=== PATIENT | female | born 1945 | race Caucasian/White ===

== ENCOUNTER 2020-10-25 07:43 | Outpatient (REF) | payer MEDICARE, SELFPAY ==
[2020-10-25 11:17] LABS: MANUAL DIFF FLAG NO
[2020-10-25 11:25] LABS: Basophils Percent Auto 0.3 % (0-2); Eosinophils Absolute Auto 0.1 X10*3/uL (0.0-0.4); Eosinophils Percent Auto 0.7 % (0-4); Hematocrit 43.5 % (37-47); Hemoglobin 13.8 g/dl (12.0-16.0); Imm Gran Abs Auto 0.05 X10*3/uL (0.00-0.03); Imm Gran Pct Auto 0.7 % (0.0-0.4); Lymphocytes Absolute Auto 2.3 X10*3/uL (1.2-4.9); Lymphocytes Percent Auto 30.8 % (20-40); Mean Corpuscular HGB Conc 31.7 g/dl (31.0-35.0); Mean Corpuscular Hemoglobin 28.8 pg (27.0-33.0); Mean Corpuscular Volume 90.8 fL (80-98); Mean Platelet Volume 11.5 fL (9.4-12.3); Monocytes Absolute Auto 0.7 X10*3/uL (0.1-1.2); Monocytes Percent Auto 8.7 % (2-11); Neutrophils Absolute Auto 4.4 X10*3/uL (2.0-8.3); Neutrophils Percent Auto 58.8 % (45-73); Platelet Count 192 X10*3/uL (160-400); Red Blood Count 4.79 X10*6/uL (4.20-5.50); Red Cell Distribution Width 14.2 % (11.0-16.0); White Blood Count 7.5 X10*3/uL (4.8-10.8)
[2020-10-25 11:47] LABS: Alanine Aminotransferase 9 U/L (0-31); Albumin Level 4.6 g/dL (3.5-5.0); Alkaline Phosphatase 65 U/L (39-117); Anion Gap 14 (12-20); Aspartate Amino Transferase 13 U/L (5-31); Bilirubin Total 0.8 mg/dL (0.0-1.0); Blood Urea Nitrogen 22 mg/dL (9-16); Calcium 9.4 mg/dL (8.4-10.2); Carbon Dioxide 27 mmol/L (22-29); Chloride 102 mmol/L (96-108); Cholesterol 196 mg/dL; Estimated Glomerular Filt Rate 40; Glucose Fasting 78 mg/dL (60-99); HDL Cholesterol 57 mg/dL; LDL Cholesterol Calculated 106 mg/dl; Potassium 4.4 mmol/l (3.3-5.1); Sodium 139 mmol/L (135-145); Total Protein 7.3 g/dL (6.5-8.0); Triglycerides 168 mg/dL
[2020-10-25 12:13] LABS: Free T4 (Free Thyroxine) 1.27 ng/dL (0.71-1.85); Thyroid Stimulating Hormone 6.21 uIU/mL (0.32-4.0)
== END 2020-10-25 07:44 | disposition home or self-care (01) ==
LOC: HO.HMGCLDS 07:43
PROVIDERS: PCP Internal Medicine Medical Oncology; Visit Provider Internal Medicine Medical Oncology
DX: C91.10 Chronic lymphocytic leukemia of B-cell type not having achieved remission (principal); E66.9 Obesity, unspecified; I10 Essential (primary) hypertension
CPT/HCPCS: 36415; 80053; 80061; 84439; 84443; 85025

== ENCOUNTER 2021-01-25 07:44 | Outpatient (REF) | payer MEDICARE, SELFPAY ==
[2021-01-25 11:13] LABS: MANUAL DIFF FLAG NO
[2021-01-25 11:22] LABS: Basophils Percent Auto 0.3 % (0-2); Eosinophils Percent Auto 0.6 % (0-4); Hematocrit 41.8 % (37-47); Hemoglobin 13.4 g/dl (12.0-16.0); Imm Gran Abs Auto 0.07 X10*3/uL (0.00-0.03); Lymphocytes Absolute Auto 1.9 X10*3/uL (1.2-4.9); Lymphocytes Percent Auto 27.1 % (20-40); Mean Corpuscular HGB Conc 32.1 g/dl (31.0-35.0); Mean Corpuscular Hemoglobin 29.1 pg (27.0-33.0); Mean Corpuscular Volume 90.7 fL (80-98); Mean Platelet Volume 11.7 fL (9.4-12.3); Monocytes Absolute Auto 0.7 X10*3/uL (0.1-1.2); Neutrophils Absolute Auto 4.2 X10*3/uL (2.0-8.3); Platelet Count 200 X10*3/uL (160-400); Red Blood Count 4.61 X10*6/uL (4.20-5.50); Red Cell Distribution Width 14.4 % (11.0-16.0); White Blood Count 6.9 X10*3/uL (4.8-10.8)
[2021-01-25 13:48] LABS: Alanine Aminotransferase 7 U/L (0-31); Albumin Level 4.5 g/dL (3.5-5.0); Alkaline Phosphatase 67 U/L (39-117); Anion Gap 16 (12-20); Aspartate Amino Transferase 13 U/L (5-31); Blood Urea Nitrogen 31 mg/dL (9-16); Calcium 9.6 mg/dL (8.4-10.2); Carbon Dioxide 28 mmol/L (22-29); Chloride 102 mmol/L (96-108); Cholesterol 218 mg/dL; Estimated Glomerular Filt Rate 36; Glucose Fasting 89 mg/dL (60-99); HDL Cholesterol 54 mg/dL; LDL Cholesterol Calculated 132 mg/dl; Potassium 4.4 mmol/L (3.3-5.1); Sodium 142 mmol/L (135-145); Total Protein 7.3 g/dL (6.5-8.0); Triglycerides 160 mg/dL
[2021-01-25 14:10] LABS: Thyroid Stimulating Hormone 6.79 uIU/mL (0.32-4.0)
[2021-01-25 14:19] LABS: Free T4 (Free Thyroxine) 1.21 ng/dL (0.71-1.85)
== END 2021-01-25 07:45 | disposition home or self-care (01) ==
LOC: HO.HMGCLDS 07:44
PROVIDERS: PCP Internal Medicine Medical Oncology; Visit Provider Internal Medicine Medical Oncology
DX: C91.10 Chronic lymphocytic leukemia of B-cell type not having achieved remission (principal); I10 Essential (primary) hypertension; E03.9 Hypothyroidism, unspecified; N28.9 Disorder of kidney and ureter, unspecified
CPT/HCPCS: 36415; 80053; 80061; 84439; 84443; 85025

== ENCOUNTER 2021-04-20 09:35 | Inpatient (IN) | payer MEDICARE, SELFPAY ==
[2021-04-20] VITALS (18 sets, daily range): BP systolic 98–153; BP diastolic 64–94; PULSE 119–180; RESP 17–30; TEMP 36.4–36.8; O2SAT 95–100; BMI 36.0
--- NOTE | ~2021-04-20 | XR_ITS ---
EXAMINATION: XR CHEST CLINICAL INFORMATION: Dyspnea COMPARISON: Previous chest x-ray November 2017 TECHNIQUE: Frontal view of the chest was obtained. FINDINGS: The cardiac and mediastinal contours are stable. There is subsegmental atelectasis at the left lung base. The lungs are otherwise clear. There is no pleural effusion or pneumothorax. There are degenerative changes of the spine. XR/XR chest 1V IMPRESSION: No evidence for acute disease in the chest.
--- NOTE | ~2021-04-20 | NM_ITS ---
EXAMINATION: NM LUNG IMAGE PERFUSION CLINICAL INFORMATION: Dyspnea with elevated d-dimer COMPARISON: Chest x-ray 04/20/2021 TECHNIQUE: Following intravenous administration of 4 mCi of 99m Tc MAA imaging of both lungs were obtained in multiple projections. FINDINGS: On perfusion imaging there is normal flow seen through all segments of the lungs. No focal segmental or subsegmental defects seen. The soft tissues are normal. NM/FL pul perfusion IMPRESSION: Normal perfusion scan.
--- NOTE | 2021-04-20 08:55 | ECG_ITS ---
Test Reason : SOB Blood Pressure : / mmHG Vent. Rate : 185 BPM Atrial Rate : 178 BPM P-R Int : 000 ms QRS Dur : 084 ms QT Int : 238 ms P-R-T Axes : 000 093 -86 degrees QTc Int : 417 ms Atrial fibrillation with rapid ventricular response with premature ventricular or aberrantly conducted complexes Rightward axis ST & T wave abnormality, consider lateral ischemia Abnormal ECG When compared with ECG of 24-NOV-2017 22:10, Significant changes have occurred Referred By: Viviana Cordero Electronically Signed By:REMA YAO
--- NOTE | 2021-04-20 09:53 | ED_ITS ---
HPI - SOB/Dyspnea General Chief Complaint: Dyspnea Stated Complaint: difficulty breathing, body swelling x 2 weeks Time Seen by Provider: 04/20/21 09:47 Source: patient and family Mode of arrival: ambulatory Limitations: no limitations History of Present Illness HPI Narrative: 75 yo female with hx of HTN, hypothyroidism, leukemia but in remission for 2 years found to have dyspnea and LE edema for 6 days no fevers, no prior episodes of this in the past MD elicited complaint: shortness of breath Pertinent past history: other (HTN, leukemia in remission) Onset (ago): day(s) (6) Timing: constant Severity: moderate Exacerbating factors: lying flat and exertion Relieving factors: rest Associated symptoms: orthopnea and palpitations Treatment prior to arrival: none Related Data Home Medications Medication Instructions Recorded Confirmed hydrochlorothiazide 1 tab PO QAM 04/20/21 04/20/21 ibrutinib [Imbruvica] 1 tab PO DAILY 04/20/21 04/20/21 levothyroxine [Euthyrox] 1 tab PO DAILY 04/20/21 04/20/21 potassium chloride 2.5 meq PO DAILY 04/20/21 04/20/21 Allergies Allergy/AdvReac Type Severity Reaction Status Date / Time Sulfa (Sulfonamide Allergy Unknown DIFFICULTY Unverified 07/22/20 14:49 Antibiotics) BREATHING [SULFA(SULFONAMIDE ANTIBIOTICS)] sulfamethoxazole Allergy Unknown DIARRHEA, Unverified 07/22/20 14:49 [From BACTRIM] VOMTING, RASH trimethoprim [From BACTRIM] Allergy Unknown DIARRHEA, Unverified 07/22/20 14:49 VOMTING, RASH Review of Systems Review of Systems: Constitutional : No Fever, No Chills ENT/Mouth : No sore throat, No Rhinorrhea, No Swallowing Difficulty Eyes: No Eye Pain, No Swelling, No Redness Cardiovascular : No Chest Pain, positive SOB, No Orthopnea, positive Edema, pos palpitations Respiratory : No Cough, No Sputum, No Wheezing, positive dyspnea Gastrointestinal : No Nausea, No Vomiting, No Diarrhea, No abdominal Pain, No Hematochezia, No Melena Genitourinary : No Dysuria, No Urinary Frequency, No Hematuria Musculoskeletal : No joint pain, No Myalgias Skin : No Skin Lesions, No rash Neuro : No Weakness, No Numbness, No Dizziness, No Headache Psych : No Anxiety/Panic, No Depression Heme/Lymph: No Bruising, No Lymphadenopathy Endocrine : No Polyuria, No Polydipsia All other systems reviewed and are negative [facility] Past Medical History Attestation statement: The following information was validated with the patient. Medical History Hypertension Hypothyroid Leukemia in remission Social History Social History (Updated 04/20/21 @ 10:17 by Viviana Cordero DO) Patient Tobacco Use Status: Never used Tobacco Use of substances other than those prescribed or required for medical reasons: No Advance Directives: No Advance Directives Information Provided: No Physical Exam Vital Signs: Vital Signs: Last Vital Signs Pulse 132 H 04/20/21 12:52 Resp 17 04/20/21 12:52 BP 117/69 04/20/21 12:52 Pulse Ox 98 04/20/21 12:52 Body Mass Index 36.0 Appearance: Alert. Oriented X3. No acute distress. Eyes: Pupils equal, round and reactive to light. ENT: Pharynx normal. Neck: Normal inspection. Neck supple. CVS: tachycardic and irregular heart rate and rhythm. Pulses normal. Respiratory: No respiratory distress. Breath sounds rales in both bases Abdomen: Soft and nontender. Skin: Skin warm and dry. Normal skin color. Normal skin turgor. Extremities: + pitting 2+ pitting edema bilateral LE No calf ttp Neuro: Oriented X 3. No motor deficit. No sensory deficit. Course Course Course Narrative: no response to initial dilt will repeat, IV lasix ordered as well likely dilt drip needed will give additional iv metoprolol given no response to dilt - discussed with Dr. Bush once better rate controlled will admit repeat metoprolol down to 130s, admit to hospitalist MDM - SOB/Dyspnea MDM Narrative Medical decision making narrative: 75 yo female with hx of HTN, hypothyroidism, leukemia but in remission for 2 years found to have dyspnea and LE edema for 6 days on EKG in afib with RVR and rales/edema at this time IV dilt ordered, labs, ddimer, CXR, IV lasix, anticipate afib causing her CHF - no chest pain at this time, likely admission needed Lab Data Result diagrams: 04/20/21 10:00 04/20/21 10:00 Labs: Lab Results 06/04/20/21 04/20/21 Range/Units 10:00 10:00 10:00 WBC 9.9 (4.8-10.8) X10*3/uL RBC 4.39 (4.20-5.50) X10*6/uL Hgb 12.5 (12.0-16.0) g/dl Hct 39.7 (37-47) % MCV 90.4 (80-98) fL MCH 28.5 (27.0-33.0) pg MCHC 31.5 (31.0-35.0) g/dl RDW 14.9 (11.0-16.0) % Plt Count 257 D (160-400) X10*3/uL MPV 11.8 (9.4-12.3) fL Immature Gran % (Auto) 0.4 (0.0-0.4) % Neut % (Auto) 66.3 (45-73) % Lymph % (Auto) 24.6 (20-40) % [place] % (Auto) 8.1 (2-11) % Eos % (Auto) 0.4 (0-4) % Baso % (Auto) 0.2 (0-2) % Lymph # (Auto) 2.4 (1.2-4.9) X10*3/uL [place] # (Auto) 0.8 (0.1-1.2) X10*3/uL Eos # (Auto) 0.0 (0.0-0.4) X10*3/uL Baso # (Auto) 0.0 (0.0-0.2) X10*3/uL Abs Immat Gran (auto) 0.04 H (0.00-0.03) X10*3/uL Absolute Neuts (auto) 6.6 (2.0-8.3) X10*3/uL Absolute Nucleated RBC 0.000 (0.0-0.012) X10*3/uL Nucleated RBC % (auto) 0.0 (0.0-0.2) /100WBC PT 12.1 (10.8-13.0) SEC INR 1.0 (0.9-1.1) APTT 27.5 (24.1-38.0) SEC D-Dimer 888 NG/ML Sodium (135-145) mmol/L Potassium (3.3-5.1) mmol/L Chloride (96-108) mmol/L Carbon Dioxide (22-29) mmol/L Anion Gap (12-20) BUN (9-16) mg/dL Creatinine (0.5-1.4) mg/dL Estim Creat Clear Calc Estimated GFR Random Glucose (60-115) mg/dL Calcium (8.4-10.2) mg/dL Magnesium (1.6-2.6) mg/dL Total Bilirubin (0.0-1.0) mg/dL Direct Bilirubin (0.0-0.5) mg/dL AST (5-31) U/L ALT (0-31) U/L Alkaline Phosphatase (39-117) U/L Troponin I High Sens (<3.5-17.0) ng/L B-Natriuretic Peptide (<100) pg/mL Total Protein (6.5-8.0) g/dL Albumin (3.5-5.0) g/dL TSH 3.60 (0.32-4.0) uIU/mL COVID-19 (PHYLLIS) (Negative) COVID-19 Clin Com 04/20/21 04/20/21 04/20/21 Range/Units 10:00 10:00 10:00 WBC (4.8-10.8) X10*3/uL RBC (4.20-5.50) X10*6/uL Hgb (12.0-16.0) g/dl Hct (37-47) % MCV (80-98) fL MCH (27.0-33.0) pg MCHC (31.0-35.0) g/dl RDW (11.0-16.0) % Plt Count (160-400) X10*3/uL MPV (9.4-12.3) fL Immature Gran % (Auto) (0.0-0.4) % Neut % (Auto) (45-73) % Lymph % (Auto) (20-40) % [place] % (Auto) (2-11) % Eos % (Auto) (0-4) % Baso % (Auto) (0-2) % Lymph # (Auto) (1.2-4.9) X10*3/uL [place] # (Auto) (0.1-1.2) X10*3/uL Eos # (Auto) (0.0-0.4) X10*3/uL Baso # (Auto) (0.0-0.2) X10*3/uL Abs Immat Gran (auto) (0.00-0.03) X10*3/uL Absolute Neuts (auto) (2.0-8.3) X10*3/uL Absolute Nucleated RBC (0.0-0.012) X10*3/uL Nucleated RBC % (auto) (0.0-0.2) /100WBC PT (10.8-13.0) SEC INR (0.9-1.1) APTT (24.1-38.0) SEC D-Dimer NG/ML Sodium 140 (135-145) mmol/L Potassium 3.6 (3.3-5.1) mmol/L Chloride 104 (96-108) mmol/L Carbon Dioxide 23 (22-29) mmol/L Anion Gap 17 (12-20) BUN 24 H (9-16) mg/dL Creatinine 1.53 H (0.5-1.4) mg/dL Estim Creat Clear Calc 36.6 Estimated GFR 33 Random Glucose 108 (60-115) mg/dL Calcium 9.4 (8.4-10.2) mg/dL Magnesium 2.2 (1.6-2.6) mg/dL Total Bilirubin 1.4 H (0.0-1.0) mg/dL Direct Bilirubin 0.5 (0.0-0.5) mg/dL AST 14 (5-31) U/L ALT 12 (0-31) U/L Alkaline Phosphatase 87 D (39-117) U/L Troponin I High Sens 9.0 (<3.5-17.0) ng/L B-Natriuretic Peptide 148 H (<100) pg/mL Total Protein 7.1 (6.5-8.0) g/dL Albumin 4.4 (3.5-5.0) g/dL TSH (0.32-4.0) uIU/mL COVID-19 (PHYLLIS) Negative (Negative) COVID-19 Clin Com See Note ECG Data Attestation: I personally reviewed and interpreted this ECG as follows: ECG interpretation date: 04/20/21 ECG interpretation time: 09:56 Interpretation: Rate: 180s Rhythm: afib with RVR [place]: normal Normal QRS complex. ST T wave : inverstion in lateral leads and inf leads qTC: normal prior studies: changed from prior The study has been interpreted contemporaneously by me. . Critical Care Time Critical Care Time Critical Care Time: Yes Total Critical Care Time: 60 Attestation: repeat IV medictions, diltiazem gtt I attest to this time spent taking care of the patient Discharge Plan Discharge Clinical Impression: Pedal edema, Atrial fibrillation with rapid ventricular response, Acute dyspnea Patient Disposition: Admitted As Inpatient Prescriptions: No Action Imbruvica 420 mg tablet 1 tab PO DAILY RF: 0 levothyroxine [Euthyrox] 75 mcg tablet 1 tab PO DAILY RF: 0 hydrochlorothiazide 25 mg tablet 1 tab PO QAM RF: 0 potassium chloride 2.5 mEq Tablet 2.5 meq PO DAILY RF: 0
[2021-04-20] MEDS: dilTIAZem HCL 50 MG/10 ML VIAL 10 MG IVPUSH ×2 (10:10→10:35)
[2021-04-20 10:11] LABS: MANUAL DIFF FLAG NO
[2021-04-20 10:14] LABS: Basophils Percent Auto 0.2 % (0-2); Eosinophils Percent Auto 0.4 % (0-4); Hematocrit 39.7 % (37-47); Hemoglobin 12.5 g/dl (12.0-16.0); Imm Gran Abs Auto 0.04 X10*3/uL (0.00-0.03); Imm Gran Pct Auto 0.4 % (0.0-0.4); Lymphocytes Absolute Auto 2.4 X10*3/uL (1.2-4.9); Lymphocytes Percent Auto 24.6 % (20-40); Mean Corpuscular HGB Conc 31.5 g/dl (31.0-35.0); Mean Corpuscular Hemoglobin 28.5 pg (27.0-33.0); Mean Corpuscular Volume 90.4 fL (80-98); Mean Platelet Volume 11.8 fL (9.4-12.3); Monocytes Absolute Auto 0.8 X10*3/uL (0.1-1.2); Monocytes Percent Auto 8.1 % (2-11); Neutrophils Absolute Auto 6.6 X10*3/uL (2.0-8.3); Neutrophils Percent Auto 66.3 % (45-73); Platelet Count 257 X10*3/uL (160-400); Red Blood Count 4.39 X10*6/uL (4.20-5.50); Red Cell Distribution Width 14.9 % (11.0-16.0); White Blood Count 9.9 X10*3/uL (4.8-10.8)
[2021-04-20 10:19] LABS: Prothrombin Time 12.1 SEC (10.8-13.0)
[2021-04-20 10:22] LABS: D Dimer 888 NG/ML; Partial Thromboplastin Time 27.5 SEC (24.1-38.0)
[2021-04-20 10:24] LABS: COVID-19 Test Negative (Negative); IDNOW Serial# 9DD0AD1C
[2021-04-20] MEDS: dilTIAZem HCL 125 MG in 0.9 % Sodium Chloride 100 ML 10 MG IVCONT (10:25)
[2021-04-20] MEDS: Furosemide 20 MG/2 ML VIAL IVPUSH (10:36)
--- NOTE | 2021-04-20 10:42 | PC.NURSE ---
Cardizem increased to 15mg/h
[2021-04-20 10:46] LABS: Alanine Aminotransferase 12 U/L (0-31); Albumin Level 4.4 g/dL (3.5-5.0); Alkaline Phosphatase 87 U/L (39-117); Anion Gap 17 (12-20); Aspartate Amino Transferase 14 U/L (5-31); B Type Natriuretic Peptide 148 pg/mL (<100); Bilirubin Direct 0.5 mg/dL (0.0-0.5); Bilirubin Total 1.4 mg/dL (0.0-1.0); Blood Urea Nitrogen 24 mg/dL (9-16); Calcium 9.4 mg/dL (8.4-10.2); Carbon Dioxide 23 mmol/L (22-29); Chloride 104 mmol/L (96-108); Creatinine Clr Calc Pharmacy 36.6; Estimated Glomerular Filt Rate 33; Glucose Random 108 mg/dL (60-115); Magnesium 2.2 mg/dL (1.6-2.6); Potassium 3.6 mmol/L (3.3-5.1); Sodium 140 mmol/L (135-145); Total Protein 7.1 g/dL (6.5-8.0)
--- NOTE | 2021-04-20 11:10 | PC.NURSE ---
pt up to commode, becoming significantly sob with exertion. HR in 180s, cardizem gtt running
[2021-04-20] MEDS: Metoprolol Tartrate 5 MG/5 ML VIAL IVPUSH ×2 (12:46→13:16)
--- NOTE | 2021-04-20 15:53 | P.HPHOSP_ITS ---
History of Present Illness Date of Service: 04/20/21 Chief Complaint: Shortness of breath 75-year-old female with hypertension, hypothyroidism, history of leukemia, treated about 2 years ago and has been in remission,she has difficulty with hearing, and she is not regular with PCP follow ups. She presents to the emergency room today accompanying by her son. She has been having difficulty breathing for about a week now down and is associated with increased lower extremity edema, her symptom has been much more pronounced over the last 24 hours and has also been having palpitation and not able to catch her breath. She has PND and orthopnea. Workup in the emergency room revealed atrial fibrillation with heart rates as high as 150, VQ scna is negative for PE despite elevated DDimer. BNP level is around 150. CXR is clear, troponin is normal. AFIB is treated with IV cardizem with better rate but reamins high Review of Systems Review of Systems: Gen: no fever Resp: + sob, no cough CV: no chest, + TIRADO, + leg edema GI: No n/v, no abd pain Neuro: No confusion Yes all other systems are reviewed and are negative [facility] Medical History Hypertension Hypothyroid Leukemia in remission Social History Alcohol intake: former Patient Tobacco Use Status: Never used Tobacco Use of substances other than those prescribed or required for medical reasons: No Advance Directives: No Advance Directives Information Provided: No Meds Allergies Allergy/AdvReac Type Severity Reaction Status Date / Time Sulfa (Sulfonamide Allergy Unknown DIFFICULTY Unverified 07/22/20 14:49 Antibiotics) BREATHING [SULFA(SULFONAMIDE ANTIBIOTICS)] sulfamethoxazole Allergy Unknown DIARRHEA, Unverified 07/22/20 14:49 [From BACTRIM] VOMTING, RASH trimethoprim [From BACTRIM] Allergy Unknown DIARRHEA, Unverified 07/22/20 14:49 VOMTING, RASH Active Medications: Current Medications Generic Name Dose Route Start Last Admin Trade Name Freq PRN Reason Stop Dose Admin Diltiazem HCl 125 mg/ Sodium 125 mls @ 0 mls/hr 04/20/21 10:15 04/20/21 10:25 Chloride IVCONT 10 mg/hr .Q0M CARMELA 10 mls/hr Administration Protocol Per Protocol Pharmacy Consult 1 each 04/20/21 09:51 Consult Rx Perform Med Rec MISCELLANE ONCE PRN Consult order Sodium Chloride 3 ml 04/20/21 16:00 0.9 % Sodium Chloride Flush 3 Ml Syringe IVFLUSH QSHIFT [facility] Home Medications Medication Instructions Recorded Confirmed Last Taken Type hydrochlorothiazide 1 tab PO QAM 04/20/21 04/20/21 04/19/21 History ibrutinib [Imbruvica] 1 tab PO DAILY 04/20/21 04/20/21 04/19/21 History levothyroxine [Euthyrox] 1 tab PO DAILY 04/20/21 04/20/21 04/19/21 History potassium chloride 2.5 meq PO DAILY 04/20/21 04/20/21 Unknown History Physical Exam Vital Signs and Narrative: Vital Signs: Last Vital Signs Temp 97.8 F 04/20/21 15:10 Pulse 146 H 04/20/21 15:10 Resp 25 H 04/20/21 15:10 BP 121/64 04/20/21 15:10 Pulse Ox 98 04/20/21 15:10 Body Mass Index 36.0 Const: Other: Constitutional Awake and Alert, No apparent distress, she is very hard of he aring HEENT PERRLA, EOMI Neck Supple, No lymphadenopathy Cardiovascular iregular iregular, No M/R/G, S1 S2, No S3 S4, 1 to 2 + pedal edema Respiratory Lungs clear, No respiratory distress Gastrointestinal Non tender, Non-distended Heme/onco No lymphadema Skin No rash Neurological Alert & oriented x3 Psychological Appropriate affect Results Labs CBC and Chem 7: 04/20/21 10:00 04/20/21 10:00 Labs: Laboratory Results - last 24 hr 04/20/21 04/20/21 04/20/21 10:00 10:00 10:00 MCV 90.4 MCH 28.5 MCHC 31.5 RDW 14.9 Plt Count 257 D MPV 11.8 Immature Gran % (Auto) 0.4 Neut % (Auto) 66.3 Lymph % (Auto) 24.6 [place] % (Auto) 8.1 Eos % (Auto) 0.4 Baso % (Auto) 0.2 Lymph # (Auto) 2.4 [place] # (Auto) 0.8 Eos # (Auto) 0.0 Baso # (Auto) 0.0 Abs Immat Gran (auto) 0.04 H Absolute Neuts (auto) 6.6 Absolute Nucleated RBC 0.000 Nucleated RBC % (auto) 0.0 PT 12.1 INR 1.0 APTT 27.5 D-Dimer 888 Anion Gap Estim Creat Clear Calc Estimated GFR Random Glucose Calcium Magnesium Total Bilirubin Direct Bilirubin AST ALT Alkaline Phosphatase Troponin I High Sens B-Natriuretic Peptide Total Protein Albumin TSH 3.60 COVID-19 (PHYLLIS) COVID-19 Clin Com 04/20/21 04/20/21 04/20/21 10:00 10:00 10:00 MCV MCH MCHC RDW Plt Count MPV Immature Gran % (Auto) Neut % (Auto) Lymph % (Auto) [place] % (Auto) Eos % (Auto) Baso % (Auto) Lymph # (Auto) [place] # (Auto) Eos # (Auto) Baso # (Auto) Abs Immat Gran (auto) Absolute Neuts (auto) Absolute Nucleated RBC Nucleated RBC % (auto) PT INR APTT D-Dimer Anion Gap 17 Estim Creat Clear Calc 36.6 Estimated GFR 33 Random Glucose 108 Calcium 9.4 Magnesium 2.2 Total Bilirubin 1.4 H Direct Bilirubin 0.5 AST 14 ALT 12 Alkaline Phosphatase 87 D Troponin I High Sens 9.0 B-Natriuretic Peptide 148 H Total Protein 7.1 Albumin 4.4 TSH COVID-19 (PHYLLIS) Negative COVID-19 Clin Com See Note Imaging Radiologist's Impressions: Impressions Chest X-Ray 04/20/21 09:52 IMPRESSION: No evidence for acute disease in the chest. Pulmonary Perfusion Imaging 04/20/21 10:51 IMPRESSION: Normal perfusion scan. Assessment and Plan (1) Atrial fibrillation with rapid ventricular response: Status: Acute (2) Acute dyspnea: Status: Acute (3) Pedal edema: Status: Acute (4) Mild congestive heart failure: Status: Acute Atrial fibrillation with rapid ventricular response--rate is persistently high -continue IV Cardizem drip -if needed at the digoxin -cardiology consultation -check TSH level -get echocardiogram tomorrow. -stroke prevention with Eliquis Mild heart failure--likely acute diastolic heart failure precipitated by atrial fibrillation rapid ventricular response, she had received IV Lasix. Will reassess tomorrow. Hypertension--usually on not hydrochlorothiazide. Hold this while on Lasix, consider med such as Norvasc are Coreg. Hypothyroidism--check TSH level and continue levothyroxine and adjust as needed. 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 Matta for management of this. Renal failure--could be CKD or YEISON, monitor DVT prophylaxis--Eliquis which is be used for atrial fibrillation stroke prevention as well Quality Stroke Does the patient have a stroke diagnosis?: No VTE Prior VTE?: No VTE Risk Level:: Medical - moderate - high VTE Device Contraindication: N/A - Device Ordered VTE Drug Contraindication: N/A - Med Ordered
[2021-04-20 16:10] LABS: Thyroid Stimulating Hormone 4.12 uIU/mL (0.32-4.0)
--- NOTE | 2021-04-20 16:55 | MHC.CM.PN ---
CM met with pt and son. Pt is SOB with extended conversations. IMM reviewed and signed per protocol 04/20/21@4240. Pt lives with . Has a walker for occasional usage and has no services at home. Pt feels safe at home. Has help if needed from family. HCP reviewed, completed, and signed per protocol. [facility]. D/C plan is home without services vs STR pending hospital course. Pt may need PT and RT evaluations prior to d/c. Transportation by son. CM to follow for d/c needs.
[2021-04-20] MEDS: Apixaban 5 MG TABLET PO (18:08)
--- NOTE | 2021-04-20 20:12 | PC.NURSE ---
REPORT TO RN GIVEN. HAVE BEEN SPEAKING WITH HOSPITALIST RE: UNCONTROLLED HRS. AT FIRST, DUE TO CARDIZEM GTT RUNNING OUT. ONCE REPLACED, HR IMPROVED 120S-130S. UP TO 150S WITH ANY EXERTION. ORDER REC'D FOR DIGOXIN.
[2021-04-20] MEDS: Digoxin 0.5 MG/2 ML AMPUL 0.25 MG IVPUSH (20:30)
[2021-04-20] MEDS: dilTIAZem HCL 125 MG in 0.9 % Sodium Chloride 100 ML 15 MG IVCONT (23:17)
[2021-04-21] VITALS (14 sets, daily range): BP systolic 102–136; BP diastolic 53–89; PULSE 73–131; RESP 16–30; TEMP 36.1–37.1; O2SAT 91–100
[2021-04-21] MEDS: 0.9 % Sodium Chloride Flush 3 ML SYRINGE IVFLUSH ×3 (00:32→15:05)
[2021-04-21] MEDS: Digoxin 0.5 MG/2 ML AMPUL 0.25 MG IVPUSH (02:12)
[2021-04-21] MEDS: Metoprolol Tartrate 5 MG/5 ML VIAL 2.5 MG IVPUSH (03:46)
[2021-04-21 07:08] LABS: Anion Gap 12 (12-20); Blood Urea Nitrogen 22 mg/dL (9-16); Calcium 8.9 mg/dL (8.4-10.2); Carbon Dioxide 26 mmol/L (22-29); Chloride 105 mmol/L (96-108); Creatinine Clr Calc Pharmacy 41.5; Estimated Glomerular Filt Rate 38; Glucose Random 97 mg/dL (60-115); Potassium 3.3 mmol/L (3.3-5.1); Sodium 140 mmol/L (135-145)
--- NOTE | 2021-04-21 07:30 | CA_ITS ---
Transthoracic Echocardiogram Patient (Last, First, Middle): Sheyla Gutierrez P Gender: Female Date of : 1945 Age: 75 Procedure Date: 04/21/2021 Procedure Type: Transthoracic Echocardiogram [place] [facility] [place] Height: 162.56 cm Weight: 95.26 kg BSA: 2.00 m2 Heart Rate: bpm BP: 107 / 66 mmHg Personnel Clerks Supervisor: TYREE Referring MD: Topher Oates MD Symptoms: heart failure and afib Study Quality: Fair ECG Rhythm: Atrial Fibrillation Conclusions: - Difficult to assess LVEF due to atrial fibrillation as well as poor endocardial definition. Probably about 40%-45%. - There is moderate posterior mitral annular calcification. - There is a small circumferential pericardial effusion. Findings Left Ventricle Normal left ventricular cavity size. There is normal left ventricular wall thickness. The left ventricular systolic function is mildly decreased. Diastolic function is indeterminate on the basis of available data. Difficult to assess LVEF due to atrial fibrillation as well as poor endocardial definition. Probably about 40%-45%. Right Ventricle Normal right ventricular cavity size. There is low normal right ventricular systolic function. Atria Both atria are normal in size. Aortic Valve There is a normal trileaflet aortic valve. There is no aortic valve stenosis. There is trace (trivial) aortic valve regurgitation. Mitral Valve There is moderate posterior mitral annular calcification. There is mild mitral valve regurgitation. There is no mitral valve stenosis. Pulmonic Valve The pulmonic valve was not well visualized. There is trace pulmonic valve regurgitation. Tricuspid Valve Normal tricuspid valve structure. There is mild tricuspid valve regurgitation. The right ventricular systolic pressure is 33 mmHg. The pulmonary artery systolic pressure is normal. Great Vessels The asc aorta is normal in size. Venous The inferior vena cava is normal in size and collapses less than 50% with inspiration. Pericardium/Pleural There is a small circumferential pericardial effusion. Prior Study Comparison No prior study available for comparison. Measurements M-Mode Liner Measurements Normals - Women/Men AOV Cusps: 1.90 1.5-2.6 cm/m2 2D Linear Measurements IVSd: 1.07 0.6-0.9/0.6-1.0 cm LVIDd: 3.94 3.9-5.3/4.2-5.9 cm LVIDd Index: 1.97 2.4-3.2/2.2-3.1 cm/m2 LVIDs: 3.04 2.0-3.6 cm LVPWd: 0.95 0.7-1.1 cm Ao Root: 2.40 2.1-3.5 cm LA Diam: 4.50 2.7-3.8/3.0-4.0 cm LAIDs Index: 2.25 1.5-2.3 cm/m2 LV Mass: 156.46 67-162/88-224 g LV Mass Index: 78.23 43-95/49-115 g/m2 LVOT Diam: 1.70 3.0+(-)1.3 cm 2D Systolic Function EF 4C: 35.90 >55% EF 2C: 32.20 >55% EF BiP: 33.70 >55% Mitral Valve MV VTI: 0.37 MV Pk Omer: 1.87 MV Mn Omer: 0.95 MV Pk Grad: 14.00 MV Mn Grad: 5.00 MV Pk E: 1.66 MV Decel Time: 146.00 PHT: 43.00 MVA PHT: 5.12 MVA Continuity: 0.97 Decel [place]: 11.37 Aortic Valve AoV Pk Omer: 1.36 AoV Mn Omer: 1.00 AoV VTI: 0.27 AoV Pk Grad: 7.00 Aov Mn Grad: 4.00 ADOLFO Cont.VTI: 1.33 LVOT LVOT Pk Omer: 0.90 LVOT Mn Omer: 0.63 LVOT VTI: 0.16 LVOT Pk Grad: 3.00 LVOT Mn Grad: 2.00 LVOT Diam: 1.70 LVOT Area: 2.27 Diastolic Function MV Pk E: 1.66 Tricuspid Valve TR Pk Omer: 2.48 TR Pk Grad: 25.00 RA Press: 8.00 RVSP: 33.00 Great Vessels Aorta Ao Root-2D: 2.40 2.0-3.7 cm Ao Asc: 3.20 2.1-3.4 cm Pulmonary Valve PV Pk Omer: 0.79 Peak PV Grad: 2.00 Updated in Other Vendor System with Status of Final Esvin Bush MD electronically signed on 04/21/2021 4:41:20 PM with status of Final
[2021-04-21] MEDS: dilTIAZem HCL 125 MG in 0.9 % Sodium Chloride 100 ML 15 MG IVCONT ×2 (08:14→15:06)
[2021-04-21] MEDS: Apixaban 5 MG TABLET PO ×2 (08:22→21:49)
[2021-04-21] MEDS: Metoprolol Tartrate 25 MG TABLET PO ×3 (08:27→21:49)
--- NOTE | 2021-04-21 10:20 | P.CONCA_ITS ---
History of Present Illness History of Present Illness Date of Service: 04/21/21 Consult reason: atrial fibrillation and congestive heart failure Chief complaint: New Afib, New onset CHF Narrative: This is a cardiology consultation regarding atrial fibrillation conge stive heart failure. Patient states that she never had any heart problems in the past. No history of any coronary disease myocardial infarction or cardiomyopathy or in fact any cardiac issues whatsoever. She states that recently, she has been noticing some leg swelling and shortness of breath that led to this hospitalization. She was found to have atrial fibrillation with rapid rate. Has been put on a Cardizem drip and also started on beta-blockers. She also received some digoxin overnight. In spite of all of this, she has been in atrial fibrillation. Hence we have been asked to see her. Review of Systems Review of Systems: Yes all other systems are reviewed and are negative Cardiovascular: Cardiovascular: Reports as per HPI, Reports no additional cardiovascular complaints, Denies acrocyanosis, Denies cool extremities, Denies painful fingertips, Denies chest pain, Denies chest pain at rest, Denies diaphoresis, Denies syncope, Denies irregular heart rhythm, Denies claudication, Reports leg edema, Denies lightheadedness, Denies palpitations and Reports dyspnea Respiratory: Respiratory: Reports dyspnea Neurologic: Denies syncope Endocrine: Endocrine: Denies palpitations PMFSH Past Medical History Medical History Hypertension Hypothyroid Leukemia in remission Social History Social History Household Members: Spouse Housing: House Alcohol intake: former Patient Tobacco Use Status: Never used Tobacco Use of substances other than those prescribed or required for medical reasons: No Currently Displaying Signs/Symptoms of Drug Intoxication Withdrawal: No Have you been hit, kicked, punched, or otherwise hurt by someone within the past year? If so, by whom?: No Do you feel safe in your current relationship?: Yes Is there a partner from a previous relationship who is making you feel unsafe now?: No Are you made to feel afraid or neglected: No Advance Directives: Yes Advance Directives Information Provided: No Advance Directives on File: Yes Advance Directives Date on File: 04/20/21 Do you have thoughts of harming others: None Do you have a plan to hurt others: No Plan Recently lost weight without trying: No Nutrition Risks: No Nutritional Risk Patient : No : No Poor oral hygiene: No service: No Current occupational status: retired Meds Allergies Allergy/AdvReac Type Severity Reaction Status Date / Time Sulfa (Sulfonamide Allergy Unknown DIFFICULTY Verified 04/20/21 17:55 Antibiotics) BREATHING [SULFA(SULFONAMIDE ANTIBIOTICS)] sulfamethoxazole Allergy Unknown DIARRHEA, Verified 04/20/21 17:55 [From BACTRIM] VOMTING, RASH trimethoprim [From BACTRIM] Allergy Unknown DIARRHEA, Verified 04/20/21 17:55 VOMTING, RASH Active Medications: Current Medications Generic Name Dose Route Start Last Admin Trade Name Freq PRN Reason Stop Dose Admin Apixaban 5 mg 04/21/21 09:00 04/21/21 08:22 Apixaban 5 Mg Tablet PO 5 mg BID CARMELA Administration Diltiazem HCl 125 mg/ Sodium 125 mls @ 0 mls/hr 04/20/21 10:15 04/21/21 08:14 Chloride IVCONT 15 mg/hr .Q0M CARMELA 15 mls/hr Administration Protocol Per Protocol Metoprolol Tartrate 25 mg 04/21/21 09:00 04/21/21 08:27 Metoprolol Tartrate 25 Mg Tablet PO 25 mg Q6H CARMELA Administration Protocol Non-Formulary Medication 1 tab 04/21/21 09:00 Ibrutinib [Imbruvica] PO DAILY [facility] Non-Formulary Medication 1 tab 04/21/21 09:00 Levothyroxine [Euthyrox] PO DAILY [facility] Pharmacy Consult 1 each 04/20/21 09:51 Consult Rx Perform Med Rec MISCELLANE ONCE PRN Consult order Sodium Chloride 3 ml 04/20/21 16:00 04/21/21 00:35 0.9 % Sodium Chloride Flush 3 Ml Syringe IVFLUSH 3 ml QSHIFT [facility] Administration Home Medications Medication Instructions Recorded Confirmed Last Taken Type hydrochlorothiazide 1 tab PO QAM 04/20/21 04/20/21 04/19/21 History ibrutinib [Imbruvica] 1 tab PO DAILY 04/20/21 04/20/21 04/19/21 History levothyroxine [Euthyrox] 1 tab PO DAILY 04/20/21 04/20/21 04/19/21 History potassium chloride 2.5 meq PO DAILY 04/20/21 04/20/21 Unknown History Physical Exam Vital Signs: Vital Signs: Last Vital Signs Temp 97 F 04/21/21 07:29 Pulse 85 04/21/21 09:45 Resp 16 04/21/21 07:29 BP 132/71 04/21/21 07:29 Pulse Ox 96 04/21/21 07:29 Body Mass Index 36.0 Const: General: cooperative, comfortable and no acute distress Orientation/consciousness: patient oriented x3 HENMT: Other: Unremarkable Neck: Neck: Yes normal visual inspection Chest: Chest palpation & inspection: normal inspection of the chest Resp: Auscultation: clear to auscultation bilaterally, no crackles and no wheezes Cardio: Jugular venous distension: no JVD Palpation: normal PMI Heart sounds: S1 normal heart sound present, S2 normal heart sound present, no gallops, no murmurs and no rubs GI: Palpation (GI): Soft to palpation Back/Spine/Pelvis: Other: unremarkable Skin: General skin exam: no rashes or lesions noted Neuro: General: patient oriented x3 Extrem: General: Yes edema (1+) Psych: Mental Status: mental status grossly normal Results Labs and Meds Result diagrams: 04/20/21 10:00 04/21/21 05:16 Lab results: Laboratory Results - last 24 hr 04/20/21 04/20/21 04/20/21 10:00 10:00 10:00 PT 12.1 INR 1.0 APTT 27.5 D-Dimer 888 Sodium 140 Potassium 3.6 Chloride 104 Carbon Dioxide 23 Anion Gap 17 BUN 24 H Creatinine 1.53 H Estim Creat Clear Calc 36.6 Estimated GFR 33 Random Glucose 108 Calcium 9.4 Magnesium 2.2 Total Bilirubin 1.4 H Direct Bilirubin 0.5 AST 14 ALT 12 Alkaline Phosphatase 87 D Troponin I High Sens B-Natriuretic Peptide Total Protein 7.1 Albumin 4.4 TSH 3.60 4.12 H COVID-19 ([facility]) COVID-19 Clin Com 04/20/21 04/20/21 04/21/21 10:00 10:00 05:16 PT INR APTT D-Dimer Sodium 140 Potassium 3.3 Chloride 105 Carbon Dioxide 26 Anion Gap 12 BUN 22 H Creatinine 1.35 Estim Creat Clear Calc 41.5 Estimated GFR 38 Random Glucose 97 Calcium 8.9 Magnesium Total Bilirubin Direct Bilirubin AST ALT Alkaline Phosphatase Troponin I High Sens 9.0 B-Natriuretic Peptide 148 H Total Protein Albumin TSH COVID-19 ([facility]LLIS) Negative COVID-19 Clin Com See Note ECG Attestation: I personally reviewed and interpreted this ECG as follows: Interpretation: EKG from admission with atrial fibrillation at a rate of 185/Min. There were also ST-T changes of slight depression seen in inferior and lateral leads. Currently she is in atrial fibrillation but at a slower rate. Imaging Radiologist's impression: Impressions Chest X-Ray 04/20/21 09:52 IMPRESSION: No evidence for acute disease in the chest. Pulmonary Perfusion Imaging 04/20/21 10:51 IMPRESSION: Normal perfusion scan. Assessment and Plan (1) Atrial fibrillation with rapid ventricular response: Status: Acute (2) Acute diastolic (congestive) heart failure: Status: Acute Continue Cardizem drip. She is also on more beta-blockers at be continued. Has received some digoxin and we can give some more but she seems to have some CKD and hence will be limited. Continue Eliquis. Discussed about T EE/cardioversion. Patient is somewhat hesitant but if she agrees we can try to do this tomorrow. Patient also has some loose teeth which may be an issue for NICA. In that instance may have to rate control her for 3-4 weeks and cardiovert. We will follow up with you tomorrow. Procedures Date of Service Date of Service: 04/21/21
[2021-04-21] MEDS: Digoxin 0.25 MG TABLET PO (10:47)
[2021-04-21 11:08] LABS: Glucose, Whole Blood 144 mg/dL (60-115)
--- NOTE | 2021-04-21 12:50 | P.CNHO_ITS ---
Subjective - Subjective Chief complaint: CLL/SLL Patient: known to practice within the last 3 years Consult date: 04/21/21 Primary Care Provider: Lupillo Matta MD HPI - Consult Narrative Narrative: Sheyla Gutierrez is a 75 year old female She is a 75 year old woman first seen by me for lymphocytosis in November 2018. 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 She has been treated with ibrutinib 420 mg po daily with no toxicity and resumption of a normal WBC and DIFF. She wa s admitted with new onset chf/afib. She is asymptomatic and free of adenopathy or splenomegaly. She may remain off her ibrutinib while she is here Review of Systems - Constitutional Reports fatigue - Cardiovascular Reports fast heart rate - Respiratory Reports dyspnea - Musculoskeletal Reports other - Neurologic Denies syncope [facility] Medical History: Medical History (Last Reviewed 04/20/21 @ 10:17 by Viviana Cordero DO) Hypertension Hypothyroid Leukemia in remission Social History: Social History (Last Reviewed 04/20/21 @ 15:54 by Topher Oates MD) Living Situation History: Household Members: Spouse Housing: House Alcohol History: Alcohol intake: former Tobacco History: Patient Tobacco Use Status: Never used Tobacco Substance Use History: Use of substances other than those prescribed or required for medical reasons : No Currently Displaying Signs/Symptoms of Drug Intoxication Withdrawal: No Domestic Abuse History: Have you been hit, kicked, punched, or otherwise hurt by someone within the past year? If so, by whom?: No Do you feel safe in your current relationship?: Yes Is there a partner from a previous relationship who is making you feel unsafe now?: No Are you made to feel afraid or neglected: No Advance Directives: Advance Directives: Yes Advance Directives Information Provided: No Advance Directives on File: Yes Advance Directives Date on File: 04/20/21 Homicidal Assessment: Do you have thoughts of harming others: None Do you have a plan to hurt others: No Plan Nutrition Assessment: Recently lost weight without trying: No Nutrition Risks: No Nutritional Risk Patient : No : No Poor oral hygiene: No Occupation Assessmet: service: No Current occupational status: retired Home Medications and Allergies Current Medications: Current Medications Generic Name Dose Route Start Last Admin Trade Name Freq PRN Reason Stop Dose Admin Apixaban 5 mg 04/21/21 09:00 04/21/21 08:22 Apixaban 5 Mg Tablet PO 5 mg BID CARMELA Administration Diltiazem HCl 125 mg/ Sodium 125 mls @ 0 mls/hr 04/20/21 10:15 04/21/21 08:14 Chloride IVCONT 15 mg/hr .Q0M CARMELA 15 mls/hr Administration Protocol Per Protocol Metoprolol Tartrate 25 mg 04/21/21 09:00 04/21/21 08:27 Metoprolol Tartrate 25 Mg Tablet PO 25 mg Q6H [facility] Administration Protocol Non-Formulary Medication 1 tab 04/21/21 09:00 Ibrutinib [Imbruvica] PO DAILY [facility] Non-Formulary Medication 1 tab 04/21/21 09:00 Levothyroxine [Euthyrox] PO DAILY [facility] Pharmacy Consult 1 each 04/20/21 09:51 Consult Rx Perform Med Rec MISCELLANE ONCE PRN Consult order Sodium Chloride 3 ml 04/20/21 16:00 04/21/21 00:35 0.9 % Sodium Chloride Flush 3 Ml Syringe IVFLUSH 3 ml QSHIFT [facility] Administration Home Medications Medication Instructions Recorded Confirmed Type hydrochlorothiazide 1 tab PO QAM 04/20/21 04/20/21 History ibrutinib [Imbruvica] 1 tab PO DAILY 04/20/21 04/20/21 History levothyroxine [Euthyrox] 1 tab PO DAILY 04/20/21 04/20/21 History potassium chloride 2.5 meq PO DAILY 04/20/21 04/20/21 History Allergies Allergy/AdvReac Type Severity Reaction Status Date / Time Sulfa (Sulfonamide Allergy Unknown DIFFICULTY Verified 04/20/21 17:55 Antibiotics) BREATHING [SULFA(SULFONAMIDE ANTIBIOTICS)] sulfamethoxazole Allergy Unknown DIARRHEA, Verified 04/20/21 17:55 [From BACTRIM] VOMTING, RASH trimethoprim [From BACTRIM] Allergy Unknown DIARRHEA, Verified 04/20/21 17:55 VOMTING, RASH Physical Exam Vital signs: Vital Signs Temp 97.6 F 04/21/21 11:38 Pulse 73 04/21/21 11:38 Resp 18 04/21/21 11:38 BP 136/61 04/21/21 11:38 Pulse Ox 98 04/21/21 11:38 Intake & Output 04/20/21 04/21/21 04/21/21 18:59 06:59 18:59 Intake Total 47.833 / 245.000 197.167 / 245.000 125 / 125 Output Total 500 / 500 Balance 47.833 / -255.000 -302.833 / -255.000 125 / 125 Urine Output (Average ml/kg/hr) 0.44 0.44 Intake: Intake, Oral Amount 120 / 120 Intake, IV Amount 47.833 / 125.000 77.167 / 125.000 125 / 125 dilTIAZem HCL 125 mg In 0.9 % 47.833 / 125.000 77.167 / 125.000 125 / 125 Sodium Chloride 100 ml @ Per Protocol IVCONT .Q0M [facility] Rx#: [id number] Output: Output, Urine Amount 500 / 500 Other: Weight 95.254 kg Weight 95.254 kg - Constitutional Present: no acute distress - Routine HEENT Exam Head: Present: atraumatic - Routine Respiratory Exam Present: rales - Routine Cardiovascular Exam Cardiovascular: Present: irregular rhythm - Routine Abdominal Exam Present: nontender - Routine Exam Patient deferred: external exam - Routine Extremities Exam Present: pedal edema - Routine Back/Spine/Pelvis Exam Back/Spine: Present: full ROM - Routine Skin Exam Present: intact Hem/Onc Consult Result - Labs CBC & Chem 7: 04/20/21 10:00 04/21/21 05:16 Labs: BMP 04/21/21 05:16 Sodium 140 Potassium 3.3 Chloride 105 Carbon Dioxide 26 BUN 22 H Creatinine 1.35 Calcium 8.9 Assessment and Plan (1) CLL (chronic lymphocytic leukemia) Status: Acute She is stable and I will follow with you. She may be allowed to miss the ibrutinib while she is here.
--- NOTE | 2021-04-21 13:04 | P.PNIM_ITS ---
Subjective Subjective Date of Service: 04/21/21 Interval History: Seen and examined this morning in follow-up for new onset atrial fibrillation and CHF Continues to be tachycardic. Patient reports significant improvement in breathing. Denies palpitations, chest pain Review of Systems Review of Systems: Yes all other systems are reviewed and are negative Constitutional Constitutional: Denies chills and Denies fever(s) Cardiovascular Cardiovascular: Denies chest pain, Denies palpitations and Reports dyspnea Respiratory Respiratory: Denies cough and Reports dyspnea Gastrointestinal Gastrointestinal: Denies abdominal pain Endocrine Endocrine: Denies palpitations Physical Exam Vital Signs: Vital Signs: Last Vital Signs Temp 97.6 F 04/21/21 11:38 Pulse 73 04/21/21 11:38 Resp 18 04/21/21 11:38 BP 136/61 04/21/21 11:38 Pulse Ox 98 04/21/21 11:38 Body Mass Index 36.0 Const: Nutritional Appearance: well nourished HENMT: Head: Yes normocephalic and Yes atraumatic Eyes: Sclerae: sclerae normal Chest: Chest palpation & inspection: normal inspection of the chest Resp: Effort & Inspection: normal respiratory effort and no respiratory distress Auscultation: clear to auscultation bilaterally Cardio: Jugular venous distension: no JVD Rate: tachycardic Rhythm: abnormal rhythm irregularly irregular GI: Palpation (GI): Soft to palpation and nontender Neuro: Cranial nerves: Yes CN's II-XII intact bilaterally and Yes Bilaterally intact EOM present Extrem: Other: b/l leg edema Objective Data Current Medications Generic Name Dose Route Start Last Admin Trade Name Freq PRN Reason Stop Dose Admin Apixaban 5 mg 04/21/21 09:00 04/21/21 08:22 Apixaban 5 Mg Tablet PO 5 mg BID CARMELA Administration Diltiazem HCl 125 mg/ Sodium 125 mls @ 0 mls/hr 04/20/21 10:15 04/21/21 08:14 Chloride IVCONT 15 mg/hr .Q0M CARMELA 15 mls/hr Administration Protocol Per Protocol Metoprolol Tartrate 25 mg 04/21/21 09:00 04/21/21 08:27 Metoprolol Tartrate 25 Mg Tablet PO 25 mg Q6H CARMELA Administration Protocol Non-Formulary Medication 1 tab 04/21/21 09:00 Ibrutinib [Imbruvica] PO DAILY [facility] Non-Formulary Medication 1 tab 04/21/21 09:00 Levothyroxine [Euthyrox] PO DAILY [facility] Pharmacy Consult 1 each 04/20/21 09:51 Consult Rx Perform Med Rec MISCELLANE ONCE PRN Consult order Sodium Chloride 3 ml 04/20/21 16:00 04/21/21 00:35 0.9 % Sodium Chloride Flush 3 Ml Syringe IVFLUSH 3 ml QSHIFT [facility] Administration Labs CBC & Chem 7: 04/20/21 10:00 04/21/21 05:16 Labs: Laboratory Results - last 24 hr 04/20/21 04/21/21 04/21/21 10:00 05:16 10:59 Sodium 140 Potassium 3.3 Chloride 105 Carbon Dioxide 26 Anion Gap 12 BUN 22 H Creatinine 1.35 Estim Creat Clear Calc 41.5 Estimated GFR 38 POC Glucose 144 H Random Glucose 97 Calcium 8.9 TSH 4.12 H Quality Stroke Does the patient have a stroke diagnosis?: No VTE Prior VTE?: No VTE Risk Level:: Medical - moderate - high VTE Device Contraindication: N/A - Device Ordered VTE Drug Contraindication: N/A - Med Ordered Assessment and Plan (1) Atrial fibrillation with rapid ventricular response: Status: Acute Assessment and Plan: This is a 75-year-old female with history of CLL on ibrutinib, hypothyroidism, hypertension who presented with shortness of breath found to have new onset atrial fibrillation and CHF. Atrial fibrillation with rapid ventricular response. rate persistently high overnight -continue IV Cardizem drip -po lopressor and digoxin added -seen by Cardiology, possible cardioversion in a.m. -echo ordered -TSH, 4.12 just above normal -stroke prevention with Eliquis New heart failure- in the setting of afib with RVR. initially treated with IV lasix. -echo pending -cardiology following -monitor fluid status YEISON on CKD3 SCr improved to 1.35, seems to be at baseline now -follow renal function Hypertension on HCTZ at home. currently on cardizem drip and BB with adequate BP control -monitor blood pressure closely Hypothyroidism- -TSH 4.12, will check free t4 -continue home dose of levothyroxine, outpatient adjustment as needed History CLL -on Ibrutinib at home -seen by Dr. Matta, no further workup needed DVT prophylaxis--Eliquis Code status-full code Attending-Dr. Ruiz
[2021-04-22] VITALS (13 sets, daily range): BP systolic 100–147; BP diastolic 50–71; PULSE 52–87; RESP 16–22; TEMP 36.2–36.8; O2SAT 92–98
--- NOTE | 2021-04-22 | ECG_ITS ---
Test Reason : S/P CARDIOVERSION Blood Pressure : / mmHG Vent. Rate : 065 BPM Atrial Rate : 065 BPM P-R Int : 178 ms QRS Dur : 094 ms QT Int : 458 ms P-R-T Axes : 066 076 088 degrees QTc Int : 476 ms Normal sinus rhythm Nonspecific ST and T wave abnormality Abnormal ECG When compared with ECG of 20-APR-2021 09:46, Sinus rhythm has replaced Atrial fibrillation Vent. rate has decreased BY 120 BPM Referred By: Rema Yao Electronically Signed By:REMA YAO
[2021-04-22] MEDS: 0.9 % Sodium Chloride Flush 3 ML SYRINGE IVFLUSH ×4 (00:05→21:08)
[2021-04-22] MEDS: dilTIAZem HCL 125 MG in 0.9 % Sodium Chloride 100 ML 15 MG IVCONT (03:11)
[2021-04-22] MEDS: Metoprolol Tartrate 25 MG TABLET PO ×2 (03:21→08:47)
[2021-04-22 07:01] LABS: Anion Gap 15 (12-20); Blood Urea Nitrogen 24 mg/dL (9-16); Carbon Dioxide 23 mmol/L (22-29); Chloride 106 mmol/L (96-108); Creatinine Clr Calc Pharmacy 43.1; Estimated Glomerular Filt Rate 40; Glucose Random 88 mg/dL (60-115); Potassium 3.4 mmol/L (3.3-5.1); Sodium 141 mmol/L (135-145)
--- NOTE | 2021-04-22 07:24 | PC.NURSE ---
Shift eval 11p-7a - Patient NPO after midnight. Patient HR 70's to 100, afib, on 15mg/hr cardizem and scheduled PO lopressor. New IV inserted left lower arm. Report given to PREOP RN, , plan for NICA @ 1330 today. Patient updated about plan of care and time for procedure.
[2021-04-22] MEDS: Apixaban 5 MG TABLET PO ×2 (08:48→21:08)
--- NOTE | 2021-04-22 10:06 | MHC.SHP ---
Pre-Procedural Eval Section B Chief Complaint: New Afib, New onset CHF Allergies: Allergies Allergy/AdvReac Type Severity Reaction Status Date / Time Sulfa (Sulfonamide Allergy Unknown DIFFICULTY Verified 04/20/21 17:55 Antibiotics) BREATHING [SULFA(SULFONAMIDE ANTIBIOTICS)] sulfamethoxazole Allergy Unknown DIARRHEA, Verified 04/20/21 17:55 [From BACTRIM] VOMTING, RASH trimethoprim [From BACTRIM] Allergy Unknown DIARRHEA, Verified 04/20/21 17:55 VOMTING, RASH Plan I have reviewed the history and physical and performed a pertinent physical examination on my patient. No changes have occurred unless specified.
--- NOTE | 2021-04-22 10:07 | PM.PNCARD ---
Subjective Subjective Date of Service: 04/22/21 Interval history: States that she feels better. Less short of breath Review of Systems Review of Systems Yes all other systems are reviewed and are negative Cardiovascular: Reports as per HPI, Reports no additional cardiovascular complaints, Denies acrocyanosis, Denies cool extremities, Denies painful fingertips, Denies chest pain, Denies chest pain at rest, Denies diaphoresis, Denies syncope, Denies irregular heart rhythm, Denies claudication, Reports leg edema, Denies lightheadedness, Denies palpitations and Reports dyspnea Respiratory: Reports dyspnea Denies syncope Endocrine: Denies palpitations Physical Exam Vital Signs: Last Vital Signs Temp 97.1 F 04/22/21 08:00 Pulse 87 04/22/21 08:47 Resp 20 04/22/21 08:00 BP 139/67 04/22/21 08:47 Pulse Ox 93 04/22/21 08:00 Body Mass Index 36.0 Const General: cooperative, comfortable and no acute distress Orientation/consciousness: patient oriented x3 HENMT Other: Unremarkable Neck Neck: Yes normal visual inspection Chest Chest palpation & inspection: normal inspection of the chest Resp Auscultation: clear to auscultation bilaterally, no crackles and no wheezes Cardio Jugular venous distension: no JVD Palpation: normal PMI Heart sounds: S1 normal heart sound present, S2 normal heart sound present, no gallops, no murmurs and no rubs GI Palpation (GI): Soft to palpation Back/Spine/Pelvis Other: unremarkable Skin General skin exam: no rashes or lesions noted Neuro General: patient oriented x3 Extrem General: Yes edema (1+) Psych Mental Status: mental status grossly normal Results Labs and Meds Result diagrams: 04/20/21 10:00 04/22/21 05:57 Lab results: Laboratory Results - last 24 hr 04/21/21 04/21/21 04/22/21 05:16 10:59 05:57 Sodium 141 Potassium 3.4 Chloride 106 Carbon Dioxide 23 Anion Gap 15 BUN 24 H Creatinine 1.30 Estim Creat Clear Calc 43.1 Estimated GFR 40 POC Glucose 144 H Random Glucose 88 Calcium 9.0 Free T4 1.40 Progress Note: A&P Assessment and plan (1) Atrial fibrillation with rapid ventricular response: Status: Acute (2) Acute diastolic (congestive) heart failure: Status: Acute Assessment and Plan: Plan for NICA/Cv today. Continue Eliquis. May hold Cardizem drip. Correct potassium. Fall Risk Details Current Medications: Current Medications Generic Name Dose Route Start Last Admin Trade Name Freq PRN Reason Stop Dose Admin Apixaban 5 mg 04/21/21 09:00 04/22/21 08:48 Apixaban 5 Mg Tablet PO 5 mg BID CARMELA Administration Diltiazem HCl 125 mg/ Sodium 125 mls @ 0 mls/hr 04/20/21 10:15 04/22/21 03:11 Chloride IVCONT 15 mg/hr .Q0M CARMELA 15 mls/hr Administration Protocol Per Protocol Metoprolol Tartrate 25 mg 04/21/21 09:00 04/22/21 08:47 Metoprolol Tartrate 25 Mg Tablet PO 25 mg Q6H CARM[facility]A Administration Protocol Non-Formulary Medication 1 tab 04/21/21 09:00 Ibrutinib [Imbruvica] PO DAILY [facility] Non-Formulary Medication 1 tab 04/21/21 09:00 Levothyroxine [Euthyrox] PO DAILY [facility] Pharmacy Consult 1 each 04/20/21 09:51 Consult Rx Perform Med Rec MISCELLANE ONCE PRN Consult order Sodium Chloride 3 ml 04/20/21 16:00 04/22/21 08:48 0.9 % Sodium Chloride Flush 3 Ml Syringe IVFLUSH 3 ml QSHIFT CARMELA Administration Time Spent With Patient Time: Total time spent is greater than 50% in coordination of care (as documented) at patient's floor/unit and/or counseling patient: Time with patient: less than 15 minutes Progress Note: Quality Stroke Does the patient have a stroke diagnosis?: No Procedures Date of Service Date of Service: 04/22/21
--- NOTE | 2021-04-22 10:30 | PC.NURSE ---
Patient escorted to Short Stay Surgery By Rubén Fofana & Derek Ruggiero RN. Per report by night time RN patient was on cardizem gtt, maxed dosage. Patient arrived without drip running but active order, [facility] contacted. Luis Carlos Dinh attempted to contact CARLOS Reed but in room, had additional RN look into orders, saw active order and told drip needed to be brought to [facility] immediately. Once at [facility] with gtt transported by RN [facility] called again, CARLOS Reed was reported to have verbal order for D/C of Cardizem gtt. No new orders, gtt remained D/Rashid, drip brought back to floor by transporting RN. CARLOS Reed asked to put in verbal order by provider for the gtt as soon as possible.
--- NOTE | 2021-04-22 10:42 | P.CONAN_ITS ---
[facility] Active Problems Active Problems: All Active Problems (Updated 04/21/21 @ 12:59 by Lupillo Matta MD) CLL (chronic lymphocytic leukemia) (Acute) Acute diastolic (congestive) heart failure (Acute) Mild congestive heart failure (Acute) Pedal edema (Acute) Atrial fibrillation with rapid ventricular response (Acute) Acute dyspnea (Acute) Past Medical History Medical History Hypertension Hypothyroid Leukemia in remission Social History Social History Household Members: Spouse Housing: House Alcohol intake: former Patient Tobacco Use Status: Never used Tobacco Use of substances other than those prescribed or required for medical reasons: No Currently Displaying Signs/Symptoms of Drug Intoxication Withdrawal: No Have you been hit, kicked, punched, or otherwise hurt by someone within the past year? If so, by whom?: No Do you feel safe in your current relationship?: Yes Is there a partner from a previous relationship who is making you feel unsafe now?: No Are you made to feel afraid or neglected: No Are you DNR?: No Advance Directives: Yes Advance Directives Information Provided: No Advance Directives on File: Yes Advance Directives Date on File: 04/20/21 Do you have thoughts of harming others: None Do you have a plan to hurt others: No Plan Recently lost weight without trying: No Nutrition Risks: No Nutritional Risk Patient : No : No Poor oral hygiene: No service: No Current occupational status: retired Meds Allergies Allergy/AdvReac Type Severity Reaction Status Date / Time Sulfa (Sulfonamide Allergy Unknown DIFFICULTY Verified 04/22/21 10:13 Antibiotics) BREATHING [SULFA(SULFONAMIDE ANTIBIOTICS)] sulfamethoxazole Allergy Unknown DIARRHEA, Verified 04/22/21 10:13 [From BACTRIM] VOMTING, RASH trimethoprim [From BACTRIM] Allergy Unknown DIARRHEA, Verified 04/22/21 10:13 VOMTING, RASH Active Medications: Current Medications Generic Name Dose Route Start Last Admin Trade Name Freq PRN Reason Stop Dose Admin Apixaban 5 mg 04/21/21 09:00 04/22/21 08:48 Apixaban 5 Mg Tablet PO 5 mg BID CARMELA Administration Diltiazem HCl 125 mg/ Sodium 125 mls @ 0 mls/hr 04/20/21 10:15 04/22/21 03:11 Chloride IVCONT 15 mg/hr .Q0M CARMELA 15 mls/hr Administration Protocol Per Protocol Potassium Chloride 10 meq in 100 mls @ 100 mls/hr 04/22/21 11:00 IV 04/22/21 12:59 Q1H CARMELA Metoprolol Tartrate 25 mg 04/21/21 09:00 04/22/21 08:47 Metoprolol Tartrate 25 Mg Tablet PO 25 mg Q6H CARMELA Administration Protocol Non-Formulary Medication 1 tab 04/21/21 09:00 Ibrutinib [Imbruvica] PO DAILY [facility] Non-Formulary Medication 1 tab 04/21/21 09:00 Levothyroxine [Euthyrox] PO DAILY [facility] Pharmacy Consult 1 each 04/20/21 09:51 Consult Rx Perform Med Rec MISCELLANE ONCE PRN Consult order Sodium Chloride 3 ml 04/20/21 16:00 04/22/21 08:48 0.9 % Sodium Chloride Flush 3 Ml Syringe IVFLUSH 3 ml QSHIFT [facility] Administration Home Medications Medication Instructions Recorded Confirmed Last Taken Type hydrochlorothiazide 1 tab PO QAM 04/20/21 04/20/21 04/19/21 History ibrutinib [Imbruvica] 1 tab PO DAILY 04/20/21 04/20/21 04/19/21 History levothyroxine [Euthyrox] 1 tab PO DAILY 04/20/21 04/20/21 04/19/21 History potassium chloride 2.5 meq PO DAILY 04/20/21 04/20/21 Unknown History Exam Exam Date and Time: April 22, 2021 1042 Height,Weight and Vital Signs: Height 5 ft 4 in Weight 95.254 kg Last Vital Signs Temp 98.0 F 04/22/21 10:14 Pulse 77 04/22/21 10:14 Resp 22 H 04/22/21 10:14 BP 122/71 04/22/21 10:14 Pulse Ox 98 04/22/21 10:14 Pertinent Lab Results Pertinent Lab Results: Laboratory Tests 04/20/21 04/20/21 04/20/21 10:00 10:00 10:00 WBC 9.9 RBC 4.39 Hgb 12.5 Hct 39.7 MCV 90.4 MCH 28.5 MCHC 31.5 RDW 14.9 Plt Count 257 D MPV 11.8 Immature Gran % (Auto) 0.4 Neut % (Auto) 66.3 Lymph % (Auto) 24.6 Bartholomew % (Auto) 8.1 Eos % (Auto) 0.4 Baso % (Auto) 0.2 Lymph # (Auto) 2.4 Bartholomew # (Auto) 0.8 Eos # (Auto) 0.0 Baso # (Auto) 0.0 Abs Immat Gran (auto) 0.04 H Absolute Neuts (auto) 6.6 Absolute Nucleated RBC 0.000 Nucleated RBC % (auto) 0.0 PT 12.1 INR 1.0 APTT 27.5 D-Dimer 888 Sodium Potassium Chloride Carbon Dioxide Anion Gap BUN Creatinine Estim Creat Clear Calc Estimated GFR POC Glucose Random Glucose Calcium Magnesium Total Bilirubin Direct Bilirubin AST ALT Alkaline Phosphatase Troponin I High Sens B-Natriuretic Peptide Total Protein Albumin TSH 3.60 Free T4 COVID-19 (PHYLLIS) COVID-[employer] 04/20/21 04/20/21 04/20/21 10:00 10:00 10:00 WBC RBC Hgb Hct MCV MCH MCHC RDW Plt Count MPV Immature Gran % (Auto) Neut % (Auto) Lymph % (Auto) Bartholomew % (Auto) Eos % (Auto) Baso % (Auto) Lymph # (Auto) Bartholomew # (Auto) Eos # (Auto) Baso # (Auto) Abs Immat Gran (auto) Absolute Neuts (auto) Absolute Nucleated RBC Nucleated RBC % (auto) PT INR APTT D-Dimer Sodium 140 Potassium 3.6 Chloride 104 Carbon Dioxide 23 Anion Gap 17 BUN 24 H Creatinine 1.53 H Estim Creat Clear Calc 36.6 Estimated GFR 33 POC Glucose Random Glucose 108 Calcium 9.4 Magnesium 2.2 Total Bilirubin 1.4 H Direct Bilirubin 0.5 AST 14 ALT 12 Alkaline Phosphatase 87 D Troponin I High Sens 9.0 B-Natriuretic Peptide 148 H Total Protein 7.1 Albumin 4.4 TSH 4.12 H Free T4 COVID-19 (PHYLLIS) Negative COVID-19 [employer] Com See Note 04/21/21 04/21/21 04/22/21 05:16 10:59 05:57 WBC RBC Hgb Hct MCV MCH MCHC RDW Plt Count MPV Immature Gran % (Auto) Neut % (Auto) Lymph % (Auto) Bartholomew % (Auto) Eos % (Auto) Baso % (Auto) Lymph # (Auto) Bartholomew # (Auto) Eos # (Auto) Baso # (Auto) Abs Immat Gran (auto) Absolute Neuts (auto) Absolute Nucleated RBC Nucleated RBC % (auto) PT INR APTT D-Dimer Sodium 140 141 Potassium 3.3 3.4 Chloride 105 106 Carbon Dioxide 26 23 Anion Gap 12 15 BUN 22 H 24 H Creatinine 1.35 1.30 Estim Creat Clear Calc 41.5 43.1 Estimated GFR 38 40 POC Glucose 144 H Random Glucose 97 88 Calcium 8.9 9.0 Magnesium Total Bilirubin Direct Bilirubin AST ALT Alkaline Phosphatase Troponin I High Sens B-Natriuretic Peptide Total Protein Albumin TSH Free T4 1.40 COVID-19 (PHYLLIS) COVID-19 Clin Com Airway Mallampati Class: II TM Dist: >3cm Neck ROM: Full Assessment and Plan Assessment Anesthesia Assessment: Anesthesia Plan Discussed and Chart Reviewed Final Anesthetic Review NPO: Yes ASA Class: III Final Preanesthetic Review: No Changes in Pt Med Stat, Meds/Allgs Chart Reviewed, Consent Obtained/Reviewed and Anes Risks/Benef Reviewed Patient Risk: Intermediate Procedure Risk: Low Assessment/Block/Sedation in SS: Assess/Block/Sedation-SS Anesthetic Plan Anesthetic Plan: MAC: Disposition: Standard PACU
--- NOTE | 2021-04-22 10:48 | PC.NURSE ---
Per Dr. Bush potassium to be hung if order was in, patient patient of 3.4. Order for K in system by hospitalist. Dr Bush told we would need transfer orders as well as order from him for potassium to be hung by short stay surgery staff as the current order was a floor order. called and spoke with this RN and verbalized Luzmaria never had to put those orders in and if I have to forget it, she can get it after the procedure when shes back on the floor. RN read back confirmed he would not be placing IV Potassium to be hung/given in SSS,pre procedure. Confirmed by provider. No new orders.
--- NOTE | 2021-04-22 11:25 | P.PNIM_ITS ---
Subjective Subjective Date of Service: 04/22/21 Interval History: seen and examined this AM son bedside pt feels fine, ready for her cardioversion denies cp or palp ROS General - no fevers or chills Cardiovascular - no chest pain Respiratory - no shortness of breath or cough Abdominal- no abdominal pain, nausea, vomiting, diarrhea Physical Exam Vital Signs: Vital Signs: Last Vital Signs Temp 98.0 F 04/22/21 10:14 Pulse 77 04/22/21 10:14 Resp 22 H 04/22/21 10:14 BP 122/71 04/22/21 10:14 Pulse Ox 98 04/22/21 10:14 Body Mass Index 36.0 Const: Other: Constitutional Awake and Alert, No apparent distress, she is very hard of hearing HEENT PERRLA, EOMI Neck Supple, No lymphadenopathy Cardiovascular iregular iregular, No M/R/G, S1 S2, No S3 S4, 2+ pedal edema Respiratory Lungs clear, No respiratory distress Gastrointestinal Non tender, Non-distended Heme/onco No lymphadema Skin No rash Neurological Alert & oriented x3 Psychological Appropriate affect Nutritional Appearance: well nourished Objective Data Current Medications Generic Name Dose Route Start Last Admin Trade Name Freq PRN Reason Stop Dose Admin Apixaban 5 mg 04/21/21 09:00 04/22/21 08:48 Apixaban 5 Mg Tablet PO 5 mg BID CARMELA Administration Potassium Chloride 10 meq in 100 mls @ 100 mls/hr 04/22/21 11:00 IV 04/22/21 12:59 Q1H CARMELA Metoprolol Tartrate 25 mg 04/21/21 09:00 04/22/21 08:47 Metoprolol Tartrate 25 Mg Tablet PO 25 mg Q6H CAREMLA Administration Protocol Non-Formulary Medication 1 tab 04/21/21 09:00 Ibrutinib [Imbruvica] PO DAILY [facility] Non-Formulary Medication 1 tab 04/21/21 09:00 Levothyroxine [Euthyrox] PO DAILY [facility] Pharmacy Consult 1 each 04/20/21 09:51 Consult Rx Perform Med Rec MISCELLANE ONCE PRN Consult order Sodium Chloride 3 ml 04/20/21 16:00 04/22/21 08:48 0.9 % Sodium Chloride Flush 3 Ml Syringe IVFLUSH 3 ml QSHIFT CARMELA Administration Labs CBC & Chem 7: 04/20/21 10:00 04/22/21 05:57 Labs: Laboratory Results - last 24 hr 04/21/21 04/22/21 05:16 05:57 Sodium 141 Potassium 3.4 Chloride 106 Carbon Dioxide 23 Anion Gap 15 BUN 24 H Creatinine 1.30 Estim Creat Clear Calc 43.1 Estimated GFR 40 Random Glucose 88 Calcium 9.0 Free T4 1.40 Quality Stroke Does the patient have a stroke diagnosis?: No VTE Prior VTE?: No VTE Risk Level:: Medical - moderate - high VTE Device Contraindication: N/A - Device Ordered VTE Drug Contraindication: N/A - Med Ordered Assessment and Plan (1) Atrial fibrillation with rapid ventricular response: Status: Acute Assessment and Plan: This is a 75-year-old female with history of CLL on ibrutinib, hypothyroidism, hypertension who presented with shortness of breath found to have new onset atrial fibrillation and CHF. Atrial fibrillation with rapid ventricular response rates improved cardioversion completed - to stop cardizem / metoprolol on amio 400mg bid + eliquis New on set HFrEF EF 40-45% lasix was on hold, ? to resume -- will d/w with cardiology YEISON on CKD3 SCr improved Hypertension on hctz at home, on hold observe and if rebounds, will restart Hypothyroidism- -TSH 4.12, will check free t4 -continue home dose of levothyroxine, outpatient adjustment as needed History CLL -on Ibrutinib at home -seen by Dr. Matta, no further workup needed DVT pptx, Eliquis Full Code
--- NOTE | 2021-04-22 11:37 | P.PNCAR_ITS ---
Cardioversion Procedure Note Cardioversion Date of Procedure: 04/22/2021 Ordering Provider: Dr. Bush Performing Provider: Dr. Bush Indication for Procedure: Atrial fibrillation and congestive heart failure Pre-Op Diagnosis: Atrial fibrillation Post-Op Diagnosis: Sinus rhythm Performed with Transesophageal Echo: Yes NICA findings (if NICA Performed): Dictated separately History: Atrial fibrillation and heart failure symptoms for cardioversion. Consent: Informed consent was obtained. Procedure: After informed consent was obtained, patient was taken to the PACU. The patient was then positioned appropriately. The cardioversion pads were plac ed in anteroposterior position. Once under anesthesia, 120 joules of synchronized shock was administered. The rhythm converted from atrial fibrillation to sinus rhythm. Patient remained in sinus rhythm after the end of procedure. Complications: None Impression: Successful cardioversion from atrial fibrillation to sinus rhythm. Recommendations: Start amiodarone 400 mg b.i.d.. Stop Cardizem drip. Stop metoprolol. Continue Eliquis. Continue anticoagulation.
--- NOTE | 2021-04-22 12:39 | P.PNHO_ITS ---
Medical Summary - Medical Summary Date of Service: 04/22/21 Interval History Interval history: Sheyla Gutierrez is a 75 year old female She is a 75 year old woman first seen by me for lymphocytosis in November 2018. 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 She has been treated with ibrutinib 420 mg po daily with no toxicity and resumption of a normal WBC and DIFF. She was admitted with new onset chf/afib. She is asymptomatic and free of adenopathy or splenomegaly. She may remain off her ibrutinib while she is here Review of Systems - Constitutional Reports lack of energy - Respiratory Reports dyspnea on exertion - Gastrointestinal Reports other - Genitourinary Reports other - Musculoskeletal Reports muscle weakness - Neurologic Denies syncope [facility] Medical History: Medical History (Last Reviewed 04/22/21 @ 10:42 by Marjorie Montalvo) Hypertension Hypothyroid Leukemia in remission Social History: Social History (Last Reviewed 04/22/21 @ 10:42 by Marjorie Montalvo) Living Situation History: Household Members: Spouse Housing: House Alcohol History: Alcohol intake: former Tobacco History: Patient Tobacco Use Status: Never used Tobacco Substance Use History: Use of substances other than those prescribed or required for medical reasons : No Currently Displaying Signs/Symptoms of Drug Intoxication Withdrawal: No Domestic Abuse History: Have you been hit, kicked, punched, or otherwise hurt by someone within the past year? If so, by whom?: No Do you feel safe in your current relationship?: Yes Is there a partner from a previous relationship who is making you feel unsafe now?: No Are you made to feel afraid or neglected: No Advance Directives: Are you DNR?: No Advance Directives: Yes Advance Directives Information Provided: No Advance Directives on File: Yes Advance Directives Date on File: 04/20/21 Homicidal Assessment: Do you have thoughts of harming others: None Do you have a plan to hurt others: No Plan Nutrition Assessment: Recently lost weight without trying: No Nutrition Risks: No Nutritional Risk Patient : No : No Poor oral hygiene: No Occupation Assessmet: service: No Current occupational status: retired Home Medications and Allergies Current Medications: Current Medications Generic Name Dose Route Start Last Admin Trade Name Freq PRN Reason Stop Dose Admin Amiodarone HCl 400 mg 04/22/21 11:40 Amiodarone Hcl 200 Mg Tablet PO BID CARMELA Apixaban 5 mg 04/21/21 09:00 04/22/21 08:48 Apixaban 5 Mg Tablet PO 5 mg BID [facility] Administration Potassium Chloride 10 meq in 100 mls @ 100 mls/hr 04/22/21 11:00 IV 04/22/21 12:59 Q1H CARMELA Non-Formulary Medication 1 tab 04/21/21 09:00 Ibrutinib [Imbruvica] PO DAILY [facility] Non-Formulary Medication 1 tab 04/21/21 09:00 Levothyroxine [Euthyrox] PO DAILY [facility] Pharmacy Consult 1 each 04/20/21 09:51 Consult Rx Perform Med Rec MISCELLANE ONCE PRN Consult order Sodium Chloride 3 ml 04/20/21 16:00 04/22/21 08:48 0.9 % Sodium Chloride Flush 3 Ml Syringe IVFLUSH 3 ml QSHIFT [facility] Administration Home Medications Medication Instructions Recorded Confirmed Type hydrochlorothiazide 1 tab PO QAM 04/20/21 04/20/21 History ibrutinib [Imbruvica] 1 tab PO DAILY 04/20/21 04/20/21 History levothyroxine [Euthyrox] 1 tab PO DAILY 04/20/21 04/20/21 History potassium chloride 2.5 meq PO DAILY 04/20/21 04/20/21 History Allergies Allergy/AdvReac Type Severity Reaction Status Date / Time Sulfa (Sulfonamide Allergy Unknown DIFFICULTY Verified 04/22/21 10:13 Antibiotics) BREATHING [SULFA(SULFONAMIDE ANTIBIOTICS)] sulfamethoxazole Allergy Unknown DIARRHEA, Verified 04/22/21 10:13 [From BACTRIM] VOMTING, RASH trimethoprim [From BACTRIM] Allergy Unknown DIARRHEA, Verified 04/22/21 10:13 VOMTING, RASH Exam Vital signs: Vital Signs Temp 98 F 04/22/21 12:04 Pulse 61 04/22/21 12:04 Resp 18 04/22/21 12:04 BP 107/50 L 04/22/21 12:04 Pulse Ox 93 04/22/21 12:04 Intake & Output 04/21/21 04/22/21 04/22/21 18:59 06:59 18:59 Intake Total 588 / 1193 605 / 1193 106 / 106 Balance 588 / 1193 605 / 1193 106 / 106 Intake: Intake, Oral Amount 360 / 840 480 / 840 Intake, IV Amount 228 / 353 125 / 353 106 / 106 dilTIAZem HCL 125 mg In 0.9 % 228 / 353 125 / 353 106 / 106 Sodium Chloride 100 ml @ Per Protocol IVCONT .Q0M [facility] Rx#: [id number] Other: NPO Yes Lunch % Eaten 100% Dinner % Eaten 100% Number of Incontinent Voids 3 0 Number of Unmeasured Voids 1 Urine Bedside Commode Last Bowel Movement 04/22/21 Stool Amount Small Stool Color Brown Stool Consistency Loose Weight 95.254 kg Body Mass Index 36.0 - Constitutional Present: no acute distress - Routine HEENT Exam Head: Present: atraumatic - Routine Neck Exam Present: normal inspection - Routine Respiratory Exam Present: rales - Routine Cardiovascular Exam Cardiovascular: Present: irregular rhythm - Routine Abdominal Exam Present: nontender - Routine Exam Patient deferred: external exam - Routine Extremities Exam Present: pedal edema - Routine Back/Spine/Pelvis Exam Back/Spine: Present: full ROM - Routine Skin Exam Present: intact Data - Labs CBC & Chem 7: 04/20/21 10:00 04/22/21 05:57 Labs: 04/20/21 08:55 ECG 12 lead EKG Stat 04/20/21 09:51 Furosemide [Lasix] 20 mg IVPUSH ONCE ONE dilTIAZem HCL [Cardizem] 10 mg IVPUSH ONCE ONE 04/20/21 09:52 XR chest 1V Stat dilTIAZem HCL [Cardizem] 50 mg IVPUSH .STK-MED ONE 04/20/21 10:00 B Type Natriuretic Peptide Stat Basic Metabolic Panel Stat COVID-19 ID NOW (Aguilar) Stat Complete Blood Count Auto Diff Stat D Dimer Stat Liver Panel Stat Magnesium Stat Partial Thromboplastin Time Stat Prothrombin Time INR Stat TSH reflex Free T4 Stat Thyroid Stimulating Hormone Stat Troponin-I High Sensitivity Stat 04/20/21 10:02 dilTIAZem HCL [Cardizem] 10 mg IVPUSH ONCE ONE 04/20/21 10:14 dilTIAZem HCL [Cardizem] 125 mg IVCONT .STK-MED ONE 04/20/21 10:15 0.9 % Sodium Chloride [Ns] 100 ml dilTIAZem HCL [Cardizem] 125 mg IVCONT Per Protocol mg/hr 04/20/21 10:51 NM pul perfusion Stat 04/20/21 12:10 Metoprolol Tartrate [Lopressor] 5 mg IVPUSH ONCE ONE 04/20/21 13:05 Metoprolol Tartrate [Lopressor] 5 mg IVPUSH ONCE ONE 04/20/21 15:10 Transfer Order Routine 04/20/21 15:14 Low Sodium Diet 04/20/21 15:29 Add Laboratory Test Routine 04/20/21 16:30 Apixaban [Eliquis] 5 mg PO ONCE ONE 04/20/21 18:37 dilTIAZem HCL [Cardizem] 125 mg IVCONT .STK-MED ONE 04/20/21 20:15 Digoxin [Lanoxin] 0.25 mg IVPUSH Q6H 04/20/21 21:00 Apixaban [Eliquis] 5 mg PO BID 04/20/21 23:14 dilTIAZem HCL [Cardizem] 125 mg IVCONT .STK-MED ONE 04/21/21 03:28 Metoprolol Tartrate [Lopressor] 2.5 mg IVPUSH ONCE ONE 04/21/21 05:16 Basic Metabolic Panel DAILY Free T4 (Free Thyroxine) Routine 04/21/21 07:30 CA echo transthoracic complete Routine 04/21/21 07:32 dilTIAZem HCL [Cardizem] 125 mg IVCONT .STK-MED ONE 04/21/21 08:49 Digoxin [Lanoxin] 0.25 mg PO ONCE ONE 04/21/21 08:56 EKG Documentation DIRECTED 04/21/21 09:00 Metoprolol Tartrate [Lopressor] 25 mg PO Q6H 04/21/21 10:59 Glucose, Whole Blood Routine 04/21/21 13:21 Add Laboratory Test Stat 04/21/21 14:50 dilTIAZem HCL [Cardizem] 125 mg IVCONT .STK-MED ONE 04/22/21 ECG 12 lead EKG Stat 04/22/21 03:03 dilTIAZem HCL [Cardizem] 125 mg IVCONT .STK-MED ONE 04/22/21 03:08 dilTIAZem HCL [Cardizem] 125 mg IVCONT .STK-MED ONE 04/22/21 05:57 Basic Metabolic Panel DAILY@0600 04/22/21 10:51 Lidocaine HCl 2 % MPF [Xylocaine 2 % MPF] 5 ml .ROUTE .STK-MED ONE propofoL [Diprivan] 200 mg IVPUSH .STK-MED ONE 04/22/21 11:13 Midazolam HCl/PF [Versed] 2 mg .ROUTE .STK-MED ONE 04/22/21 11:23 propofoL [Diprivan] 200 mg IVPUSH .STK-MED ONE Laboratory Last Values WBC 9.9 X10*3/uL (4.8-10.8) 04/20/21 10:00 RBC 4.39 X10*6/uL (4.20-5.50) 04/20/21 10:00 Hgb 12.5 g/dl (12.0-16.0) 04/20/21 10:00 Hct 39.7 % (37-47) 04/20/21 10:00 MCV 90.4 fL (80-98) 04/20/21 10:00 MCH 28.5 pg (27.0-33.0) 04/20/21 10:00 MCHC 31.5 g/dl (31.0-35.0) 04/20/21 10:00 RDW 14.9 % (11.0-16.0) 04/20/21 10:00 Plt Count 257 X10*3/uL (160-400) D 04/20/21 10:00 MPV 11.8 fL (9.4-12.3) 04/20/21 10:00 Immature Gran % (Auto) 0.4 % (0.0-0.4) 04/20/21 10:00 Neut % (Auto) 66.3 % (45-73) 04/20/21 10:00 Lymph % (Auto) 24.6 % (20-40) 04/20/21 10:00 [place] % (Auto) 8.1 % (2-11) 04/20/21 10:00 Eos % (Auto) 0.4 % (0-4) 04/20/21 10:00 Baso % (Auto) 0.2 % (0-2) 04/20/21 10:00 Lymph # (Auto) 2.4 X10*3/uL (1.2-4.9) 04/20/21 10:00 [place] # (Auto) 0.8 X10*3/uL (0.1-1.2) 04/20/21 10:00 Eos # (Auto) 0.0 X10*3/uL (0.0-0.4) 04/20/21 10:00 Baso # (Auto) 0.0 X10*3/uL (0.0-0.2) 04/20/21 10:00 Abs Immat Gran (auto) 0.04 X10*3/uL (0.00-0.03) H 04/20/21 10:00 Absolute Neuts (auto) 6.6 X10*3/uL (2.0-8.3) 04/20/21 10:00 Absolute Nucleated RBC 0.000 X10*3/uL (0.0-0.012) 04/20/21 10:00 Nucleated RBC % (auto) 0.0 /100WBC (0.0-0.2) 04/20/21 10:00 PT 12.1 SEC (10.8-13.0) 04/20/21 10:00 INR 1.0 (0.9-1.1) 04/20/21 10:00 APTT 27.5 SEC (24.1-38.0) 04/20/21 10:00 D-Dimer 888 NG/ML 04/20/21 10:00 Sodium 141 mmol/L (135-145) 04/22/21 05:57 Potassium 3.4 mmol/L (3.3-5.1) 04/22/21 05:57 Chloride 106 mmol/L (96-108) 04/22/21 05:57 Carbon Dioxide 23 mmol/L (22-29) 04/22/21 05:57 Anion Gap 15 (12-20) 04/22/21 05:57 BUN 24 mg/dL (9-16) H 04/22/21 05:57 Creatinine 1.30 mg/dL (0.5-1.4) 04/22/21 05:57 Estim Creat Clear Calc 43.1 04/22/21 05:57 Estimated GFR 40 04/22/21 05:57 POC Glucose 144 mg/dL (60-115) H 04/21/21 10:59 Random Glucose 88 mg/dL (60-115) 04/22/21 05:57 Calcium 9.0 mg/dL (8.4-10.2) 04/22/21 05:57 Magnesium 2.2 mg/dL (1.6-2.6) 04/20/21 10:00 Total Bilirubin 1.4 mg/dL (0.0-1.0) H 04/20/21 10:00 Direct Bilirubin 0.5 mg/dL (0.0-0.5) 04/20/21 10:00 AST 14 U/L (5-31) 04/20/21 10:00 ALT 12 U/L (0-31) 04/20/21 10:00 Alkaline Phosphatase 87 U/L (39-117) D 04/20/21 10:00 Troponin I High Sens 9.0 ng/L (<3.5-17.0) 04/20/21 10:00 B-Natriuretic Peptide 148 pg/mL (<100) H 04/20/21 10:00 Total Protein 7.1 g/dL (6.5-8.0) 04/20/21 10:00 Albumin 4.4 g/dL (3.5-5.0) 04/20/21 10:00 TSH 3.60 uIU/mL (0.32-4.0) 04/20/21 10:00 TSH 4.12 uIU/mL (0.32-4.0) H 04/20/21 10:00 Free T4 1.40 ng/dL (0.71-1.85) 04/21/21 05:16 COVID-19 (PHYLLIS) Negative (Negative) 04/20/21 10:00 COVID-19 Clin Com See Note 04/20/21 10:00 - Imaging Radiologist's impression: ITS Impressions Chest X-Ray 04/20/21 09:52 IMPRESSION: No evidence for acute disease in the chest. Pulmonary Perfusion Imaging 04/20/21 10:51 IMPRESSION: Normal perfusion scan. Progress Note: A/P (1) CLL (chronic lymphocytic leukemia) Start date: 04/22/21 (She remans stable off of the ibrutinib. I will follow.) Status: Acute - Time Spent With Patient 15 - 24 minutes
[2021-04-22] MEDS: Amiodarone HCL 200 MG TABLET 400 MG PO ×2 (12:49→21:08)
[2021-04-22] MEDS: Potassium Chloride/H20 10 MEQ/100 ML PIGGYBACK 100 MEQ IV ×2 (12:55→14:27)
--- NOTE | 2021-04-22 14:30 | CA_ITS ---
Transesophageal Echocardiogram Patient (Last, First, Middle): Sheyla Gutierrez P Gender: Female Date of : 1945 Age: 75 Procedure Date: 04/22/2021 Procedure Type: Transesophageal Echocardiogram Location: [facility] Height: 165.1 cm Weight: kg Auto Polisher: AGUSTINA Referring MD: Esvin Bush MD Symptoms: Atrial fibrillation/ Cardioversion Conclusion: ??? The left ventricular systolic function is low normal. The visually estimated ejection fraction is between 50-55%. ??? There is no evidence of a thrombus in the left atrial appendage. ??? Small PFO by color Doppler with possibly right to left shunting. ??? There is mild to moderate tricuspid valve regurgitation. ??? Small plaque is seen in the descending thoracic aorta. Findings Procedure Information The patient is being monitored per protocol. The quality of the study was good. Consent was obtained prior to the procedure. The adult 3D probe was passed with no difficulty. Left Ventricle Normal left ventricular cavity size. The left ventricular systolic function is low normal. The visually estimated ejection fraction is between 50-55%. There is no evidence of regional wall motion abnormalities. Right Ventricle Normal right ventricular cavity size and systolic function. Atria There is no evidence of a thrombus in the left atrial appendage. Small PFO by color Doppler with possibly right to left shunting. Aortic Valve There is a normal trileaflet aortic valve. There is no aortic valve stenosis. There is no aortic valve regurgitation. Suspected Lambl's excrescences on aortic valve. Mitral Valve The mitral valve appears normal. There is mild mitral valve regurgitation. There is no mitral valve stenosis. Pulmonic Valve The pulmonic valve was not well visualized. Tricuspid Valve Normal tricuspid valve structure. There is mild to moderate tricuspid valve regurgitation. Great Vessels Small plaque is seen in the descending thoracic aorta. Pericardium/Pleural There is a trivial pericardial effusion. Prior Study Comparison Changes noted compared to prior study dated: 04/21/2021. LVEF possibly higher due to slower rates. Updated by Esvin Bush on 01:00 PM with Status of Final Esvin Bush MD electronically signed on 04/24/2021 1:00:10 PM with status of Final
--- NOTE | 2021-04-22 16:25 | MHC.CM.PN ---
Female 75 DX NEW HF and Afib. s/p cardioversion today. The procedure was successful. DP home with family assistance. CM will follow.
[2021-04-23 04:00] VITALS: BP 140/54; PULSE 83; RESP 18; TEMP 36.6; O2SAT 95
[2021-04-23 07:35] VITALS: BP 135/67; PULSE 77; RESP 18; TEMP 36.6; O2SAT 98
[2021-04-23] MEDS: Furosemide 20 MG TABLET PO (09:21)
[2021-04-23] MEDS: Apixaban 5 MG TABLET PO (09:21)
[2021-04-23 09:22] VITALS: PULSE 91
[2021-04-23] MEDS: Amiodarone HCL 200 MG TABLET 400 MG PO (09:22)
[2021-04-23] MEDS: 0.9 % Sodium Chloride Flush 3 ML SYRINGE IVFLUSH (09:25)
--- NOTE | 2021-04-23 10:03 | P.DS_ITS ---
DS: Providers Provider Date of Service: 04/23/21 <KISHA Fontenot - Last Filed: 04/23/21 10:37> Date of admission: 04/20/21 15:12 <KISHA Fontenot - Last Filed: 04/23/21 10:37> Primary care physician: Lupillo Matta MD <KISHA Fontenot - Last Filed: 04/23/21 10:37> Consults: 04/20/21 15:16 Consult to Cardiology Routine Consulting Provider: Esvin Bush Reason for consultation: heart failure and new afib 04/20/21 16:25 Consult to Hematology / Oncology Routine Consulting Provider: Lupillo Matta Reason for consultation: CLL history Has provider been notified: No <KISHA Fontenot - Last Filed: 04/23/21 10:37> DS: Diagnosis Discharge Diagnosis (1) Atrial fibrillation with rapid ventricular response: Status: Acute <KISHA Fnotenot - Last Filed: 04/23/21 10:37> (2) Acute diastolic (congestive) heart failure: Status: Acute <KISHA Fontenot - Last Filed: 04/23/21 10:37> (3) CLL (chronic lymphocytic leukemia): Status: Acute <KISHA Fontenot - Last Filed: 04/23/21 10:37> DS: Medications Discharge Medications Home Medications: Home Medications Medication Instructions Recorded Confirmed hydrochlorothiazide 1 tab PO QAM 04/20/21 04/20/21 ibrutinib [Imbruvica] 1 tab PO DAILY 04/20/21 04/20/21 levothyroxine [Euthyrox] 1 tab PO DAILY 04/20/21 04/20/21 potassium chloride 2.5 meq PO DAILY 04/20/21 04/20/21 <KISHA Fontenot - Last Filed: 04/23/21 10:37> DS: Summary Hospital Course Hospital Course: From H&P on day of admission 75-year-old female with hypertension, hypothyroidism, history of leukemia, treated about 2 years ago and has been in remission,she has difficulty with hearing, and she is not regular with PCP follow ups. She presents to the emergency room today accompanying by her son. She has been having difficulty breathing for about a week now down and is associated with increased lower extremity edema, her symptom has been much more pronounced over the last 24 hours and has also been having palpitation and not able to catch her breath. She has PND and orthopnea. Workup in the emergency room revealed atrial fibrillation with heart rates as high as 150, VQ scna is negative for PE despite elevated DDimer. BNP level is around 150. CXR is clear, troponin is normal. AFIB is treated with IV cardizem with better rate but reamins high Atrial fibrillation with rapid ventricular response Patient was initially started on Cardizem drip. Beta-hugo was added for adequate control. On 04/22 she underwent successful cardioversion was subsequently started on amiodarone 400 mg b.i.d.. She should continue 400 mg bid for 2 weeks and then take 200 mg daily. She was started on Eliquis for anticoagulation and stroke prevention. She should follow up with Cardiology as outpatient. New on set HFrEF Echo done showing EF 40-45%. Will discharge home with low dose lasix. She should follow up with Cardiology. Repeat BMP should be checked in one week. Hypothyroidism TSH was 4.12, free T4 was 1.4. she will be continued on her home dose of levothyroxine. Follow-up with PCP for routine lab monitoring <KISHA Fontenot - Last Filed: 04/23/21 10:37> Time Spent with Patient Time attestation: Total time spent providing and/or coordinating discharge services: <KISHA Fontenot - Last Filed: 04/23/21 10:37> Discharge coordination time: Greater than 30 minutes <KISHA Fontenot - Last Filed: 04/23/21 10:37> Quality: Stroke Does the patient have a stroke diagnosis?: No <KISHA Fontenot Last Filed: 04/23/21 10:37> Physical Exam Vital Signs: Vital Signs: Last Vital Signs Temp 97.9 F 04/23/21 07:35 Pulse 91 04/23/21 09:22 Resp 18 04/23/21 07:35 BP 135/67 04/23/21 07:35 Pulse Ox 98 04/23/21 07:35 Body Mass Index 36.0 <KISHA Fontenot - Last Filed: 04/23/21 10:37> Const: General: comfortable, no acute distress, alert and awake <KISHA Fontenot - Last Filed: 04/23/21 10:37> Nutritional Appearance: well nourished <KISHA Fontenot - Last Filed: 04/23/21 10:37> HENMT: Head: Yes normocephalic and Yes atraumatic <KISHA Fontenot - Last Filed: 04/23/21 10:37> Eyes: Sclerae: sclerae normal <KISHA Fontenot - Last Filed: 04/23/21 10:37> Resp: Effort & Inspection: normal respiratory effort and no respiratory distress <KISHA Fontenot - Last Filed: 04/23/21 10:37> Auscultation: clear to auscultation bilaterally <KISHA Fontenot - Last Filed: 04/23/21 10:37> Cardio: Rate: regular rate <KISHA Fontenot - Last Filed: 04/23/21 10:37> Rhythm: regular rhythm <KISHA Fontenot - Last Filed: 04/23/21 10:37> GI: Palpation (GI): Soft to palpation and nontender <KISHA Fontenot - Last Filed: 04/23/21 10:37> Neuro: Cranial nerves: Yes CN's II-XII intact bilaterally and Yes Bilaterally intact EOM present <KISHA Fontenot - Last Filed: 04/23/21 10:37> Extrem: Other: bilateral edema 1+ improving <KISHA Fontenot - Last Filed: 04/23/21 10:37> Discharge Plan Discharge Patient Disposition: Home, Self-Care <KISHA Fontenot - Last Filed: 04/23/21 10:37> Discharge Diagnosis: Afib with RVR Acute CHF <KISHA Fontenot - Last Filed: 04/23/21 10:37> Afib with RVR Acute CHF <Topher Oates MD - Last Filed: 04/23/21 21:48> Referrals: Lupillo Matta MD [Primary Care Provider] - 1 Week Esvin Bush MD [Physician] - 1 Week <KISHA Fontenot - Last Filed: 04/23/21 10:37> Discharge Medications: New furosemide 20 mg Tablet 20 mg PO DAILY 30 Days Qty: 30 RF: 0 Eliquis 5 mg Tablet 5 mg PO BID 30 Days Qty: 60 RF: 0 amiodarone 200 mg Tablet 400 mg PO BID 14 Days Qty: 56 RF: 0 amiodarone 200 mg tablet 200 mg PO DAILY 30 Days Qty: 30 RF: 0 metoprolol succinate [Toprol XL] 25 mg tablet extended release 24 hr 25 mg PO DAILY Qty: 30 RF: 0 Continued Imbruvica 420 mg tablet 1 tab PO DAILY RF: 0 levothyroxine [Euthyrox] 75 mcg tablet 1 tab PO DAILY RF: 0 potassium chloride 2.5 mEq Tablet 2.5 meq PO DAILY RF: 0 Discontinued hydrochlorothiazide 25 mg tablet 1 tab PO QAM RF: 0 <KISHA Fontenot - Last Filed: 04/23/21 10:37> Discharge Orders: Discharge Order (Routine); Ordered 04/23/21 Ordered By: Tiesha Ledbetter <KISHA Fontenot - Last Filed: 04/23/21 10:37> Activity on Discharge: As tolerated <KISHA Fontenot - Last Filed: 04/23/21 10:37> As tolerated <Topher Oates MD - Last Filed: 04/23/21 21:48> Stand Alone Forms: Patient Portal Discharge page <KISHA Fontenot - Last Filed: 04/23/21 10:37> Other Ambulatory Orders: Basic Metabolic Panel (Routine) Timeframe: [id number] Facility: [facility] - Location: Laboratory Ordered By: Tiesha Ledbetter <KISHA Fontenot - Last Filed: 04/23/21 10:37> Care Plan Goals: see below <KISHA Fontenot - Last Filed: 04/23/21 10:37> Health Concerns: Atrial fibrillation heart Failure <KISHA Fontenot Last Filed: 04/23/21 10:37> Plan of Treatment: You have been started on a blood thinner. Please take as prescribed. Monitor for any signs of bleeding. You have been started on new medications for your heart. Please take as prescribed. For amiodarone you will take 400 mg twice daily for 2 weeks then take 200 mg daily after that Call to schedule a follow-up appointment with your PCP Follow up with cardiology Have repeat lab work in one week <KISHA Fontenot - Last Filed: 04/23/21 10:37> Assessment: see discharge summary I saw and examined the patient and discussed the managment and disposition with KISHA and I agree with discharge plan, except as otherwise stated <KISHA Fontenot - Last Filed: 04/23/21 10:37> Discharge Date/Time: 04/23/21 11:29 <KISHA Fontenot - Last Filed: 04/23/21 10:37>
--- NOTE | 2021-04-23 11:29 | PM.PNCARD ---
Subjective Subjective Date of Service: 04/23/21 Interval history: Feels ok. No new complaints. Review of Systems Review of Systems Yes all other systems are reviewed and are negative Cardiovascular: Reports as per HPI, Reports no additional cardiovascular complaints, Denies acrocyanosis, Denies cool extremities, Denies painful fingertips, Denies chest pain, Denies chest pain at rest, Denies diaphoresis, Denies syncope, Denies irregular heart rhythm, Denies claudication, Reports leg edema, Denies lightheadedness, Denies palpitations and Reports dyspnea Respiratory: Reports dyspnea Denies syncope Endocrine: Denies palpitations Physical Exam Vital Signs: Last Vital Signs Temp 97.9 F 04/23/21 07:35 Pulse 91 04/23/21 09:22 Resp 18 04/23/21 07:35 BP 135/67 04/23/21 07:35 Pulse Ox 98 04/23/21 07:35 Body Mass Index 36.0 Const General: cooperative, comfortable and no acute distress Orientation/consciousness: patient oriented x3 HENMT Other: Unremarkable Neck Neck: Yes normal visual inspection Chest Chest palpation & inspection: normal inspection of the chest Resp Auscultation: clear to auscultation bilaterally, no crackles and no wheezes Cardio Jugular venous distension: no JVD Palpation: normal PMI Heart sounds: S1 normal heart sound present, S2 normal heart sound present, no gallops, no murmurs and no rubs GI Palpation (GI): Soft to palpation Back/Spine/Pelvis Other: unremarkable Skin General skin exam: no rashes or lesions noted Neuro General: patient oriented x3 Extrem General: Yes edema (1+) Psych Mental Status: mental status grossly normal Results Labs and Meds Result diagrams: 04/20/21 10:00 04/22/21 05:57 Progress Note: A&P Assessment and plan (1) Atrial fibrillation with rapid ventricular response: Status: Acute (2) Acute diastolic (congestive) heart failure: Status: Acute Assessment and Plan: s/p NICA/CV. Remains in sinus. Short term Amiodarone and then will change to Multaq or Flecainide. Oral diuretics. Eliquis. Discharge planning. FU in office. Time Spent With Patient Time: Total time spent is greater than 50% in coordination of care (as documented) at patient's floor/unit and/or counseling patient: Time with patient: less than 15 minutes Progress Note: Quality Stroke Does the patient have a stroke diagnosis?: No Procedures Date of Service Date of Service: 04/23/21
--- NOTE | 2021-04-23 11:35 | HO.POSTANES ---
Post Anesthesia Evaluation Post Anesthesia Evaluation Vital Signs: Vital Signs Temp Pulse Resp BP Pulse Ox 04/23/21 09:22 91 04/23/21 07:35 97.9 F 77 18 135/67 98 04/23/21 04:00 98 F 83 18 140/54 H 95 04/22/21 23:56 98.3 F 73 18 147/67 H 96 Anesthesia: General Mental Status: Awake Nausea/Vomiting: None Hydration: Adequate Anesthesia-Related Issues: No Anes. Related Issues
== END 2021-04-23 11:29 | disposition home or self-care (01) | DRG 291 ==
LOC: HO.ED 13:09 → HO.EDOVER 16:00 → HO.IMC 19:21
PROVIDERS: Family Medicine; Internal Medicine; Physician Assistant Medical; Admitting Provider Internal Medicine; Emergency Provider Emergency Medicine; PCP Internal Medicine Medical Oncology; Visit Provider Internal Medicine
PROC: 5A2204Z Restoration of Cardiac Rhythm, Single (ICD-10-PCS; principal; 2021-04-22 14:30)
DX: I13.0 Hypertensive heart and chronic kidney disease with heart failure and stage 1 through stage 4 chronic kidney disease, or unspecified chronic kidney disease (principal); I50.31 Acute diastolic (congestive) heart failure; C95.91 Leukemia, unspecified, in remission; N17.9 Acute kidney failure, unspecified; I48.91 Unspecified atrial fibrillation; E03.9 Hypothyroidism, unspecified; N18.30 Chronic kidney disease, stage 3 unspecified; Z20.822 Contact with and (suspected) exposure to COVID-19; Z88.2 Allergy status to sulfonamides; Z79.01 Long term (current) use of anticoagulants; Z79.890 Hormone replacement therapy; Z79.899 Other long term (current) drug therapy
CPT/HCPCS: 36415; 71045; 78580; 80048; 80076; 82947; 83735; 83880; 84439; 84443; 84484; 85025; 85379; 85610; 85730; 87635; 92960; 93005; 93306; 93312; 99285; A9540; J1160; J1940; J2250

== ENCOUNTER 2021-04-29 09:01 | Outpatient (REF) | payer MEDICARE, SELFPAY ==
[2021-04-29 11:18] LABS: MANUAL DIFF FLAG NO
[2021-04-29 11:26] LABS: Basophils Percent Auto 0.3 % (0-2); Eosinophils Absolute Auto 0.1 X10*3/uL (0.0-0.4); Eosinophils Percent Auto 0.6 % (0-4); Hematocrit 40.6 % (37-47); Hemoglobin 12.8 g/dl (12.0-16.0); Imm Gran Abs Auto 0.05 X10*3/uL (0.00-0.03); Imm Gran Pct Auto 0.6 % (0.0-0.4); Lymphocytes Absolute Auto 2.1 X10*3/uL (1.2-4.9); Lymphocytes Percent Auto 26.4 % (20-40); Mean Corpuscular HGB Conc 31.5 g/dl (31.0-35.0); Mean Corpuscular Hemoglobin 28.4 pg (27.0-33.0); Mean Corpuscular Volume 90.2 fL (80-98); Mean Platelet Volume 10.8 fL (9.4-12.3); Monocytes Absolute Auto 0.7 X10*3/uL (0.1-1.2); Monocytes Percent Auto 8.4 % (2-11); Neutrophils Absolute Auto 5.1 X10*3/uL (2.0-8.3); Neutrophils Percent Auto 63.7 % (45-73); Platelet Count 237 X10*3/uL (160-400); Red Cell Distribution Width 14.6 % (11.0-16.0)
[2021-04-29 12:01] LABS: Alanine Aminotransferase 8 U/L (0-31); Albumin Level 4.3 g/dL (3.5-5.0); Alkaline Phosphatase 75 U/L (39-117); Anion Gap 13 (12-20); Aspartate Amino Transferase 13 U/L (5-31); Bilirubin Total 0.8 mg/dL (0.0-1.0); Blood Urea Nitrogen 17 mg/dL (9-16); Calcium 9.2 mg/dL (8.4-10.2); Carbon Dioxide 27 mmol/L (22-29); Chloride 105 mmol/L (96-108); Estimated Glomerular Filt Rate 37; Glucose Random 86 mg/dL (60-115); Potassium 4.3 mmol/L (3.3-5.1); Sodium 141 mmol/L (135-145); Total Protein 6.8 g/dL (6.5-8.0)
== END 2021-04-29 09:02 | disposition home or self-care (01) ==
LOC: HO.HMGCLDS 09:01
PROVIDERS: PCP Internal Medicine Medical Oncology; Visit Provider Physician Assistant Medical
DX: C91.10 Chronic lymphocytic leukemia of B-cell type not having achieved remission (principal); E66.9 Obesity, unspecified; I50.31 Acute diastolic (congestive) heart failure
CPT/HCPCS: 36415; 80053; 85025

== ENCOUNTER → 2021-05-12 10:00 | Outpatient (REF) | payer MEDICARE, SELFPAY ==
--- NOTE | ~2021-05-12 | NM_ITS ---
Lexiscan Myocardial perfusion study Indication: Heart failure, assess for coronary disease and ischemia Technique: The patient was brought in for a Lexiscan perfusion study on 05/12/2021 and was injected 0.4 mg of Lexiscan intravenously. Within a minute of this injection 25 mCi of sestamibi was given intravenously. Images were obtained using the SPECT gamma camera interlaced with the gating device. Images were obtained in supine position. Resting perfusion study was performed on 05/13/2021. Patient was administered 25 mCi of sestamibi intravenously at rest. Images were then obtained in supine position. Total DLP 117mGy-cm. Images were processed with the software and compared side to side in short axis, horizontal long axis and vertical long axis views. Findings: Raw acquisition was reviewed. The stress perfusion study showed diminished tracer uptake in the distal lateral wall. With CT attenuation correction, there is significant improvement suggestive of soft tissue attenuation artifact. The gated study shows normal LV systolic function with calculated LVEF of 71%. LV cavity is normal in size. The gated study shows normal wall thickening and contraction of segments. Resting study shows slight decrease in tracer uptake in the apical lateral wall. There is improvement with CT attenuation correction and hence suggestive of soft tissue attenuation artifact. Gating at rest reveals normal wall motion with ejection fraction at 71%. The findings are consistent with fixed distal lateral wall defect most likely from soft tissue attenuation artifact. NM/NM damon perf SPECT rest & str Impression: 1. Myocardial perfusion imaging study shows no definitive evidence of any ischemia or infarction. Likely soft tissue attenuation causing apical lateral defect. 2. Gated LVEF is 71%. 3. Transient ischemic dilatation not present. EKG component of the test reported separately.
--- NOTE | 2021-05-12 10:04 | CA_ITS ---
Acquisition Time: 2021-05-12 10:42:01 Total Exercise Time: 00:02:00 Test Indications: ACUTE DIASTOLIC CHF Medications: Protocol: LEXISCAN Max HR: 122 BPM 82% of Pred: 147 BPM Max BP: 132/068 mmHG Max Work Load: 1.0 METS Pharmacological stress test with Lexiscan injection, while sitting and kicking her legs without anginal symptoms, without arrythmia, with normotensive response to injection, with nondiagnostic EKG for ischemia. In recovery she reported lightheadedness, nausea that was treated with Aminophylline 75mg IVP to reverse Lexiscan with resolution of symptoms. Nuclear images pending. Test reviewed with Dr Bush. Referred By: Esvin Bush Overread By: PATO IZQUIERDO
--- NOTE | 2021-05-12 10:35 | ECG_ITS ---
Hook-up date: 2021-05-12 11:54:00 Duration: 25:24:00 Test Indications: I48.91 - Unspecified atrial fib Medications: [id number] QRS complexes * Ventricular ectopics which represent % of total QRS comp. * Supraventricular ectopics which represent % of total QRS comp. * Paced QRS complexs which represent % of total QRS comp. VENTRICULAR ECTOPY * Isolated * Bigeminal Cycles * Couplets * Runs * Beats in Runs * Beats LONGEST at * BPM at :: -- * Beats FASTEST at * BPM at :: -- SUPRAVENTRICULAR ECTOPY * Isolated * Couplets * Runs * Beats in Runs * Beats LONGEST at * BPM at :: -- * Beats FASTEST at * BPM at :: -- HEART RATES 64 MIN at 07:06:12 2021-05-13 96 AVG 153 MAX at 13:35:52 2021-05-12 LONGEST RR 1.5440 secs at 01:13:19 2021-05-13 S-T LEVELS Channel 1 - 128 mm at 11:54:00 2021-05-12 - 128 mm at 11:54:00 2021-05-12 Channel 2 - 128 mm at 11:54:00 2021-05-12 - 128 mm at 11:54:00 2021-05-12 Channel 3 - 128 mm at 03:11:31 -- - 128 mm at 03:11:31 Underlyiing rhythm is atrial fibrillation; Average ventricular rate 96/min; range 64-153/min; About 37% of the time, rate >100/min; Suboptimal rate control of atrial fibrillation; Patient diary not available for review. Referred By: Rema Yao Overread By: REMA YAO
== END ==
LOC: HO.CARD 10:00
PROVIDERS: Visit Provider Internal Medicine
DX: I48.91 Unspecified atrial fibrillation (principal); I50.31 Acute diastolic (congestive) heart failure
CPT/HCPCS: 78452; 93017; 93225; 93226; A9500; J0280; J2785

== ENCOUNTER → 2021-05-31 13:03 | Outpatient (BNVA) | payer MEDICARE, SELFPAY | PROVIDERS: Visit Provider Nurse Practitioner Family | DX: I48.91 Unspecified atrial fibrillation (principal); I50.9 Heart failure, unspecified; I10 Essential (primary) hypertension; E66.9 Obesity, unspecified; Z68.34 Body mass index [BMI] 34.0-34.9, adult; Z98.890 Other specified postprocedural states; Z88.2 Allergy status to sulfonamides; Z88.8 Allergy status to other drugs, medicaments and biological substances; Z79.899 Other long term (current) drug therapy | CPT/HCPCS: 93005; 99212 ==

== ENCOUNTER 2021-06-08 08:31 | Outpatient (REF) | payer MEDICARE, SELFPAY ==
[2021-06-08 11:16] LABS: MANUAL DIFF FLAG NO
[2021-06-08 11:23] LABS: Basophils Percent Auto 0.3 % (0-2); Eosinophils Percent Auto 0.6 % (0-4); Hematocrit 43.9 % (37-47); Hemoglobin 13.7 g/dl (12.0-16.0); Imm Gran Abs Auto 0.06 X10*3/uL (0.00-0.03); Imm Gran Pct Auto 0.8 % (0.0-0.4); Lymphocytes Absolute Auto 1.8 X10*3/uL (1.2-4.9); Lymphocytes Percent Auto 24.7 % (20-40); Mean Corpuscular HGB Conc 31.2 g/dl (31.0-35.0); Mean Corpuscular Hemoglobin 28.2 pg (27.0-33.0); Mean Corpuscular Volume 90.5 fL (80-98); Mean Platelet Volume 11.3 fL (9.4-12.3); Monocytes Absolute Auto 0.7 X10*3/uL (0.1-1.2); Monocytes Percent Auto 9.1 % (2-11); Neutrophils Absolute Auto 4.7 X10*3/uL (2.0-8.3); Neutrophils Percent Auto 64.5 % (45-73); Platelet Count 238 X10*3/uL (160-400); Red Blood Count 4.85 X10*6/uL (4.20-5.50); Red Cell Distribution Width 15.5 % (11.0-16.0); White Blood Count 7.2 X10*3/uL (4.8-10.8)
[2021-06-08 11:41] LABS: Alanine Aminotransferase 10 U/L (0-31); Albumin Level 4.4 g/dL (3.5-5.0); Alkaline Phosphatase 61 U/L (39-117); Anion Gap 13 (12-20); Aspartate Amino Transferase 11 U/L (5-31); Bilirubin Total 0.9 mg/dL (0.0-1.0); Blood Urea Nitrogen 22 mg/dL (9-16); Calcium 9.4 mg/dL (8.4-10.2); Carbon Dioxide 27 mmol/L (22-29); Chloride 104 mmol/L (96-108); Estimated Glomerular Filt Rate 28; Glucose Random 84 mg/dL (60-115); Potassium 4.5 mmol/L (3.3-5.1); Sodium 139 mmol/L (135-145)
[2021-06-08 11:45] LABS: B Type Natriuretic Peptide 75 pg/mL (<100)
== END 2021-06-08 08:32 | disposition home or self-care (01) ==
LOC: HO.HMGCLDS 08:31
PROVIDERS: PCP Internal Medicine Medical Oncology; Visit Provider Internal Medicine Medical Oncology
DX: C91.10 Chronic lymphocytic leukemia of B-cell type not having achieved remission (principal); I10 Essential (primary) hypertension; N28.9 Disorder of kidney and ureter, unspecified
CPT/HCPCS: 36415; 80053; 83880; 85025

== ENCOUNTER 2021-07-02 08:27 | Outpatient (REF) | payer MEDICARE, SELFPAY ==
[2021-07-02 11:20] LABS: Alanine Aminotransferase 9 U/L (0-31); Anion Gap 14 (12-20); Aspartate Amino Transferase 10 U/L (5-31); Blood Urea Nitrogen 30 mg/dL (9-16); Calcium 9.4 mg/dL (8.4-10.2); Carbon Dioxide 24 mmol/L (22-29); Chloride 106 mmol/L (96-108); Estimated Glomerular Filt Rate 28; Glucose Random 80 mg/dL (60-115); Potassium 4.2 mmol/L (3.3-5.1); Sodium 140 mmol/L (135-145)
[2021-07-02 11:41] LABS: Thyroid Stimulating Hormone 4.46 uIU/mL (0.32-4.0)
== END 2021-07-02 08:28 | disposition home or self-care (01) ==
LOC: HO.HMGCLDS 08:27
PROVIDERS: PCP Internal Medicine Medical Oncology; Visit Provider Nurse Practitioner Family
DX: I48.91 Unspecified atrial fibrillation (principal)
CPT/HCPCS: 36415; 80048; 84443; 84450; 84460

== ENCOUNTER 2021-07-13 07:17 | Day surgery (SDC) | payer MEDICARE, SELFPAY ==
[2021-07-06 13:45] VITALS: BMI 34.0
--- NOTE | 2021-07-12 10:21 | HO.ANESPROP2 ---
Documented by User: Sana Peng NP 07/12/21 10:34 HPI - Anesthesia Eval Consult details Narrative: 75yo F for Cardioversion s/p Cardioversion with MAC 04/22/21 [place] [facility] Active Problems Active Problems: All Active Problems (Updated 07/06/21 @ 13:49 by Vandana Quinones, RN) Pedal edema (Acute) Atrial fibrillation with rapid ventricular response (Acute) Acute dyspnea (Acute) Mild congestive heart failure (Acute) Acute diastolic (congestive) heart failure (Acute) Chronic kidney disease (Acute) History of cardioversion (Acute) Past Medical History Medical History (Updated 07/06/21 @ 13:49 by Vandana Quinones, CARLOS) Atrial fibrillation CLL (chronic lymphocytic leukemia) COVID-19 vaccine series completed Hard of hearing History of cardioversion Hypertension Hypothyroid Leukemia in remission Family History Family History Mother CAD (coronary artery disease) Sister CAD (coronary artery disease) Father Leukemia Surgical History Surgical History (Updated 07/06/21 @ 13:07 by Vandana Quinones RN) Hx of cataract extraction Social History Social History Household Members: Spouse Housing: House Are you a primary laboratory animal caretaker to a significant other at home: No Do you presently have visiting nurse or other home services: No Alcohol intake: never Patient Tobacco Use Status: Never used Tobacco Use of substances other than those prescribed or required for medical reasons: No Have you been hit, kicked, punched, or otherwise hurt by someone within the past year? If so, by whom?: No Are you DNR?: No Advance Directives: Yes Advance Directives Information Provided: Yes Advance Directives on File: Yes Advance Directives Date on File: 04/20/21 Recently lost weight without trying: No Eating poorly because of decreased appetite: No Nutrition Risks: No Nutritional Risk Patient : No : No Poor oral hygiene: No (Upper Partial, 1 loose lower tooth) service: No Current occupational status: retired Meds Allergies Allergy/AdvReac Type Severity Reaction Status Date / Time Sulfa (Sulfonamide Allergy Unknown DIFFICULTY Verified 07/06/21 13:08 Antibiotics) BREATHING [SULFA(SULFONAMIDE ANTIBIOTICS)] sulfamethoxazole Allergy Unknown DIARRHEA, Verified 07/06/21 13:08 [From BACTRIM] VOMTING, RASH trimethoprim [From BACTRIM] Allergy Unknown DIARRHEA, Verified 07/06/21 13:08 VOMTING, RASH Home Medications Medication Instructions Recorded Confirmed Last Taken Type ibrutinib 420 mg tablet (Imbruvica) 1 tab PO DAILY 04/20/21 07/06/21 04/19/21 History levothyroxine 75 mcg tablet 1 tab PO DAILY 04/20/21 07/06/21 04/19/21 History (Euthyrox) potassium chloride 2.5 mEq tablet 2.5 meq PO DAILY 04/20/21 07/06/21 Unknown History furosemide 20 mg tablet (Lasix) 20 mg PO Q OTHER DAY 07/04/21 07/06/21 Unknown History Exam Exam Date and Time: July 12, 2021 1021 Height,Weight and Vital Signs: Height 5 ft 4 in Weight 89.811 kg Pertinent Lab Results Pertinent Lab Results: Laboratory Tests 06/08/21 07/02/21 08:43 08:35 WBC 7.2 Hgb 13.7 Hct 43.9 Plt Count 238 Sodium 140 Potassium 4.2 Chloride 106 Carbon Dioxide 24 BUN 30 H Creatinine 1.76 H Narrative Narrative: EKG 05/2021 afib with RVR, right axis, nonspecific ST/ T wave abn, rate 111 NM damon perf SPECT rest & str 05/2021 Impression: ? 1.? Myocardial perfusion imaging study shows no definitive evidence of any ischemia or infarction. Likely soft tissue attenuation causing apical lateral defect. 2.? Gated LVEF is 71%. 3. Transient ischemic dilatation not present. ? EKG component of the test nondiagnostic for ischemia, normotensive response ECHO 04/2021 Conclusion: ??? The left ventricular systolic function is low normal.? The ? ? visually estimated ejection fraction is between 50-55%.? There is no evidence of a thrombus in the left atrial? appendage. ? Small PFO by color Doppler with possibly right to left ? shunting.? There is mild to moderate tricuspid valve regurgitation. ? Small plaque is seen in the descending thoracic aorta. Assessment and Plan Assessment Anesthesia Assessment: Chart Reviewed Documented by User: Rosa Aquino MD 07/13/21 08:46 [facility] Past Medical History Medical History (Updated 07/06/21 @ 13:49 by Vandana Quinones, RN) Atrial fibrillation CLL (chronic lymphocytic leukemia) COVID-19 vaccine series completed Hard of hearing History of cardioversion Hypertension Hypothyroid Leukemia in remission Family History Family History Mother CAD (coronary artery disease) Sister CAD (coronary artery disease) Father Leukemia Family history of problems with anesthesia: No Surgical History Surgical History (Updated 07/06/21 @ 13:07 by Vandana Quinones, RN) Hx of cataract extraction History of Problems with Anesthesia: No Social History Social History Household Members: Spouse Housing: House Are you a primary laboratory animal caretaker to a significant other at home: No Do you presently have visiting nurse or other home services: No Alcohol intake: never Patient Tobacco Use Status: Never used Tobacco Use of substances other than those prescribed or required for medical reasons: No Have you been hit, kicked, punched, or otherwise hurt by someone within the past year? If so, by whom?: No Are you DNR?: No Advance Directives: Yes Advance Directives Information Provided: Yes Advance Directives on File: Yes Advance Directives Date on File: 04/20/21 Recently lost weight without trying: No Eating poorly because of decreased appetite: No Nutrition Risks: No Nutritional Risk Patient : No : No Poor oral hygiene: No (Upper Partial, 1 loose lower tooth) service: No Current occupational status: retired Meds Allergies Allergy/AdvReac Type Severity Reaction Status Date / Time Sulfa (Sulfonamide Allergy Unknown DIFFICULTY Verified 07/06/21 13:08 Antibiotics) BREATHING [SULFA(SULFONAMIDE ANTIBIOTICS)] sulfamethoxazole Allergy Unknown DIARRHEA, Verified 07/06/21 13:08 [From BACTRIM] VOMTING, RASH trimethoprim [From BACTRIM] Allergy Unknown DIARRHEA, Verified 07/06/21 13:08 VOMTING, RASH Home Medications Medication Instructions Recorded Confirmed Last Taken Type ibrutinib 420 mg tablet (Imbruvica) 1 tab PO DAILY 04/20/21 07/06/21 04/19/21 History levothyroxine 75 mcg tablet 1 tab PO DAILY 04/20/21 07/06/21 04/19/21 History (Euthyrox) potassium chloride 2.5 mEq tablet 2.5 meq PO DAILY 04/20/21 07/06/21 Unknown History furosemide 20 mg tablet (Lasix) 20 mg PO Q OTHER DAY 07/04/21 07/06/21 Unknown History Exam Airway Mallampati Class: II TM Dist: >3cm Neck ROM: Full Partial: Upper Heart: irreg Lungs: cta Assessment and Plan Assessment Anesthesia Assessment: Anesthesia Plan Discussed Final Anesthetic Review Family History of Problems with Anesthesia: No History of Problems with Anesthesia: No NPO: Yes (Sip water with meds) ASA Class: III Final Preanesthetic Review: No Changes in Pt Med Stat, Meds/Allgs Chart Reviewed and Consent Obtained/Reviewed Patient Risk: Intermediate Procedure Risk: Intermediate Anesthetic Plan Anesthetic Plan: MAC: Disposition: Standard PACU
--- NOTE | 2021-07-13 | ECG_ITS ---
Test Reason : POST CARDIOVERSION Blood Pressure : / mmHG Vent. Rate : 064 BPM Atrial Rate : 064 BPM P-R Int : 184 ms QRS Dur : 094 ms QT Int : 436 ms P-R-T Axes : 066 071 050 degrees QTc Int : 449 ms Normal sinus rhythm Normal ECG When compared with ECG of 22-APR-2021 12:32, T wave inversion no longer evident in Lateral leads Referred By: Esvin Bush Electronically Signed By:ADELINA VALENCIA
[2021-07-13 07:42] VITALS: BP 150/82; PULSE 118; RESP 16; TEMP 36.7; O2SAT 99
[2021-07-13] MEDS: Lactated Ringers 1,000 ML 100 ML IVCONT (08:03)
--- NOTE | 2021-07-13 09:01 | MHC.SHP ---
Pre-Procedural Eval Section A Date of Service: 07/13/21 Section B Chief Complaint: afib Allergies: Allergies Allergy/AdvReac Type Severity Reaction Status Date / Time Sulfa (Sulfonamide Allergy Unknown DIFFICULTY Verified 07/06/21 13:08 Antibiotics) BREATHING [SULFA(SULFONAMIDE ANTIBIOTICS)] sulfamethoxazole Allergy Unknown DIARRHEA, Verified 07/06/21 13:08 [From BACTRIM] VOMTING, RASH trimethoprim [From BACTRIM] Allergy Unknown DIARRHEA, Verified 07/06/21 13:08 VOMTING, RASH Plan I have reviewed the history and physical and performed a pertinent physical examination on my patient. No changes have occurred unless specified.
--- NOTE | 2021-07-13 09:20 | HO.CARDIVERS ---
Cardioversion Procedure Note Cardioversion Date of Procedure: 07/13/2021 Ordering Provider: Dr. Bush Performing Provider: Dr. Bush Indication for Procedure: Atrial fibrillation with rapid ventricular rate Pre-Op Diagnosis: Atrial fibrillation Post-Op Diagnosis: Sinus rhythm History: 75-year-old female with atrial fibrillation who underwent recent NICA and cardioversion; recurrence of atrial fibrillation leading to another cardioversion. Consent: Informed consent obtained. Procedure: After informed consent was obtained, patient was taken to the PACU. The patient was then positioned appropriately. The cardioversion pads were placed in anteroposterior position. Once under anesthesia, 120 joules of synchronized shock was administered. The rhythm converted from atrial fibrillation to sinus rhythm. Patient remained in sinus rhythm after the end of procedure. Complications: None Impression: Successful cardioversion from atrial fibrillation to sinus rhythm. Recommendations: Current meds can be continued. FU in office.
[2021-07-13 09:24] VITALS: BP 127/68; PULSE 62; RESP 19; TEMP 37.4; O2SAT 99
[2021-07-13 09:29] VITALS: BP 118/54; PULSE 66; RESP 21; O2SAT 100
[2021-07-13 09:34] VITALS: BP 115/74; PULSE 73; RESP 22; O2SAT 97
[2021-07-13 09:40] VITALS: BP 117/56; PULSE 65; RESP 20; TEMP 37.2; O2SAT 99
== END 2021-07-13 11:27 | disposition home or self-care (01) ==
PROVIDERS: PCP Internal Medicine Medical Oncology; Visit Provider Internal Medicine
PROC: 5A2204Z Restoration of Cardiac Rhythm, Single (ICD-10-PCS; principal; 2021-07-13 09:00)
DX: I48.91 Unspecified atrial fibrillation (principal); I11.0 Hypertensive heart disease with heart failure; I50.20 Unspecified systolic (congestive) heart failure; Z79.01 Long term (current) use of anticoagulants
CPT/HCPCS: 92960; 93005

== ENCOUNTER → 2021-07-27 08:31 | Outpatient (BNVA) | payer MEDICARE, SELFPAY | PROVIDERS: PCP Internal Medicine Medical Oncology; Visit Provider Internal Medicine | DX: I50.32 Chronic diastolic (congestive) heart failure (principal); I48.0 Paroxysmal atrial fibrillation | CPT/HCPCS: 93005; 99212 ==

== ENCOUNTER 2021-09-10 08:38 | Outpatient (REF) | payer MEDICARE, SELFPAY ==
[2021-09-10 11:01] LABS: MANUAL DIFF FLAG NO
[2021-09-10 11:03] LABS: Basophils Percent Auto 0.3 % (0-2); Eosinophils Percent Auto 0.5 % (0-4); Hematocrit 41.1 % (37.0-47.0); Hemoglobin 13.3 g/dl (12.0-16.0); Imm Gran Abs Auto 0.06 X10*3/uL (0.00-0.03); Imm Gran Pct Auto 0.9 % (0.0-0.4); Lymphocytes Absolute Auto 1.7 X10*3/uL (1.2-4.9); Mean Corpuscular HGB Conc 32.4 g/dl (31.0-35.0); Mean Corpuscular Hemoglobin 29.9 pg (27.0-33.0); Mean Corpuscular Volume 92.4 fL (80.0-98.0); Mean Platelet Volume 11.4 fL (9.4-12.3); Monocytes Absolute Auto 0.7 X10*3/uL (0.1-1.2); Monocytes Percent Auto 9.8 % (2-11); Neutrophils Absolute Auto 4.2 x10*3/uL (2.0-8.3); Neutrophils Percent Auto 63.5 % (45-73); Platelet Count 216 X10*3/uL (160-400); Red Blood Count 4.45 X10*6/uL (4.20-5.50); Red Cell Distribution Width 15.4 % (11.0-16.0); White Blood Count 6.6 X10*3/uL (4.8-10.8)
[2021-09-10 11:15] LABS: Anion Gap 16 (12-20); Blood Urea Nitrogen 18 mg/dL (9-16); Calcium 9.3 mg/dL (8.4-10.2); Carbon Dioxide 23 mmol/L (22-29); Chloride 104 mmol/L (96-108); Estimated Glomerular Filt Rate 30; Glucose Random 84 mg/dL (60-115); Potassium 4.7 mmol/L (3.3-5.1); Sodium 138 mmol/L (135-145)
[2021-09-10 11:19] LABS: Alanine Aminotransferase 10 U/L (0-31); Albumin Level 4.4 g/dL (3.5-5.0); Alkaline Phosphatase 58 U/L (39-117); Anion Gap 12 (12-20); Aspartate Amino Transferase 12 U/L (5-31); Bilirubin Total 1.3 mg/dL (0.0-1.0); Blood Urea Nitrogen 18 mg/dL (9-16); Calcium 9.2 mg/dL (8.4-10.2); Carbon Dioxide 27 mmol/L (22-29); Chloride 104 mmol/L (96-108); Estimated Glomerular Filt Rate 30; Glucose Random 84 mg/dL (60-115); Potassium 4.8 mmol/L (3.3-5.1); Sodium 138 mmol/L (135-145); Total Protein 6.9 g/dL (6.5-8.0)
[2021-09-10 11:22] LABS: B Type Natriuretic Peptide 90 pg/mL (<100)
[2021-09-10 11:40] LABS: Free T4 (Free Thyroxine) 1.35 ng/dL (0.71-1.85); Thyroid Stimulating Hormone 4.42 uIU/mL (0.32-4.0)
== END 2021-09-10 08:39 | disposition home or self-care (01) ==
LOC: HO.HMGCLDS 08:38
PROVIDERS: PCP Internal Medicine Medical Oncology; Visit Provider Internal Medicine
DX: C91.10 Chronic lymphocytic leukemia of B-cell type not having achieved remission (principal); E03.9 Hypothyroidism, unspecified; E66.9 Obesity, unspecified; I50.32 Chronic diastolic (congestive) heart failure
CPT/HCPCS: 36415; 80048; 80053; 83880; 84439; 84443; 85025

== ENCOUNTER → 2021-10-11 08:35 | Outpatient (BNVA) | payer MEDICARE, SELFPAY | PROVIDERS: PCP Internal Medicine Medical Oncology; Visit Provider Internal Medicine | DX: I48.0 Paroxysmal atrial fibrillation (principal); I50.32 Chronic diastolic (congestive) heart failure | CPT/HCPCS: 93005; 99212 ==

== ENCOUNTER → 2021-11-03 08:46 | Outpatient (REF) | payer MEDICARE, SELFPAY | LOC: HO.SL 08:46 | PROVIDERS: PCP Internal Medicine Medical Oncology; Visit Provider Internal Medicine | DX: G47.33 Obstructive sleep apnea (adult) (pediatric) (principal); I48.0 Paroxysmal atrial fibrillation | CPT/HCPCS: 95806 ==

== ENCOUNTER 2021-12-12 08:33 | Outpatient (REF) | payer MEDICARE, SELFPAY ==
[2021-12-12 11:17] LABS: MANUAL DIFF FLAG NO
[2021-12-12 11:22] LABS: Basophils Percent Auto 0.2 % (0-2); Eosinophils Percent Auto 0.3 % (0-4); Hematocrit 43.2 % (37.0-47.0); Hemoglobin 13.6 g/dl (12.0-16.0); Imm Gran Abs Auto 0.08 X10*3/uL (0.00-0.03); Imm Gran Pct Auto 1.3 % (0.0-0.4); Lymphocytes Absolute Auto 1.8 X10*3/uL (1.2-4.9); Mean Corpuscular HGB Conc 31.5 g/dl (31.0-35.0); Mean Corpuscular Hemoglobin 28.9 pg (27.0-33.0); Mean Corpuscular Volume 91.9 fL (80.0-98.0); Mean Platelet Volume 11.2 fL (9.4-12.3); Monocytes Absolute Auto 0.6 X10*3/uL (0.1-1.2); Monocytes Percent Auto 10.5 % (2-11); Neutrophils Absolute Auto 3.4 x10*3/uL (2.0-8.3); Neutrophils Percent Auto 57.7 % (45-73); Platelet Count 239 X10*3/uL (160-400); Red Cell Distribution Width 14.9 % (11.0-16.0); White Blood Count 5.9 X10*3/uL (4.8-10.8)
[2021-12-12 11:52] LABS: Alanine Aminotransferase 7 U/L (0-31); Albumin Level 4.2 g/dL (3.5-5.0); Alkaline Phosphatase 69 U/L (39-117); Anion Gap 13 (12-20); Aspartate Amino Transferase 12 U/L (5-31); Bilirubin Total 0.8 mg/dL (0.0-1.0); Blood Urea Nitrogen 24 mg/dL (9-16); Calcium 9.3 mg/dL (8.4-10.2); Carbon Dioxide 26 mmol/L (22-29); Chloride 105 mmol/L (96-108); Cholesterol 200 mg/dL; Estimated Glomerular Filt Rate 34; Glucose Fasting 86 mg/dL (60-99); HDL Cholesterol 52 mg/dL; LDL Cholesterol Calculated 122 mg/dl; Potassium 4.6 mmol/L (3.3-5.1); Sodium 139 mmol/L (135-145); Total Protein 6.8 g/dL (6.5-8.0); Triglycerides 134 mg/dL
[2021-12-12 11:56] LABS: Thyroid Stimulating Hormone 5.31 uIU/mL (0.32-4.0)
== END 2021-12-12 08:34 | disposition home or self-care (01) ==
LOC: HO.LAB 08:33
PROVIDERS: Visit Provider Internal Medicine Medical Oncology
DX: C91.10 Chronic lymphocytic leukemia of B-cell type not having achieved remission (principal); E66.9 Obesity, unspecified
CPT/HCPCS: 36415; 80053; 80061; 84439; 84443; 85025

== ENCOUNTER → 2021-12-15 08:11 | Outpatient (REF) | payer MEDICARE, SELFPAY ==
--- NOTE | 2021-12-15 08:17 | HM_ITS ---
Total monitoring time 3 days and 8 hours. Underlying rhythm is atrial fibrillation. Average rate 101/Min. Minimum 75/Min. Maximum 143/Min. About 29% of the time, right greater than 100/Min. No pauses noted. No patient events. MTDD
--- NOTE | 2021-12-15 08:17 | CA_ITS ---
Transthoracic Echocardiogram Patient (Last, First, Middle): Sheyla Gutierrez P Gender: Female Date of : 1945 Age: 76 Procedure Date: 12/15/2021 Procedure Type: Transthoracic Echocardiogram Location: OP Height: 162.56 cm Weight: 89.81 kg BSA: 1.95 m2 Heart Rate: bpm BP: 148 / 90 mmHg Metalizing Machine Operator: ISAIAS Referring MD: Esvin Bush MD Animal Chiropractor: Randal Yee MD Symptoms: I50.32 - Chronic diastolic (congestive) heart failure Study Quality: Fair ECG Rhythm: Atrial Fibrillation Conclusions: - 1. Low normal LV ejection fraction of 50-55% 2. At least mildly dilated left atrium 3. [id number] mitral regurgitation 4. Normal RV systolic pressure 5. No gross pericardial effusion Findings Left Ventricle Normal left ventricular cavity size. There is normal left ventricular wall thickness. The left ventricular systolic function is low normal. The visually estimated ejection fraction is between 50-55%. Diastolic function is indeterminate on the basis of available data. Right Ventricle Normal right ventricular cavity size and systolic function. Atria The left atrium is mildly dilated. There is no evidence of interatrial shunt. The right atrium is likely dilated. Aortic Valve Normal aortic valve structure and function. There is no aortic valve stenosis. There is no aortic valve regurgitation. Mitral Valve There is mild anterior and moderate posterior mitral leaflet thickening. There is moderate mitral annular calcification. There is mild to moderate mitral valve regurgitation. There is no mitral valve stenosis. Pulmonic Valve The pulmonic valve was not well visualized. Tricuspid Valve Likely normal tricuspid valve structure and function. There is mild tricuspid valve regurgitation. The right ventricular systolic pressure is normal. The right ventricular systolic pressure is 27 mmHg. There is no evidence of pulmonary hypertension. Great Vessels All visible segments of the aorta are normal in size. The pulmonary artery was not well visualized. Venous The inferior vena cava is normal in size and collapses greater than 50% with inspiration. Pericardium/Pleural There is no evidence of pericardial effusion. Prior Study Comparison No significant change compared to prior study dated: 04/22/2021. Measurements 2D Linear Measurements IVSd: 0.94 0.6-0.9/0.6-1.0 cm LVIDd: 4.24 3.9-5.3/4.2-5.9 cm LVIDd Index: 2.17 2.4-3.2/2.2-3.1 cm/m2 LVIDs: 2.69 2.0-3.6 cm LVPWd: 0.88 0.7-1.1 cm Ao Root: 2.60 2.1-3.5 cm LA Diam: 4.40 2.7-3.8/3.0-4.0 cm LAIDs Index: 2.26 1.5-2.3 cm/m2 LV Mass: 152.86 67-162/88-224 g LV Mass Index: 78.39 43-95/49-115 g/m2 LVOT Diam: 1.70 3.0+(-)1.3 cm 2D Systolic Function EF 4C: 62.10 >55% EF 2C: 46.10 >55% EF BiP: 54.40 >55% Mitral Valve MV Pk E: 1.42 MV Decel Time: 176.00 E'Lateral: 8.75 E'Medial: 7.29 E/E' Med: 19.50 E/E' Lat: 16.20 PHT: 52.00 MVA PHT: 4.23 Decel Kane: 8.09 Aortic Valve AoV Pk Omer: 1.18 AoV Pk Grad: 6.00 LVOT LVOT Pk Omer: 0.88 LVOT Mn Omer: 0.61 LVOT VTI: 0.18 LVOT Pk Grad: 3.00 LVOT Mn Grad: 2.00 LVOT Diam: 1.70 LVOT Area: 2.27 Diastolic Function MV Pk E: 1.42 E'Medial: 7.29 E/E' Med: 19.50 E' Laterial: 8.75 E/E' Lat: 16.20 Right Ventricle TAPSE (mm): 1.98 TVS' Omer: 10.40 Tricuspid Valve TR Pk Omer: 2.46 TR Pk Grad: 24.00 RA Press: 3.00 RVSP: 27.00 Great Vessels Aorta Ao Root-2D: 2.60 2.0-3.7 cm Ao Asc: 3.10 2.1-3.4 cm Updated in Other Vendor System with Status of Final Randal Yee MD electronically signed on 12/15/2021 9:42:49 AM with status of Final
== END ==
LOC: HO.CARD 08:11
PROVIDERS: PCP Internal Medicine Medical Oncology; Visit Provider Internal Medicine
DX: I50.32 Chronic diastolic (congestive) heart failure (principal); I48.0 Paroxysmal atrial fibrillation
CPT/HCPCS: 93242; 93306

== ENCOUNTER → 2022-01-03 08:14 | Outpatient (BNVA) | payer MEDICARE, SELFPAY | PROVIDERS: PCP Internal Medicine Medical Oncology; Visit Provider Internal Medicine | DX: I48.19 Other persistent atrial fibrillation (principal); I50.32 Chronic diastolic (congestive) heart failure; G47.33 Obstructive sleep apnea (adult) (pediatric); Z79.899 Other long term (current) drug therapy | CPT/HCPCS: 99212 ==

== ENCOUNTER → 2022-01-17 09:25 | Outpatient (BNVA) | payer MEDICARE, SELFPAY | PROVIDERS: PCP Internal Medicine Medical Oncology; Referring Provider Internal Medicine Medical Oncology; Visit Provider Internal Medicine | DX: R94.31 Abnormal electrocardiogram [ECG] [EKG] (principal); I48.91 Unspecified atrial fibrillation | CPT/HCPCS: 93005 ==

== ENCOUNTER → 2022-02-06 09:01 | Outpatient (BNVA) | payer MEDICARE, SELFPAY | PROVIDERS: PCP Internal Medicine Medical Oncology; Referring Provider Internal Medicine Medical Oncology; Visit Provider Internal Medicine | DX: I48.19 Other persistent atrial fibrillation (principal); I50.32 Chronic diastolic (congestive) heart failure; G47.33 Obstructive sleep apnea (adult) (pediatric) | CPT/HCPCS: 99212 ==

== ENCOUNTER 2022-04-15 08:09 | Outpatient (REF) | payer MEDICARE, SELFPAY ==
[2022-04-15 11:27] LABS: MANUAL DIFF FLAG NO
[2022-04-15 11:54] LABS: Alanine Aminotransferase 20 U/L (0-31); Albumin Level 4.1 g/dL (3.5-5.0); Alkaline Phosphatase 75 U/L (39-117); Anion Gap 12 (12-20); Aspartate Amino Transferase 12 U/L (5-31); Bilirubin Total 1.1 mg/dL (0.0-1.0); Blood Urea Nitrogen 17 mg/dL (9-16); Calcium 8.9 mg/dL (8.4-10.2); Carbon Dioxide 24 mmol/L (22-29); Chloride 109 mmol/L (96-108); Cholesterol 156 mg/dL; Estimated Glomerular Filt Rate 36; Glucose Fasting 83 mg/dL (60-99); HDL Cholesterol 52 mg/dL; LDL Cholesterol Calculated 83 mg/dl; Potassium 4.3 mmol/L (3.3-5.1); Sodium 141 mmol/L (135-145); Total Protein 6.5 g/dL (6.5-8.0); Triglycerides 105 mg/dL
[2022-04-15 11:58] LABS: Basophils Percent Auto 0.2 % (0-2); Eosinophils Percent Auto 0.7 % (0-4); Hematocrit 39.2 % (37.0-47.0); Hemoglobin 12.5 g/dl (12.0-16.0); Imm Gran Abs Auto 0.05 X10*3/uL (0.00-0.03); Imm Gran Pct Auto 0.9 % (0.0-0.4); Lymphocytes Percent Auto 19.1 % (20-40); Mean Corpuscular HGB Conc 31.9 g/dl (31.0-35.0); Mean Corpuscular Hemoglobin 28.9 pg (27.0-33.0); Mean Corpuscular Volume 90.5 fL (80.0-98.0); Mean Platelet Volume 11.6 fL (9.4-12.3); Monocytes Absolute Auto 0.7 X10*3/uL (0.1-1.2); Monocytes Percent Auto 12.7 % (2-11); Neutrophils Absolute Auto 3.5 x10*3/uL (2.0-8.3); Neutrophils Percent Auto 66.4 % (45-73); Platelet Count 187 X10*3/uL (160-400); Red Blood Count 4.33 X10*6/uL (4.20-5.50); Red Cell Distribution Width 14.7 % (11.0-16.0); White Blood Count 5.3 X10*3/uL (4.8-10.8)
[2022-04-15 12:19] LABS: Free T4 (Free Thyroxine) 1.14 ng/dL (0.71-1.85); Thyroid Stimulating Hormone 4.95 uIU/mL (0.32-4.0)
== END 2022-04-15 08:10 | disposition home or self-care (01) ==
LOC: HO.HMGCLDS 08:09
PROVIDERS: Visit Provider Internal Medicine Medical Oncology
DX: C91.10 Chronic lymphocytic leukemia of B-cell type not having achieved remission (principal); E66.9 Obesity, unspecified; E03.9 Hypothyroidism, unspecified
CPT/HCPCS: 36415; 80053; 80061; 84439; 84443; 85025

== ENCOUNTER 2022-04-25 09:33 | Outpatient (REF) | payer MEDICARE, SELFPAY ==
--- NOTE | ~2022-04-25 | MM_ITS ---
EXAMINATION: MM SCREENING DIGITAL BREAST TOMOSYNTHESIS, BILATERAL CLINICAL INFORMATION: Screening. Asymptomatic. The lifetime risk of breast cancer based on the Tyrer-Cuzick Model is 3%. COMPARISON: Mammography: 01/14/2019; outside mammography 03/26/2013 ([facility]) TECHNIQUE: Digital breast tomosynthesis is performed in both the craniocaudal and mediolateral oblique views along with computer-aided detection (CAD). Synthesized 2D images are generated from the tomosynthesis. FINDINGS: There are scattered areas of fibroglandular density (ACR BI-RADS breast composition Category b). There are no significant masses, abnormal calcifications, or other abnormalities. No developing density or architectural abnormality. No significant changes. Punctate round dermal areolar calcifications are stable. MM/MM tomosynthesis screening BI IMPRESSION: No mammographic evidence of malignancy. ASSESSMENT: BI-RADS 2: Benign RECOMMENDATION: Routine annual mammography screening. This patient's information was entered into a reminder system with a target due date for their next mammogram.
== END 2022-04-25 09:34 | disposition home or self-care (01) ==
LOC: HO.MAMMO 09:33
PROVIDERS: PCP Internal Medicine Medical Oncology; Visit Provider Internal Medicine Medical Oncology
DX: Z12.31 Encounter for screening mammogram for malignant neoplasm of breast (principal)
CPT/HCPCS: 77063; 77067

== ENCOUNTER → 2022-05-15 10:29 | Outpatient (REF) | payer MEDICARE, SELFPAY ==
--- NOTE | 2022-05-15 10:34 | HM_ITS ---
Conclusion: 1. Patient was monitored for total period of 2 days and 2 hours 2. Baseline was atrial fibrillation with uncontrolled rate with average heart of 106 beats per minute and fastest heart rate 156 beats per minute with 32% of the time heart rate about 100 beats per minute 3. No significant pauses or bradycardia 4. Very rare PVCs 5. No patient reported events MTDD
== END ==
LOC: HO.CARD 10:29
PROVIDERS: PCP Internal Medicine Medical Oncology; Visit Provider Internal Medicine
DX: I48.19 Other persistent atrial fibrillation (principal)
CPT/HCPCS: 93242

== ENCOUNTER 2022-05-30 08:40 | Outpatient (REF) | payer MEDICARE, SELFPAY ==
--- NOTE | 2022-06-01 11:19 | MHC.AU.ANO ---
Adult Audiological Evaluation Date of Visit: 05/30/22 Therapeutic Assistant Used: Not Applicable Reason for Appointment: Audiologic evaluation due to significant hearing difficulties. Sheyla reports there is a family history of hearing loss which include her father and sisters who have worn hearing aids. 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 Inconsistent use of HPD History: No Medical History: Medical History: Chronic Lymphocytic Leukemia, Hyperthyroidism, Hypertension, Congestive Heart Failure, Atrial Fibrillation, Chronic Anticoagulation Medication List: Hydrochlorothiazide, Triamterene, Imruvica, Potassium Choride, Eliquis, Furosemide, Pacerone, Levothyroxine, Metoprolol Otoscopy: Right Ear: Partially occluded with cerumen Left Ear: Unremarkable Tympanometry: Tympanometry performed due to: To assess integrity of the middle ear system Right Ear: Normal Middle Ear System (Type A) Left Ear: Normal Middle Ear System (Type A) Otoacoustic Emissions Frequency Range Used: Did Not Test Hearing Evaluation: Transducer(s) Used: Insert Earphones Bone Conduction Method: Conventional Audiometry Stimuli Used: Pure Tones Right Ear: Description of Hearing: Moderately-severe sensorineural hearing through all frequencies with the exception of a moderate threshold at 6000 Hz Left Ear: Description of Hearing: Severe rising to moderately-severe sensorineural hearing loss Speech Recognition Threshold (SRT): Method Used: Monitored Live Voice Stimuli Used: Spondee Words Right Ear: 55 dB HL Left Ear: 60 dB HL Word Discrimination: Method: Recorded Lists Word Lists Used: NU-6 Right Ear: 96% at 85 dB HL Left Ear: 56% at 85 dB HL 68% at 90 dB HL Most Comfortable Level (MCL): Right Ear: 85 dB HL Left Ear: 85 dB HL Interpretation of Results: This bilateral moderately-severe to severe sensorineural hearing loss causes significant communication difficulty as even typical conversational speech may not even be heard by Sheyla. Although there is no significant difference in hearing thresholds between the ears, there is significant asymmetry for speech discrimination ability with the left ear being poorer than the right. Recommendations: -Trial with amplification is recommended. -Medical clearance from a physician is required before fitting. -Hearing Aid Fitting will be scheduled when all materials arrive. -Referral to Ear, Nose, and Throat is recommended for further assessment of the asymmetric speech discrimination. -Discussed and provided a handout regarding Communication Strategies her family and friends need to use to improve speech understanding as much as possible. Diagnosis: Primary Diagnosis: H90.3 Bilateral Sensorineural Hearing Loss Services Performed: Comprehensive Audiological Evaluation (CPT 87825) Tympanometry (CPT 01183) Signature: Provider: Spike Hayden, [place]-A
== END 2022-05-30 08:41 | disposition home or self-care (01) ==
LOC: HO.SH 08:40
PROVIDERS: Visit Provider Internal Medicine Medical Oncology
DX: Z01.118 Encounter for examination of ears and hearing with other abnormal findings (principal); H90.3 Sensorineural hearing loss, bilateral
CPT/HCPCS: 92557; 92567

== ENCOUNTER 2022-05-30 09:55 | Outpatient (REF) | payer SELFPAY ==
--- NOTE | 2022-05-30 13:49 | MHC.AU.MED ---
Medical Clearance for Hearing Instrumentation Date: 05/30/22 Patient Name: Sheyla Gutierrez Date of : 1945 Primary Care Provider: Referring Provider: Lupillo Matta MD We have seen your patient on 05/30/22 and have determined that they are a candidate for amplification (See accompanying report). Specifically, they would benefit from: Hearing aid use in both ears There is a statute that addresses Medical Evaluation Requirements prior to fitting a patient with a hearing aid. According to [place] statute 265 CMR:6.03(1), (a) General. Except as provided in 265 CMR 6.03(1)(b), a certified residential medication aide shall not sell a hearing aid unless the prospective user has presented to the certified residential medication aide a written statement signed by a licensed physician that states that the patient's hearing loss has been medically evaluated and the patient may be considered a candidate for a hearing aid. The medical evaluation must have taken place within the preceding six months. Please note: Due to the [place] Statute referenced above, we cannot accept a signature other than that of a licensed physician. INFANT AND TODDLER TEACHER and PA signatures cannot be accepted. I am in agreement with the above recommendation. There is no medical contraindication for hearing instrumentation. Physician Signature Date Physician Name (Printed)
--- NOTE | 2022-06-01 10:20 | MHC.AU.HAS ---
Hearing Aid Evaluation Date of Visit: 05/30/22 Historical Information: Description of Hearing: Moderately-severe to severe sensorineural hearing loss bilaterally Current personal amplification information, if applicable: NONE Hearing Aid Prescription: Based on the individual?s shared listening needs, communication environments, dexterity, desire for connectivity, and personal preferences, the following prescription for amplification has been made: Right ear: Sex Worker Or Escort: Phonak Model: Virto P 50-312 Battery Size: 312 Color: [place] Medical Records Analyst: UP Left ear:Left ear prescription to be same as Right Hearing Aid above: Sex Worker Or Escort: Phonak Model: Virto P 50-312 Battery Size: 312 Color: [place] Medical Records Analyst: UP Plan of Care: Patient wishes to purchase hearing aids as prescribed Action Taken/Action Needed: [place] Impressions Taken, Hearing Instrument Fitting to be scheduled when materials arrive Primary Diagnosis: H90.3 Bilateral Sensorineural Hearing Loss Signature:Provider: Yasir Hayden, CCC-A
== END 2022-05-30 09:56 | disposition home or self-care (01) ==
LOC: HO.HAP 09:55
PROVIDERS: Visit Provider Internal Medicine Medical Oncology
DX: Z46.1 Encounter for fitting and adjustment of hearing aid (principal); H90.3 Sensorineural hearing loss, bilateral
CPT/HCPCS: 92557; 92567; 92590; 92591

== ENCOUNTER → 2022-06-05 09:21 | Outpatient (BNVA) | payer SELFPAY | PROVIDERS: PCP Internal Medicine Medical Oncology; Referring Provider Internal Medicine Medical Oncology; Visit Provider Internal Medicine | DX: I48.19 Other persistent atrial fibrillation (principal); I50.32 Chronic diastolic (congestive) heart failure; G47.33 Obstructive sleep apnea (adult) (pediatric) | CPT/HCPCS: 93005; 99212 ==

== ENCOUNTER 2022-06-17 08:26 | Outpatient (REF) | payer MEDICARE, SELFPAY ==
[2022-06-17 11:10] LABS: MANUAL DIFF FLAG NO
[2022-06-17 11:16] LABS: Basophils Percent Auto 0.2 % (0-2); Eosinophils Absolute Auto 0.1 X10*3/uL (0.0-0.4); Eosinophils Percent Auto 0.8 % (0-4); Hematocrit 39.8 % (37.0-47.0); Hemoglobin 12.8 g/dl (12.0-16.0); Imm Gran Abs Auto 0.04 X10*3/uL (0.00-0.03); Imm Gran Pct Auto 0.6 % (0.0-0.4); Lymphocytes Absolute Auto 1.5 X10*3/uL (1.2-4.9); Lymphocytes Percent Auto 23.7 % (20-40); Mean Corpuscular HGB Conc 32.2 g/dl (31.0-35.0); Mean Corpuscular Hemoglobin 28.1 pg (27.0-33.0); Mean Corpuscular Volume 87.3 fL (80.0-98.0); Mean Platelet Volume 11.5 fL (9.4-12.3); Monocytes Percent Auto 15.2 % (2-11); Neutrophils Absolute Auto 3.8 x10*3/uL (2.0-8.3); Neutrophils Percent Auto 59.5 % (45-73); Platelet Count 238 X10*3/uL (160-400); Red Blood Count 4.56 X10*6/uL (4.20-5.50); Red Cell Distribution Width 15.1 % (11.0-16.0); White Blood Count 6.3 X10*3/uL (4.8-10.8)
[2022-06-17 11:33] LABS: Alanine Aminotransferase 13 U/L (0-31); Albumin Level 4.3 g/dL (3.5-5.0); Alkaline Phosphatase 75 U/L (39-117); Anion Gap 15 (12-20); Aspartate Amino Transferase 13 U/L (5-31); Blood Urea Nitrogen 20 mg/dL (9-16); Calcium 9.1 mg/dL (8.4-10.2); Carbon Dioxide 25 mmol/L (22-29); Chloride 103 mmol/L (96-108); Estimated Glomerular Filt Rate 29; Glucose Random 84 mg/dL (60-115); Potassium 4.5 mmol/L (3.3-5.1); Sodium 138 mmol/L (135-145); Total Protein 6.9 g/dL (6.5-8.0)
== END 2022-06-17 08:27 | disposition home or self-care (01) ==
LOC: HO.HMGCLDS 08:26
PROVIDERS: PCP Internal Medicine Medical Oncology; Visit Provider Internal Medicine Medical Oncology
DX: C91.10 Chronic lymphocytic leukemia of B-cell type not having achieved remission (principal)
CPT/HCPCS: 36415; 80053; 85025

== ENCOUNTER 2022-06-19 10:28 | Outpatient (REF) | payer MEDICARE, SELFPAY | END 2022-06-19 10:29 | disposition home or self-care (01) | LOC: HO.HAP 10:28 | PROVIDERS: Visit Provider Internal Medicine Medical Oncology | DX: Z46.1 Encounter for fitting and adjustment of hearing aid (principal) | CPT/HCPCS: V5259 ==

== ENCOUNTER 2022-06-20 10:48 | Outpatient (REF) | payer SELFPAY | END 2022-06-20 10:49 | disposition home or self-care (01) | LOC: HO.HAP 10:48 | PROVIDERS: Visit Provider Internal Medicine Medical Oncology | DX: Z13.89 Encounter for screening for other disorder (principal) ==

== ENCOUNTER → 2022-11-13 13:36 | Outpatient (BNVA) | payer MEDICARE, SELFPAY | PROVIDERS: PCP Internal Medicine Medical Oncology; Referring Provider Internal Medicine Medical Oncology; Visit Provider Internal Medicine | DX: Z45.018 Encounter for adjustment and management of other part of cardiac pacemaker (principal); I48.19 Other persistent atrial fibrillation; I11.0 Hypertensive heart disease with heart failure; I50.32 Chronic diastolic (congestive) heart failure; G47.33 Obstructive sleep apnea (adult) (pediatric); Z98.890 Other specified postprocedural states | CPT/HCPCS: 93005; 99212 ==

== ENCOUNTER → 2023-01-17 10:07 | Outpatient (REF) | payer MEDICARE, SELFPAY ==
--- NOTE | 2023-01-17 10:10 | CA_ITS ---
Transthoracic Echocardiogram Patient (Last, First, Middle): Sheyla Gutierrez P Gender: Female Date of : 1945 Age: 77 Procedure Date: 01/17/2023 Procedure Type: Transthoracic Echocardiogram Location: OP Height: 162.56 cm Weight: 90.72 kg BSA: 1.96 m2 Heart Rate: bpm BP: 130 / 70 mmHg Assembler Dry Cell And Battery: TO Referring MD: Esvin Bush MD Symptoms: I50.32 - Chronic diastolic (congestive) heart failure Study Quality: Fair ECG Rhythm: Ventriculary paced rhythm Conclusions: - The left ventricular systolic function is normal. The calculated ejection fraction is 52% by biplane method. - Evidence suggests grade III (severe) diastolic dysfunction. - There is moderate mitral annular calcification. There is mild mitral valve stenosis. - There is mild to moderate tricuspid valve regurgitation. - Mild pulmonary hypertension is present. Findings Left Ventricle Normal left ventricular cavity size. There is normal left ventricular wall thickness. The left ventricular systolic function is normal. The calculated ejection fraction is 52% by biplane method. There is no evidence of regional wall motion abnormalities. E/E prime ratio is >15, consistent with elevated filling pressures. Evidence suggests grade III (severe) diastolic dysfunction. Right Ventricle Normal right ventricular cavity size and systolic function. Atria The left atrium is mildly dilated. The right atrium is normal in size. Aortic Valve There is a normal trileaflet aortic valve. There is no aortic valve stenosis. There is no aortic valve regurgitation. Mitral Valve There is moderate mitral annular calcification. There is trace mitral valve regurgitation. There is mild mitral valve stenosis. Pulmonic Valve There is trace pulmonic valve regurgitation. Tricuspid Valve There is mild to moderate tricuspid valve regurgitation. Mild pulmonary hypertension is present. Great Vessels The asc aorta is normal in size. Venous The inferior vena cava is normal in size and collapses greater than 50% with inspiration. Pericardium/Pleural There is no evidence of pericardial effusion. Prior Study Comparison Changes noted compared to prior study dated: 12/15/2021. slight Increase in RVSP. Measurements 2D Linear Measurements IVSd: 0.95 0.6-0.9/0.6-1.0 cm LVIDd: 4.46 3.9-5.3/4.2-5.9 cm LVIDd Index: 2.28 2.4-3.2/2.2-3.1 cm/m2 LVIDs: 2.43 2.0-3.6 cm LVPWd: 0.98 0.7-1.1 cm LA Diam: 4.20 2.7-3.8/3.0-4.0 cm LAIDs Index: 2.14 1.5-2.3 cm/m2 LV Mass: 178.71 67-162/88-224 g LV Mass Index: 91.18 43-95/49-115 g/m2 LVOT Diam: 1.90 3.0+(-)1.3 cm 2D Systolic Function EF 4C: 52.90 >55% EF 2C: 52.20 >55% EF BiP: 52.10 >55% Mitral Valve MV VTI: 0.38 MV Pk Omer: 1.64 MV Mn Omer: 0.83 MV Pk Grad: 11.00 MV Mn Grad: 4.00 MV Pk E: 1.49 MV PK A: 0.41 MV Decel Time: 248.00 E/A: 3.70 E'Lateral: 10.20 E'Medial: 6.96 E/E' Med: 21.40 E/E' Lat: 14.60 PHT: 72.00 MVA PHT: 3.06 MVA Continuity: 1.45 Decel Runnels: 6.01 Aortic Valve AoV Pk Omer: 1.29 AoV Mn Omer: 0.98 AoV VTI: 0.27 AoV Pk Grad: 7.00 Aov Mn Grad: 4.00 ADOLFO Cont.VTI: 1.99 LVOT LVOT Pk Omer: 0.91 LVOT Mn Omer: 0.65 LVOT VTI: 0.19 LVOT Pk Grad: 3.00 LVOT Mn Grad: 2.00 LVOT Diam: 1.90 LVOT Area: 2.84 Diastolic Function MV Pk E: 1.49 MV Pk A: 0.41 E/A: 3.70 E'Medial: 6.96 E/E' Med: 21.40 E' Laterial: 10.20 E/E' Lat: 14.60 Right Ventricle TAPSE (mm): 18.70 TVS' Omer: 10.10 Tricuspid Valve TR Pk Omer: 2.92 TR Pk Grad: 34.00 RA Press: 3.00 RVSP: 37.00 Great Vessels Aorta Sinus of Valsalva: 2.66 2.0-3.5 cm Ao Asc: 3.20 2.1-3.4 cm Updated in Other Vendor System with Status of Final Esvin Bush MD electronically signed on 01/17/2023 12:31:56 PM with status of Final
== END ==
LOC: HO.CARD 10:07
PROVIDERS: PCP Internal Medicine Medical Oncology; Visit Provider Internal Medicine
DX: I50.32 Chronic diastolic (congestive) heart failure (principal)
CPT/HCPCS: 93306

== ENCOUNTER → 2023-02-20 13:56 | Outpatient (BNVA) | payer MEDICARE, SELFPAY | PROVIDERS: PCP Internal Medicine Medical Oncology; Referring Provider Internal Medicine Medical Oncology; Visit Provider Internal Medicine | DX: I48.19 Other persistent atrial fibrillation (principal); I50.32 Chronic diastolic (congestive) heart failure; I10 Essential (primary) hypertension; C91.11 Chronic lymphocytic leukemia of B-cell type in remission; G47.33 Obstructive sleep apnea (adult) (pediatric); Z98.890 Other specified postprocedural states; Z95.0 Presence of cardiac pacemaker | CPT/HCPCS: 99212 ==

== ENCOUNTER 2023-03-29 09:44 | Outpatient (REF) | payer MEDICARE, SELFPAY ==
[2023-03-29 11:43] LABS: Uric Acid 8.9 mg/dL (2.4-5.7)
== END 2023-03-29 09:45 | disposition home or self-care (01) ==
LOC: HO.HMGCLDS 09:44
PROVIDERS: PCP Internal Medicine Medical Oncology; Visit Provider Internal Medicine
DX: M79.675 Pain in left toe(s) (principal)
CPT/HCPCS: 36415; 84550

== ENCOUNTER 2023-04-07 08:04 | Outpatient (REF) | payer MEDICARE, SELFPAY ==
[2023-04-07 11:13] LABS: MANUAL DIFF FLAG NO
[2023-04-07 11:48] LABS: Alanine Aminotransferase 11 U/L (0-31); Alkaline Phosphatase 65 U/L (39-117); Anion Gap 12 (12-20); Aspartate Amino Transferase 10 U/L (5-31); Bilirubin Total 0.9 mg/dL (0.0-1.0); Blood Urea Nitrogen 24 mg/dL (9-16); Carbon Dioxide 25 mmol/L (22-29); Chloride 107 mmol/L (96-108); Estimated Glomerular Filt Rate 37; Glucose Random 78 mg/dL (60-115); Sodium 140 mmol/L (135-145); Total Protein 6.3 g/dL (6.5-8.0)
[2023-04-07 11:51] LABS: Basophils Percent Auto 0.3 % (0-2); Eosinophils Percent Auto 0.5 % (0-4); Hematocrit 38.2 % (37.0-47.0); Hemoglobin 11.6 g/dl (12.0-16.0); Imm Gran Pct Auto 3.4 % (0.0-0.4); Lymphocytes Absolute Auto 1.4 X10*3/uL (1.2-4.9); Lymphocytes Percent Auto 15.5 % (20-40); Mean Corpuscular HGB Conc 30.4 g/dl (31.0-35.0); Mean Corpuscular Hemoglobin 25.8 pg (27.0-33.0); Mean Corpuscular Volume 85.1 fL (80.0-98.0); Mean Platelet Volume 11.2 fL (9.4-12.3); Monocytes Absolute Auto 1.1 X10*3/uL (0.1-1.2); Monocytes Percent Auto 12.8 % (2-11); Neutrophils Percent Auto 67.5 % (45-73); Platelet Count 219 X10*3/uL (160-400); Red Blood Count 4.49 X10*6/uL (4.20-5.50); Red Cell Distribution Width 15.9 % (11.0-16.0); White Blood Count 8.9 X10*3/uL (4.8-10.8)
== END 2023-04-07 08:05 | disposition home or self-care (01) ==
LOC: HO.HMGCLDS 08:04
PROVIDERS: PCP Internal Medicine Medical Oncology; Visit Provider Internal Medicine Medical Oncology
DX: C91.10 Chronic lymphocytic leukemia of B-cell type not having achieved remission (principal); E03.9 Hypothyroidism, unspecified; E66.9 Obesity, unspecified; I10 Essential (primary) hypertension
CPT/HCPCS: 36415; 80053; 85025

== ENCOUNTER → 2023-06-24 23:59 | Outpatient (BNV) | payer MEDICARE, SELFPAY ==
--- NOTE | 2023-06-27 14:30 | MHC.OFFVIS ---
Intake Intake Visit Reasons: Remote device check- medtronic Allergies Sulfa (Sulfonamide Antibiotics) [SULFA(SULFONAMIDE ANTIBIOTICS)] Allergy (Unknown, Verified 03/29/23 09:15) DIFFICULTY BREATHING sulfamethoxazole [From BACTRIM] Allergy (Unknown, Verified 03/29/23 09:15) DIARRHEA, VOMTING, RASH trimethoprim [From BACTRIM] Allergy (Unknown, Verified 03/29/23 09:15) DIARRHEA, VOMTING, RASH PFSH Medical History Atrial fibrillation CLL (chronic lymphocytic leukemia) COVID-19 vaccine series completed Hard of hearing History of cardioversion Hypertension Hypothyroid Leukemia in remission Presence of temporary transvenous cardiac pacemaker Surgical History Hx of cataract extraction Family History Mother CAD (coronary artery disease) Sister CAD (coronary artery disease) Father Leukemia Social History Household Members: Spouse Housing: House Are you a primary healthcare business analyst to a significant other at home: No Do you presently have visiting nurse or other home services: No Alcohol intake: never Patient Tobacco Use Status: Never used Tobacco Advance Directives Date on File: 04/20/21 service: No Current occupational status: retired Office Procedures Cardiac Device Check Cardiac Device Check Details: Date of service- 06/24/2023 ; Battery life 12 years; normal lead parameters; HEALTH AND PHYSICAL EDUCATION PROFESSOR 100%; very brief NSVT, max duration 2 seconds. Overall normal device function. [id number] Cardiac Device Interrogation, pacemaker Procedure code (CPT) selection complete Assessment & Plan Assessment & Plan (1) Persistent atrial fibrillation: Code(s): I48.19 - Other persistent atrial fibrillation Coding Level of Care Code Procedure Only Diagnoses Persistent atrial fibrillation I48.19 CPT Codes Cardiac Device Check - Cardiac Device 12: [id number] Cardiac Device Interrogation, pacemaker ([id number])
== END ==
PROVIDERS: PCP Internal Medicine Medical Oncology; Visit Provider Internal Medicine
DX: I48.19 Other persistent atrial fibrillation (principal); Z95.0 Presence of cardiac pacemaker
CPT/HCPCS: 93294

== ENCOUNTER 2023-07-06 08:35 | Outpatient (REF) | payer MEDICARE, SELFPAY ==
[2023-07-06 11:34] LABS: MANUAL DIFF FLAG NO
[2023-07-06 11:43] LABS: Basophils Percent Auto 0.4 % (0-2); Eosinophils Absolute Auto 0.1 X10*3/uL (0.0-0.4); Eosinophils Percent Auto 1.1 % (0-4); Hematocrit 37.5 % (37.0-47.0); Hemoglobin 11.8 g/dl (12.0-16.0); Imm Gran Abs Auto 0.06 X10*3/uL (0.00-0.03); Imm Gran Pct Auto 1.1 % (0.0-0.4); Lymphocytes Absolute Auto 1.2 X10*3/uL (1.2-4.9); Mean Corpuscular HGB Conc 31.5 g/dl (31.0-35.0); Mean Corpuscular Hemoglobin 26.9 pg (27.0-33.0); Mean Corpuscular Volume 85.6 fL (80.0-98.0); Mean Platelet Volume 10.6 fL (9.4-12.3); Monocytes Absolute Auto 0.7 X10*3/uL (0.1-1.2); Monocytes Percent Auto 13.2 % (2-11); Neutrophils Absolute Auto 3.3 x10*3/uL (2.0-8.3); Neutrophils Percent Auto 62.2 % (45-73); Platelet Count 204 X10*3/uL (160-400); Red Blood Count 4.38 X10*6/uL (4.20-5.50); Red Cell Distribution Width 17.6 % (11.0-16.0); White Blood Count 5.3 X10*3/uL (4.8-10.8)
[2023-07-06 12:09] LABS: Alanine Aminotransferase 8 U/L (0-31); Albumin Level 4.2 g/dL (3.5-5.0); Alkaline Phosphatase 68 U/L (39-117); Anion Gap 14 (12-20); Aspartate Amino Transferase 12 U/L (5-31); Bilirubin Total 0.8 mg/dL (0.0-1.0); Blood Urea Nitrogen 20 mg/dL (9-16); Calcium 9.4 mg/dL (8.4-10.2); Carbon Dioxide 21 mmol/L (22-29); Chloride 109 mmol/L (96-108); Cholesterol 163 mg/dL (<200); Estimated Glomerular Filt Rate 38; Glucose Fasting 87 mg/dL (60-99); HDL Cholesterol 47 mg/dL (>40); LDL Cholesterol Calculated 93 mg/dL (<100); Potassium 4.3 mmol/L (3.3-5.1); Sodium 140 mmol/L (135-145); Total Protein 6.8 g/dL (6.5-8.0); Triglycerides 117 mg/dL (<150)
== END 2023-07-06 08:36 | disposition home or self-care (01) ==
LOC: HO.HMGCLDS 08:35
PROVIDERS: PCP Internal Medicine Medical Oncology; Visit Provider Internal Medicine Medical Oncology
DX: I10 Essential (primary) hypertension (principal); E03.9 Hypothyroidism, unspecified; E66.9 Obesity, unspecified; C91.10 Chronic lymphocytic leukemia of B-cell type not having achieved remission
CPT/HCPCS: 36415; 80053; 80061; 85025

== ENCOUNTER 2023-09-08 08:55 | Outpatient (REF) | payer MEDICARE, SELFPAY ==
[2023-09-08 11:06] LABS: MANUAL DIFF FLAG NO
[2023-09-08 11:13] LABS: Basophils Percent Auto 0.4 % (0-2); Eosinophils Percent Auto 0.7 % (0-4); Hematocrit 40.4 % (37.0-47.0); Hemoglobin 12.6 g/dl (12.0-16.0); Imm Gran Abs Auto 0.07 X10*3/uL (0.00-0.03); Imm Gran Pct Auto 1.2 % (0.0-0.4); Lymphocytes Absolute Auto 1.1 X10*3/uL (1.2-4.9); Mean Corpuscular HGB Conc 31.2 g/dl (31.0-35.0); Mean Corpuscular Hemoglobin 27.5 pg (27.0-33.0); Mean Platelet Volume 10.7 fL (9.4-12.3); Monocytes Absolute Auto 0.6 X10*3/uL (0.1-1.2); Monocytes Percent Auto 11.1 % (2-11); Neutrophils Absolute Auto 3.8 x10*3/uL (2.0-8.3); Neutrophils Percent Auto 66.6 % (45-73); Platelet Count 222 X10*3/uL (160-400); Red Blood Count 4.59 X10*6/uL (4.20-5.50); Red Cell Distribution Width 15.3 % (11.0-16.0); White Blood Count 5.7 X10*3/uL (4.8-10.8)
[2023-09-08 11:48] LABS: Alanine Aminotransferase 9 U/L (0-31); Albumin Level 4.3 g/dL (3.5-5.0); Alkaline Phosphatase 67 U/L (39-117); Anion Gap 12 (12-20); Aspartate Amino Transferase 14 U/L (5-31); Bilirubin Total 0.7 mg/dL (0.0-1.0); Blood Urea Nitrogen 17 mg/dL (9-16); Calcium 9.3 mg/dL (8.4-10.2); Carbon Dioxide 24 mmol/L (22-29); Chloride 108 mmol/L (96-108); Cholesterol 176 mg/dL (<200); Estimated Glomerular Filt Rate 38; Glucose Fasting 85 mg/dL (60-99); HDL Cholesterol 52 mg/dL (>40); LDL Cholesterol Calculated 102 mg/dL (<100); Potassium 4.5 mmol/L (3.3-5.1); Sodium 139 mmol/L (135-145); Total Protein 7.1 g/dL (6.5-8.0); Triglycerides 110 mg/dL (<150); Uric Acid 9.2 mg/dL (2.4-5.7)
[2023-09-08 11:49] LABS: Free T4 (Free Thyroxine) 1.03 ng/dL (0.71-1.85); Thyroid Stimulating Hormone 5.66 uIU/mL (0.32-4.0)
== END 2023-09-08 08:56 | disposition home or self-care (01) ==
LOC: HO.HMGCLDS 08:55
PROVIDERS: PCP Internal Medicine Medical Oncology; Visit Provider Internal Medicine Medical Oncology
DX: C91.10 Chronic lymphocytic leukemia of B-cell type not having achieved remission (principal); I10 Essential (primary) hypertension; E03.9 Hypothyroidism, unspecified; M10.9 Gout, unspecified
CPT/HCPCS: 36415; 80053; 80061; 84439; 84443; 84550; 85025

== ENCOUNTER → 2023-09-22 23:59 | Outpatient (BNV) | payer MEDICARE, SELFPAY ==
--- NOTE | 2023-09-26 11:30 | A.OFFVIS_ITS ---
Intake Intake Visit Reasons: Remote Device Check- Medtr[employer] Allergies Sulfa (Sulfonamide Antibiotics) [SULFA(SULFONAMIDE ANTIBIOTICS)] Allergy (Unknown, Verified 03/29/23 09:15) DIFFICULTY BREATHING sulfamethoxazole [From BACTRIM] Allergy (Unknown, Verified 03/29/23 09:15) DIARRHEA, VOMTING, RASH trimethoprim [From BACTRIM] Allergy (Unknown, Verified 03/29/23 09:15) DIARRHEA, VOMTING, RASH PFSH Medical History Atrial fibrillation CLL (chronic lymphocytic leukemia) COVID-19 vaccine series completed Hard of hearing History of cardioversion Hypertension Hypothyroid Leukemia in remission Presence of temporary transvenous cardiac pacemaker Surgical History Hx of cataract extraction Family History Mother CAD (coronary artery disease) Sister CAD (coronary artery disease) Father Leukemia Household Members: Spouse Housing: House Are you a primary veterinarian laboratory animal care to a significant other at home: No Do you presently have visiting nurse or other home services: No Alcohol intake: never Patient Tobacco Use Status: Never used Tobacco Advance Directives Date on File: 04/20/21 service: No Current occupational status: retired Office Procedures Cardiac Device Check Cardiac Device Check Details: Date of service- 09/22/2023 ; Battery life >11 years; normal lead parameters; CUSTOMER SUCCESS MANAGER 100%. Overall normal device function. [id number] Cardiac Device Interrogation, pacemaker Procedure code (CPT) selection complete Assessment & Plan Assessment & Plan (1) Persistent atrial fibrillation: Code(s): I48.19 - Other persistent atrial fibrillation Coding Level of Care Code Procedure Only Diagnoses Persistent atrial fibrillation I48.19 CPT Codes Cardiac Device Check - Cardiac Device 12: [id number] Cardiac Device Interrogation, pacemaker ([id number])
== END ==
PROVIDERS: PCP Internal Medicine Medical Oncology; Visit Provider Internal Medicine
DX: I48.19 Other persistent atrial fibrillation (principal); Z95.0 Presence of cardiac pacemaker
CPT/HCPCS: 93294

== ENCOUNTER 2023-11-25 20:54 | Inpatient (IN) | payer MEDICARE, SELFPAY ==
--- NOTE | ~2023-11-25 | CT_ITS ---
EXAMINATION: CT HEAD WITHOUT CONTRAST (STROKE PROTOCOL) CLINICAL INFORMATION: Stroke protocol. Right sided weakness COMPARISON: None. TECHNIQUE: Contiguous axial imaging was performed from the skull base to vertex without intravenous administration of contrast. Coronal and sagittal reformatted images are performed at the CT scanner. [This CT examination was performed using dose optimization techniques as appropriate, variously including the following: *Automated exposure control *Adjustment of mA and/or kV according to patient size (this includes techniques or standardized protocols for targeted exams where dose is matched to indication/reason for exam; i.e. extremities or head) *Use of iterative reconstruction technique] DLP: 1033 mGy-cm. FINDINGS: There is no evidence of acute intracranial hemorrhage or territorial infarction. No abnormal mass-effect or midline shift is seen. Fernando to white matter differentiation is well preserved. No extra-axial fluid collections are identified. There is generalized global volume loss. There is moderate prominence of the ventricles and the sulci . There is mild hypodensity of the periventricular white matter due to chronic small vessel ischemic disease. There are vascular calcifications of the internal carotid arteries bilaterally. There is no osseous abnormality. The mastoid air cells and visualized portions of the paranasal sinuses are well-aerated. CT/CT head for stroke IMPRESSION: No acute intracranial pathology. This critical result was discussed with Dr. Cordero at 11/25/2023, 9:15 . It was ascertained that the content and urgency of the report was understood at the time of direct communication.
--- NOTE | ~2023-11-25 | CT_ITS ---
EXAMINATION: CT CHEST WITHOUT CONTRAST CT ABDOMEN AND PELVIS WITHOUT CONTRAST CLINICAL INFORMATION: Fever. COMPARISON: 12/12/2017. TECHNIQUE: Multidetector volumetric CT imaging of the chest, abdomen and pelvis was performed. Axial MIP volume rendering provided. Sagittal and coronal reformatted images were obtained. This CT examination was performed using dose optimization techniques as appropriate, variously including the following: *Automated exposure control *Adjustment of mA and/or kV according to patient size (this includes techniques or standardized protocols for targeted exams where dose is matched to indication/reason for exam; i.e. extremities or head) *Use of iterative reconstruction technique DLP: 1027 mGy-cm FINDINGS: Motion slightly limits evaluation. OVAL OR CIRCULAR GLASS CUTTER: Unremarkable LUNGS: There is right middle lobe atelectatic change. Fine detail evaluation of the lung is limited by motion. No definite active infiltrate is seen. MEDIASTINUM: The mediastinum is normal. CORONARY ARTERY CALCIFICATION: Moderate. PLEURA: There is no pleural effusion. No pleural mass or thickening. AXILLA: No lymphadenopathy. ABDOMEN/PELVIS: Liver, Gallbladder, Biliary Tree: Multiple hepatic cysts are again seen similar to prior. There is no intrahepatic biliary duct dilatation. The gallbladder is normal in appearance. Pancreas: Unremarkable. Spleen: Unremarkable. Adrenal Glands: Unremarkable. Kidneys and Ureters: The kidneys are normal in size, shape, and attenuation. No hydronephrosis or hydroureter or calculi seen. No perinephric stranding. There is a 2.4 cm cyst mid to upper pole right kidney. Bladder: Unremarkable. Gastrointestinal Tract: There are diverticula of the descending and the sigmoid colon with mild distal descending/proximal sigmoid colon without definitive surrounding infiltration. There is no evidence for appendicitis. There is a small hiatal hernia. Abdominal Wall: No hernia is demonstrated. Lymphovascular Structures: Lymph nodes: Normal. Vascular: There is mild atherosclerotic plaque of the abdominal aorta and proximal branches. Pelvic Viscera: Unremarkable. OSSEOUS STRUCTURES: There is diffuse thoracolumbar disc degenerative change. CT/CT abdomen pelvis wo IV con IMPRESSION: Motion limits evaluation. 1. Minimal right middle lobe atelectasis. No definite active infiltrate. 2. Diverticulosis of the descending and sigmoid colon without definitive evidence of diverticulitis. Mild thickening of the distal descending and proximal sigmoid colon may represent a chronic diverticular process. Fleischner guidelines were followed.
--- NOTE | ~2023-11-25 | CT_ITS ---
EXAMINATION: CT ANGIOGRAM HEAD CT ANGIOGRAM NECK CLINICAL INFORMATION: Reason for Exam R sided weakness COMPARISON: Same day head CT TECHNIQUE: Test bolus sequences followed by intravenous administration 70 mL of Omnipaque 350. Helical imaging was performed in the axial plane from the aortic arch to the skull vertex. Delayed postcontrast imaging of the head was also performed. The data was processed at the blood bank laboratory technologist's workstation for generation of MIP sequences. Angled MIPs and volume rendered reformatted images were also generated at an offline 3D workstation. Stenoses are assessed in accordance with Baker et al. Quantification of Carotid Stenosis on CT Angiography. AJR 2006. 27(1):13-19. This CT examination was performed using dose optimization techniques as appropriate, variously including the following: *Automated exposure control *Adjustment of mA and/or kV according to patient size (this includes techniques or standardized protocols for targeted exams where dose is matched to indication/reason for exam; i.e. extremities or head) *Use of iterative reconstruction technique DLP: 133 mGy-cm FINDINGS: CT HEAD: Noncontrast head CT findings are discussed separately.. No pathologic intra-axial enhancement or regional oligemia. CTA HEAD: No hemodynamically significant stenosis or occlusion in the anterior or posterior circulation. Mild calcific plaque along the bilateral carotid siphons without associated stenosis. Dominant right A1 DEVIN. Extradural origin of the right PICA. No aneurysms and no high flow vascular malformations. Timing of the contrast bolus allows assessment of the major dural venous sinuses, which all opacify normally CTA NECK: Motion artifact limits diagnostic assessment, particularly of the mid and common carotid arteries. Classic 3 vessel branching pattern of the aortic arch. Trace calcific plaque of the aortic arch. Origins of the great vessels are widely patent. The common carotid arteries opacify normally. Mild atherosclerotic disease at the bilateral carotid bifurcations without associated stenosis. Retropharyngeal course of the left common carotid artery and a couple right external carotid artery branches. The vertebral arteries are codominant. Nondiagnostic assessment of the vertebral artery origins and partially nondiagnostic assessment of the right V1 segment. Both vertebral arteries are widely patent throughout their extracranial cervical course. CT NECK: Carious right anterior maxillary tooth and prominent periodontal disease associated with the right posterior most maxillary molar. Mild mucosal disease within the bilateral maxillary sinus alveolar recesses. Partially imaged left chest wall pacemaker. Cervical spondylosis with apparent multilevel spinal canal stenosis which appears most pronounced and at least moderate at C4-C5 with multilevel severe neural foraminal narrowing. Elongated and ossified right greater than left styloid processes/stylohyoid ligaments can be correlated clinically for signs of Klaw[place] syndrome. CT/CT angio head neck stroke IMPRESSION: 1. No acute arterial occlusion or hemodynamically significant stenosis within the head or neck. This critical result was discussed with at 9:22 PM on 11/25/2023 and it was ascertained that the content and urgency of the report was understood at the time of direct communication. 2. Cervical spondylosis with apparent multilevel spinal canal stenosis which appears most pronounced and at least moderate at C4-C5 with multilevel severe neural foraminal narrowing. If there is referrable myelopathy/radiculopathy, further evaluation of these findings with dedicated cervical spine MRI may be performed as clinically warranted. 3. Elongated and ossified right greater than left styloid processes/stylohyoid ligaments can be correlated clinically for signs of Klawock syndrome.
--- NOTE | ~2023-11-25 | CT_ITS ---
EXAMINATION: CT CHEST WITHOUT CONTRAST CT ABDOMEN AND PELVIS WITHOUT CONTRAST CLINICAL INFORMATION: Fever. COMPARISON: 12/12/2017. TECHNIQUE: Multidetector volumetric CT imaging of the chest, abdomen and pelvis was performed. Axial MIP volume rendering provided. Sagittal and coronal reformatted images were obtained. This CT examination was performed using dose optimization techniques as appropriate, variously including the following: *Automated exposure control *Adjustment of mA and/or kV according to patient size (this includes techniques or standardized protocols for targeted exams where dose is matched to indication/reason for exam; i.e. extremities or head) *Use of iterative reconstruction technique DLP: 1027 mGy-cm FINDINGS: Motion slightly limits evaluation. WIRE BRUSH MAKER: Unremarkable LUNGS: There is right middle lobe atelectatic change. Fine detail evaluation of the lung is limited by motion. No definite active infiltrate is seen. MEDIASTINUM: The mediastinum is normal. CORONARY ARTERY CALCIFICATION: Moderate. PLEURA: There is no pleural effusion. No pleural mass or thickening. AXILLA: No lymphadenopathy. ABDOMEN/PELVIS: Liver, Gallbladder, Biliary Tree: Multiple hepatic cysts are again seen similar to prior. There is no intrahepatic biliary duct dilatation. The gallbladder is normal in appearance. Pancreas: Unremarkable. Spleen: Unremarkable. Adrenal Glands: Unremarkable. Kidneys and Ureters: The kidneys are normal in size, shape, and attenuation. No hydronephrosis or hydroureter or calculi seen. No perinephric stranding. There is a 2.4 cm cyst mid to upper pole right kidney. Bladder: Unremarkable. Gastrointestinal Tract: There are diverticula of the descending and the sigmoid colon with mild distal descending/proximal sigmoid colon without definitive surrounding infiltration. There is no evidence for appendicitis. There is a small hiatal hernia. Abdominal Wall: No hernia is demonstrated. Lymphovascular Structures: Lymph nodes: Normal. Vascular: There is mild atherosclerotic plaque of the abdominal aorta and proximal branches. Pelvic Viscera: Unremarkable. OSSEOUS STRUCTURES: There is diffuse thoracolumbar disc degenerative change. CT/CT chest wo IV con IMPRESSION: Motion limits evaluation. 1. Minimal right middle lobe atelectasis. No definite active infiltrate. 2. Diverticulosis of the descending and sigmoid colon without definitive evidence of diverticulitis. Mild thickening of the distal descending and proximal sigmoid colon may represent a chronic diverticular process. Fleischner guidelines were followed.
--- NOTE | ~2023-11-25 | XR_ITS ---
EXAMINATION: XR CHEST CLINICAL INFORMATION: Fever COMPARISON: Chest radiograph 04/20/2021 TECHNIQUE: Frontal view of the chest was obtained. FINDINGS: There is mild cardiac enlargement. Since the prior study, the patient's undergone placement of a left chest wall single lead pacemaker with tip at the right RV apex. There is been clearing of previously seen bibasilar atelectasis. No infiltrates, pleural effusions or lung masses are seen. The bony thorax is unremarkable. XR/XR chest 1V IMPRESSION: No acute intrathoracic disease. Interval placement of pacemaker.
--- NOTE | ~2023-11-25 | MR_ITS ---
MRI OF THE BRAIN WITHOUT IV CONTRAST INDICATION: Slurred speech. COMPARISON: CT head and CTA head and neck 11/25/2023. TECHNIQUE: Multiplanar multisequence MR imaging of the brain was obtained without IV contrast. FINDINGS: There is no hydrocephalus, extra-axial surface collection, or herniation. There is global cerebral volume loss and there is mild chronic microangiopathy. The major flow voids at the skull base are preserved. There is no acute infarct on diffusion-weighted imaging. There is no intracranial hemorrhage on the gradient recalled echo acquisition. The midline structures are normal. The cerebellar tonsils are normally positioned. The cerebellum and brainstem are normal. The craniocervical junction is normal. Osseous marrow signal intensity is homogenous. The visualized soft tissues are unremarkable. Small bilateral mastoid effusions. MR/MR head/brain wo con IMPRESSION: - No acute intracranial findings. No acute infarcts. - There is global cerebral volume loss and there is mild chronic microangiopathy.
--- NOTE | 2023-11-25 20:59 | ECG_ITS ---
Test Reason : STROKE Blood Pressure : / mmHG Vent. Rate : 071 BPM Atrial Rate : 267 BPM P-R Int : 000 ms QRS Dur : 136 ms QT Int : 430 ms P-R-T Axes : 000 -46 -03 degrees QTc Int : 467 ms Ventricular-paced rhythm Abnormal ECG When compared with ECG of 13-JUL-2021 09:27, Electronic ventricular pacemaker has replaced Sinus rhythm Referred By: Rolanda Cordero Electronically Signed By:Berry Aragon
[2023-11-25 21:03] LABS: Glucose, Whole Blood 115 mg/dL (60-115); Prothrombin Time Whole Bld POC 28.9 sec (11.1-13.5); ~PT, ~INR - Anti Coag Clinic 2.4 (0.9-1.1)
[2023-11-25 21:08] VITALS: BP 113/87; PULSE 98; O2SAT 98; BMI 33.9
--- NOTE | 2023-11-25 21:17 | ED.NEUROSD ---
HPI - Neuro Symptoms/Deficit General Chief Complaint: Stroke Stated Complaint: STROKE ALERT,R-SIDE DROOK, R SIDE WEAKNESS Time Seen by Provider: 11/25/23 20:58 Source: patient, family and old records reviewed Mode of arrival: EMS Limitations: other (poor historian) History of Present Illness HPI Narrative: 77 yo female with PMH of PPM, PAF on eliquis, CLL, CHF, LARS, HTN, CKD, here with EMS and reports 5pm at home noted L sided facial droop. EMS noted facial droop - apparently patient didn't want to come to the hospital. EMS noted she was talking to them but on arrival here she is confused, not really following commands well and has R sided drift, minimal droop on L side and seems confused. She is very hard to obtain neuro exam from. Onset (ago): hour(s) (5pm today) Last Observed Normal: 17:00 Timing confirmed by: family member Location: right face History of same: No Severity: moderate Quality: weak and intermittent Relieving factors: none Exacerbating factors: none Context: sudden onset On Anticoagulants: Yes Associated symptoms: confusion, loss of appetite and weakness Treatments Prior to Arrival: none Related Data Home Medications Medication Instructions Recorded Confirmed furosemide 20 mg tablet (Lasix) 20 mg PO Q OTHER DAY 07/04/21 03/29/23 ibrutinib 420 mg tablet (Imbruvica) 420 mg PO DAILY 11/13/22 03/29/23 levothyroxine 75 mcg tablet 75 mcg PO DAILY 11/13/22 03/29/23 (Euthyrox) Previous Rx's Medication Instructions Recorded carvedilol 12.5 mg tablet (Coreg) 12.5 mg PO BID 90 days #180 tabs 11/13/22 prednisone 50 mg tablet 50 mg PO DAILY 5 days #5 tabs 03/29/23 apixaban 5 mg tablet (Eliquis) 5 mg PO BID 90 days #180 tabs 06/07/23 Allergies Allergy/AdvReac Type Severity Reaction Status Date / Time Sulfa (Sulfonamide Allergy Unknown DIFFICULTY Verified 03/29/23 09:15 Antibiotics) BREATHING [SULFA(SULFONAMIDE ANTIBIOTICS)] sulfamethoxazole Allergy Unknown DIARRHEA, Verified 03/29/23 09:15 [From BACTRIM] VOMTING, RASH trimethoprim [From BACTRIM] Allergy Unknown DIARRHEA, Verified 03/29/23 09:15 VOMTING, RASH Review of Systems Review of Systems: ROS unable to be obtained due to altered mental status [facility] Past Medical History Source: old records reviewed Onset Date is defined in the Problem List Problems that require an onset date and time if occurred within 24 hrs of arrival to the ED Aortic Dissection and Rupture; Neurologic impairment; Cardiopulmonary Arrest; Endotracheal Intubation; Insertion or Replacement of Mechanical Circulatory Assist Device Medical History Presence of temporary transvenous cardiac pacemaker COVID-19 vaccine series completed Hard of hearing Atrial fibrillation History of cardioversion CLL (chronic lymphocytic leukemia) Hypothyroid Leukemia in remission Hypertension Surgical History Hx of cataract extraction Family History Family History Mother CAD (coronary artery disease) Sister CAD (coronary artery disease) Father Leukemia Social History Social History Household Members: Spouse Housing: House Are you a primary home health aide caregiver to a significant other at home: No Do you presently have visiting nurse or other home services: No Alcohol intake: never Patient Tobacco Use Status: Never used Tobacco Smoked in Last 30 Days: No Use of substances other than those prescribed or required for medical reasons: No Advance Directives: Yes Advance Directives on File: Yes Advance Directives Date on File: 04/20/21 service: No Current occupational status: retired Physical Exam Vital Signs: Vital Signs: Last Vital Signs Temp 100.5 F H 11/25/23 21:30 Pulse 82 11/25/23 21:30 Resp 16 11/25/23 21:30 BP 138/57 L 11/25/23 21:30 Pulse Ox 96 11/25/23 21:30 O2 Del Method Room Air 11/25/23 21:30 BMI result Body Mass Index 33.9 Appearance: Alert. confused - oriented to person and place. Mild acute distress. Eyes: Pupils equal, round and reactive to light. Will not track to the left but is not neglecting the left side moves left side normally ENT: Pharynx normal. Neck: Normal inspection. Neck supple. CVS: Normal heart rate and rhythm. Pulses normal. Respiratory: No respiratory distress. Breath sounds normal. Abdomen: Soft and nontender. Rectal: light brown stool, ext non thrombosed hemorrhoid not bleeding or bloody Skin: Skin warm and dry. Normal skin color. Normal skin turgor. Extremities: No lower extremity edema. No calf ttp Neuro: Oriented X 2. R arm drift, L sided droop, cannot fully participate in exam smiles then laughs Course Course Course Narrative: no source of temp family now states she might have thrown up today with streaks of blood in it Medications Administered Discontinued Medications Generic Name Dose Route Start Last Admin Trade Name Torres PRN Reason Stop Dose Admin Acetaminophen 650 mg 11/25/23 21:31 11/25/23 21:55 Acetaminophen 325 Mg Tablet PO 11/25/23 21:32 650 mg ONCE ONE Administration Ceftriaxone Sodium 1 gm/ 50 mls @ 100 mls/hr 11/25/23 21:31 11/25/23 22:35 Sodium Chloride IV 11/25/23 22:00 Infused ONCE ONE Infusion Sodium Chloride 500 mls @ 500 mls/hr 11/25/23 22:00 11/25/23 21:59 Ns IV 11/25/23 22:59 500 mls/hr .Q1H CARMELA Administration Iohexol 100 ml 11/25/23 21:22 11/25/23 21:22 Iohexol 350 Mg/Ml 100 Ml Infus..Btl IV 11/25/23 21:23 70 ml ONCE ONE Administration Pantoprazole Sodium 40 mg 11/25/23 23:16 11/26/23 00:21 Pantoprazole Sodium 40 Mg/10 Ml Vial IVPUSH 11/25/23 23:17 40 mg ONCE ONE Administration Medical Decision Making Medical Decision Making [facility] Narrative: 77 yo female with PMH of PPM, PAF on eliquis, CHF, LARS, HTN, CKD here with droop, weakness but onset at 5pm and patient is on DOAC. Given her eliquis use and onset at 5pm she is not a candidate for TNK (coags out of normal window as well) - she is right at the cusp of 4.5 hours. She will get CTA for LVO though. She is also febrile and has temp of 100.5 this could be encephalopathy from infectious source - UA and CXR ordered with labs, cultures, and tylenol/empiric ceftriaxone Differential Diagnosis Differential Diagnoses: The differential diagnosis associated with the presentation includes stroke, encephalopathy - toxic/metabolic, viral syndrome, UTI Admission/Observation Consideration of admission/observation: Escalation of care including admission/observation considered admit for further management and workup patient is not at her baseline Consult Healthcare Provider Management of the patient was discussed with: Hospitalist (will admit) Lab Data MDM Lab Attestation statement: I reviewed the patient's lab results. 11/25/23 21:27 11/25/23 21:27 Labs: Lab Results 11/25/23 11/25/23 11/25/23 Range/Units 20:58 21:27 21:45 WBC 3.9 L (4.8-10.8) X10*3/uL RBC 3.52 L D (4.20-5.50) X10*6/uL Hgb 9.6 L D (12.0-16.0) g/dl Hct 30.3 L D (37.0-47.0) % MCV 86.1 (80.0-98.0) fL MCH 27.3 (27.0-33.0) pg MCHC 31.7 (31.0-35.0) g/dl RDW 18.1 H (11.0-16.0) % Plt Count 121 L D (160-400) X10*3/uL MPV 11.1 (9.4-12.3) fL Immature Gran % (Auto) 3.4 H (0.0-0.4) % Neut % (Auto) 79.3 H (45-73) % Lymph % (Auto) 10.6 L (20-40) % [place] % (Auto) 6.2 (2-11) % Eos % (Auto) 0.0 (0-4) % Baso % (Auto) 0.5 (0-2) % Lymph # (Auto) 0.4 L (1.2-4.9) X10*3/uL [place] # (Auto) 0.2 (0.1-1.2) X10*3/uL Eos # (Auto) 0.0 (0.0-0.4) X10*3/uL Baso # (Auto) 0.0 (0.0-0.2) X10*3/uL Abs Immat Gran (auto) 0.13 H (0.00-0.03) X10*3/uL Absolute Neuts (auto) 3.1 (2.0-8.3) x10*3/uL Absolute Nucleated RBC 0.000 (0.0-0.012) X10*3/uL Nucleated RBC % (auto) 0.0 (0.0-0.2) /100WBC PT 41.5 H (11.1-13.3) SEC Whole Blood PT 28.9 H (11.1-13.5) sec INR 3.4 H (0.9-1.1) Whole Blood INR 2.4 H (0.9-1.1) Sodium 132 L (135-145) mmol/L Potassium 3.9 (3.3-5.1) mmol/L Chloride 104 (96-108) mmol/L Carbon Dioxide 19 L (22-29) mmol/L Anion Gap 13 (12-20) BUN 19 H (9-16) mg/dL Creatinine 1.57 H (0.5-1.4) mg/dL Estim Creat Clear Calc 34.7 Estimated GFR 32 POC Glucose 115 (60-115) mg/dL Random Glucose 109 (60-115) mg/dL Lactic Acid 1.8 (0.5-2.0) mmol/L Calcium 8.1 L D (8.4-10.2) mg/dL Magnesium 1.8 (1.6-2.6) mg/dL Total Bilirubin 1.2 H (0.0-1.0) mg/dL Direct Bilirubin 0.6 H (0.0-0.5) mg/dL AST 53 H (5-31) U/L ALT 35 H (0-31) U/L Alkaline Phosphatase 85 (39-117) U/L Troponin I High Sens 14.5 (<3.5-17.0) ng/L Total Protein 5.8 L (6.5-8.0) g/dL Albumin 3.5 (3.5-5.0) g/dL Lipase 31 (8-78) U/L Urine Color Urine Appearance Urine pH (5.0-9.0) Ur Specific [place] (1.005-1.025) Urine Protein (Neg-Trace) mg/dL Urine Glucose (UA) (Negative) mg/dL Urine Ketones (Negative) mg/dL Urine Blood (Negative) Urine Nitrite (Negative) Ur Leukocyte Esterase (Negative) Urine RBC (0-2) /HPF Urine WBC (0-5) /HPF Ur Squamous Epith Cells (0-2) /HPF Urine Bacteria (None Seen) Hyaline Casts (0-2) /LPF COVID-19 (PHYLLIS) Negative (Negative) COVID-19 Clin Com See Note Influenza Type A (FAVIAN) (Negative) Influenza Type B (FAVIAN) (Negative) Influenza A & B Note Blood Type Antibody Screen 11/25/23 11/25/23 11/25/23 Range/Units 21:46 22:37 22:50 WBC (4.8-10.8) X10*3/uL RBC (4.20-5.50) X10*6/uL Hgb (12.0-16.0) g/dl Hct (37.0-47.0) % MCV (80.0-98.0) fL MCH (27.0-33.0) pg MCHC (31.0-35.0) g/dl RDW (11.0-16.0) % Plt Count (160-400) X10*3/uL MPV (9.4-12.3) fL Immature Gran % (Auto) (0.0-0.4) % Neut % (Auto) (45-73) % Lymph % (Auto) (20-40) % [place] % (Auto) (2-11) % Eos % (Auto) (0-4) % Baso % (Auto) (0-2) % Lymph # (Auto) (1.2-4.9) X10*3/uL [place] # (Auto) (0.1-1.2) X10*3/uL Eos # (Auto) (0.0-0.4) X10*3/uL Baso # (Auto) (0.0-0.2) X10*3/uL Abs Immat Gran (auto) (0.00-0.03) X10*3/uL Absolute Neuts (auto) (2.0-8.3) x10*3/uL Absolute Nucleated RBC (0.0-0.012) X10*3/uL Nucleated RBC % (auto) (0.0-0.2) /100WBC PT (11.1-13.3) SEC Whole Blood PT (11.1-13.5) sec INR (0.9-1.1) Whole Blood INR (0.9-1.1) Sodium (135-145) mmol/L Potassium (3.3-5.1) mmol/L Chloride (96-108) mmol/L Carbon Dioxide (22-29) mmol/L Anion Gap (12-20) BUN (9-16) mg/dL Creatinine (0.5-1.4) mg/dL Estim Creat Clear Calc Estimated GFR POC Glucose (60-115) mg/dL Random Glucose (60-115) mg/dL Lactic Acid (0.5-2.0) mmol/L Calcium (8.4-10.2) mg/dL Magnesium (1.6-2.6) mg/dL Total Bilirubin (0.0-1.0) mg/dL Direct Bilirubin (0.0-0.5) mg/dL AST (5-31) U/L ALT (0-31) U/L Alkaline Phosphatase (39-117) U/L Troponin I High Sens (<3.5-17.0) ng/L Total Protein (6.5-8.0) g/dL Albumin (3.5-5.0) g/dL Lipase (8-78) U/L Urine Color Yellow Urine Appearance Clear Urine pH 5.5 (5.0-9.0) Ur Specific [place] >= 1.030 H (1.005-1.025) Urine Protein 30 (1+) H (Neg-Trace) mg/dL Urine Glucose (UA) Negative (Negative) mg/dL Urine Ketones Negative (Negative) mg/dL Urine Blood Large (3+) H (Negative) Urine Nitrite Negative (Negative) Ur Leukocyte Esterase Negative (Negative) Urine RBC 6-10 H (0-2) /HPF Urine WBC 11-20 H (0-5) /HPF Ur Squamous Epith Cells 0-2 (0-2) /HPF Urine Bacteria None Seen (None Seen) Hyaline Casts 0-2 (0-2) /LPF COVID-19 (PHYLLIS) (Negative) COVID-19 Clin Com Influenza Type A (FAVIAN) Negative (Negative) Influenza Type B (FAVIAN) Negative (Negative) Influenza A & B Note See Note Blood Type A Positive Antibody Screen NEGATIVE Independent Interpretation I performed an independent interpretation of an: EKG, Plain X-Ray (normal) and CT Scan (no ICH) Interpretation: Rate: 71 Rhythm: v paced [place]: rightward wide QRS complex. ST T wave : no SHANNON, nonspecific lateral leads qTC: 467 prior studies: no acute ischemia The study has been interpreted contemporaneously by me. . Radiology Impression Discussion of test interpretation with radiology: I discussed test interpretation with the radiologist and I have reviewed the radiologist's reading. Radiologist Impression: 918pm - no ICH 921pm - CTA no LVO nothing acute no sig stenosis Independent Historian Clinical information obtained from an independent historian. History obtained from or confirmed by: EMS External Record Review External record reviewed: Inpatient record NIH Stroke Scale Internal: Initial- Upon Arrival Time: 20:54 Level of Consciousness: Alert Level of Consciousness Questions: Answers one question correctly Level of Consciousness Commands: Performs one task correctly Best Gaze: Partial gaze palsy Visual: No visual loss Facial Palsy: Minor paralyis Motor Arm (Right): Drift Motor Arm (Left): No drift Motor Leg (Right): No drift Motor Leg (Left): No drift Limb Ataxia: Absent Sensory: Normal Best Language: No aphasia Dysarthia: Normal Extinction and Inattention: Visual, tactile, auditory, spatial, or personal inattention Score: 6 Critical Care Time Critical Care Time Critical Care Time: Yes Total Critical Care Time: 45 Attestation: stroke alert, review of records, family discussion Discharge Plan Discharge Clinical Impression: Weakness, Encephalopathy acute Fever Qualifiers: Fever type: unspecified Qualified Code(s): R50.9 - Fever, unspecified Patient Disposition: Admitted As Inpatient
[2023-11-25] MEDS: iohexoL 350 MG/ML 100 ML INFUS..BTL IV (21:22)
[2023-11-25 21:30] VITALS: BP 138/57; PULSE 82; RESP 16; TEMP 38.1; O2SAT 96
--- NOTE | 2023-11-25 21:30 | PC.NURSE ---
pt biba from home. dr rascon to [facility] for assessment. this rn placed 20g IV in R AC. pt tolerated well. pt to CT for imaging pt to room [address] rascon to bedside made aware of oral temp of 100.5
[2023-11-25 21:31] LABS: MANUAL DIFF FLAG NO
[2023-11-25 21:38] LABS: INTERNATIONAL NORM RATIO 3.4 (0.9-1.1); Prothrombin Time 41.5 SEC (11.1-13.3)
[2023-11-25 21:39] LABS: Basophils Percent Auto 0.5 % (0-2); Hematocrit 30.3 % (37.0-47.0); Hemoglobin 9.6 g/dl (12.0-16.0); Imm Gran Abs Auto 0.13 X10*3/uL (0.00-0.03); Imm Gran Pct Auto 3.4 % (0.0-0.4); Lymphocytes Absolute Auto 0.4 X10*3/uL (1.2-4.9); Lymphocytes Percent Auto 10.6 % (20-40); Mean Corpuscular HGB Conc 31.7 g/dl (31.0-35.0); Mean Corpuscular Hemoglobin 27.3 pg (27.0-33.0); Mean Corpuscular Volume 86.1 fL (80.0-98.0); Mean Platelet Volume 11.1 fL (9.4-12.3); Monocytes Absolute Auto 0.2 X10*3/uL (0.1-1.2); Monocytes Percent Auto 6.2 % (2-11); Neutrophils Absolute Auto 3.1 x10*3/uL (2.0-8.3); Neutrophils Percent Auto 79.3 % (45-73); Platelet Count 121 X10*3/uL (160-400); Red Blood Count 3.52 X10*6/uL (4.20-5.50); Red Cell Distribution Width 18.1 % (11.0-16.0); White Blood Count 3.9 X10*3/uL (4.8-10.8)
[2023-11-25 21:46] LABS: Alanine Aminotransferase 35 U/L (0-31); Albumin Level 3.5 g/dL (3.5-5.0); Alkaline Phosphatase 85 U/L (39-117); Anion Gap 13 (12-20); Aspartate Amino Transferase 53 U/L (5-31); Bilirubin Direct 0.6 mg/dL (0.0-0.5); Bilirubin Total 1.2 mg/dL (0.0-1.0); Blood Urea Nitrogen 19 mg/dL (9-16); Calcium 8.1 mg/dL (8.4-10.2); Carbon Dioxide 19 mmol/L (22-29); Chloride 104 mmol/L (96-108); Creatinine Clr Calc Pharmacy 34.7; Estimated Glomerular Filt Rate 32; Glucose Random 109 mg/dL (60-115); Lipase 31 U/L (8-78); Magnesium 1.8 mg/dL (1.6-2.6); Potassium 3.9 mmol/L (3.3-5.1); Sodium 132 mmol/L (135-145); Total Protein 5.8 g/dL (6.5-8.0)
[2023-11-25 21:53] LABS: Troponin-I High Sensitivity 14.5 ng/L (<3.5-17.0)
[2023-11-25 21:54] LABS: COVID-19 Test Negative (Negative); IDNOW Serial# 6674DD1D
[2023-11-25] MEDS: Acetaminophen 325 MG TABLET 650 MG PO (21:55)
[2023-11-25] MEDS: cefTRIAXone sodium 1 GM in 0.9 % Sodium Chloride 50 ML IV (21:56)
[2023-11-25] MEDS: 0.9 % Sodium Chloride 500 ML IV (21:59)
--- NOTE | 2023-11-25 22:00 | PC.NURSE ---
pt family at bedside. this rn performed bedside swallow eval. pt PASSED pt medicated according to mar this rn and two needle machine operator attempted to place pt on bedpan. pt did not tolerate bedpan. pt placed on periwick tolerated well
[2023-11-25 22:01] LABS: Lactic Acid 1.8 mmol/L (0.5-2.0)
[2023-11-25 22:12] LABS: IDNOW Serial# 6674DD1D; Influenza A Negative (Negative); Influenza B2 Negative (Negative)
[2023-11-25 22:57] LABS: Appearance Urine Clear; Color Urine Yellow; Glucose Urine UA Negative (Negative); Leukocyte Esterase Urine Negative (Negative); Nitrite Urine Negative (Negative); PH 5.5 (5.0-9.0); Specific Gravity - Urine >= 1.030 (1.005-1.025); UMIC TRIGGER UACC YES; Urine Blood Large (3+) (Negative); Urine Ketones Negative (Negative); Urine Protein 30 (1+) mg/dL (Neg-Trace)
[2023-11-25 23:10] LABS: Bacteria Urine None Seen (None Seen); Hyaline Casts Urine 0-2 /LPF (0-2); Squamous Epithelial Cell Urine 0-2 /HPF (0-2); UACC Culture Trigger YES
--- NOTE | 2023-11-25 23:31 | PC.NURSE ---
Assumed care of pt at 2300 hours, report received from previous RN. Pt presents around 2100 hours this evening with EMS for stroke-like symptoms. Last known well time reported as 1700 hours. Symptoms included left-sided facial droop, visual changes in left, and right-sides arm weakness. Has a pure wick in place and 20G IV access left AC. Family at bedside.
--- NOTE | 2023-11-25 23:32 | P.HPHOSP_ITS ---
History of Present Illness Date of Service: 11/26/23 Chief Complaint: Facial droop This is a 77-year-old female with pertinent history of paroxysmal atrial fibrillation on Eliquis, hypothyroidism, congestive heart failure with preserved ejection fraction, essential hypertension, LARS not on CPAP, CLL who was sent to the emergency department for evaluation of facial droop. Family member noted left-sided facial droop and sent the patient to the ER for concerns of acute stroke. Patient did not want to come to the ER and states she feels fine. Family member also noted that patient had an episode of hematemesis. Patient does endorse that she had vomiting but does not remember if it had blood. Patient states that she has not very keen on staying in the hospital and wants to go home. States he is compliant with her home medications. No fever, chills, chest discomfort, palpitations, shortness of breath, abdominal pain, changes in urinary or bowel habits. In the emergency department, stool occult blood positive. Review of Systems 2 Constitutional: Constitutional: Reports no additional constitutional complaints Cardiovascular: Cardiovascular: Reports no additional cardiovascular complaints Respiratory: Respiratory: Reports no additional respiratory complaints Gastrointestinal: Gastrointestinal: Reports hematemesis Genitourinary: Genitourinary: Reports no additional female genitourinary complaints COUNT INCLUDES THE [facility] Medical History Presence of temporary transvenous cardiac pacemaker COVID-19 vaccine series completed Hard of hearing Atrial fibrillation History of cardioversion CLL (chronic lymphocytic leukemia) Hypothyroid Leukemia in remission Hypertension Family History Mother CAD (coronary artery disease) Sister CAD (coronary artery disease) Father Leukemia Surgical History Hx of cataract extraction Social History Household Members: Spouse Housing: House Are you a primary urgent care physician assistant to a significant other at home: No Do you presently have visiting nurse or other home services: No Alcohol intake: never Patient Tobacco Use Status: Never used Tobacco Smoked in Last 30 Days: No Use of substances other than those prescribed or required for medical reasons: No Advance Directives: Yes Advance Directives on File: Yes Advance Directives Date on File: 04/20/21 service: No Current occupational status: retired Meds Allergies Allergy/AdvReac Type Severity Reaction Status Date / Time Sulfa (Sulfonamide Allergy Unknown DIFFICULTY Verified 03/29/23 09:15 Antibiotics) BREATHING [SULFA(SULFONAMIDE ANTIBIOTICS)] sulfamethoxazole Allergy Unknown DIARRHEA, Verified 03/29/23 09:15 [From BACTRIM] VOMTING, RASH trimethoprim [From BACTRIM] Allergy Unknown DIARRHEA, Verified 03/29/23 09:15 VOMTING, RASH Home Medications Medication Instructions Recorded Confirmed Last Taken Type furosemide 20 mg tablet (Lasix) 20 mg PO Q OTHER DAY 07/04/21 03/29/23 Unknown History ibrutinib 420 mg tablet (Imbruvica) 420 mg PO DAILY 11/13/22 03/29/23 Unknown History levothyroxine 75 mcg tablet 75 mcg PO DAILY 11/13/22 03/29/23 Unknown History (Euthyrox) Physical Exam 2 Vital Signs and Narrative: Vital Signs: Last Vital Signs Temp 100.5 F H 11/25/23 21:30 Pulse 82 11/25/23 21:30 Resp 16 11/25/23 21:30 BP 138/57 L 11/25/23 21:30 Pulse Ox 96 11/25/23 21:30 O2 Del Method Room Air 11/25/23 21:30 BMI result Body Mass Index 33.9 Middle-aged female lying in bed in no distress Neck supple, no JVD Regular rate and rhythm, S1-S2 heard Regular breath sounds bilaterally, no wheezing or crackles appreciated Abdomen soft nontender, no guarding, no rigidity Patient is awake, alert and oriented to self, place, time and person ; left- sided facial droop, no pronator drift, no nystagmus, strength equal in bilateral upper and lower extremities Psych: Normal mood No pedal edema Results Labs 11/25/23 21:27 11/25/23 21:27 Labs: Laboratory Results - last 24 hr 11/25/23 11/25/23 11/25/23 20:58 21:27 21:45 MCV 86.1 MCH 27.3 MCHC 31.7 RDW 18.1 H Plt Count 121 L D MPV 11.1 Immature Gran % (Auto) 3.4 H Neut % (Auto) 79.3 H Lymph % (Auto) 10.[address] [place] % (Auto) 6.2 Eos % (Auto) 0.0 Baso % (Auto) 0.5 Lymph # (Auto) 0.[address] [place] # (Auto) 0.2 Eos # (Auto) 0.0 Baso # (Auto) 0.0 Abs Immat Gran (auto) 0.13 H Absolute Neuts (auto) 3.1 Absolute Nucleated RBC 0.000 Nucleated RBC % (auto) 0.0 PT 41.5 H Whole Blood PT 28.9 H INR 3.4 H Whole Blood INR 2.4 H Anion Gap 13 Estim Creat Clear Calc 34.7 Estimated GFR 32 POC Glucose 115 Random Glucose 109 Lactic Acid 1.8 Calcium 8.1 L D Magnesium 1.8 Total Bilirubin 1.2 H Direct Bilirubin 0.6 H AST 53 H ALT 35 H Alkaline Phosphatase 85 Total Protein 5.8 L Albumin 3.5 Lipase 31 Urine Color Urine Appearance Urine pH Ur Specific [place] Urine Protein Urine Glucose (UA) Urine Ketones Urine Blood Urine Nitrite Ur Leukocyte Esterase Urine RBC Urine WBC Ur Squamous Epith Cells Urine Bacteria Hyaline Casts COVID-19 (PHYLLIS) Negative COVID-19 Clin Com See Note Influenza Type A (FAVIAN) Influenza Type B (FAVIAN) Influenza A & B Note Blood Type Antibody Screen 11/25/23 11/25/23 11/25/23 21:46 22:37 22:50 MCV MCH MCHC RDW Plt Count MPV Immature Gran % (Auto) Neut % (Auto) Lymph % (Auto) [place] % (Auto) Eos % (Auto) Baso % (Auto) Lymph # (Auto) [place] # (Auto) Eos # (Auto) Baso # (Auto) Abs Immat Gran (auto) Absolute Neuts (auto) Absolute Nucleated RBC Nucleated RBC % (auto) PT Whole Blood PT INR Whole Blood INR Anion Gap Estim Creat Clear Calc Estimated GFR POC Glucose Random Glucose Lactic Acid Calcium Magnesium Total Bilirubin Direct Bilirubin AST ALT Alkaline Phosphatase Total Protein Albumin Lipase Urine Color Yellow Urine Appearance Clear Urine pH 5.5 Ur Specific [place] >= 1.030 H Urine Protein 30 (1+) H Urine Glucose (UA) Negative Urine Ketones Negative Urine Blood Large (3+) H Urine Nitrite Negative Ur Leukocyte Esterase Negative Urine RBC 6-10 H Urine WBC 11-20 H Ur Squamous Epith Cells 0-2 Urine Bacteria None Seen Hyaline Casts 0-2 COVID-19 (PHYLLIS) COVID-19 Clin Com Influenza Type A (FAVIAN) Negative Influenza Type B (FAVIAN) Negative Influenza A & B Note See Note Blood Type A Positive Antibody Screen NEGATIVE Imaging Radiologist's Impressions: Impressions Head CT 11/25/23 21:05 IMPRESSION: No acute intracranial pathology. This critical result was discussed with Dr. Cordero at 11/25/2023, 9:15 . It was ascertained that the content and urgency of the report was understood at the time of direct communication. Head/Neck CTA 11/25/23 21:12 IMPRESSION: 1. No acute arterial occlusion or hemodynamically significant stenosis within the head or neck. This critical result was discussed with at 9:22 PM on 11/25/2023 and it was ascertained that the content and urgency of the report was understood at the time of direct communication. 2. Cervical spondylosis with apparent multilevel spinal canal stenosis which appears most pronounced and at least moderate at C4-C5 with multilevel severe neural foraminal narrowing. If there is referrable myelopathy/radiculopathy, further evaluation of these findings with dedicated cervical spine MRI may be performed as clinically warranted. 3. Elongated and ossified right greater than left styloid processes/stylohyoid ligaments can be correlated clinically for signs of [place] syndrome. Chest X-Ray 11/25/23 21:51 IMPRESSION: No acute intrathoracic disease. Interval placement of pacemaker. 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 #. Facial droop concerning for acute CVA: Will admit patient with cardiac monitoring. Hold aspirin for concerns of acute GI bleed. Administering high- intensity statin. May not be able to obtain MRI as patient has pacemaker. Consulting Neurology, appreciate assistance. #. Acute GI bleed: Patient had an episode of hematemesis as per family member although the patient is unsure. Stool occult blood positive in the ER. Initiating IV Protonix. Consulting Gastroenterology, appreciate assistance #. Fever: Had an episode of fever in the ER. No white count. Imaging not concerning for acute infection. Received a dose of Rocephin in the ER. Continue to monitor. Urine with minimal pyuria but no bacteriuria. Follow cultures #. Atrial fibrillation status post pacemaker: Hold Eliquis as above #. Congestive heart failure with preserved ejection fraction: Not on home diuretics #. Hypothyroidism: On Synthroid #. LARS not on CPAP #. Elevated creatinine: Patient has CKD. Continue to monitor Med rec pending DVT prophylaxis: Mechanical Full code Admit as inpatient and will require two night minimum hospital stay for monitoring of hemodynamics, evaluation of possible CVA and GI bleed (as above), which is not possible in a lesser acute setting. Specialist consult pending Quality Stroke Does the patient have a stroke diagnosis?: No VTE Prior VTE?: No VTE Risk Level:: Medical - moderate - high VTE Device Contraindication: Treatment Not Indicated VTE Drug Contraindication: N/A - Med Ordered
[2023-11-25 23:43] LABS: OBS Int Ctl Valid YES; OBS1 POSITIVE (NEGATIVE)
[2023-11-26] MEDS: Pantoprazole Sodium 40 MG/10 ML VIAL IVPUSH ×3 (00:21→18:04)
[2023-11-26] MEDS: 0.9 % Sodium Chloride Flush 3 ML SYRINGE IVFLUSH ×5 (01:03→23:39)
--- NOTE | 2023-11-26 01:06 | PC.NURSE ---
Pt requesting to sleep, lights dimmed. Call light within reach. Pt is pending admission.
--- NOTE | 2023-11-26 02:56 | PC.NURSE ---
Pt is sleeping, appears comfortable. No acute distress noted. Pt is easily arousable with verbal stimuli. HR is paced at 70 bpm and respiratory rate 16 non-labored. Skin is W/P/D.
--- NOTE | 2023-11-26 04:08 | PC.NURSE ---
Pt called for assistance and indicated that she needs to use the bathroom. Pt was assisted to the standing position and helped to the bathroom. Pt ambulates well without assistance, moving all extremities equally. Speech is clear and appropriate. Pt urinated and moved bowels before being assisted back to bed. Bed linens were freshened and pt was provided warm blankets for comfort. Significant shortness of breath noted with exertion, this is normal per pt. Vitals stable 129/76, HR paced at 88, RR 24. IV line patent and flushed per protocol. Pure wick discontinued.
[2023-11-26 05:32] LABS: MANUAL DIFF FLAG NO
[2023-11-26 05:35] LABS: Basophils Percent Auto 0.5 % (0-2); PLT CLUMP 1; SCAN SMEAR FLAG 1
[2023-11-26 05:37] LABS: Hematocrit 31.6 % (37.0-47.0); Hemoglobin 10.3 g/dl (12.0-16.0); Imm Gran Pct Auto 2.3 % (0.0-0.4); Lymphocytes Absolute Auto 0.5 X10*3/uL (1.2-4.9); Lymphocytes Percent Auto 10.4 % (20-40); Mean Corpuscular HGB Conc 32.6 g/dl (31.0-35.0); Mean Corpuscular Hemoglobin 27.5 pg (27.0-33.0); Mean Corpuscular Volume 84.3 fL (80.0-98.0); Mean Platelet Volume 11.4 fL (9.4-12.3); Monocytes Absolute Auto 0.3 X10*3/uL (0.1-1.2); Monocytes Percent Auto 6.9 % (2-11); Neutrophils Absolute Auto 3.5 x10*3/uL (2.0-8.3); Neutrophils Percent Auto 79.9 % (45-73); Red Blood Count 3.75 X10*6/uL (4.20-5.50); Red Cell Distribution Width 18.1 % (11.0-16.0)
[2023-11-26 05:42] LABS: Platelet Count 127 X10*3/uL (160-400); White Blood Count 4.2 X10*3/uL (4.8-10.8)
[2023-11-26 05:53] LABS: Anion Gap 12 (12-20); Blood Urea Nitrogen 22 mg/dL (9-16); Calcium 8.5 mg/dL (8.4-10.2); Carbon Dioxide 20 mmol/L (22-29); Chloride 107 mmol/L (96-108); Cholesterol 119 mg/dL (<200); Creatinine Clr Calc Pharmacy 35.2; Estimated Glomerular Filt Rate 33; Glucose Random 110 mg/dL (60-115); HDL Cholesterol 46 mg/dL (>40); Potassium 4.3 mmol/L (3.3-5.1); Sodium 135 mmol/L (135-145)
[2023-11-26 05:56] VITALS: BP 141/62; PULSE 79; RESP 17; TEMP 36.3; O2SAT 100
[2023-11-26 06:10] LABS: LDL Cholesterol Calculated 53 mg/dL (<100); Triglycerides 103 mg/dL (<150)
--- NOTE | 2023-11-26 06:40 | PC.NURSE ---
Pt awake and alert, answering questions appropriately. Given a boost in bed and call light placed within reach. Given another warm blanket.
--- NOTE | 2023-11-26 07:15 | PC.NURSE ---
Resumed care of patient, she is currently resting comfortably. Awaiting bed assignment at this time.
--- NOTE | 2023-11-26 07:37 | PC.NURSE ---
This director underwriter sales informed MRI we would need to wait for family to be available to answer MRI screening form as pt was not able to answer questions appropriately. MRI in agreement with plan
[2023-11-26 08:07] LABS: Estimated Average Glucose 94 mg/dL; Hemoglobin A1c % 4.9 % (<6.0)
--- NOTE | 2023-11-26 08:35 | PHA.MEDREC ---
Pharmacy Consult ? Medication Reconciliation Pharmacy has completed the medication reconciliation. Patient is currently in AMS from stroke alert. Spoke to patients son who could not name patients medications, told me to call the Jessica yanes. Jessica was only able to confirm patient is on eliquis and imbruvica. She did mention patient uses [facility], used pharmacy claims for the rest of the medications.
[2023-11-26 09:16] VITALS: BP 137/56; PULSE 81; RESP 20; TEMP 38.2; O2SAT 98
--- NOTE | 2023-11-26 09:43 | PM.NEUROCN ---
History of Present Illness Data of Consult Service Date: 11/26/23 Primary Care Provider: Lupillo Matta MD [facility] Reason for consult: Possible stroke 77 years old woman with severe headache deafness and atrial fibrillation on anticoagulation was brought to hospital with new onset of facial droop. Patient herself was not sure why she was here stating that she was told that she had a stroke. She was not aware of any symptoms or could not tell us what exactly brought her here. She said that her family member thought she was having a stroke. Communicating with her was also very difficult as we communicated initially with shouting but then with return language. Review of Systems Review of Systems: No recent trauma headache or cold or flu-like illness PMFSH Past Medical History Medical History Presence of temporary transvenous cardiac pacemaker COVID-19 vaccine series completed Hard of hearing Atrial fibrillation History of cardioversion CLL (chronic lymphocytic leukemia) Hypothyroid Leukemia in remission Hypertension Family History Family History Mother CAD (coronary artery disease) Sister CAD (coronary artery disease) Father Leukemia Surgical History Surgical History Hx of cataract extraction Social History Social History Household Members: Spouse Housing: House Are you a primary animal care specialist to a significant other at home: No Do you presently have visiting nurse or other home services: No Alcohol intake: never Patient Tobacco Use Status: Never used Tobacco Smoked in Last 30 Days: No Use of substances other than those prescribed or required for medical reasons: No Advance Directives: Yes Advance Directives on File: Yes Advance Directives Date on File: 04/20/21 Nutrition Risks: No Nutritional Risk service: No Current occupational status: retired Meds Allergies Allergy/AdvReac Type Severity Reaction Status Date / Time Sulfa (Sulfonamide Allergy Unknown DIFFICULTY Verified 03/29/23 09:15 Antibiotics) BREATHING [SULFA(SULFONAMIDE ANTIBIOTICS)] sulfamethoxazole Allergy Unknown DIARRHEA, Verified 03/29/23 09:15 [From BACTRIM] VOMTING, RASH trimethoprim [From BACTRIM] Allergy Unknown DIARRHEA, Verified 03/29/23 09:15 VOMTING, RASH Active Medications: Current Medications Acetaminophen (Acetaminophen 325 Mg Tablet) 650 mg PO Q6H PRN PRN Reason: Pain, Mild (Pain Scale 1-3) Acetaminophen (Acetaminophen Supp 650 Mg Supp.Rect) 650 mg RI Q6H PRN PRN Reason: Pain, Mild (Pain Scale 1-3) Atorvastatin Calcium (Atorvastatin Calcium 40 Mg Tablet) 40 mg PO BEDTIME [facility] Melatonin (Melatonin 3 Mg Tablet) 6 mg PO BEDTIME PRN PRN Reason: Insomnia Ondansetron HCl (Ondansetron Hcl 4 Mg/2 Ml Vial) 4 mg IVPUSH Q8H PRN PRN Reason: Nausea and Vomiting Pantoprazole Sodium (Pantoprazole Sodium 40 Mg/10 Ml Vial) 40 mg IVPUSH BID@0630,1630 [facility] Last Admin: 11/26/23 06:32 Dose: 40 mg Sodium Chloride (0.9 % Sodium Chloride Flush 3 Ml Syringe) 3 ml IVFLUSH QSHIFT [facility] Last Admin: 11/26/23 01:03 Dose: 3 ml Home Medications Medication Instructions Recorded Confirmed Last Taken Type ibrutinib 420 mg tablet (Imbruvica) 420 mg PO DAILY 11/13/22 11/26/23 Unknown History allopurinol 300 mg tablet 300 mg PO DAILY 11/26/23 11/26/23 Unknown History levothyroxine 100 mcg tablet 100 mcg PO DAILY 11/26/23 11/26/23 Unknown History Physical Exam Vital Signs: Vital Signs: Last Vital Signs Temp 100.7 F H 11/26/23 09:16 Pulse 81 11/26/23 09:16 Resp 20 11/26/23 09:16 BP 137/56 L 11/26/23 09:16 Pulse Ox 98 11/26/23 09:16 O2 Del Method Room Air 11/26/23 09:16 BMI result Body Mass Index 33.9 Neuro: Other: She was alert and awake with normal spontaneity of speech fluency comprehension and affect. She could not hear even very close to her ears. I communicated with her with return language. She was following commands and answering questions. There was no obvious facial asymmetry or visual dysfunction. There was no obvious focal arm or leg weakness and plantars were flexor. Results Labs 11/26/23 05:08 11/26/23 05:09 Labs: Short CBC 11/25/23 11/26/23 Range/Units 21:27 05:08 WBC 3.9 L 4.2 L (4.8-10.8) X10*3/uL Hgb 9.6 L D 10.3 L (12.0-16.0) g/dl Hct 30.3 L D 31.6 L (37.0-47.0) % Plt Count 121 L D 127 L (160-400) X10*3/uL BMP 11/25/23 11/26/23 21:27 05:09 Sodium 132 L 135 Potassium 3.9 4.3 Chloride 104 107 Carbon Dioxide 19 L 20 L BUN 19 H 22 H Creatinine 1.57 H 1.55 H Calcium 8.1 L D 8.5 Liver Function 11/25/23 Range/Units 21:27 Total Bilirubin 1.2 H (0.0-1.0) mg/dL Direct Bilirubin 0.6 H (0.0-0.5) mg/dL AST 53 H (5-31) U/L ALT 35 H (0-31) U/L Alkaline Phosphatase 85 (39-117) U/L Albumin 3.5 (3.5-5.0) g/dL Urine 11/25/23 Range/Units 22:50 Urine Color Yellow Urine Appearance Clear Urine pH 5.5 (5.0-9.0) Ur Specific Wilder >= 1.030 H (1.005-1.025) Urine Protein 30 (1+) H (Neg-Trace) mg/dL Urine Glucose (UA) Negative (Negative) mg/dL Noncontrast head CT revealed moderately severe diffuse cerebral and cerebellar atrophy and mild chronic microvascular ischemic changes. CTA of brain and neck did not reveal any vascular abnormality per Assessment and Plan (1) Facial droop: Status: Acute 77 years old woman with atrial fibrillation on anticoagulation was brought to hospital with facial asymmetry. At this time her examination did not reveal any focal finding. Imaging did not reveal any acute finding either. My recommendation at this time is to continue anticoagulation and educate patient and family member. Unfortunately she was having trouble with a hearing aid today and communicating with her was somewhat difficult. Procedures Date of Service Date of Service: 11/26/23
--- NOTE | 2023-11-26 10:40 | MHC.CM.PN ---
IMM 11/26/23, Pt very hard of hearing, she lives with her , and her daughter comes over daily to assist her. HCP on file, confirmed: Sal Gutierrez, her . She does not have home health services, and she has not used [facility] or been to [facility], and she does not have medical equipment. Her daughter will transport upon DC. PCP: Dr. Owusu. CM will follow and assist with DC planning.
[2023-11-26 10:47] VITALS: BP 173/74; PULSE 72; RESP 20; TEMP 36.8; O2SAT 99
--- NOTE | 2023-11-26 11:56 | MHC.SL.SWA ---
Risk of Aspiration Due to: ?CVA Dysphasia Diet Status: UPGRADE Liquid Consistency and Strategies for Safe Swallow: Liquid Intake Recommendation: Thin Liquid Intake Strategies: Small Sips Solid Food Consistency: Dietary Recommendations: Chopped/Advanced (NDD3) *with sauce/gravy Oral Medication Intake: Whole with Liquid Please contact the pharmacy regarding appropriate crushable or liquid drug formulations that are available whenever modified delivery is recommended. Compensatory Strategies and Precautions to be Taken for Safe Swallow: Sitting Upright (90 deg) Small Bites and Sips Alternate Liquids/Solids Supervision While Eating and Drinking for Safe Swallow: Full Supervision Foods to Avoid: Hard/sticky/tough to chew foods Recommendation for Speech: Comment: Recommend UPGRADE to THIN liquids and CHOPPED/ADVANCED solids (NDD3). Chopped/advanced solids recommended secondary to dentition. Pills whole w/ liquid. Recommend FULL SUPERVISION d/t intermittent throat clearing to monitor meals. Recommend VEGETABLE WASHING MACHINE OPERATOR to continue to follow during hospitalization. Straight Line Press Setter Clinican/Clinical Fellow: No Supervisory Statement: I have reviewed and agree with the student/clinical fellow's documentation: N/A Speech Language Pathologist: Randa Painter M.A., [facility], [facility]-VEGETABLE WASHING MACHINE OPERATOR
--- NOTE | 2023-11-26 12:50 | P.PNIM_ITS ---
Subjective Subjective Date of Service: 11/26/23 Interval History: No acute issues overnight. Extremely hard of hearing. . . Does well with phone text Review of Systems Denies chest pain Denies shortness of breath Denies nausea vomiting diarrhea Denies fever chills Physical Exam 2 Vital Signs: Vital Signs: Last Vital Signs Temp 98.3 F 11/26/23 10:47 Pulse 72 11/26/23 10:47 Resp 20 11/26/23 10:47 BP 173/74 H 11/26/23 10:47 Pulse Ox 99 11/26/23 10:47 O2 Del Method Room Air 11/26/23 10:47 BMI result Body Mass Index 33.9 Const: Other: Awake alert extremely hard of hearing Resp: Other: Clear to auscultation bilaterally no rales rhonchi or wheezes Cardio: Other: No S4; positive S1-S2; no S3 murmurs rubs or gallops GI: Other: Soft nontender nondistended normoactive bowel sounds Extrem: Other: No edema bilaterally Objective Data Active Medications Acetaminophen (Acetaminophen 325 Mg Tablet) 650 mg PO Q6H PRN PRN Reason: Pain, Mild (Pain Scale 1-3) Acetaminophen (Acetaminophen Supp 650 Mg Supp.Rect) 650 mg [place] Q6H PRN PRN Reason: Pain, Mild (Pain Scale 1-3) Atorvastatin Calcium (Atorvastatin Calcium 40 Mg Tablet) 40 mg PO BEDTIME [facility] Ceftriaxone Sodium 1 gm/ (Sodium Chloride) 50 mls @ 100 mls/hr IV Q24H [facility] Melatonin (Melatonin 3 Mg Tablet) 6 mg PO BEDTIME PRN PRN Reason: Insomnia Ondansetron HCl (Ondansetron Hcl 4 Mg/2 Ml Vial) 4 mg IVPUSH Q8H PRN PRN Reason: Nausea and Vomiting Pantoprazole Sodium (Pantoprazole Sodium 40 Mg/10 Ml Vial) 40 mg IVPUSH BID@0630,1630 [facility] Last Admin: 11/26/23 06:32 Dose: 40 mg Documented By: JESSICA Sodium Chloride (0.9 % Sodium Chloride Flush 3 Ml Syringe) 3 ml IVFLUSH QSHIFT [facility] Last Admin: 11/26/23 10:13 Dose: 3 ml Documented By: GEN Labs 11/26/23 05:08 11/26/23 05:09 Labs: Laboratory Results - last 24 hr 11/25/23 11/25/23 11/25/23 20:58 21:27 21:45 MCV 86.1 MCH 27.3 MCHC 31.7 RDW 18.1 H Plt Count 121 L D MPV 11.1 Immature Gran % (Auto) 3.4 H Neut % (Auto) 79.3 H Lymph % (Auto) 10.6 L [place] % (Auto) 6.2 Eos % (Auto) 0.0 Baso % (Auto) 0.5 Lymph # (Auto) 0.4 L [place] # (Auto) 0.2 Eos # (Auto) 0.0 Baso # (Auto) 0.0 Abs Immat Gran (auto) 0.13 H Absolute Neuts (auto) 3.1 Absolute Nucleated RBC 0.000 Nucleated RBC % (auto) 0.0 PT 41.5 H Whole Blood PT 28.9 H INR 3.4 H Whole Blood INR 2.4 H Anion Gap 13 Estim Creat Clear Calc 34.7 Estimated GFR 32 POC Glucose 115 Random Glucose 109 Estimat Average Glucose Hemoglobin A1c % Lactic Acid 1.8 Calcium 8.1 L D Magnesium 1.8 Total Bilirubin 1.2 H Direct Bilirubin 0.6 H AST 53 H ALT 35 H Alkaline Phosphatase 85 Total Protein 5.8 L Albumin 3.5 Triglycerides Cholesterol LDL Cholesterol, Calc HDL Cholesterol Lipase 31 Urine Color Urine Appearance Urine pH Ur Specific [place] Urine Protein Urine Glucose (UA) Urine Ketones Urine Blood Urine Nitrite Ur Leukocyte Esterase Urine RBC Urine WBC Ur Squamous Epith Cells Urine Bacteria Hyaline Casts Stool Occult Blood COVID-19 (PHYLLIS) Negative COVID-19 Clin Com See Note Influenza Type A (FAVIAN) Influenza Type B (FAVIAN) Influenza A & B Note Blood Type Antibody Screen 11/25/23 11/25/23 11/25/23 21:46 22:37 22:50 MCV MCH MCHC RDW Plt Count MPV Immature Gran % (Auto) Neut % (Auto) Lymph % (Auto) [place] % (Auto) Eos % (Auto) Baso % (Auto) Lymph # (Auto) [place] # (Auto) Eos # (Auto) Baso # (Auto) Abs Immat Gran (auto) Absolute Neuts (auto) Absolute Nucleated RBC Nucleated RBC % (auto) PT Whole Blood PT INR Whole Blood INR Anion Gap Estim Creat Clear Calc Estimated GFR POC Glucose Random Glucose Estimat Average Glucose Hemoglobin A1c % Lactic Acid Calcium Magnesium Total Bilirubin Direct Bilirubin AST ALT Alkaline Phosphatase Total Protein Albumin Triglycerides Cholesterol LDL Cholesterol, Calc HDL Cholesterol Lipase Urine Color Yellow Urine Appearance Clear Urine pH 5.5 Ur Specific [place] >= 1.030 H Urine Protein 30 (1+) H Urine Glucose (UA) Negative Urine Ketones Negative Urine Blood Large (3+) H Urine Nitrite Negative Ur Leukocyte Esterase Negative Urine RBC 6-10 H Urine WBC 11-20 H Ur Squamous Epith Cells 0-2 Urine Bacteria None Seen Hyaline Casts 0-2 Stool Occult Blood COVID-19 (PHYLLIS) COVID-19 Clin Com Influenza Type A (FAVIAN) Negative Influenza Type B (FAVIAN) Negative Influenza A & B Note See Note Blood Type A Positive Antibody Screen NEGATIVE 11/25/23 11/26/23 11/26/23 23:37 05:08 05:09 MCV 84.3 MCH 27.5 MCHC 32.6 RDW 18.1 H Plt Count 127 L MPV 11.4 Immature Gran % (Auto) 2.3 H Neut % (Auto) 79.9 H Lymph % (Auto) 10.4 L [place] % (Auto) 6.9 Eos % (Auto) 0.0 Baso % (Auto) 0.5 Lymph # (Auto) 0.5 L [place] # (Auto) 0.3 Eos # (Auto) 0.0 Baso # (Auto) 0.0 Abs Immat Gran (auto) 0.10 H Absolute Neuts (auto) 3.5 Absolute Nucleated RBC 0.000 Nucleated RBC % (auto) 0.0 PT Whole Blood PT INR Whole Blood INR Anion Gap 12 Estim Creat Clear Calc 35.2 Estimated GFR 33 POC Glucose Random Glucose 110 Estimat Average Glucose 94 Hemoglobin A1c % 4.9 Lactic Acid Calcium 8.5 Magnesium Total Bilirubin Direct Bilirubin AST ALT Alkaline Phosphatase Total Protein Albumin Triglycerides 103 Cholesterol 119 LDL Cholesterol, Calc 53 HDL Cholesterol 46 Lipase Urine Color Urine Appearance Urine pH Ur Specific [place] Urine Protein Urine Glucose (UA) Urine Ketones Urine Blood Urine Nitrite Ur Leukocyte Esterase Urine RBC Urine WBC Ur Squamous Epith Cells Urine Bacteria Hyaline Casts Stool Occult Blood POSITIVE COVID-19 (PHYLLIS) COVID-19 Clin Com Influenza Type A (FAVIAN) Influenza Type B (FAVIAN) Influenza A & B Note Blood Type Antibody Screen Microbiology Microbiology Results: Microbiology 11/25/23 Unknown Urine Culture - Preliminary Urine clean catch No growth to date. 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 1.Facial droop concerning for acute CVA -exam nonfocal -appreciate neurological input. . . No further workup indicated 2.Acute GI bleed -no further hematemesis since admission -IV Protonix b.i.d. -await GI consult 3. Active urinary sediment -ceftriaxone 1 g daily(2) -await formal culture 4.Atrial fibrillation status post pacemaker -acceptable rate control at this time -continue current therapies -hold Eliquis pending scope 5. History of diastolic Congestive heart failure with preserved ejection fraction -no active issues this admission Mechanical Full code Requires ongoing hospitalization for IV antibiotics to treat urinary tract infection and GI evaluation for hematemesis Quality Stroke Does the patient have a stroke diagnosis?: No VTE Prior VTE?: No VTE Risk Level:: Medical - moderate - high VTE Device Contraindication: Treatment Not Indicated VTE Drug Contraindication: N/A - Med Ordered
[2023-11-26] MEDS: Acetaminophen 325 MG TABLET 650 MG PO (13:38)
[2023-11-26 15:13] VITALS: BP 123/58; PULSE 70; RESP 18; TEMP 37.7; O2SAT 96
[2023-11-26 19:37] VITALS: BP 148/65; PULSE 71; RESP 18; TEMP 37.1; O2SAT 100
[2023-11-26] MEDS: carvediloL 12.5 MG TABLET PO (20:01)
[2023-11-26] MEDS: Atorvastatin Calcium 40 MG TABLET PO (20:01)
[2023-11-26] MEDS: cefTRIAXone sodium 1 GM in 0.9 % Sodium Chloride 50 ML IV (20:01)
[2023-11-26] MEDS: ondansetron HCL 4 MG/2 ML VIAL IVPUSH (23:08)
[2023-11-26 23:36] VITALS: BP 104/53; PULSE 70; RESP 18; TEMP 36.3; O2SAT 98
[2023-11-27] VITALS (15 sets, daily range): BP systolic 90–144; BP diastolic 46–71; PULSE 70–79; RESP 14–27; TEMP 36.2–39.8; O2SAT 95–99; BMI 33.9
[2023-11-27] MEDS: Acetaminophen 325 MG TABLET 650 MG PO ×2 (01:13→22:44)
--- NOTE | 2023-11-27 01:26 | CONS_ITS ---
DATE OF SERVICE: 11/26/2023 REFERRING PHYSICIAN: Dr. Thacker REASON FOR CONSULTATION: Hematemesis and upper GI bleeding. HISTORY OF PRESENT ILLNESS: Patient is a pleasant 77-year-old woman who was admitted to the hospital after presenting to the emergency room because of a facial droop. She also reportedly had an episode of hematemesis. Her daughter reports dark bloody material was noted on her clothing at home. The patient denies any dysphagia or melena. She does have a history of atrial fibrillation and is on Eliquis. PAST MEDICAL HISTORY: 1. Atrial fibrillation status post cardioversion. 2. CLL. 3. Hypothyroidism. 4. Hypertension. 5. Pacemaker placement. 6. Cataract surgery. 7. Chronic kidney disease. 8. Diastolic congestive heart failure. 9. LARS. CURRENT MEDICATIONS: Her current medication list is reviewed in the chart. ALLERGIES: THERE ARE MULTIPLE MEDICATION ALLERGIES THAT ARE REVIEWED. FAMILY HISTORY: This was reviewed with the patient and is noncontributory. SOCIAL HISTORY: There is no current tobacco, alcohol, or substance abuse. REVIEW OF SYSTEMS: SKIN: No pruritus. HEENT: Negative. CARDIOPULMONARY: No shortness of breath or chest pain. GASTROINTESTINAL: As above. GENITOURINARY: Negative. NEUROPSYCHIATRIC: Negative. PHYSICAL EXAMINATION: GENERAL: Shows a pleasant female, lying comfortably in bed. She is hard of hearing. SKIN: Anicteric. HEENT: Shows no scleral icterus. NECK: Without lymphadenopathy or thyromegaly. LUNGS: Clear. HEART: Shows regular rate and rhythm. S1, S2. No murmur. ABDOMEN: Soft. No focal masses or tenderness. Bowel sounds are present. No organomegaly is noted. EXTREMITIES: Without edema. LABORATORY DATA AND IMAGING STUDIES: Reviewed. IMPRESSION: Hematemesis. At this time, she appears stable without any evidence of ongoing upper gastrointestinal bleeding, as she will need to go back on Eliquis. I would recommend she undergo upper endoscopy for further evaluation. I have discussed risks and benefits of the procedure with the patient and her daughter. They understand and agrees to proceed. I would recommend continuing to monitor her hematocrit, which has been stable at 31 this morning. Thanks for asking me to see her. I will follow her in the hospital with you. MD STEPHAN Hylton/JAY / [phone]
[2023-11-27] MEDS: Pantoprazole Sodium 40 MG/10 ML VIAL IVPUSH ×2 (06:19→16:59)
[2023-11-27] MEDS: Levothyroxine Sodium 100 MCG TABLET PO (06:26)
[2023-11-27 06:50] LABS: Basophils Percent Auto 0.5 % (0-2); Hematocrit 27.3 % (37.0-47.0); Hemoglobin 8.9 g/dl (12.0-16.0); Imm Gran Abs Auto 0.05 X10*3/uL (0.00-0.03); Imm Gran Pct Auto 2.3 % (0.0-0.4); Lymphocytes Absolute Auto 0.5 X10*3/uL (1.2-4.9); Lymphocytes Percent Auto 21.3 % (20-40); Mean Corpuscular HGB Conc 32.6 g/dl (31.0-35.0); Mean Corpuscular Hemoglobin 27.1 pg (27.0-33.0); Mean Platelet Volume 12.5 fL (9.4-12.3); Monocytes Absolute Auto 0.1 X10*3/uL (0.1-1.2); Neutrophils Absolute Auto 1.5 x10*3/uL (2.0-8.3); Neutrophils Percent Auto 69.9 % (45-73); Red Blood Count 3.29 X10*6/uL (4.20-5.50); Red Cell Distribution Width 18.4 % (11.0-16.0)
[2023-11-27 06:51] LABS: Platelet Count 75 X10*3/uL (160-400); White Blood Count 2.2 X10*3/uL (4.8-10.8)
[2023-11-27 07:08] LABS: Alanine Aminotransferase 30 U/L (0-31); Albumin Level 3.2 g/dL (3.5-5.0); Alkaline Phosphatase 77 U/L (39-117); Anion Gap 12 (12-20); Aspartate Amino Transferase 40 U/L (5-31); Bilirubin Total 1.1 mg/dL (0.0-1.0); Blood Urea Nitrogen 26 mg/dL (9-16); Carbon Dioxide 20 mmol/L (22-29); Chloride 107 mmol/L (96-108); Creatinine Clr Calc Pharmacy 35.6; Estimated Glomerular Filt Rate 33; Glucose Fasting 93 mg/dL (60-99); Potassium 3.5 mmol/L (3.3-5.1); Sodium 135 mmol/L (135-145); Total Protein 5.4 g/dL (6.5-8.0)
[2023-11-27] MEDS: carvediloL 12.5 MG TABLET PO ×2 (08:39→22:43)
[2023-11-27 09:38] LABS: INTERNATIONAL NORM RATIO 1.5 (0.9-1.1); Prothrombin Time 18.2 SEC (11.1-13.3)
--- NOTE | 2023-11-27 12:08 | P.CONAN_ITS ---
HPI - Anesthesia Eval Consult details Narrative: 77 yo female patient for EGD PMFSH Active Problems Active Problems: All Active Problems (Updated 11/27/23 @ 12:09 by Cielo Valadez MD) GI bleed (Acute) Facial droop (Acute). Seen by Neurology. No focal findings or findings on imaging. Encephalopathy acute (Acute) Fever (Acute) Weakness (Acute) Toe pain, left (Acute) Hypertension (Acute) LARS (obstructive sleep apnea) (Acute) Persistent atrial fibrillation (Acute) Chronic heart failure with preserved ejection fraction (HFpEF) (Acute) PAF (paroxysmal atrial fibrillation) (Acute) Pedal edema (Acute) Atrial fibrillation with rapid ventricular response (Acute) Acute dyspnea (Acute) Mild congestive heart failure (Acute) Acute diastolic (congestive) heart failure (Acute) Chronic kidney disease (Acute) History of cardioversion (Acute) Past Medical History Medical History (Updated 11/27/23 @ 12:24 by Cielo Valadez MD) Presence of temporary transvenous cardiac pacemaker COVID-19 vaccine series completed Hard of hearing Atrial fibrillation History of cardioversion CLL (chronic lymphocytic leukemia) Hypothyroid Leukemia in remission Hypertension Family History Family History Mother CAD (coronary artery disease) Sister CAD (coronary artery disease) Father Leukemia Family history of problems with anesthesia: No Surgical History Surgical History Hx of cataract extraction History of Problems with Anesthesia: No Social History Social History Household Members: Spouse Housing: House Are you a primary child care coordinator to a significant other at home: No Do you presently have visiting nurse or other home services: No Alcohol intake: never Patient Tobacco Use Status: Never used Tobacco Advance Directives Date on File: 04/20/21 service: No Current occupational status: retired Meds Allergies Allergy/AdvReac Type Severity Reaction Status Date / Time Sulfa (Sulfonamide Allergy Unknown DIFFICULTY Verified 03/29/23 09:15 Antibiotics) BREATHING [SULFA(SULFONAMIDE ANTIBIOTICS)] sulfamethoxazole Allergy Unknown DIARRHEA, Verified 03/29/23 09:15 [From BACTRIM] VOMTING, RASH trimethoprim [From BACTRIM] Allergy Unknown DIARRHEA, Verified 03/29/23 09:15 VOMTING, RASH Active Medications: Current Medications Acetaminophen (Acetaminophen 325 Mg Tablet) 650 mg PO Q6H PRN PRN Reason: Pain, Mild (Pain Scale 1-3) Last Admin: 11/27/23 01:13 Dose: 650 mg Acetaminophen (Acetaminophen Supp 650 Mg Supp.Rect) 650 mg [place] Q6H PRN PRN Reason: Pain, Mild (Pain Scale 1-3) Allopurinol (Allopurinol 300 Mg Tablet) 300 mg PO DAILY [facility] Last Admin: 11/27/23 08:40 Dose: Not Given Atorvastatin Calcium (Atorvastatin Calcium 40 Mg Tablet) 40 mg PO BEDTIME [facility] Last Admin: 11/26/23 20:01 Dose: 40 mg Carvedilol (Carvedilol 12.5 Mg Tablet) 12.5 mg PO BID [facility]; Protocol Last Admin: 11/27/23 08:39 Dose: 12.5 mg Ceftriaxone Sodium 1 gm/ (Sodium Chloride) 50 mls @ 100 mls/hr IV Q24H [facility] Last Infusion: 11/26/23 20:31 Dose: Infused Levothyroxine Sodium (Levothyroxine Sodium 100 Mcg Tablet) 100 mcg PO DAILY@0600 [facility] Last Admin: 11/27/23 06:26 Dose: 100 mcg Melatonin (Melatonin 3 Mg Tablet) 6 mg PO BEDTIME PRN PRN Reason: Insomnia Non-Formulary Medication (Ibrutinib [Imbruvica]) 420 mg PO DAILY [facility] Ondansetron HCl (Ondansetron Hcl 4 Mg/2 Ml Vial) 4 mg IVPUSH Q8H PRN PRN Reason: Nausea and Vomiting Last Admin: 11/26/23 23:08 Dose: 4 mg Pantoprazole Sodium (Pantoprazole Sodium 40 Mg/10 Ml Vial) 40 mg IVPUSH BID@0630,1630 [facility] Last Admin: 11/27/23 06:19 Dose: 40 mg Sodium Chloride (0.9 % Sodium Chloride Flush 3 Ml Syringe) 3 ml IVFLUSH QSHIFT [facility] Last Admin: 11/26/23 23:39 Dose: 3 ml Home Medications Medication Instructions Recorded Confirmed Last Taken Type ibrutinib 420 mg tablet (Imbruvica) 420 mg PO DAILY 11/13/22 11/26/23 Unknown History allopurinol 300 mg tablet 300 mg PO DAILY 11/26/23 11/26/23 Unknown History levothyroxine 100 mcg tablet 100 mcg PO DAILY 11/26/23 11/26/23 Unknown History Exam Height,Weight and Vital Signs: Height 5 ft 5 in Weight 92.3 kg Last Vital Signs Temp 97.7 F 11/27/23 11:55 Pulse 70 11/27/23 11:55 Resp 16 11/27/23 11:55 BP 131/51 L 11/27/23 11:55 Pulse Ox 99 11/27/23 11:55 O2 Del Method Room Air 11/27/23 11:55 Pertinent Lab Results Pertinent Lab Results: Laboratory Tests 11/25/23 11/25/23 11/25/23 20:58 21:27 21:45 WBC 3.9 L RBC 3.52 L D Hgb 9.6 L D Hct 30.3 L D MCV 86.1 MCH 27.3 MCHC 31.7 RDW 18.1 H Plt Count 121 L D MPV 11.1 Immature Gran % (Auto) 3.4 H Neut % (Auto) 79.3 H Lymph % (Auto) 10.6 L [place] % (Auto) 6.2 Eos % (Auto) 0.0 Baso % (Auto) 0.5 Lymph # (Auto) 0.4 L [place] # (Auto) 0.2 Eos # (Auto) 0.0 Baso # (Auto) 0.0 Abs Immat Gran (auto) 0.13 H Absolute Neuts (auto) 3.1 Absolute Nucleated RBC 0.000 Nucleated RBC % (auto) 0.0 PT 41.5 H Whole Blood PT 28.9 H INR 3.4 H Whole Blood INR 2.4 H Sodium 132 L Potassium 3.9 Chloride 104 Carbon Dioxide 19 L Anion Gap 13 BUN 19 H Creatinine 1.57 H Estim Creat Clear Calc 34.7 Estimated GFR 32 POC Glucose 115 Random Glucose 109 Fasting Glucose Estimat Average Glucose Hemoglobin A1c % Lactic Acid 1.8 Calcium 8.1 L D Magnesium 1.8 Total Bilirubin 1.2 H Direct Bilirubin 0.6 H AST 53 H ALT 35 H Alkaline Phosphatase 85 Troponin I High Sens 14.5 Total Protein 5.8 L Albumin 3.5 Triglycerides Cholesterol LDL Cholesterol, Calc HDL Cholesterol Lipase 31 Urine Color Urine Appearance Urine pH Ur Specific [place] Urine Protein Urine Glucose (UA) Urine Ketones Urine Blood Urine Nitrite Ur Leukocyte Esterase Urine RBC Urine WBC Ur Squamous Epith Cells Urine Bacteria Hyaline Casts Stool Occult Blood COVID-19 (PHYLLIS) Negative COVID-19 Clin Com See Note Influenza Type A (FAVIAN) Influenza Type B (FAVIAN) Influenza A & B Note Blood Type Antibody Screen 11/25/23 11/25/23 11/25/23 21:46 22:37 22:50 WBC RBC Hgb Hct MCV MCH MCHC RDW Plt Count MPV Immature Gran % (Auto) Neut % (Auto) Lymph % (Auto) [place] % (Auto) Eos % (Auto) Baso % (Auto) Lymph # (Auto) [place] # (Auto) Eos # (Auto) Baso # (Auto) Abs Immat Gran (auto) Absolute Neuts (auto) Absolute Nucleated RBC Nucleated RBC % (auto) PT Whole Blood PT INR Whole Blood INR Sodium Potassium Chloride Carbon Dioxide Anion Gap BUN Creatinine Estim Creat Clear Calc Estimated GFR POC Glucose Random Glucose Fasting Glucose Estimat Average Glucose Hemoglobin A1c % Lactic Acid Calcium Magnesium Total Bilirubin Direct Bilirubin AST ALT Alkaline Phosphatase Troponin I High Sens Total Protein Albumin Triglycerides Cholesterol LDL Cholesterol, Calc HDL Cholesterol Lipase Urine Color Yellow Urine Appearance Clear Urine pH 5.5 Ur Specific [place] >= 1.030 H Urine Protein 30 (1+) H Urine Glucose (UA) Negative Urine Ketones Negative Urine Blood Large (3+) H Urine Nitrite Negative Ur Leukocyte Esterase Negative Urine RBC 6-10 H Urine WBC 11-20 H Ur Squamous Epith Cells 0-2 Urine Bacteria None Seen Hyaline Casts 0-2 Stool Occult Blood COVID-19 (PHYLLIS) COVID-19 Clin Com Influenza Type A (FAVIAN) Negative Influenza Type B (FAVIAN) Negative Influenza A & B Note See Note Blood Type A Positive Antibody Screen NEGATIVE 11/25/23 11/26/23 11/26/23 23:37 05:08 05:09 WBC 4.2 L RBC 3.75 L Hgb 10.3 L Hct 31.6 L MCV 84.3 MCH 27.5 MCHC 32.6 RDW 18.1 H Plt Count 127 L MPV 11.4 Immature Gran % (Auto) 2.3 H Neut % (Auto) 79.9 H Lymph % (Auto) 10.4 L [place] % (Auto) 6.9 Eos % (Auto) 0.0 Baso % (Auto) 0.5 Lymph # (Auto) 0.5 L [place] # (Auto) 0.3 Eos # (Auto) 0.0 Baso # (Auto) 0.0 Abs Immat Gran (auto) 0.10 H Absolute Neuts (auto) 3.5 Absolute Nucleated RBC 0.000 Nucleated RBC % (auto) 0.0 PT Whole Blood PT INR Whole Blood INR Sodium 135 Potassium 4.3 Chloride 107 Carbon Dioxide 20 L Anion Gap 12 BUN 22 H Creatinine 1.55 H Estim Creat Clear Calc 35.2 Estimated GFR 33 POC Glucose Random Glucose 110 Fasting Glucose Estimat Average Glucose 94 Hemoglobin A1c % 4.9 Lactic Acid Calcium 8.5 Magnesium Total Bilirubin Direct Bilirubin AST ALT Alkaline Phosphatase Troponin I High Sens Total Protein Albumin Triglycerides 103 Cholesterol 119 LDL Cholesterol, Calc 53 HDL Cholesterol 46 Lipase Urine Color Urine Appearance Urine pH Ur Specific [place] Urine Protein Urine Glucose (UA) Urine Ketones Urine Blood Urine Nitrite Ur Leukocyte Esterase Urine RBC Urine WBC Ur Squamous Epith Cells Urine Bacteria Hyaline Casts Stool Occult Blood POSITIVE COVID-19 (PHYLLIS) COVID-19 Clin Com Influenza Type A (FAVIAN) Influenza Type B (FAVIAN) Influenza A & B Note Blood Type Antibody Screen 11/27/23 11/27/23 06:10 08:23 WBC 2.2 L RBC 3.29 L Hgb 8.9 L Hct 27.3 L MCV 83.0 MCH 27.1 MCHC 32.6 RDW 18.4 H Plt Count 75 L D MPV 12.5 H Immature Gran % (Auto) 2.3 H Neut % (Auto) 69.9 Lymph % (Auto) 21.3 [place] % (Auto) 6.0 Eos % (Auto) 0.0 Baso % (Auto) 0.5 Lymph # (Auto) 0.5 L [place] # (Auto) 0.1 Eos # (Auto) 0.0 Baso # (Auto) 0.0 Abs Immat Gran (auto) 0.05 H Absolute Neuts (auto) 1.5 L Absolute Nucleated RBC 0.000 Nucleated RBC % (auto) 0.0 PT 18.2 H D Whole Blood PT INR 1.5 H Whole Blood INR Sodium 135 Potassium 3.5 Chloride 107 Carbon Dioxide 20 L Anion Gap 12 BUN 26 H Creatinine 1.53 H Estim Creat Clear Calc 35.6 Estimated GFR 33 POC Glucose Random Glucose Fasting Glucose 93 Estimat Average Glucose Hemoglobin A1c % Lactic Acid Calcium 8.0 L Magnesium Total Bilirubin 1.1 H Direct Bilirubin AST 40 H ALT 30 Alkaline Phosphatase 77 Troponin I High Sens Total Protein 5.4 L Albumin 3.2 L Triglycerides Cholesterol LDL Cholesterol, Calc HDL Cholesterol Lipase Urine Color Urine Appearance Urine pH Ur Specific [place] Urine Protein Urine Glucose (UA) Urine Ketones Urine Blood Urine Nitrite Ur Leukocyte Esterase Urine RBC Urine WBC Ur Squamous Epith Cells Urine Bacteria Hyaline Casts Stool Occult Blood COVID-19 (PHYLLIS) COVID-19 Clin Com Influenza Type A (FAVIAN) Influenza Type B (FAVIAN) Influenza A & B Note Blood Type Antibody Screen Airway Mallampati Class: III TM Dist: >3cm Neck ROM: Full Loose/Missing/Broken Teeth: Yes (Poor dentition. Many broken. Many missing ) Heart: Irregular Lungs: CTAB Assessment and Plan Assessment Anesthesia Assessment: Anesthesia Plan Discussed and Chart Reviewed Final Anesthetic Review Family History of Problems with Anesthesia: No History of Problems with Anesthesia: No NPO: Yes ASA Class: IV and Emergency Final Preanesthetic Review: No Changes in Pt Med Stat, Meds/Allgs Chart Reviewed, Consent Obtained/Reviewed and Anes Risks/Benef Reviewed Patient Risk: High Procedure Risk: Intermediate Assessment/Block/Sedation in SS: Assess/Block/Sedation- Anesthetic Plan Anesthetic Plan: MAC: and TIVA Disposition: Inp. Admit - [facility]
--- NOTE | 2023-11-27 12:11 | MHC.SPEECHCO ---
Pt NPO for EGD today. Per RN, Pt communicating better with projected voice now that mental status has improved. STUDIO OPERATION ENGINEER following.
--- NOTE | 2023-11-27 12:14 | MHC.SHP ---
Pre-Procedural Eval Section A Date of Service: 11/27/23 The patient is an INPATIENT: Yes Changes since office visit: No Cold of Flu in the past 2 weeks, No New Medical Problems, No Changes in Medication and No Patient answered all questions The History & Physical has been completed within 30 days and I have reviewed it.: Yes Section B Chief Complaint: facial droop Allergies: Allergies Allergy/AdvReac Type Severity Reaction Status Date / Time Sulfa (Sulfonamide Allergy Unknown DIFFICULTY Verified 03/29/23 09:15 Antibiotics) BREATHING [SULFA(SULFONAMIDE ANTIBIOTICS)] sulfamethoxazole Allergy Unknown DIARRHEA, Verified 03/29/23 09:15 [From BACTRIM] VOMTING, RASH trimethoprim [From BACTRIM] Allergy Unknown DIARRHEA, Verified 03/29/23 09:15 VOMTING, RASH Plan I have reviewed the history and physical and performed a pertinent physical examination on my patient. No changes have occurred unless specified. Time Spent With Patient Time: Total time managing care of this patient today ____ minutes.
--- NOTE | 2023-11-27 12:32 | PM.EVENT ---
Event Note Date of Service: 11/27/23 Event Note: EGD EGD shows gastritis without bleeding, small hiatal hernia and nonobstructive schatzki ring antral biopsies taken. rec: advance diet can restart AC in am oral ppi. Time Spent With Patient Time: Total time managing care of this patient today ____ minutes.
--- NOTE | 2023-11-27 12:34 | P.BOP_ITS ---
Brief Operative Note Date of Service: 11/27/23 Pre-op diagnosis: ugib Post-op diagnosis: same Procedure: egd Surgeon: Erik De aSntiago MD Anesthesia: MAC Was an Inside Phone Sales used for this Procedure?: No Estimated blood loss (mL): 5 Pathology: other Condition: stable Disposition: PACU
--- NOTE | 2023-11-27 12:34 | PM.OP ---
Brief Operative Note Date of Service: 11/27/23 Pre-op diagnosis: ugib Post-op diagnosis: same Procedure: egd Surgeon: Erik De Santiago MD Anesthesia: MAC Was an Rebar Worker used for this Procedure?: No Estimated blood loss (mL): 5 Pathology: other Condition: stable Disposition: PACU
--- NOTE | 2023-11-27 13:23 | OP_ITS ---
DATE OF SERVICE: 11/27/2023 SURGEON: Erik De Santiago MD INDICATIONS: Hematemesis and upper GI. PREOPERATIVE DIAGNOSIS: POSTOPERATIVE DIAGNOSIS: PROCEDURE PERFORMED: Upper endoscopy with biopsy. ESTIMATED BLOOD LOSS: COMPLICATIONS: ANESTHESIA: Monitored anesthesia care. ASSISTANTS: SPECIMENS: DESCRIPTION OF PROCEDURE: A history and physical was performed. The risks and benefits of the procedure were explained to the patient. Informed consent was obtained. The patient was placed in the left lateral decubitus position. The Olympus video gastroscope was introduced into the esophagus, stomach, and duodenum. Examination was performed. The scope was removed. She tolerated the procedure well, was returned to the recovery area in stable condition. FINDINGS: Esophagus: The esophagus was normal. There was nonobstructive Schatzki ring and a small hiatal hernia. There was no esophagitis. Stomach: The stomach showed erythema throughout with no bleeding. No ulcer was seen. Antral biopsies were obtained to evaluate for H pylori. Duodenum: The bulb and 2nd portion were normal. IMPRESSION: 1. Gastritis. 2. Schatzki ring. 3. Hiatal hernia. RECOMMENDATION: 1. Follow up the biopsy result results. 2. Oral proton pump inhibitor. 3. Advance diet. MD STEPHAN Hylton/JAY / [id number]
--- NOTE | 2023-11-27 13:51 | HO.PM.IMPN ---
Subjective Subjective Date of Service: 11/27/23 Interval History: Continues to improve. EGD done results noted. Review of Systems Denies chest pain Denies shortness of breath Denies nausea vomiting diarrhea Denies fever chills Physical Exam Vital Signs: Vital Signs: Last Vital Signs Temp 97.1 F 11/27/23 12:54 Pulse 71 11/27/23 12:54 Resp 18 11/27/23 12:54 BP 105/48 L 11/27/23 12:54 Pulse Ox 96 11/27/23 12:54 O2 Del Method Room Air 11/27/23 12:54 O2 Flow Rate 6 11/27/23 12:37 BMI result Body Mass Index 33.9 Const: Other: Awake alert extremely hard of hearing Resp: Other: Clear to auscultation bilaterally no rales rhonchi or wheezes Cardio: Other: No S4; positive S1-S2; no S3 murmurs rubs or gallops GI: Other: Soft nontender nondistended normoactive bowel sounds Extrem: Other: No edema bilaterally Objective Data Active Medications Acetaminophen (Acetaminophen 325 Mg Tablet) 650 mg PO Q6H PRN PRN Reason: Pain, Mild (Pain Scale 1-3) Last Admin: 11/27/23 01:13 Dose: 650 mg Documented By: KIMBERLY Acetaminophen (Acetaminophen Supp 650 Mg Supp.Rect) 650 mg [place] Q6H PRN PRN Reason: Pain, Mild (Pain Scale 1-3) Allopurinol (Allopurinol 300 Mg Tablet) 300 mg PO DAILY [facility] Last Admin: 11/27/23 08:40 Dose: Not Given Documented By: SANTOS Non-Admin Reason: Patient Refused Atorvastatin Calcium (Atorvastatin Calcium 40 Mg Tablet) 40 mg PO BEDTIME [facility] Last Admin: 11/26/23 20:01 Dose: 40 mg Documented By: HESHAM Carvedilol (Carvedilol 12.5 Mg Tablet) 12.5 mg PO BID [facility]; Protocol Last Admin: 11/27/23 08:39 Dose: 12.5 mg Documented By: SANTOS Ceftriaxone Sodium 1 gm/ (Sodium Chloride) 50 mls @ 100 mls/hr IV Q24H [facility] Last Infusion: 11/26/23 20:31 Dose: Infused Documented By: HESHAM Lactated Ringer's (Lr) 500 mls @ 20 mls/hr IVCONT .Q24H [facility] Last Admin: 11/27/23 13:42 Dose: Not Given Documented By: SANTOS Non-Admin Reason: Per MD Levothyroxine Sodium (Levothyroxine Sodium 100 Mcg Tablet) 100 mcg PO DAILY@0600 [facility] Last Admin: 11/27/23 06:26 Dose: 100 mcg Documented By: KIMBERLY Melatonin (Melatonin 3 Mg Tablet) 6 mg PO BEDTIME PRN PRN Reason: Insomnia Non-Formulary Medication (Ibrutinib [Imbruvica]) 420 mg PO DAILY [facility] Ondansetron HCl (Ondansetron Hcl 4 Mg/2 Ml Vial) 4 mg IVPUSH Q8H PRN PRN Reason: Nausea and Vomiting Last Admin: 11/26/23 23:08 Dose: 4 mg Documented By: HESHAM Ondansetron HCl (Ondansetron Hcl 4 Mg/2 Ml Vial) 4 mg IVPUSH ONCE PRN PRN Reason: Nausea and Vomiting Pantoprazole Sodium (Pantoprazole Sodium 40 Mg/10 Ml Vial) 40 mg IVPUSH BID@0630,1630 [facility] Last Admin: 11/27/23 06:19 Dose: 40 mg Documented By: KIMBERLY Sodium Chloride (0.9 % Sodium Chloride Flush 3 Ml Syringe) 3 ml IVFLUSH QSHIFT [facility] Last Admin: 11/26/23 23:39 Dose: 3 ml Documented By: KIMBERLY Labs 11/27/23 06:10 11/27/23 06:10 Labs: Laboratory Results - last 24 hr 11/27/23 11/27/23 06:10 08:23 MCV 83.0 MCH 27.1 MCHC 32.6 RDW 18.4 H Plt Count 75 L D MPV 12.5 H Immature Gran % (Auto) 2.3 H Neut % (Auto) 69.9 Lymph % (Auto) 21.3 [place] % (Auto) 6.0 Eos % (Auto) 0.0 Baso % (Auto) 0.5 Lymph # (Auto) 0.5 L [place] # (Auto) 0.1 Eos # (Auto) 0.0 Baso # (Auto) 0.0 Abs Immat Gran (auto) 0.05 H Absolute Neuts (auto) 1.5 L Absolute Nucleated RBC 0.000 Nucleated RBC % (auto) 0.0 PT 18.2 H D INR 1.5 H Anion Gap 12 Estim Creat Clear Calc 35.6 Estimated GFR 33 Fasting Glucose 93 Calcium 8.0 L Total Bilirubin 1.1 H AST 40 H ALT 30 Alkaline Phosphatase 77 Total Protein 5.4 L Albumin 3.2 L Microbiology Microbiology Results: Microbiology 11/25/23 Unknown Urine Culture - Final Urine clean catch 11/25/23 21:45 Blood Culture - Final Blood - Venous Coag negative Staphylococcus 11/25/23 21:45 Blood Culture - Preliminary Blood - Venous No growth after 24 hours. 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 1.Facial droop concerning for acute CVA -exam nonfocal -appreciate neurological input -will check MRI for completeness 2.Acute GI bleed -no further hematemesis since admission -IV Protonix b.i.d. -EGD results noted 3. Active urinary sediment -ceftriaxone 1 g daily(3) -given excellent results antibiotic therapy will complete course with Ceftin upon discharge 4.Atrial fibrillation status post pacemaker -acceptable rate control at this time -continue current therapies -hold Eliquis pending scope 5. History of diastolic Congestive heart failure with preserved ejection fraction -no active issues this admission Mechanical Full code Requires ongoing hospitalization for IV antibiotics to treat urinary tract infection and GI evaluation for hematemesis Quality Stroke Does the patient have a stroke diagnosis?: No VTE Prior VTE?: No VTE Risk Level:: Medical - moderate - high VTE Device Contraindication: Treatment Not Indicated VTE Drug Contraindication: N/A - Med Ordered
--- NOTE | 2023-11-27 14:28 | MHC.SPEECHCO ---
Pt cleared to eat again by GI. Diet order changed from Regular to Chopped/Advanced (NDD3) per most recent DIRECTOR [facility]AT[facility] assessment.
[2023-11-27] MEDS: 0.9 % Sodium Chloride Flush 3 ML SYRINGE IVFLUSH ×2 (16:59→23:55)
[2023-11-27] MEDS: Atorvastatin Calcium 40 MG TABLET PO (22:44)
[2023-11-27] MEDS: 0.9 % Sodium Chloride 1,000 ML 100 ML IVCONT (23:20)
[2023-11-27] MEDS: Piperacillin Sodium/Tazobactam 3.375 GM in 0.9 % Sodium Chloride 50 ML IV (23:50)
[2023-11-27 23:59] LABS: Imm Gran Abs Auto 0.02 X10*3/uL (0.00-0.03); Imm Gran Pct Auto 0.9 % (0.0-0.4); Lymphocytes Absolute Auto 0.3 X10*3/uL (1.2-4.9); Monocytes Absolute Auto 0.2 X10*3/uL (0.1-1.2); PLT ABN DIST 1; SCAN SMEAR FLAG 1
[2023-11-28] VITALS (7 sets, daily range): BP systolic 97–126; BP diastolic 48–60; PULSE 70–77; RESP 18–20; TEMP 36.3–38.9; O2SAT 98–99
[2023-11-28 00:01] LABS: Hematocrit 25.8 % (37.0-47.0); Hemoglobin 8.7 g/dl (12.0-16.0); Lymphocytes Percent Auto 14.2 % (20-40); MANUAL DIFF FLAG SCAN; Mean Corpuscular HGB Conc 33.7 g/dl (31.0-35.0); Mean Corpuscular Hemoglobin 27.5 pg (27.0-33.0); Mean Corpuscular Volume 81.6 fL (80.0-98.0); Mean Platelet Volume 12.7 fL (9.4-12.3); Monocytes Percent Auto 7.1 % (2-11); Neutrophils Absolute Auto 1.8 x10*3/uL (2.0-8.3); Neutrophils Percent Auto 77.8 % (45-73); Red Blood Count 3.16 X10*6/uL (4.20-5.50); White Blood Count 2.3 X10*3/uL (4.8-10.8)
[2023-11-28 00:03] LABS: Platelet Count 68 X10*3/uL (160-400)
[2023-11-28 00:14] LABS: Alanine Aminotransferase 27 U/L (0-31); Albumin Level 3.3 g/dL (3.5-5.0); Alkaline Phosphatase 80 U/L (39-117); Anion Gap 13 (12-20); Aspartate Amino Transferase 40 U/L (5-31); Bilirubin Total 1.2 mg/dL (0.0-1.0); Blood Urea Nitrogen 29 mg/dL (9-16); Carbon Dioxide 17 mmol/L (22-29); Chloride 107 mmol/L (96-108); Creatinine Clr Calc Pharmacy 33.7; Estimated Glomerular Filt Rate 31; Glucose Random 99 mg/dL (60-115); Potassium 3.6 mmol/L (3.3-5.1); Sodium 133 mmol/L (135-145); Total Protein 5.4 g/dL (6.5-8.0)
[2023-11-28 00:17] LABS: SLIDE REVIEW VERIFIED
[2023-11-28 00:50] LABS: Influenza A PCR NEGATIVE (Negative); Influenza B PCR NEGATIVE (Negative); Resp Syncy Virus RNA Qual PCR NEGATIVE (Negative); SARS COV2 PCR INHOUSE NEGATIVE (Negative)
[2023-11-28] MEDS: Levothyroxine Sodium 100 MCG TABLET PO (05:12)
[2023-11-28] MEDS: Pantoprazole Sodium 40 MG/10 ML VIAL IVPUSH ×2 (05:12→17:33)
[2023-11-28] MEDS: Piperacillin Sodium/Tazobactam 3.375 GM in 0.9 % Sodium Chloride 50 ML IV ×3 (05:17→17:33)
[2023-11-28 06:52] LABS: Basophils Percent Auto 0.4 % (0-2); Hematocrit 27.5 % (37.0-47.0); Hemoglobin 8.9 g/dl (12.0-16.0); Imm Gran Abs Auto 0.02 X10*3/uL (0.00-0.03); Imm Gran Pct Auto 0.8 % (0.0-0.4); Lymphocytes Absolute Auto 0.5 X10*3/uL (1.2-4.9); Lymphocytes Percent Auto 19.3 % (20-40); MANUAL DIFF FLAG SCAN; Mean Corpuscular HGB Conc 32.4 g/dl (31.0-35.0); Mean Corpuscular Hemoglobin 27.1 pg (27.0-33.0); Mean Corpuscular Volume 83.8 fL (80.0-98.0); Mean Platelet Volume 12.7 fL (9.4-12.3); Monocytes Absolute Auto 0.2 X10*3/uL (0.1-1.2); Monocytes Percent Auto 7.1 % (2-11); Neutrophils Absolute Auto 1.8 x10*3/uL (2.0-8.3); Neutrophils Percent Auto 72.4 % (45-73); Red Blood Count 3.28 X10*6/uL (4.20-5.50); Red Cell Distribution Width 18.2 % (11.0-16.0); SCAN SMEAR FLAG 1
[2023-11-28 06:53] LABS: Platelet Count 58 X10*3/uL (160-400); White Blood Count 2.5 X10*3/uL (4.8-10.8)
[2023-11-28 07:37] LABS: Alanine Aminotransferase 26 U/L (0-31); Albumin Level 3.1 g/dL (3.5-5.0); Alkaline Phosphatase 76 U/L (39-117); Anion Gap 13 (12-20); Aspartate Amino Transferase 40 U/L (5-31); Bilirubin Total 1.3 mg/dL (0.0-1.0); Blood Urea Nitrogen 29 mg/dL (9-16); Calcium 7.9 mg/dL (8.4-10.2); Carbon Dioxide 17 mmol/L (22-29); Chloride 109 mmol/L (96-108); Creatinine Clr Calc Pharmacy 34.7; Estimated Glomerular Filt Rate 32; Glucose Fasting 89 mg/dL (60-99); Potassium 3.5 mmol/L (3.3-5.1); Sodium 135 mmol/L (135-145); Total Protein 5.2 g/dL (6.5-8.0)
--- NOTE | 2023-11-28 07:38 | PC.NURSE ---
pt bundled and stating she was freezing at approx 2230, temp taken and 103.6 MD srinivasa made immediately aware and down to see patient, APAP given, most blankets removed, IV fluids started, IV abx, Vanco and Zosyn started after blood cultures. Pt temp trending down upon recheck to 102.0, next check was WNL. Pt swabbed for resp panel and placed on enhanced precautinos. Plan of care
[2023-11-28] MEDS: carvediloL 12.5 MG TABLET PO ×2 (08:00→22:23)
[2023-11-28] MEDS: 0.9 % Sodium Chloride Flush 3 ML SYRINGE IVFLUSH ×3 (08:00→22:23)
[2023-11-28] MEDS: 0.9 % Sodium Chloride 1,000 ML 100 ML IVCONT ×2 (08:12→17:34)
[2023-11-28 09:04] LABS: Creatinine Clr Calc Pharmacy 34.3; Estimated Glomerular Filt Rate 32
--- NOTE | 2023-11-28 09:20 | HO.POSTANES ---
Post Anesthesia Evaluation Post Anesthesia Evaluation Date of Service: 11/28/23 Vital Signs: Vital Signs Temp Pulse Resp BP Pulse Ox O2 Del Method 11/28/23 07:32 97.6 F 71 20 126/60 98 Room Air 11/28/23 04:00 98.4 F 77 18 97/52 L 99 Room Air 11/28/23 00:22 102.0 F H 11/27/23 23:00 70 18 118/57 L 97 Room Air 11/27/23 22:00 103.6 F H 71 27 H 144/63 H 98 Room Air Anesthesia: Monitored Mental Status: Awake Pain Control: Satisfactory Nausea/Vomiting: None Hydration: Adequate Anesthesia-Related Issues: No Anes. Related Issues
--- NOTE | 2023-11-28 09:21 | PHA.PROG ---
Admission Date/Time: November 25, 2023 23:30 Indication: SEPSIS Weight in k.3 kg Adjusted body weight in Kg 71.12: [place] body weight in K Obesity Dosing Indication % IBW: Serum Creatinine - Last 168 Hours 11/25/23 11/26/23 11/27/23 21:27 05:09 06:10 Creatinine 1.57 H 1.55 H 1.53 H 11/27/23 11/28/23 11/28/23 23:43 06:32 08:09 Creatinine 1.62 H 1.57 H 1.59 H Estimated CrCl and GFR - Last 168 Hours 11/25/23 11/26/23 11/27/23 21:27 05:09 06:10 Estim Creat Clear Calc 34.7 35.2 35.6 Estimated GFR 32 33 33 11/27/23 11/28/23 11/28/23 23:43 06:32 08:09 Estim Creat Clear Calc 33.7 34.7 34.3 Estimated GFR 31 32 32 Vancomycin Loading Dose: 2000 Current Vancomycin Dosing Regimen: 1000 q24H Vancomycin Monitoring using AUC goal of 400 - 600 range with trough as surrogate marker: 489 Date and Time for next Vancomycin Level to be drawn: 11/29 @2300 Pharmacist Comments on Vancomycin Plan: CHANGED TIMING OF LEVEL AND DOSES PHARMACY IS NOT HERE OVERNIGHT Vancomycin dosing will take advantage of [employer] as a clinical decision support tool that uses Bayesian modeling to calculate individual patient's pharmacokinetic parameters and forecast the patient's drug concentration time course with the target goal AUC 24 range of 400 - 600 mg/L/hr.
[2023-11-28] MEDS: Acetaminophen 325 MG TABLET 650 MG PO ×2 (11:41→17:33)
--- NOTE | 2023-11-28 12:51 | MHC.SLORD ---
Speech Language Pathology Order Status: Patient observed to tolerate two Tylenol pills, one at a time, w/ water via cup. No clinical s/s aspiration. Patient reporting pain in her throat, which is reportedly better w/ water and worse w/ food. Patient declined PO trials w/ [employer]. In hallway, approximately 20 minutes later, patient presenting w/ frequent throat clearing behavior. [employer] to continue to follow.
--- NOTE | 2023-11-28 13:03 | P.CNHO_ITS ---
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 In 2018 she was begun on 480 mg of ibrutinib wtih excellent results and has remained on that dose until now. She presents with confusion, possible cva and weakness and pancytopenia of unknown cause. Review of Systems - Constitutional Reports body ache(s), Reports chills - ENT Reports sore throat - Cardiovascular Reports fast heart rate - Respiratory Reports chest congestion, Reports cough - Genitourinary Reports other [facility] Medical History: Medical History (Last Updated 11/27/23 @ 12:24 by Cielo Valadez MD) Atrial fibrillation CLL (chronic lymphocytic leukemia) COVID-19 vaccine series completed Hard of hearing History of cardioversion Hypertension Hypothyroid Leukemia in remission Presence of temporary transvenous cardiac pacemaker Family History: Family History (Last Reviewed 11/27/23 @ 12:09 by Cielo Valadez MD) Mother CAD (coronary artery disease) Sister CAD (coronary artery disease) Father Leukemia Surgical History: Surgical History (Last Reviewed 11/27/23 @ 12:09 by Cielo Valadez MD) Hx of cataract extraction Social History: Social History (Last Reviewed 11/27/23 @ 12:09 by Cielo Valadez MD) Living Situation History: Household Members: Spouse Housing: House Are you a primary career coordinator to a significant other at home: No Do you presently have visiting nurse or other home services: No Tobacco History: Patient Tobacco Use Status: Never used Tobacco Advance Directives: Advance Directives Date on File: 04/20/21 Occupation Assessmet: service: No Current occupational status: retired Home Medications and Allergies Current Medications: Current Medications Acetaminophen (Acetaminophen 325 Mg Tablet) 650 mg PO Q6H PRN PRN Reason: Pain, Mild (Pain Scale 1-3) Last Admin: 11/28/23 11:41 Dose: 650 mg Acetaminophen (Acetaminophen Supp 650 Mg Supp.Rect) 650 mg [place] Q6H PRN PRN Reason: Pain, Mild (Pain Scale 1-3) Allopurinol (Allopurinol 300 Mg Tablet) 300 mg PO DAILY [facility] Last Admin: 11/28/23 07:56 Dose: Not Given Atorvastatin Calcium (Atorvastatin Calcium 40 Mg Tablet) 40 mg PO BEDTIME [facility] Last Admin: 11/27/23 22:44 Dose: 40 mg Carvedilol (Carvedilol 12.5 Mg Tablet) 12.5 mg PO BID [facility]; Protocol Last Admin: 11/28/23 08:00 Dose: 12.5 mg Lactated Ringer's (Lr) 500 mls @ 20 mls/hr IVCONT .Q24H [facility] Last Admin: 11/28/23 11:25 Dose: Not Given Sodium Chloride (Ns) 1,000 mls @ 100 mls/hr IVCONT .Q10H [facility] Last Admin: 11/28/23 08:12 Dose: 100 mls/hr Piperacillin Sod/Tazobactam (Sod 3.375 gm/ Sodium Chloride) 50 mls @ 100 mls/hr IV Q6H [facility] Last Infusion: 11/28/23 12:07 Dose: Infused Vancomycin HCl 1,000 mg/ (Sodium Chloride) 270 mls @ 270 mls/hr IV Q24H [facility] Levothyroxine Sodium (Levothyroxine Sodium 100 Mcg Tablet) 100 mcg PO DAILY@0600 [facility] Last Admin: 11/28/23 05:12 Dose: 100 mcg Melatonin (Melatonin 3 Mg Tablet) 6 mg PO BEDTIME PRN PRN Reason: Insomnia Non-Formulary Medication (Ibrutinib [Imbruvica]) 420 mg PO DAILY [facility] Ondansetron HCl (Ondansetron Hcl 4 Mg/2 Ml Vial) 4 mg IVPUSH Q8H PRN PRN Reason: Nausea and Vomiting Last Admin: 11/26/23 23:08 Dose: 4 mg Ondansetron HCl (Ondansetron Hcl 4 Mg/2 Ml Vial) 4 mg IVPUSH ONCE PRN PRN Reason: Nausea and Vomiting Pantoprazole Sodium (Pantoprazole Sodium 40 Mg/10 Ml Vial) 40 mg IVPUSH BID@0630,1630 [facility] Last Admin: 11/28/23 05:12 Dose: 40 mg Pharmacy Consult (Consult Rx Vancomycin Dosing) 1 each MISCELLANE DAILY PRN PRN Reason: Consult order Sodium Chloride (0.9 % Sodium Chloride Flush 3 Ml Syringe) 3 ml IVFLUSH QSHIFT [facility] Last Admin: 11/28/23 08:00 Dose: 3 ml Home Medications Medication Instructions Recorded Confirmed Type ibrutinib 420 mg tablet (Imbruvica) 420 mg PO DAILY 11/13/22 11/26/23 History allopurinol 300 mg tablet 300 mg PO DAILY 11/26/23 11/26/23 History levothyroxine 100 mcg tablet 100 mcg PO DAILY 11/26/23 11/26/23 History Allergies Allergy/AdvReac Type Severity Reaction Status Date / Time Sulfa (Sulfonamide Allergy Unknown DIFFICULTY Verified 03/29/23 09:15 Antibiotics) BREATHING [SULFA(SULFONAMIDE ANTIBIOTICS)] sulfamethoxazole Allergy Unknown DIARRHEA, Verified 03/29/23 09:15 [From BACTRIM] VOMTING, RASH trimethoprim [From BACTRIM] Allergy Unknown DIARRHEA, Verified 03/29/23 09:15 VOMTING, RASH Physical Exam Vital signs: Vital Signs Temp 97.4 F 11/28/23 11:09 Pulse 75 11/28/23 11:09 Resp 20 11/28/23 11:09 BP 123/60 11/28/23 11:09 Pulse Ox 98 11/28/23 11:09 O2 Del Method Room Air 11/28/23 11:09 O2 Flow Rate 6 11/27/23 12:37 Intake & Output 11/27/23 11/28/23 11/28/23 18:59 06:59 18:59 Intake Total 1030 / 1030 986.667 / 986.667 Balance 1030 / 1030 986.667 / 986.667 Intake: Intake, Oral Amount 480 / 480 Intake, IV Amount 550 / 550 986.667 / 986.667 Piperacillin Sodium/Tazobactam 50 / 50 100 / 100 3.375 gm In 0.9 % Sodium Chloride 50 ml @ 100 mls/hr IV Q6H [facility] Rx#:[id number] vancomycin HCL 2,000 mg In 0.9 500 / 500 % Sodium Chloride 460 ml @ 250 mls/hr IV ONCE ONE Rx#: [id number] 0.9 % Sodium Chloride 1,000 ml 886.667 / 886.667 @ 100 mls/hr IVCONT .Q10H [facility] Rx#:[id number] Other: NPO Yes Number of Incontinent Voids 1 Number of Unmeasured Voids 1 Number of Bowel Movements 1 Urine Bedside Commode Urine Color Yellow Last Bowel Movement 11/26/23 11/26/23 11/27/23 Stool Bedside Commode Stool Amount Small Stool Color Brown Stool Consistency Soft Weight 92.3 kg Weight 92.3 kg - Constitutional Present: no acute distress - Routine HEENT Exam Head: Present: atraumatic, normal inspection ENT: Present: normal oropharynx - Routine Neck Exam Present: supple - Routine Cardiovascular Exam Cardiovascular: Present: RRR - Routine Abdominal Exam Present: diminished bowel sounds - Routine Extremities Exam Present: nontender - Routine Skin Exam Present: intact Hem/Onc Consult Result - Labs CBC & Chem 7: 11/28/23 06:32 11/28/23 08:09 Labs: Short CBC 11/27/23 11/28/23 Range/Units 23:43 06:32 WBC 2.3 L 2.5 L (4.8-10.8) X10*3/uL Hgb 8.7 L 8.9 L (12.0-16.0) g/dl Hct 25.8 L 27.5 L (37.0-47.0) % Plt Count 68 L 58 L (160-400) X10*3/uL BMP 11/27/23 11/28/23 11/28/23 23:43 06:32 08:09 Sodium 133 L 135 Potassium 3.6 3.5 Chloride 107 109 H Carbon Dioxide 17 L 17 L BUN 29 H 29 H Creatinine 1.62 H 1.57 H 1.59 H Calcium 8.0 L 7.9 L Liver Function 11/27/23 11/28/23 Range/Units 23:43 06:32 Total Bilirubin 1.2 H 1.3 H (0.0-1.0) mg/dL AST 40 H 40 H (5-31) U/L ALT 27 26 (0-31) U/L Alkaline Phosphatase 80 76 (39-117) U/L Albumin 3.3 L 3.1 L (3.5-5.0) g/dL Assessment and Plan Patient Active problem list reviewed?: Yes (1) Pancytopenia Status: Acute Assessment and plan: The cause is unclear but not likely due to ibrutinib or CLL. The etiology seems to be an infectious process, will follow. - Time Spent With Patient Time Spent with Patient (in minutes): 20
--- NOTE | 2023-11-28 16:28 | HO.PM.IMPN ---
Subjective Subjective Date of Service: 11/30/23 Interval History: Episode of sore throat today status post EGD; improved during day. Awaiting MRI. Review of Systems Denies chest pain Denies shortness of breath Denies nausea vomiting diarrhea Denies fever chills Physical Exam Vital Signs: Vital Signs: Last Vital Signs Temp 97.7 F 11/28/23 15:50 Pulse 70 11/28/23 15:50 Resp 20 11/28/23 15:50 BP 107/48 L 11/28/23 15:50 Pulse Ox 98 11/28/23 15:50 O2 Del Method Room Air 11/28/23 15:50 O2 Flow Rate 6 11/27/23 12:37 BMI result Body Mass Index 33.9 Const: Other: Awake alert extremely hard of hearing Resp: Other: Clear to auscultation bilaterally no rales rhonchi or wheezes Cardio: Other: No S4; positive S1-S2; no S3 murmurs rubs or gallops GI: Other: Soft nontender nondistended normoactive bowel sounds Extrem: Other: No edema bilaterally Objective Data Active Medications Acetaminophen (Acetaminophen 325 Mg Tablet) 650 mg PO Q6H PRN PRN Reason: Pain, Mild (Pain Scale 1-3) Last Admin: 11/28/23 11:41 Dose: 650 mg Documented By: SANTOS Acetaminophen (Acetaminophen Supp 650 Mg Supp.Rect) 650 mg [place] Q6H PRN PRN Reason: Pain, Mild (Pain Scale 1-3) Allopurinol (Allopurinol 300 Mg Tablet) 300 mg PO DAILY [facility] Last Admin: 11/28/23 07:56 Dose: Not Given Documented By: SANTOS Non-Admin Reason: Patient Refused Atorvastatin Calcium (Atorvastatin Calcium 40 Mg Tablet) 40 mg PO BEDTIME [facility] Last Admin: 11/27/23 22:44 Dose: 40 mg Documented By: GREGORY Carvedilol (Carvedilol 12.5 Mg Tablet) 12.5 mg PO BID [facility]; Protocol Last Admin: 11/28/23 08:00 Dose: 12.5 mg Documented By: SANTOS Lactated Ringer's (Lr) 500 mls @ 20 mls/hr IVCONT .Q24H [facility] Last Admin: 11/28/23 11:25 Dose: Not Given Documented By: HO.KINGKAI Non-Admin Reason: different fluids Sodium Chloride (Ns) 1,000 mls @ 100 mls/hr IVCONT .Q10H [facility] Last Admin: 11/28/23 08:12 Dose: 100 mls/hr Documented By: SANTOS Piperacillin Sod/Tazobactam (Sod 3.375 gm/ Sodium Chloride) 50 mls @ 100 mls/hr IV Q6H [facility] Last Infusion: 11/28/23 12:07 Dose: Infused Documented By: SANTOS Vancomycin HCl 1,000 mg/ (Sodium Chloride) 270 mls @ 270 mls/hr IV Q24H [facility] Levothyroxine Sodium (Levothyroxine Sodium 100 Mcg Tablet) 100 mcg PO DAILY@0600 [facility] Last Admin: 11/28/23 05:12 Dose: 100 mcg Documented By: GREGORY Melatonin (Melatonin 3 Mg Tablet) 6 mg PO BEDTIME PRN PRN Reason: Insomnia Non-Formulary Medication (Ibrutinib [Imbruvica]) 420 mg PO DAILY [facility] Ondansetron HCl (Ondansetron Hcl 4 Mg/2 Ml Vial) 4 mg IVPUSH Q8H PRN PRN Reason: Nausea and Vomiting Last Admin: 11/26/23 23:08 Dose: 4 mg Documented By: HESHAM Ondansetron HCl (Ondansetron Hcl 4 Mg/2 Ml Vial) 4 mg IVPUSH ONCE PRN PRN Reason: Nausea and Vomiting Pantoprazole Sodium (Pantoprazole Sodium 40 Mg/10 Ml Vial) 40 mg IVPUSH BID@0630,1630 [facility] Last Admin: 11/28/23 05:12 Dose: 40 mg Documented By: GREGORY Pharmacy Consult (Consult Rx Vancomycin Dosing) 1 each MISCELLANE DAILY PRN PRN Reason: Consult order Sodium Chloride (0.9 % Sodium Chloride Flush 3 Ml Syringe) 3 ml IVFLUSH QSHIFT [facility] Last Admin: 11/28/23 08:00 Dose: 3 ml Documented By: SANTOS Labs 11/30/23 06:51 11/30/23 06:51 Labs: Laboratory Results - last 24 hr 11/27/23 11/28/23 11/28/23 23:43 06:32 08:09 MCV 81.6 83.8 MCH 27.5 27.1 MCHC 33.7 32.4 RDW 18.0 H 18.2 H Plt Count 68 L 58 L MPV 12.7 H 12.7 H Immature Gran % (Auto) 0.9 H 0.8 H Neut % (Auto) 77.8 H 72.4 Lymph % (Auto) 14.2 L 19.3 L Crisp % (Auto) 7.1 7.1 Eos % (Auto) 0.0 0.0 Baso % (Auto) 0.0 0.4 Lymph # (Auto) 0.3 L 0.5 L Crisp # (Auto) 0.2 0.2 Eos # (Auto) 0.0 0.0 Baso # (Auto) 0.0 0.0 Abs Immat Gran (auto) 0.02 0.02 Absolute Neuts (auto) 1.8 L 1.8 L Absolute Nucleated RBC 0.000 0.000 Nucleated RBC % (auto) 0.0 0.0 Smear Tech's Comments VERIFIED Anion Gap 13 13 Estim Creat Clear Calc 33.7 34.7 34.3 Estimated GFR 31 32 32 Random Glucose 99 Fasting Glucose 89 Lactic Acid 1.0 Calcium 8.0 L 7.9 L Total Bilirubin 1.2 H 1.3 H AST 40 H 40 H ALT 27 26 Alkaline Phosphatase 80 76 Total Protein 5.4 L 5.2 L Albumin 3.3 L 3.1 L Influenza Type A (PCR) NEGATIVE Influenza Type B (PCR) NEGATIVE RSV RNA Qual (PCR) NEGATIVE SARS-CoV-2 RNA (RT-PCR) NEGATIVE Microbiology Microbiology Results: Microbiology 11/25/23 21:45 Blood Culture - Preliminary Blood - Venous No growth after 48 hours. 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 1.Facial droop concerning for acute CVA -exam nonfocal -appreciate neurological input -will check MRI for completeness... Pacer cleared MRI a.m. 125 2.Acute GI bleed -no further hematemesis since admission -IV Protonix b.i.d. 3. Active urinary sediment -ceftriaxone 1 g daily(3) -given excellent results antibiotic therapy will complete course with Ceftin upon discharge 4.Atrial fibrillation status post pacemaker -acceptable rate control at this time -continue current therapies -hold Eliquis pending scope 5. History of diastolic Congestive heart failure with preserved ejection fraction -no active issues this admission Mechanical Full code Requires ongoing hospitalization for IV antibiotics to treat urinary tract infection and GI evaluation for hematemesis Quality Stroke Does the patient have a stroke diagnosis?: No VTE Prior VTE?: No VTE Risk Level:: Medical - moderate - high VTE Device Contraindication: Treatment Not Indicated VTE Drug Contraindication: N/A - Med Ordered
[2023-11-28] MEDS: Atorvastatin Calcium 40 MG TABLET PO (22:23)
[2023-11-28] MEDS: Melatonin 3 MG TABLET 6 MG PO (22:23)
[2023-11-28] MEDS: vancomycin HCL 1,000 MG in 0.9 % Sodium Chloride 250 ML 270 MG IV (22:23)
[2023-11-29] VITALS (7 sets, daily range): BP systolic 104–134; BP diastolic 50–63; PULSE 64–80; RESP 18–20; TEMP 35.9–36.7; O2SAT 98–100
[2023-11-29] MEDS: Piperacillin Sodium/Tazobactam 3.375 GM in 0.9 % Sodium Chloride 50 ML IV ×4 (00:55→17:07)
[2023-11-29] MEDS: 0.9 % Sodium Chloride 1,000 ML 100 ML IVCONT (05:28)
[2023-11-29] MEDS: Pantoprazole Sodium 40 MG/10 ML VIAL IVPUSH (05:29)
[2023-11-29] MEDS: Levothyroxine Sodium 100 MCG TABLET PO (05:29)
[2023-11-29 07:06] LABS: Hematocrit 27.9 % (37.0-47.0); Hemoglobin 8.9 g/dl (12.0-16.0); Imm Gran Abs Auto 0.04 X10*3/uL (0.00-0.03); Imm Gran Pct Auto 1.2 % (0.0-0.4); Lymphocytes Absolute Auto 0.6 X10*3/uL (1.2-4.9); Lymphocytes Percent Auto 18.9 % (20-40); MANUAL DIFF FLAG SCAN; Mean Corpuscular HGB Conc 31.9 g/dl (31.0-35.0); Mean Corpuscular Hemoglobin 26.5 pg (27.0-33.0); Monocytes Absolute Auto 0.2 X10*3/uL (0.1-1.2); Monocytes Percent Auto 7.4 % (2-11); Neutrophils Absolute Auto 2.3 x10*3/uL (2.0-8.3); Neutrophils Percent Auto 72.5 % (45-73); Red Blood Count 3.36 X10*6/uL (4.20-5.50); Red Cell Distribution Width 18.6 % (11.0-16.0); SCAN SMEAR FLAG 1; White Blood Count 3.2 X10*3/uL (4.8-10.8)
[2023-11-29 07:07] LABS: Platelet Count 61 X10*3/uL (160-400)
[2023-11-29 07:17] LABS: Alanine Aminotransferase 31 U/L (0-31); Alkaline Phosphatase 80 U/L (39-117); Anion Gap 13 (12-20); Aspartate Amino Transferase 52 U/L (5-31); Bilirubin Total 1.2 mg/dL (0.0-1.0); Blood Urea Nitrogen 33 mg/dL (9-16); Calcium 7.6 mg/dL (8.4-10.2); Carbon Dioxide 16 mmol/L (22-29); Chloride 112 mmol/L (96-108); Creatinine Clr Calc Pharmacy 32.8; Estimated Glomerular Filt Rate 30; Glucose Fasting 98 mg/dL (60-99); Potassium 3.3 mmol/L (3.3-5.1); Sodium 138 mmol/L (135-145); Total Protein 5.1 g/dL (6.5-8.0)
[2023-11-29 07:45] LABS: SLIDE REVIEW VERIFIED
--- NOTE | 2023-11-29 08:51 | PM.HEMONCPN ---
Medical Summary - Medical Summary Date of Service: 11/29/23 Primary Care Provider: Lupillo Matta MD Interval History Interval history: Sheyla Gutierrez is a 77 year old female well known to me diagnosed with early stage CLL/SLL by bone marrow and flow cytometry. In 2018 she was begun on 480 mg of ibrutinib wtih excellent results and has remained on that dose until now. She presented with confusion, possible cva and weakness and pancytopenia of unknown cause. She has been stable overnight and her WBC and platelets are improving. [facility] Medical History: Medical History (Last Updated 11/27/23 @ 12:24 by Cielo Valadez MD) Atrial fibrillation CLL (chronic lymphocytic leukemia) COVID-19 vaccine series completed Hard of hearing History of cardioversion Hypertension Hypothyroid Leukemia in remission Presence of temporary transvenous cardiac pacemaker Family History: Family History (Last Reviewed 11/27/23 @ 12:09 by Cielo Valadez MD) Mother CAD (coronary artery disease) Sister CAD (coronary artery disease) Father Leukemia Surgical History: Surgical History (Last Reviewed 11/27/23 @ 12:09 by Cielo Valadez MD) Hx of cataract extraction Social History: Social History (Last Reviewed 11/27/23 @ 12:09 by Cielo Valadez MD) Living Situation History: Household Members: Spouse Housing: House Are you a primary lawn care worker to a significant other at home: No Do you presently have visiting nurse or other home services: No Tobacco History: Patient Tobacco Use Status: Never used Tobacco Advance Directives: Advance Directives Date on File: 04/20/21 Occupation Assessmet: service: No Current occupational status: retired Home Medications and Allergies Current Medications: Current Medications Acetaminophen (Acetaminophen 325 Mg Tablet) 650 mg PO Q6H PRN PRN Reason: Pain, Mild (Pain Scale 1-3) Last Admin: 11/28/23 17:33 Dose: 650 mg Acetaminophen (Acetaminophen Supp 650 Mg Supp.Rect) 650 mg MS Q6H PRN PRN Reason: Pain, Mild (Pain Scale 1-3) Allopurinol (Allopurinol 300 Mg Tablet) 300 mg PO DAILY [facility] Last Admin: 11/28/23 07:56 Dose: Not Given Atorvastatin Calcium (Atorvastatin Calcium 40 Mg Tablet) 40 mg PO BEDTIME [facility] Last Admin: 11/28/23 22:23 Dose: 40 mg Carvedilol (Carvedilol 12.5 Mg Tablet) 12.5 mg PO BID [facility]; Protocol Last Admin: 11/28/23 22:23 Dose: 12.5 mg Lactated Ringer's (Lr) 500 mls @ 20 mls/hr IVCONT .Q24H [facility] Last Admin: 11/28/23 11:25 Dose: Not Given Sodium Chloride (Ns) 1,000 mls @ 100 mls/hr IVCONT .Q10H [facility] Last Admin: 11/29/23 05:28 Dose: 100 mls/hr Piperacillin Sod/Tazobactam (Sod 3.375 gm/ Sodium Chloride) 50 mls @ 100 mls/hr IV Q6H [facility] Last Infusion: 11/29/23 06:30 Dose: Infused Vancomycin HCl 1,000 mg/ (Sodium Chloride) 270 mls @ 270 mls/hr IV Q24H [facility] Last Infusion: 11/29/23 00:30 Dose: Infused Levothyroxine Sodium (Levothyroxine Sodium 100 Mcg Tablet) 100 mcg PO DAILY@0600 [facility] Last Admin: 11/29/23 05:29 Dose: 100 mcg Melatonin (Melatonin 3 Mg Tablet) 6 mg PO BEDTIME PRN PRN Reason: Insomnia Last Admin: 11/28/23 22:23 Dose: 6 mg Non-Formulary Medication (Ibrutinib [Imbruvica]) 420 mg PO DAILY [facility] Ondansetron HCl (Ondansetron Hcl 4 Mg/2 Ml Vial) 4 mg IVPUSH Q8H PRN PRN Reason: Nausea and Vomiting Last Admin: 11/26/23 23:08 Dose: 4 mg Ondansetron HCl (Ondansetron Hcl 4 Mg/2 Ml Vial) 4 mg IVPUSH ONCE PRN PRN Reason: Nausea and Vomiting Pharmacy Consult (Consult Rx Vancomycin Dosing) 1 each MISCELLANE DAILY PRN PRN Reason: Consult order Sodium Chloride (0.9 % Sodium Chloride Flush 3 Ml Syringe) 3 ml IVFLUSH QSHIFT [facility] Last Admin: 11/28/23 22:23 Dose: 3 ml Home Medications Medication Instructions Recorded Confirmed Type ibrutinib 420 mg tablet (Imbruvica) 420 mg PO DAILY 11/13/22 11/26/23 History allopurinol 300 mg tablet 300 mg PO DAILY 11/26/23 11/26/23 History levothyroxine 100 mcg tablet 100 mcg PO DAILY 11/26/23 11/26/23 History Allergies Allergy/AdvReac Type Severity Reaction Status Date / Time Sulfa (Sulfonamide Allergy Unknown DIFFICULTY Verified 03/29/23 09:15 Antibiotics) BREATHING [SULFA(SULFONAMIDE ANTIBIOTICS)] sulfamethoxazole Allergy Unknown DIARRHEA, Verified 03/29/23 09:15 [From BACTRIM] VOMTING, RASH trimethoprim [From BACTRIM] Allergy Unknown DIARRHEA, Verified 03/29/23 09:15 VOMTING, RASH Exam Vital signs: Vital Signs Temp 96.8 F 11/29/23 07:45 Pulse 77 11/29/23 07:45 Resp 20 11/29/23 07:45 BP 113/63 11/29/23 07:45 Pulse Ox 100 11/29/23 07:45 O2 Del Method Room Air 11/29/23 07:45 O2 Flow Rate 6 11/27/23 12:37 Intake & Output 11/28/23 11/29/23 11/29/23 18:59 06:59 18:59 Intake Total 2273.334 / 3643.334 1370 / 3643.334 Balance 2273.334 / 3643.334 1370 / 3643.334 Intake: Intake, Oral Amount 300 / 300 Intake, IV Amount 1973.334 / 3343.334 1370 / 3343.334 Piperacillin Sodium/Tazobactam 150 / 250 100 / 250 3.375 gm In 0.9 % Sodium Chloride 50 ml @ 100 mls/hr IV Q6H [facility] Rx#:[id number] vancomycin HCL 1,000 mg In 0.9 270 / 270 % Sodium Chloride 250 ml @ 270 mls/hr IV Q24H [facility] Rx#: [id number] 0.9 % Sodium Chloride 1,000 ml 1823.334 / 2823.334 1000 / 2823.334 @ 100 mls/hr IVCONT .Q10H [facility] Rx#:[id number] Other: Breakfast % Eaten 15% Lunch % Eaten 15% Number of Unmeasured Voids 2 1 Number of Bowel Movements 2 Urine Bedside Commode Bathroom Urine Color Yellow Last Bowel Movement 11/27/23 11/27/23 Stool Bedside Commode Bathroom Stool Amount Small Stool Color Brown Stool Consistency Loose Weight 92.3 kg BMI result Body Mass Index 33.9 - Constitutional Present: no acute distress - Routine HEENT Exam Head: Present: atraumatic, normal inspection - Routine Cardiovascular Exam Cardiovascular: Present: RRR - Routine Abdominal Exam Present: diminished bowel sounds - Routine Extremities Exam Present: nontender - Routine Skin Exam Present: intact - Detailed Neurological Exam: Coma Scale Eye Opening: Spontaneous (4) Data - Labs CBC & Chem 7: 11/29/23 06:33 11/29/23 06:33 Labs: Laboratory Last Values WBC 3.2 X10*3/uL (4.8-10.8) L 11/29/23 06:33 RBC 3.36 X10*6/uL (4.20-5.50) L 11/29/23 06:33 Hgb 8.9 g/dl (12.0-16.0) L 11/29/23 06:33 Hct 27.9 % (37.0-47.0) L 11/29/23 06:33 MCV 83.0 fL (80.0-98.0) 11/29/23 06:33 MCH 26.5 pg (27.0-33.0) L 11/29/23 06:33 MCHC 31.9 g/dl (31.0-35.0) 11/29/23 06:33 RDW 18.6 % (11.0-16.0) H 11/29/23 06:33 Plt Count 61 X10*3/uL (160-400) L 11/29/23 06:33 MPV Not Reportable 11/29/23 06:33 Immature Gran % (Auto) 1.2 % (0.0-0.4) H 11/29/23 06:33 Neut % (Auto) 72.5 % (45-73) 11/29/23 06:33 Lymph % (Auto) 18.9 % (20-40) L 11/29/23 06:33 [place] % (Auto) 7.4 % (2-11) 11/29/23 06:33 Eos % (Auto) 0.0 % (0-4) 11/29/23 06:33 Baso % (Auto) 0.0 % (0-2) 11/29/23 06:33 Lymph # (Auto) 0.6 X10*3/uL (1.2-4.9) L 01/25/24 06:33 [place] # (Auto) 0.2 X10*3/uL (0.1-1.2) 11/29/23 06:33 Eos # (Auto) 0.0 X10*3/uL (0.0-0.4) 11/29/23 06:33 Baso # (Auto) 0.0 X10*3/uL (0.0-0.2) 11/29/23 06:33 Abs Immat Gran (auto) 0.04 X10*3/uL (0.00-0.03) H 11/29/23 06:33 Absolute Neuts (auto) 2.3 x10*3/uL (2.0-8.3) 11/29/23 06:33 Absolute Nucleated RBC 0.000 X10*3/uL (0.0-0.012) 11/29/23 06:33 Nucleated RBC % (auto) 0.0 /100WBC (0.0-0.2) 11/29/23 06:33 Smear Tech's Comments VERIFIED 11/29/23 06:33 Smear Path Review SEE NOTE 11/27/23 06:10 PT 18.2 SEC (11.1-13.3) H D 11/27/23 08:23 Whole Blood PT 28.9 sec (11.1-13.5) H 11/25/23 20:58 INR 1.5 (0.9-1.1) H 11/27/23 08:23 Whole Blood INR 2.4 (0.9-1.1) H 11/25/23 20:58 Sodium 138 mmol/L (135-145) 11/29/23 06:33 Potassium 3.3 mmol/L (3.3-5.1) 11/29/23 06:33 Chloride 112 mmol/L (96-108) H 11/29/23 06:33 Carbon Dioxide 16 mmol/L (22-29) L 11/29/23 06:33 Anion Gap 13 (12-20) 11/29/23 06:33 BUN 33 mg/dL (9-16) H 11/29/23 06:33 Creatinine 1.66 mg/dL (0.5-1.4) H 11/29/23 06:33 Estim Creat Clear Calc 32.8 11/29/23 06:33 Estimated GFR 30 11/29/23 06:33 POC Glucose 115 mg/dL (60-115) 11/25/23 20:58 Random Glucose 99 mg/dL (60-115) 11/27/23 23:43 Fasting Glucose 98 mg/dL (60-99) 11/29/23 06:33 Estimat Average Glucose 94 mg/dL 11/26/23 05:08 Hemoglobin A1c % 4.9 % (<6.0) 11/26/23 05:08 Lactic Acid 1.0 mmol/L (0.5-2.0) 11/27/23 23:43 Calcium 7.6 mg/dL (8.4-10.2) L 11/29/23 06:33 Magnesium 1.8 mg/dL (1.6-2.6) 11/25/23 21:27 Total Bilirubin 1.2 mg/dL (0.0-1.0) H 11/29/23 06:33 Direct Bilirubin 0.6 mg/dL (0.0-0.5) H 11/25/23 21:27 AST 52 U/L (5-31) H 11/29/23 06:33 ALT 31 U/L (0-31) 11/29/23 06:33 Alkaline Phosphatase 80 U/L (39-117) 11/29/23 06:33 Troponin I High Sens 14.5 ng/L (<3.5-17.0) 11/25/23 21:27 Total Protein 5.1 g/dL (6.5-8.0) L 11/29/23 06:33 Albumin 3.0 g/dL (3.5-5.0) L 11/29/23 06:33 Triglycerides 103 mg/dL (<150) 11/26/23 05:09 Cholesterol 119 mg/dL (<200) 11/26/23 05:09 LDL Cholesterol, Calc 53 mg/dL (<100) 11/26/23 05:09 HDL Cholesterol 46 mg/dL (>40) 11/26/23 05:09 Lipase 31 U/L (8-78) 11/25/23 21:27 Urine Color Yellow 11/25/23 22:50 Urine Appearance Clear 11/25/23 22:50 Urine pH 5.5 (5.0-9.0) 11/25/23 22:50 Ur Specific [place] >= 1.030 (1.005-1.025) H 11/25/23 22:50 Urine Protein 30 (1+) mg/dL (Neg-Trace) H 11/25/23 22:50 Urine Glucose (UA) Negative mg/dL (Negative) 11/25/23 22:50 Urine Ketones Negative mg/dL (Negative) 11/25/23 22:50 Urine Blood Large (3+) (Negative) H 11/25/23 22:50 Urine Nitrite Negative (Negative) 11/25/23 22:50 Ur Leukocyte Esterase Negative (Negative) 11/25/23 22:50 Urine RBC 6-10 /HPF (0-2) H 11/25/23 22:50 Urine WBC 11-20 /HPF (0-5) H 11/25/23 22:50 Ur Squamous Epith Cells 0-2 /HPF (0-2) 11/25/23 22:50 Urine Bacteria None Seen (None Seen) 11/25/23 22:50 Hyaline Casts 0-2 /LPF (0-2) 11/25/23 22:50 Stool Occult Blood POSITIVE (NEGATIVE) 11/25/23 23:37 COVID-19 (PHYLLIS) Negative (Negative) 11/25/23 21:27 COVID-19 Clin Com See Note 11/25/23 21:27 Influenza Type A (FAVIAN) Negative (Negative) 11/25/23 21:46 Influenza Type A (PCR) NEGATIVE (Negative) 11/27/23 23:43 Influenza Type B (FAVIAN) Negative (Negative) 11/25/23 21:46 Influenza Type B (PCR) NEGATIVE (Negative) 11/27/23 23:43 Influenza A & B Note See Note 11/25/23 21:46 RSV RNA Qual (PCR) NEGATIVE (Negative) 11/27/23 23:43 SARS-CoV-2 RNA (RT-PCR) NEGATIVE (Negative) 11/27/23 23:43 Blood Type A Positive 11/25/23 22:37 Antibody Screen NEGATIVE 11/25/23 22:37 - Imaging Radiologist's impression: ITS Impressions Head CT 11/25/23 21:05 IMPRESSION: No acute intracranial pathology. This critical result was discussed with Dr. Cordero at 11/25/2023, 9:15 . It was ascertained that the content and urgency of the report was understood at the time of direct communication. Head/Neck CTA 11/25/23 21:12 IMPRESSION: 1. No acute arterial occlusion or hemodynamically significant stenosis within the head or neck. This critical result was discussed with at 9:22 PM on 11/25/2023 and it was ascertained that the content and urgency of the report was understood at the time of direct communication. 2. Cervical spondylosis with apparent multilevel spinal canal stenosis which appears most pronounced and at least moderate at C4-C5 with multilevel severe neural foraminal narrowing. If there is referrable myelopathy/radiculopathy, further evaluation of these findings with dedicated cervical spine MRI may be performed as clinically warranted. 3. Elongated and ossified right greater than left styloid processes/stylohyoid ligaments can be correlated clinically for signs of [place] syndrome. Chest X-Ray 11/25/23 21:51 IMPRESSION: No acute intrathoracic disease. Interval placement of pacemaker. Abdomen/Pelvis CT 11/26/23 00:40 IMPRESSION: Motion limits evaluation. 1. Minimal right middle lobe atelectasis. No definite active infiltrate. 2. Diverticulosis of the descending and sigmoid colon without definitive evidence of diverticulitis. Mild thickening of the distal descending and proximal sigmoid colon may represent a chronic diverticular process. Fleischner guidelines were followed. Chest CT 11/26/23 00:40 IMPRESSION: Motion limits evaluation. 1. Minimal right middle lobe atelectasis. No definite active infiltrate. 2. Diverticulosis of the descending and sigmoid colon without definitive evidence of diverticulitis. Mild thickening of the distal descending and proximal sigmoid colon may represent a chronic diverticular process. Fleischner guidelines were followed. Assessment and Plan Patient Active problem list reviewed?: Yes (1) Pancytopenia Status: Acute Assessment and plan: The hemotology parameters are improving. Recommend no change in your therapy. - Time Spent With Patient Time Spent with Patient (in minutes): 15
[2023-11-29] MEDS: 0.9 % Sodium Chloride Flush 3 ML SYRINGE IVFLUSH ×2 (09:25→17:08)
[2023-11-29] MEDS: carvediloL 12.5 MG TABLET PO ×2 (09:25→22:23)
[2023-11-29] MEDS: Acetaminophen 325 MG TABLET 650 MG PO ×2 (12:45→22:22)
--- NOTE | 2023-11-29 13:18 | P.PNIM_ITS ---
Subjective Subjective Date of Service: 11/29/23 Interval History: seen and examined this morning follow up for facial droop, gi bleeding, fever no fever overnight she reports cough which she says is chronic and some intermittent diarrhea which she also describes as chronic Review of Systems Review of Systems: Yes all other systems are reviewed and are negative Constitutional Constitutional: Denies chills and Denies fever(s) Cardiovascular Cardiovascular: Denies chest pain and Denies dyspnea Respiratory Respiratory: Denies dyspnea Physical Exam 2 Vital Signs: Vital Signs: Last Vital Signs Temp 96.7 F L 11/29/23 11:09 Pulse 72 11/29/23 11:09 Resp 20 11/29/23 11:09 BP 104/56 L 11/29/23 11:09 Pulse Ox 99 11/29/23 12:00 O2 Del Method Room Air 11/29/23 12:00 O2 Flow Rate 6 11/27/23 12:37 BMI result Body Mass Index 33.9 Const: General: cooperative, comfortable, no acute distress, alert and awake Nutritional Appearance: overweight Orientation/consciousness: patient oriented x3 Resp: Effort & Inspection: normal respiratory effort, able to speak in complete sentences, no respiratory distress and no use of accessory muscles Cardio: Rate: regular rate GI: Inspection: No distended Palpation (GI): Soft to palpation and nontender Neuro: General: patient oriented x3 Objective Data Active Medications Acetaminophen (Acetaminophen 325 Mg Tablet) 650 mg PO Q6H PRN PRN Reason: Pain, Mild (Pain Scale 1-3) Last Admin: 11/29/23 12:45 Dose: 650 mg Documented By: URSZULA Acetaminophen (Acetaminophen Supp 650 Mg Supp.Rect) 650 mg SD Q6H PRN PRN Reason: Pain, Mild (Pain Scale 1-3) Allopurinol (Allopurinol 300 Mg Tablet) 300 mg PO DAILY [facility] Last Admin: 11/29/23 09:27 Dose: Not Given Documented By: URSZULA Non-Admin Reason: Patient Refused Atorvastatin Calcium (Atorvastatin Calcium 40 Mg Tablet) 40 mg PO BEDTIME [facility] Last Admin: 11/28/23 22:23 Dose: 40 mg Documented By: REAGAN Carvedilol (Carvedilol 12.5 Mg Tablet) 12.5 mg PO BID [facility]; Protocol Last Admin: 11/29/23 09:25 Dose: 12.5 mg Documented By: URSZULA Lactated Ringer's (Lr) 500 mls @ 20 mls/hr IVCONT .Q24H [facility] Last Admin: 11/29/23 12:36 Dose: Not Given Documented By: URSZULA Non-Admin Reason: different fluids Sodium Chloride (Ns) 1,000 mls @ 100 mls/hr IVCONT .Q10H [facility] Last Admin: 11/29/23 05:28 Dose: 100 mls/hr Documented By: REAGAN Piperacillin Sod/Tazobactam (Sod 3.375 gm/ Sodium Chloride) 50 mls @ 100 mls/hr IV Q6H [facility] Last Infusion: 11/29/23 13:09 Dose: Infused Documented By: URSZULA Vancomycin HCl 1,000 mg/ (Sodium Chloride) 270 mls @ 270 mls/hr IV Q24H [facility] Last Infusion: 11/29/23 00:30 Dose: Infused Documented By: REAGAN Levothyroxine Sodium (Levothyroxine Sodium 100 Mcg Tablet) 100 mcg PO DAILY@0600 [facility] Last Admin: 11/29/23 05:29 Dose: 100 mcg Documented By: REAGAN Melatonin (Melatonin 3 Mg Tablet) 6 mg PO BEDTIME PRN PRN Reason: Insomnia Last Admin: 11/28/23 22:23 Dose: 6 mg Documented By: REAGAN Non-Formulary Medication (Ibrutinib [Imbruvica]) 420 mg PO DAILY [facility] Ondansetron HCl (Ondansetron Hcl 4 Mg/2 Ml Vial) 4 mg IVPUSH Q8H PRN PRN Reason: Nausea and Vomiting Last Admin: 11/26/23 23:08 Dose: 4 mg Documented By: HESHAM Ondansetron HCl (Ondansetron Hcl 4 Mg/2 Ml Vial) 4 mg IVPUSH ONCE PRN PRN Reason: Nausea and Vomiting Pharmacy Consult (Consult Rx Vancomycin Dosing) 1 each MISCELLANE DAILY PRN PRN Reason: Consult order Sodium Chloride (0.9 % Sodium Chloride Flush 3 Ml Syringe) 3 ml IVFLUSH QSHIFT [facility] Last Admin: 11/29/23 09:25 Dose: 3 ml Documented By: URSZULA Labs 11/29/23 06:33 11/29/23 06:33 Labs: Laboratory Results - last 24 hr 11/29/23 06:33 MCV 83.0 MCH 26.5 L MCHC 31.9 RDW 18.6 H Plt Count 61 L MPV Not Reportable Immature Gran % (Auto) 1.2 H Neut % (Auto) 72.5 Lymph % (Auto) 18.9 L [place] % (Auto) 7.4 Eos % (Auto) 0.0 Baso % (Auto) 0.0 Lymph # (Auto) 0.6 L [place] # (Auto) 0.2 Eos # (Auto) 0.0 Baso # (Auto) 0.0 Abs Immat Gran (auto) 0.04 H Absolute Neuts (auto) 2.3 Absolute Nucleated RBC 0.000 Nucleated RBC % (auto) 0.0 Smear Tech's Comments VERIFIED Anion Gap 13 Estim Creat Clear Calc 32.8 Estimated GFR 30 Fasting Glucose 98 Calcium 7.6 L Total Bilirubin 1.2 H AST 52 H ALT 31 Alkaline Phosphatase 80 Total Protein 5.1 L Albumin 3.0 L Microbiology Microbiology Results: Microbiology 11/27/23 23:43 Blood Culture - Preliminary Blood - Venous No growth after 24 hours. 11/27/23 23:43 Blood Culture - Preliminary Blood - Venous No growth after 24 hours. Assessment and Plan (1) Facial droop: Status: Acute (2) Encephalopathy acute: Status: Acute Plan This is a 77-year-old female with pertinent history of paroxysmal atrial fibrillation on Eliquis, hypothyroidism, congestive heart failure with preserved ejection fraction, essential hypertension, LARS not on CPAP, CLL who was sent to the emergency department for evaluation of facial droop. Facial droop concerning for acute CVA exam nonfocal, brain CT negative, MRI negative appreciate neurological input Acute GI bleed no further hematemesis since admission seen by GI s/p EGD showing gastritis, small hiatal hernia and nonobstructive schatzki ring rec oral PPI Active urinary sediment initially treated with IV ceftriaxone, spiked fever overnight on 11/28 and antibiotics were broadened to vanc/zosyn given excellent results antibiotic therapy will consider completing course with Ceftin upon discharge fever initially thought r/t UTI, but culture ultimately negative chest CT, abdomen/pelvis CT without obvious infectious process blood cultures prelim negative covid, flu, RSV negative ID consult pending pancytopenia h/o CLL followed by Dr. Matta, on ibrutinib - not due to CLL white count and platelets starting to improve, follow CBC Atrial fibrillation status post pacemaker continue coreg resume Eliquis per GI CKD3 renal function near baseline History of diastolic Congestive heart failure with preserved ejection fraction -no active issues this admission hypothyroidism continue synthroid DVT ppx - eliquis Full code Requires ongoing hospitalization for IV antibiotics, specialist consultation Quality Stroke Does the patient have a stroke diagnosis?: No VTE Prior VTE?: No VTE Risk Level:: Medical - moderate - high VTE Device Contraindication: Treatment Not Indicated VTE Drug Contraindication: N/A - Med Ordered
--- NOTE | 2023-11-29 14:00 | MHC.SL.SWA ---
Speech Pathologist Impression: Risk of Aspiration Due to: Dysphasia Diet Status: Recommend continue on Chopped/Advanced (NDD3) with thin liquids, pills whole with liquid. Recommend patient resume normal diet after discharge. Liquid Consistency and Strategies for Safe Swallow: Liquid Intake Recommendation: Thin Liquid Intake Strategies: Small Sips Solid Food Consistency: Dietary Recommendations: Chopped/Advanced (NDD3) Additional Modifications to Solid Foods: Oral Medication Intake: Whole with Liquid Please contact the pharmacy regarding appropriate crushable or liquid drug formulations that are available whenever modified delivery is recommended. Compensatory Strategies and Precautions to be Taken for Safe Swallow: Sitting Upright (90 deg) Liquids from Cup Liquids from Straw Small Bites and Sips Alternate Liquids/Solids Supervision While Eating and Drinking for Safe Swallow: None Needed Foods to Avoid: Swallowing Recommended Treatments: Recommendation for Speech: Comment: Recommend UPGRADE to THIN liquids and CHOPPED/ADVANCED solids (NDD3). Chopped/advanced solids recommended secondary to dentition. Pills whole w/ liquid. Recommend FULL SUPERVISION d/t intermittent throat clearing to monitor meals. Recommend VIDEO SPECIALIST to continue to follow during hospitalization. Frequency/Duration: Date Range for Service Req: Timeline to reassess: Corrugated Sheet Material Sheeter Clinican/Clinical Fellow: No Supervisory Statement: I have reviewed and agree with the student/clinical fellow's documentation: N/A Speech Language Pathologist: Violeta Mcginnis M.A., [facility]-VIDEO SPECIALIST
[2023-11-29 21:34] LABS: Vancomycin Random 15.8 mcg/mL (15-20)
--- NOTE | 2023-11-29 21:58 | HE.PHANOTE ---
VANCO DOSE BASED ON SCR AND TORUGH OF 15.8 DOSE CONTINUED AT 1,000 Q24. NEXT LEVEL AT 12/01 21:00
[2023-11-29] MEDS: Atorvastatin Calcium 40 MG TABLET PO (22:23)
[2023-11-29] MEDS: Apixaban 5 MG TABLET PO (22:23)
[2023-11-29] MEDS: vancomycin HCL 1,000 MG in 0.9 % Sodium Chloride 250 ML 270 MG IV (22:32)
--- NOTE | 2023-11-29 23:21 | P.CNID_ITS ---
History of Present Illness Data of Consult Service Date: 11/29/23 Requesting physician: Tiesha Ledbetter Primary Care Provider: Lupillo Matta MD [facility] Reason for consult: fever of unknown origin Shepresents withfacial weakness leftsided for a day. She had temperature 103.[address] tick exposure. CT chest abdomen and pelvis negative. Review of Systems 2 Review of Systems: Yes all other systems are reviewed and are negative PMFSH Past Medical History Medical History Presence of temporary transvenous cardiac pacemaker COVID-19 vaccine series completed Hard of hearing Atrial fibrillation History of cardioversion CLL (chronic lymphocytic leukemia) Hypothyroid Leukemia in remission Hypertension Family History Family History Mother CAD (coronary artery disease) Sister CAD (coronary artery disease) Father Leukemia Family history: reviewed and not pertinent Surgical History Surgical History Hx of cataract extraction Social History Social History Household Members: Spouse Housing: House Are you a primary healthcare receptionist to a significant other at home: No Do you presently have visiting nurse or other home services: No Alcohol intake: never Patient Tobacco Use Status: Never used Tobacco Advance Directives Date on File: 04/20/21 service: No Current occupational status: retired Meds Allergies Allergy/AdvReac Type Severity Reaction Status Date / Time Sulfa (Sulfonamide Allergy Unknown DIFFICULTY Verified 04/14/24 14:22 Antibiotics) BREATHING [SULFA(SULFONAMIDE ANTIBIOTICS)] sulfamethoxazole Allergy Unknown DIARRHEA, Verified 04/14/24 14:22 [From BACTRIM] VOMTING, RASH trimethoprim [From BACTRIM] Allergy Unknown DIARRHEA, Verified 04/14/24 14:22 VOMTING, RASH Active Medications: Current Medications Acetaminophen (Acetaminophen 325 Mg Tablet) 650 mg PO Q6H PRN PRN Reason: Pain, Mild (Pain Scale 1-3) Last Admin: 11/29/23 22:22 Dose: 650 mg Acetaminophen (Acetaminophen Supp 650 Mg Supp.Rect) 650 mg [place] Q6H PRN PRN Reason: Pain, Mild (Pain Scale 1-3) Allopurinol (Allopurinol 300 Mg Tablet) 300 mg PO DAILY [facility] Last Admin: 11/29/23 09:27 Dose: Not Given Apixaban (Apixaban 5 Mg Tablet) 5 mg PO BID [facility] Last Admin: 11/29/23 22:23 Dose: 5 mg Atorvastatin Calcium (Atorvastatin Calcium 40 Mg Tablet) 40 mg PO BEDTIME [facility] Last Admin: 11/29/23 22:23 Dose: 40 mg Carvedilol (Carvedilol 12.5 Mg Tablet) 12.5 mg PO BID [facility]; Protocol Last Admin: 11/29/23 22:23 Dose: 12.5 mg Piperacillin Sod/Tazobactam (Sod 3.375 gm/ Sodium Chloride) 50 mls @ 100 mls/hr IV Q6H [facility] Last Infusion: 11/29/23 17:42 Dose: Infused Vancomycin HCl 1,000 mg/ (Sodium Chloride) 270 mls @ 270 mls/hr IV Q24H [facility] Last Admin: 11/29/23 22:32 Dose: 270 mls/hr Levothyroxine Sodium (Levothyroxine Sodium 100 Mcg Tablet) 100 mcg PO DAILY@0600 [facility] Last Admin: 11/29/23 05:29 Dose: 100 mcg Melatonin (Melatonin 3 Mg Tablet) 6 mg PO BEDTIME PRN PRN Reason: Insomnia Last Admin: 11/28/23 22:23 Dose: 6 mg Non-Formulary Medication (Ibrutinib [Imbruvica]) 420 mg PO DAILY [facility] Omeprazole (Omeprazole 20 Mg Capsule.Dr) 20 mg PO DAILY@0630 [facility] Ondansetron HCl (Ondansetron Hcl 4 Mg/2 Ml Vial) 4 mg IVPUSH Q8H PRN PRN Reason: Nausea and Vomiting Last Admin: 11/26/23 23:08 Dose: 4 mg Ondansetron HCl (Ondansetron Hcl 4 Mg/2 Ml Vial) 4 mg IVPUSH ONCE PRN PRN Reason: Nausea and Vomiting Pharmacy Consult (Consult Rx Vancomycin Dosing) 1 each MISCELLANE DAILY PRN PRN Reason: Consult order Sodium Chloride (0.9 % Sodium Chloride Flush 3 Ml Syringe) 3 ml IVFLUSH QSHIFT [facility] Last Admin: 11/29/23 17:08 Dose: 3 ml Home Medications ?Medication ?Instructions ?Recorded ?Confirmed ?Last Taken ?Type ibrutinib 420 mg tablet (Imbruvica) 420 mg PO DAILY 11/13/22 11/26/23 Unknown History allopurinol 300 mg tablet 300 mg PO DAILY 11/26/23 11/26/23 Unknown History levothyroxine 100 mcg tablet 100 mcg PO DAILY 11/26/23 11/26/23 Unknown History Physical Exam 2 Vital Signs: Vital Signs: Last Vital Signs Temp 96.9 F 11/29/23 19:27 Pulse 80 11/29/23 19:27 Resp 20 11/29/23 19:27 BP 127/60 11/29/23 19:27 Pulse Ox 99 11/29/23 19:27 O2 Del Method Room Air 11/29/23 19:27 O2 Flow Rate 6 11/27/23 12:37 BMI result Body Mass Index 33.9 Const: General: cooperative HEENT: Head: Yes normal to inspection Face and sinus: Yes normal facial exam Mouth: Normal oral and palatal mucosa present Teeth and gingiva: d entition normal Eyes: General: appearance normal, both eyes and all related structures P upils: Equal, round and reactive pupils present Resp: Effort & Inspection: normal respiratory effort Cardio: Rate: regular rate Rhythm: regular rhythm GI: Palpation (GI): Soft to palpation and nontender : General: Yes no CVA tenderness Back/Spine/Pelvis: Back: no CVA tenderness Skin: General skin exam: no rashes or lesions noted Neuro: Other: mild leftfacial droop Cranial nerves: Yes Equal, round and reactive pupils present Extrem: General: Yes normal to inspection Psych: Appearance: grossly normal Results Labs 11/30/23 06:51 11/30/23 06:51 Labs: Short CBC 11/29/23 Range/Units 06:33 WBC 3.2 L (4.8-10.8) X10*3/uL Hgb 8.9 L (12.0-16.0) g/dl Hct 27.9 L (37.0-47.0) % Plt Count 61 L (160-400) X10*3/uL BMP 11/29/23 06:33 Sodium 138 Potassium 3.3 Chloride 112 H Carbon Dioxide 16 L BUN 33 H Creatinine 1.66 H Calcium 7.6 L Liver Function 11/29/23 Range/Units 06:33 Total Bilirubin 1.2 H (0.0-1.0) mg/dL AST 52 H (5-31) U/L ALT 31 (0-31) U/L Alkaline Phosphatase 80 (39-117) U/L Albumin 3.0 L (3.5-5.0) g/dL Microbiology Microbiology Results: Microbiology 11/27/23 23:43 Blood - Venous Blood Culture - Preliminary No growth after 24 hours. 11/27/23 23:43 Blood - Venous Blood Culture - Preliminary No growth after 24 hours. 11/25/23 21:45 Blood - Venous Blood Culture - Preliminary No growth after 48 hours. 11/25/23 Unknown Urine clean catch Urine Culture - Final 11/25/23 21:45 Blood - Venous Blood Culture - Final Coag negative Staphylococcus Assessment and Plan (1) Pancytopenia: Status: Acute (2) Facial droop: Status: Resolved Possible tick borne illness like anaplasmosis with low platelets also Plan Stop IV antibiotics Po Doxycycline for 10 days. Check Lyme serology
[2023-11-30] MEDS: Doxycycline Monohydrate 100 MG CAPSULE PO ×2 (00:51→12:30)
[2023-11-30 03:39] VITALS: BP 137/64; PULSE 71; RESP 20; TEMP 36.8; O2SAT 99
[2023-11-30] MEDS: Levothyroxine Sodium 100 MCG TABLET PO (05:26)
[2023-11-30] MEDS: Omeprazole 20 MG CAPSULE.DR PO (05:27)
[2023-11-30 07:23] LABS: MANUAL DIFF FLAG NO
[2023-11-30 07:43] LABS: Basophils Percent Auto 0.4 % (0-2); Hematocrit 29.1 % (37.0-47.0); Hemoglobin 9.2 g/dl (12.0-16.0); Imm Gran Abs Auto 0.09 X10*3/uL (0.00-0.03); Imm Gran Pct Auto 1.9 % (0.0-0.4); Lymphocytes Absolute Auto 0.6 X10*3/uL (1.2-4.9); Lymphocytes Percent Auto 13.6 % (20-40); Mean Corpuscular HGB Conc 31.6 g/dl (31.0-35.0); Mean Corpuscular Hemoglobin 26.6 pg (27.0-33.0); Mean Corpuscular Volume 84.1 fL (80.0-98.0); Monocytes Absolute Auto 0.3 X10*3/uL (0.1-1.2); Neutrophils Absolute Auto 3.7 x10*3/uL (2.0-8.3); Neutrophils Percent Auto 78.1 % (45-73); Red Blood Count 3.46 X10*6/uL (4.20-5.50); Red Cell Distribution Width 18.8 % (11.0-16.0); White Blood Count 4.7 X10*3/uL (4.8-10.8)
[2023-11-30 07:44] LABS: Platelet Count 82 X10*3/uL (160-400)
[2023-11-30 07:48] VITALS: BP 127/62; PULSE 70; RESP 18; TEMP 37; O2SAT 100
[2023-11-30 07:48] LABS: Creatinine Clr Calc Pharmacy 37.3; Estimated Glomerular Filt Rate 35
[2023-11-30] MEDS: Apixaban 5 MG TABLET PO (08:14)
[2023-11-30] MEDS: carvediloL 12.5 MG TABLET PO (08:14)
[2023-11-30] MEDS: 0.9 % Sodium Chloride Flush 3 ML SYRINGE IVFLUSH (08:15)
[2023-11-30 11:40] LABS: Adenovirus PCR Not Detected (Not Detect.); Bordetella parapertussis PCR Not Detected (Not Detect.); Bordetella pertussis PCR Not Detected (Not Detect.); Chlamydia pneumoniae PCR Not Detected (Not Detect.); Coronavirus 229E PCR Not Detected (Not Detect.); Coronavirus HKU1 PCR Not Detected (Not Detect.); Coronavirus NL63 PCR Not Detected (Not Detect.); Coronavirus OC43 PCR Not Detected (Not Detect.); Human metapneumovirus PCR Not Detected (Not Detect.); Influenza A PCR Not Detected (Not Detect.); Influenza B PCR Not Detected (Not Detect.); Mycoplasma pneumoniae PCR Not Detected (Not Detect.); Parainfluenza 1 PCR Not Detected (Not Detect.); Parainfluenza 2 PCR Not Detected (Not Detect.); Parainfluenza 3 PCR Not Detected (Not Detect.); Parainfluenza 4 PCR Not Detected (Not Detect.); RSV PCR Not Detected (Not Detect.); Rhino/Enterovirus PCR Not Detected (Not Detect.)
--- NOTE | 2023-11-30 11:48 | MHC.SLORD ---
Speech Language Pathology Order Status: Pt refused to participate in bedside PO trials w/ TOXICOLOGY SUPERVISOR, stating pt was too full and too tired. Pt complains of sore throat, but ensuring I still swallow good. Pt is currently on a chopped diet with thin liquids. Notified nursing of sore throat.
[2023-11-30 12:00] VITALS: BP 165/70; PULSE 77; RESP 18; TEMP 36.2; O2SAT 100
[2023-11-30 12:10] LABS: SARS-CoV-2 PCR Not Detected (Not Detect.)
[2023-11-30] MEDS: Acetaminophen 325 MG TABLET 650 MG PO (12:30)
--- NOTE | 2023-11-30 13:29 | PM.DS ---
DS: Providers Provider Date of Service: 11/30/23 Date of admission: 11/25/23 23:30 Date of discharge: 11/30/23 Primary care physician: Lupillo Matta MD Consults: 11/26/23 00:06 Consult to Gastroenterology Routine Consulting Provider: Lupillo Galarza Reason for consultation: GI bleed Consult to Neurology Routine Consulting Provider: [facility] Reason for consultation: /TIA vs CVA 11/28/23 09:27 Consult to Hematology / Oncology Routine Consulting Provider: Loyd Peters Reason for consultation: pancytopenia Has provider been notified: No 11/28/23 17:43 Consult to Infectious Diseases Stat Consulting Provider: [facility] Reason for consultation: fever Has provider been notified: No [facility] Discharging clinician: Tiesha Ledbetter DS: Diagnosis Discharge Diagnosis (1) Pancytopenia: Status: Acute (2) Facial droop: Status: Acute DS: Summary Hospital Course Hospital Course: From H&P on day of admission This is a 77-year-old female with pertinent history of paroxysmal atrial fibrillation on Eliquis, hypothyroidism, congestive heart failure with preserved ejection fraction, essential hypertension, LARS not on CPAP, CLL who was sent to the emergency department for evaluation of facial droop. Family member noted left-sided facial droop and sent the patient to the ER for concerns of acute stroke. Patient did not want to come to the ER and states she feels fine. Family member also noted that patient had an episode of hematemesis. Patient does endorse that she had vomiting but does not remember if it had blood. Patient states that she has not very keen on staying in the hospital and wants to go home. States he is compliant with her home medications. No fever, chills, chest discomfort, palpitations, shortness of breath, abdominal pain, changes in urinary or bowel habits. Facial droop concerning for acute CVA exam nonfocal - patient has not been able to wear bridge since before covid as it doesn't fit comfortably. when mouth closed, appears asymmetrical but no flattening of nasolabial fold; face symmetrical with smile. brain CT negative, MRI negative . Seen by neurology, no other work up recommended. Acute GI bleed no further hematemesis since admission. seen by GI s/p EGD showing gastritis, small hiatal hernia and nonobstructive schatzki ring. recommend oral PPI and to resume Eliquis. H/H has remained stable, no further bleeding episodes. Active urinary sediment initially treated with IV ceftriaxone due to concern for UTI, spiked fever overnight on 11/28 and antibiotics were broadened to vanc/zosyn. urine culture returned negative. fever initially thought r/t UTI, but culture ultimately negative chest CT, abdomen/pelvis CT without obvious infectious process. covid, flu, RSV negative, full RPP negative. Seen by ID, recommend to rule out Lyme, serologies pending at the time of discharge. Id recommends 10 days of oral doxycycline. Blood cultures have remained negative pancytopenia h/o CLL followed by Dr. Matta, on ibrutinib - not due to CLL. white count and platelets starting to improve. recommend outpatient follow up Atrial fibrillation status post pacemaker continue coreg. Eliquis initially held but resumed as per GI recommendation Time Attestation Discharge coordination time: Greater than 30 minutes Quality: Safe Use of Opioids Does Pt have an Active Cancer Diagnosis on the Problem List?: No Quality: Stroke Does the patient have a stroke diagnosis?: No Physical Exam Vital Signs: Vital Signs: Last Vital Signs Temp 97.2 F 11/30/23 12:00 Pulse 77 11/30/23 12:00 Resp 18 11/30/23 12:00 BP 165/70 H 11/30/23 12:00 Pulse Ox 100 11/30/23 12:00 O2 Del Method Room Air 11/30/23 12:00 O2 Flow Rate 6 11/27/23 12:37 BMI result Body Mass Index 33.9 Const: General: cooperative, comfortable, no acute distress, alert and awake Nutritional Appearance: overweight Orientation/consciousness: patient oriented x3 Resp: Effort & Inspection: normal respiratory effort, able to speak in complete sentences, no respiratory distress and no use of accessory muscles Cardio: Rate: regular rate GI: Inspection: No distended Palpation (GI): Soft to palpation and nontender Neuro: General: patient oriented x3 DS: Data Data Completed and Pending Completed studies during hospitalization [Text1]: Pending at discharge 11/27/23 12:32 Surgical [PTH] Routine Procedures Latter-Day of Cardiac Rhythm, Single (04/20/21) Labs on day of discharge: Laboratory Results - last 24 hr 11/29/23 11/30/23 11/30/23 21:06 06:51 08:19 WBC 4.7 L RBC 3.46 L Hgb 9.2 L Hct 29.1 L MCV 84.1 MCH 26.6 L MCHC 31.6 RDW 18.8 H Plt Count 82 L D MPV Not Reportable Immature Gran % (Auto) 1.9 H Neut % (Auto) 78.1 H Lymph % (Auto) 13.6 L [place] % (Auto) 6.0 Eos % (Auto) 0.0 Baso % (Auto) 0.4 Lymph # (Auto) 0.6 L [place] # (Auto) 0.3 Eos # (Auto) 0.0 Baso # (Auto) 0.0 Abs Immat Gran (auto) 0.09 H Absolute Neuts (auto) 3.7 Absolute Nucleated RBC 0.000 Nucleated RBC % (auto) 0.0 Creatinine 1.46 H Estim Creat Clear Calc 37.3 Estimated GFR 35 Random Vancomycin 15.8 Respiratory Panel [place] See Note Adenovirus (Rapid PCR) Not Detected B.pert (TEM-PCR) Not Detected B.parapertussis DNA PCR Not Detected C. pneumoniae DNA (PCR) Not Detected Coronavirus OC43 (PCR) Not Detected Coronavirus HKU1 (PCR) Not Detected Coronavirus 229E (PCR) Not Detected Coronavirus NL63 (PCR) Not Detected Human Metapneumovir PCR Not Detected Influenza A (RT-PCR) Not Detected Influenza B (RT-PCR) Not Detected M. pneumoniae (PCR) Not Detected Parainfluenza 1 (PCR) Not Detected Parainfluenza 2 (PCR) Not Detected Parainfluenza 3 (PCR) Not Detected Parainfluenza 4 (PCR) Not Detected RSV (PCR) Not Detected Entero/Rhino (PCR) Not Detected SARS-CoV-2 RNA (RT-PCR) Not Detected Preliminary micro results at discharge 11/27/23 23:43 Blood Culture - Preliminary Blood - Venous No growth after 48 hours. 11/27/23 23:43 Blood Culture - Preliminary Blood - Venous No growth after 48 hours. 11/25/23 21:45 Blood Culture - Preliminary Blood - Venous No growth after 48 hours. Discharge Plan Discharge Anticipated Discharge Date/Time: 11/30/23 13:58 Patient Disposition: Home, Self-Care Discharge Diagnosis: gastritis facial droop- stroke ruled out fever pancytopenia Referrals: Lupillo Matta MD [Primary Care Provider] - 1 Week Discharge Medications: New doxycycline monohydrate 100 mg Capsule 100 mg PO Q12H 9 Days Qty: 18 0RF omeprazole 20 mg Capsule,Delayed Release(Dr/Ec) 20 mg PO DAILY@0630 30 Days Qty: 30 0RF Continued Eliquis 5 mg tablet 5 mg PO BID 90 Days Qty: 180 3RF Rx Instructions: 60 day canceled and changed to 90 day Imbruvica 420 mg tablet 420 mg PO DAILY levothyroxine 100 mcg tablet 100 mcg PO DAILY allopurinol 300 mg tablet 300 mg PO DAILY carvedilol [Coreg] 12.5 mg tablet 12.5 mg PO BID 90 Days Qty: 180 3RF Rx Instructions: must administer with a meal/food Discharge Orders: Discharge Order (Routine); Ordered 11/30/23 Ordered By: Tiesha Ledbetter Activity on Discharge: As tolerated Stand Alone Forms: Patient Portal Discharge page Care Plan Goals: see below Health Concerns: hematemesis - resolved facial droop - stroke ruled out Fever - no source of infection found; lyme testing pending pancytopenia - improving gastritis Plan of Treatment: recommend completing course of doxycycline as prescribed start taking omeprazole for gastritis call to schedule follow up appointment with PCP Assessment: see discharge summary
--- NOTE | 2023-11-30 14:24 | MHC.CM.PN ---
Pt medically cleared for D/C home self-care with family support, pts daughter to transport her home.
[2023-11-30 15:35] VITALS: BP 121/58; PULSE 70; RESP 18; TEMP 36.1; O2SAT 100
[2023-12-03 19:48] LABS: Lyme Abs Screen <0.90 index
== END 2023-11-30 16:12 | disposition home or self-care (01) | DRG 378 ==
LOC: HO.ED 21:49 → HO.EDOVER 23:35 → HO.IMC 11-26 07:43
PROVIDERS: Hospitalist; Internal Medicine; Internal Medicine Gastroenterology; Admitting Provider Student in an Organized Health Care Education/Training Program; Emergency Provider Emergency Medicine; PCP Internal Medicine Medical Oncology; Visit Provider Physician Assistant Medical
PROC: 0DB78ZX Excision of Stomach, Pylorus, Via Natural or Artificial Opening Endoscopic, Diagnostic (ICD-10-PCS; principal; 2023-11-27 13:30)
DX: K29.71 Gastritis, unspecified, with bleeding (principal); A69.20 Lyme disease, unspecified; I13.0 Hypertensive heart and chronic kidney disease with heart failure and stage 1 through stage 4 chronic kidney disease, or unspecified chronic kidney disease; I50.32 Chronic diastolic (congestive) heart failure; C91.10 Chronic lymphocytic leukemia of B-cell type not having achieved remission; D61.818 Other pancytopenia; Z20.822 Contact with and (suspected) exposure to COVID-19; K44.9 Diaphragmatic hernia without obstruction or gangrene; I48.0 Paroxysmal atrial fibrillation; R29.810 Facial weakness; G47.33 Obstructive sleep apnea (adult) (pediatric); E03.9 Hypothyroidism, unspecified; N18.30 Chronic kidney disease, stage 3 unspecified; Z95.0 Presence of cardiac pacemaker; Z79.01 Long term (current) use of anticoagulants; Z79.69 Long term (current) use of other immunomodulators and immunosuppressants; Z79.890 Hormone replacement therapy; Z79.899 Other long term (current) drug therapy
CPT/HCPCS: 0241U; 36415; 70450; 70496; 70498; 70551; 71045; 71250; 74176; 80048; 80053; 80061; 80076; 80202; 81001; 82272; 82565; 82947; 83036; 83605; 83690; 83735; 84484; 85025; 85610; 86617; 86618; 86850; 86900; 86901; 87040; 87086; 87147; 87205; 87502; 87633; 87635; 88305; 88313; 88342; 92526; 92610; 93005; 99285; C9113; J0696; J2405; J2543; J2704; J3370; Q9967

== ENCOUNTER → 2023-11-25 20:59 | Outpatient (BNV) | payer MEDICARE, SELFPAY | PROVIDERS: Admitting Provider Student in an Organized Health Care Education/Training Program; Emergency Provider Emergency Medicine; PCP Internal Medicine Medical Oncology; Visit Provider Internal Medicine Cardiovascular Disease | DX: I63.9 Cerebral infarction, unspecified (principal) | CPT/HCPCS: 93010 ==

== ENCOUNTER → 2023-11-25 23:30 | Outpatient (BNV) | payer MEDICARE, SELFPAY | PROVIDERS: Admitting Provider Student in an Organized Health Care Education/Training Program; Emergency Provider Emergency Medicine; Visit Provider Student in an Organized Health Care Education/Training Program | DX: D61.818 Other pancytopenia (principal); R29.810 Facial weakness | CPT/HCPCS: 99223; 99233; 99239 ==

== ENCOUNTER → 2023-11-25 23:30 | Outpatient (BNV) | payer MEDICARE, SELFPAY | PROVIDERS: Admitting Provider Student in an Organized Health Care Education/Training Program; Emergency Provider Emergency Medicine; PCP Internal Medicine Medical Oncology; Visit Provider Internal Medicine | DX: D61.818 Other pancytopenia (principal); R29.810 Facial weakness | CPT/HCPCS: 99222 ==

== ENCOUNTER → 2023-11-25 23:30 | Outpatient (BNV) | payer MEDICARE, SELFPAY | PROVIDERS: Admitting Provider Student in an Organized Health Care Education/Training Program; Emergency Provider Emergency Medicine; PCP Internal Medicine Medical Oncology; Visit Provider Psychiatry & Neurology Neurology | DX: R29.810 Facial weakness (principal) | CPT/HCPCS: 99222 ==

== ENCOUNTER → 2023-12-22 23:59 | Outpatient (BNV) | payer MEDICARE, SELFPAY ==
--- NOTE | 2023-12-26 18:49 | A.OFFVIS_ITS ---
Intake Intake Visit Reasons: Remote Device Check- [employer] Allergies Sulfa (Sulfonamide Antibiotics) [SULFA(SULFONAMIDE ANTIBIOTICS)] Allergy (Unknown, Verified 03/29/23 09:15) DIFFICULTY BREATHING sulfamethoxazole [From BACTRIM] Allergy (Unknown, Verified 03/29/23 09:15) DIARRHEA, VOMTING, RASH trimethoprim [From BACTRIM] Allergy (Unknown, Verified 03/29/23 09:15) DIARRHEA, VOMTING, RASH PFSH Medical History Presence of temporary transvenous cardiac pacemaker COVID-19 vaccine series completed Hard of hearing Atrial fibrillation History of cardioversion CLL (chronic lymphocytic leukemia) Hypothyroid Leukemia in remission Hypertension Surgical History Hx of cataract extraction Family History Mother CAD (coronary artery disease) Sister CAD (coronary artery disease) Father Leukemia Social History Household Members: Spouse Housing: House Are you a primary director of medicare to a significant other at home: No Do you presently have visiting nurse or other home services: No Alcohol intake: never Patient Tobacco Use Status: Never used Tobacco Advance Directives Date on File: 04/20/21 service: No Current occupational status: retired Office Procedures Cardiac Device Check Cardiac Device Check Details: Date of service- 12/22/2023 ; Battery life >11 years; normal lead parameters; 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 Overall normal device function. [id number] Cardiac Device Interrogation, pacemaker Procedure code (CPT) selection complete Assessment & Plan Assessment & Plan (1) Persistent atrial fibrillation: Code(s): I48.19 - Other persistent atrial fibrillation Plan x Coding Level of Care Code Procedure Only Diagnoses Persistent atrial fibrillation I48.19 CPT Codes Cardiac Device Check - Cardiac Device 12: [id number] Cardiac Device Interrogation, pacemaker ([id number])
== END ==
PROVIDERS: PCP Internal Medicine Medical Oncology; Visit Provider Internal Medicine
DX: I48.19 Other persistent atrial fibrillation (principal); Z95.0 Presence of cardiac pacemaker
CPT/HCPCS: 93294

== ENCOUNTER 2024-01-25 08:40 | Outpatient (REF) | payer MEDICARE, SELFPAY ==
[2024-01-25 10:28] LABS: MANUAL DIFF FLAG NO
[2024-01-25 10:33] LABS: Basophils Percent Auto 0.3 % (0-2); Eosinophils Absolute Auto 0.1 X10*3/uL (0.0-0.4); Eosinophils Percent Auto 1.3 % (0-4); Hematocrit 31.9 % (37.0-47.0); Hemoglobin 9.8 g/dl (12.0-16.0); Imm Gran Abs Auto 0.07 X10*3/uL (0.00-0.03); Imm Gran Pct Auto 1.1 % (0.0-0.4); Lymphocytes Percent Auto 16.3 % (20-40); Mean Corpuscular HGB Conc 30.7 g/dl (31.0-35.0); Mean Corpuscular Hemoglobin 25.2 pg (27.0-33.0); Mean Platelet Volume 10.5 fL (9.4-12.3); Monocytes Absolute Auto 0.9 X10*3/uL (0.1-1.2); Monocytes Percent Auto 14.8 % (2-11); Neutrophils Percent Auto 66.2 % (45-73); Platelet Count 306 X10*3/uL (160-400); Red Blood Count 3.89 X10*6/uL (4.20-5.50); Red Cell Distribution Width 17.4 % (11.0-16.0); White Blood Count 6.1 X10*3/uL (4.8-10.8)
[2024-01-25 11:12] LABS: Alanine Aminotransferase 11 U/L (0-31); Albumin Level 4.1 g/dL (3.5-5.0); Alkaline Phosphatase 76 U/L (39-117); Anion Gap 11 (12-20); Aspartate Amino Transferase 14 U/L (5-31); Bilirubin Total 0.7 mg/dL (0.0-1.0); Blood Urea Nitrogen 13 mg/dL (9-16); Calcium 9.4 mg/dL (8.4-10.2); Carbon Dioxide 23 mmol/L (22-29); Chloride 109 mmol/L (96-108); Cholesterol 156 mg/dL (<200); Estimated Glomerular Filt Rate 47; Free T4 (Free Thyroxine) 1.08 ng/dL (0.71-1.85); Glucose Fasting 86 mg/dL (60-99); HDL Cholesterol 57 mg/dL (>40); LDL Cholesterol Calculated 76 mg/dL (<100); Potassium 4.4 mmol/L (3.3-5.1); Sodium 139 mmol/L (135-145); Thyroid Stimulating Hormone 5.03 uIU/mL (0.32-4.0); Total Protein 6.9 g/dL (6.5-8.0); Triglycerides 119 mg/dL (<150); Uric Acid 7.6 mg/dL (2.4-5.7)
== END 2024-01-25 08:41 | disposition home or self-care (01) ==
LOC: HO.HMGCLDS 08:40
PROVIDERS: PCP Internal Medicine Medical Oncology; Visit Provider Internal Medicine Medical Oncology
DX: C91.10 Chronic lymphocytic leukemia of B-cell type not having achieved remission (principal); I10 Essential (primary) hypertension; E03.9 Hypothyroidism, unspecified; E66.9 Obesity, unspecified; M10.9 Gout, unspecified
CPT/HCPCS: 36415; 80053; 80061; 84439; 84443; 84550; 85025

== ENCOUNTER → 2024-03-21 23:59 | Outpatient (BNV) | payer MEDICARE, SELFPAY ==
--- NOTE | 2024-03-31 12:18 | MHC.OFFVIS ---
Intake Visit Reasons: Remote device check- [employer] Allergies Sulfa (Sulfonamide Antibiotics) [SULFA(SULFONAMIDE ANTIBIOTICS)] Allergy (Unknown, Verified 03/29/23 09:15) DIFFICULTY BREATHING sulfamethoxazole [From BACTRIM] Allergy (Unknown, Verified 03/29/23 09:15) DIARRHEA, VOMTING, RASH trimethoprim [From BACTRIM] Allergy (Unknown, Verified 03/29/23 09:15) DIARRHEA, VOMTING, RASH PFSH Medical History Presence of temporary transvenous cardiac pacemaker COVID-19 vaccine series completed Hard of hearing Atrial fibrillation History of cardioversion CLL (chronic lymphocytic leukemia) Hypothyroid Leukemia in remission Hypertension Surgical History Hx of cataract extraction Family History Mother CAD (coronary artery disease) Sister CAD (coronary artery disease) Father Leukemia Social History Household Members: Spouse Housing: House Are you a primary career consultant to a significant other at home: No Do you presently have visiting nurse or other home services: No Alcohol intake: never Patient Tobacco Use Status: Never used Tobacco Advance Directives Date on File: 04/20/21 service: No Current occupational status: retired Office Procedures Cardiac Device Check Cardiac Device Check Details: Date of service- 03/21/2024 ; Battery life >11 years; normal lead parameters; 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 Overall normal device function. [id number] Cardiac Device Interrogation, pacemaker Procedure code (CPT) selection complete Assessment & Plan Assessment & Plan (1) PAF (paroxysmal atrial fibrillation): Code(s): I48.0 - Paroxysmal atrial fibrillation Category: Medical Plan x Coding Level of Care Code Procedure Only Diagnoses PAF (paroxysmal atrial fibrillation) I48.0 CPT Codes Cardiac Device Check - Cardiac Device 12: [id number] Cardiac Device Interrogation, pacemaker ([id number])
== END ==
PROVIDERS: PCP Internal Medicine Medical Oncology; Visit Provider Internal Medicine
DX: I48.0 Paroxysmal atrial fibrillation (principal); Z95.0 Presence of cardiac pacemaker
CPT/HCPCS: 93294

== ENCOUNTER 2024-04-14 13:07 | Outpatient (AMB) | payer MEDICARE, SELFPAY ==
[2024-04-14 14:20] VITALS: BP 139/52; PULSE 83; BMI 32.3
--- NOTE | 2024-04-14 14:20 | A.OFFVIS_ITS ---
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 Required: No Allergies Sulfa (Sulfonamide Antibiotics) [SULFA(SULFONAMIDE ANTIBIOTICS)] Allergy (Unknown, Verified 04/14/24 14:22) DIFFICULTY BREATHING sulfamethoxazole [From BACTRIM] Allergy (Unknown, Verified 04/14/24 14:22) DIARRHEA, VOMTING, RASH trimethoprim [From BACTRIM] Allergy (Unknown, Verified 04/14/24 14:22) DIARRHEA, VOMTING, RASH HPI HPI 1 yr w/ MED ck: Details: Sheyla is a 78-year-old female with past medical history of hypertension, CLL, obstructive sleep apnea, untreated, heart failure with preserved EF, atrial fibrillation status post AV node ablation, pacemaker who presents for follow-up. Her last prior visit to our office was 02/20/2023. Today she reports she has been doing well in the last few months. She did have a hospital admission in November for possible CVA which was ruled out and possible GI bleed and was found to have gastritis. She has not had any recent cardiac issues. She denies any chest discomfort at rest or with activity. No concerning shortness of breath, PND, orthopnea or edema. No palpitations, lightheadedness, presyncope, syncope, falls. Taking all meds as directed. No bleeding issues reported. [facility] Medical History Presence of temporary transvenous cardiac pacemaker COVID-19 vaccine series completed Hard of hearing Atrial fibrillation History of cardioversion CLL (chronic lymphocytic leukemia) Hypothyroid Leukemia in remission Hypertension Surgical History Hx of cataract extraction Family History Mother CAD (coronary artery disease) Sister CAD (coronary artery disease) Father Leukemia Social History Household Members: Spouse Housing: House Are you a primary career based intervention coordinator to a significant other at home: No Do you presently have visiting nurse or other home services: No Alcohol intake: never Patient Tobacco Use Status: Never used Tobacco Advance Directives Date on File: 04/20/21 service: No Current occupational status: retired Review of Systems ENT Reports dizziness Card Denies chest pain, Denies chest pain at rest, Denies chest pain with activity, Denies rapid heart rate, Denies pedal edema, Denies edema, Denies leg edema, Denies lightheadedness, Denies palpitations, Denies dyspnea, Denies dyspnea on exertion and Denies orthopnea Resp Denies cough, Denies dyspnea and Denies dyspnea on exertion GI Denies hematochezia and Denies change in stool character Musc Denies abnormal gait, Reports limited range of motion, Reports muscle cramps, Denies muscle weakness, Denies numbness, Denies radiating pain into limb, Denies stiffness and Denies tingling Neuro Denies abnormal gait, Reports dizziness, Denies numbness and Denies tingling Endo Denies palpitations Physical Exam Vital Signs: Last Vital Signs Pulse 83 04/14/24 14:20 BP 139/52 L 04/14/24 14:20 BMI result Body Mass Index 32.3 Office Procedures Cardiac Device Check Cardiac Device Check Details: Medtronic single-chamber pacemaker interrogation today, VVIR mode, rate 70-120, battery 11 years, increased ADLs activity on rate response from 95-100, 03/28/2024 a 2nd episode of NSVT, 12 beats at 20:26, RV threshold 0.5 volts at 0.4 milliseconds [id number] Cardiac Device Check, leadless/single lead pacemaker Procedure code (CPT) selection complete Assessment & Plan Assessment & Plan (1) PAF (paroxysmal atrial fibrillation): Code(s): I48.0 - Paroxysmal atrial fibrillation Category: Medical Plan: History of paroxysmal atrial fibrillation previously treated with cardioversion x2, amiodarone, difficult to control rates and then eventually requiring AV node ablation. She now has single-chamber pacemaker in place. She denies any heart palpitations. She is on carvedilol 12.5 mg b.i.d.. She is also on Eliquis 5 mg b.i.d. for anticoagulation. No bleeding issues reported. Labs done 01/25/2024 showed creatinine 1.13. Continue current treatment plan. (2) Chronic heart failure with preserved ejection fraction (HFpEF): Code(s): I50.32 - Chronic diastolic (congestive) heart failure Category: Medical Plan: History of heart failure with preserved EF. Last echocardiogram 01/17/2023 shows EF 52%, grade 3 diastolic dysfunction, moderate tricuspid regurgitation, mild mitral stenosis, mild pulmonary hypertension. She denies symptoms of shortness of breath or edema. On exam she does not appear fluid overloaded. She is not on diuretic therapy. Device interrogation today shows a 5 second NSVT. She does not recall any symptoms. Will update echocardiogram to ensure EF is normal, plan to call her with results. Continue current carvedilol. (3) Hypertension: Code(s): I10 - Essential (primary) hypertension Category: Medical Plan: Slight elevation today. Typically runs in the normal range. She reports compliance with her medication. Continue carvedilol. (4) LARS (obstructive sleep apnea): Code(s): G47.33 - Obstructive sleep apnea (adult) (pediatric) Category: Medical Plan: Unable to tolerate mask. (5) Pacemaker: Code(s): Z95.0 - Presence of cardiac pacemaker Category: Medical Plan: Medtronic single chamber pacemaker interrogation today showing device is functioning normally. She had a 5 second episode of NSVT. Will continue to monitor remotely. If she has recurrent NSVT then will plan to increase carvedilol dose and may need stress test. (6) NSVT (nonsustained ventricular tachycardia): Code(s): I47.29 - Other ventricular tachycardia Category: Medical Plan: as above Orders: Orders CA echo transthoracic complete Today I47.29 - Other ventricular tachycardia, I48.0 - Paroxysmal atrial fibrillation, I50.32 - Chronic diastolic (congestive) heart failure Medications: Refilled carvedilol (Coreg) must administer with a meal/food 12.5 mg PO BID 90 days 180 tabs 3RF Patient Instructions: Time spent on chart review, documentation, interview and assessment Coding Level of Care Code Est Pt Level 4 (78451) Diagnoses PAF (paroxysmal atrial fibrillation) I48.0 Chronic heart failure with preserved ejection fraction (HFpEF) I50.32 Hypertension I10 LARS (obstructive sleep apnea) G47.33 Pacemaker Z95.0 NSVT (nonsustained ventricular tachycardia) I47.29 CPT Codes Cardiac Device Check - Cardiac Device 1: [id number] Cardiac Device Check, leadless/single lead pacemaker ([id number]) Time Spent (min) 30
== END 2024-04-14 15:09 | disposition home or self-care (01) ==
PROVIDERS: PCP Internal Medicine Medical Oncology; Visit Provider Nurse Practitioner Family
DX: I48.0 Paroxysmal atrial fibrillation (principal); I11.0 Hypertensive heart disease with heart failure; I50.32 Chronic diastolic (congestive) heart failure; G47.33 Obstructive sleep apnea (adult) (pediatric); I47.29 Other ventricular tachycardia; Z95.0 Presence of cardiac pacemaker
CPT/HCPCS: 93279; 99214

== ENCOUNTER → 2024-04-14 13:07 | Outpatient (BNVA) | payer MEDICARE, SELFPAY | PROVIDERS: PCP Internal Medicine Medical Oncology; Visit Provider Nurse Practitioner Family | DX: Z45.018 Encounter for adjustment and management of other part of cardiac pacemaker (principal); I48.0 Paroxysmal atrial fibrillation; I11.0 Hypertensive heart disease with heart failure; I50.32 Chronic diastolic (congestive) heart failure; I47.29 Other ventricular tachycardia; G47.33 Obstructive sleep apnea (adult) (pediatric) | CPT/HCPCS: 99212 ==

== ENCOUNTER 2024-04-24 07:34 | Outpatient (REF) | payer MEDICARE, SELFPAY ==
[2024-04-24 10:26] LABS: MANUAL DIFF FLAG NO
[2024-04-24 10:33] LABS: Basophils Percent Auto 0.7 % (0-2); Eosinophils Percent Auto 0.5 % (0-4); Hematocrit 33.8 % (37.0-47.0); Imm Gran Abs Auto 0.04 X10*3/uL (0.00-0.03); Imm Gran Pct Auto 0.9 % (0.0-0.4); Lymphocytes Absolute Auto 0.8 X10*3/uL (1.2-4.9); Lymphocytes Percent Auto 18.2 % (20-40); Mean Corpuscular HGB Conc 29.6 g/dl (31.0-35.0); Mean Corpuscular Hemoglobin 22.2 pg (27.0-33.0); Mean Corpuscular Volume 74.9 fL (80.0-98.0); Monocytes Absolute Auto 0.7 X10*3/uL (0.1-1.2); Monocytes Percent Auto 17.5 % (2-11); Neutrophils Absolute Auto 2.6 x10*3/uL (2.0-8.3); Neutrophils Percent Auto 62.2 % (45-73); Platelet Count 277 X10*3/uL (160-400); Red Blood Count 4.51 X10*6/uL (4.20-5.50); Red Cell Distribution Width 18.5 % (11.0-16.0); White Blood Count 4.2 X10*3/uL (4.8-10.8)
[2024-04-24 10:56] LABS: Alanine Aminotransferase 12 U/L (0-31); Albumin Level 4.1 g/dL (3.5-5.0); Alkaline Phosphatase 67 U/L (39-117); Anion Gap 12 (12-20); Aspartate Amino Transferase 16 U/L (5-31); Bilirubin Total 0.6 mg/dL (0.0-1.0); Blood Urea Nitrogen 16 mg/dL (9-16); Carbon Dioxide 24 mmol/L (22-29); Chloride 108 mmol/L (96-108); Cholesterol 161 mg/dL (<200); Estimated Glomerular Filt Rate 41; Glucose Fasting 83 mg/dL (60-99); HDL Cholesterol 55 mg/dL (>40); LDL Cholesterol Calculated 85 mg/dL (<100); Potassium 4.3 mmol/L (3.3-5.1); Sodium 140 mmol/L (135-145); Total Protein 6.7 g/dL (6.5-8.0); Triglycerides 106 mg/dL (<150)
[2024-04-24 11:02] LABS: Free T4 (Free Thyroxine) 1.26 ng/dL (0.71-1.85); Thyroid Stimulating Hormone 2.46 uIU/mL (0.32-4.0)
== END 2024-04-24 07:35 | disposition home or self-care (01) ==
LOC: HO.HMGCLDS 07:34
PROVIDERS: PCP Internal Medicine Medical Oncology; Visit Provider Internal Medicine Medical Oncology
DX: C91.10 Chronic lymphocytic leukemia of B-cell type not having achieved remission (principal); I10 Essential (primary) hypertension; E03.9 Hypothyroidism, unspecified; E66.9 Obesity, unspecified
CPT/HCPCS: 36415; 80053; 80061; 84439; 84443; 85025

== ENCOUNTER → 2024-05-02 07:59 | Outpatient (REF) | payer MEDICARE, SELFPAY ==
--- NOTE | 2024-05-02 08:01 | CA_ITS ---
Transthoracic Echocardiogram Patient (Last, First, Middle): Sheyla Gutierrez P Gender: Female Date of : 1945 Age: 78 Procedure Date: 05/02/2024 Procedure Type: Transthoracic Echocardiogram Location: OP Height: 162.56 cm Weight: 89.36 kg BSA: 1.94 m2 Heart Rate: 70 bpm BP: 160 / 86 mmHg Chain Saw Mechanic: TO Referring MD: Myrna Carney BATTERY PLATE REMOVER-C Compliance Program Manager: Randal Yee MD Symptoms: I47.29 - Other ventricular tachycardia Study Quality: Adequate ECG Rhythm: Ventriculary paced rhythm Conclusions: - 1. Low normal LV ejection fraction 50-55% 2. Moderately dilated left atrium 3. Moderate mitral calcification with mild mitral regurgitation 4. Pqby-zx-wqedyset tricuspid regurgitation with mildly elevated right ventricular systolic pressure 5. No pericardial effusion Findings Left Ventricle Normal left ventricular cavity size. There is normal left ventricular wall thickness. The left ventricular systolic function is low normal. The visually estimated ejection fraction is between 50-55%. There is paradoxical septal motion consistent with a right ventricular pacemaker. Diastolic function is indeterminate on the basis of available data. There is mild septal asymmetric hypertrophy. Right Ventricle Mildly increased right ventricular cavity size. There is mildly decreased right ventricular systolic function. There is a pacemaker wire seen in the right ventricle. Atria The left atrium is moderately dilated. Interatrial shunt cannot be excluded. The right atrium is moderately dilated. A pacemaker wire is identified in the right atrium. Aortic Valve Normal aortic valve structure and function. There is no aortic valve stenosis. There is no aortic valve regurgitation. Mitral Valve There is mild anterior and moderate posterior mitral leaflet thickening. There is moderate mitral annular calcification. There is mild mitral valve regurgitation. There is no mitral valve stenosis. Pulmonic Valve The pulmonic valve is likely normal. There is trace pulmonic valve regurgitation. Tricuspid Valve There is mild to moderate tricuspid valve regurgitation. Mildly elevated right atrial pressure. Mild pulmonary hypertension is present. Great Vessels All visible segments of the aorta are normal in size. The pulmonary artery was not well visualized. Venous The inferior vena cava is mildly dilated and collapses less than 50% with inspiration. Pericardium/Pleural There is no evidence of pericardial effusion. Prior Study Comparison No significant change compared to prior study dated: 01/17/2023. Measurements 2D Linear Measurements IVSd: 1.20 0.6-0.9/0.6-1.0 cm LVIDd: 4.40 3.9-5.3/4.2-5.9 cm LVIDd Index: 2.27 2.4-3.2/2.2-3.1 cm/m2 LVIDs: 2.50 2.0-3.6 cm LVPWd: 0.93 0.7-1.1 cm LA Diam: 4.60 2.7-3.8/3.0-4.0 cm LAIDs Index: 2.37 1.5-2.3 cm/m2 LV Mass: 201.39 67-162/88-224 g LV Mass Index: 103.81 43-95/49-115 g/m2 LVOT Diam: 1.90 3.0+(-)1.3 cm 2D Systolic Function EF 4C: 54.50 >55% EF 2C: 50.90 >55% EF BiP: 53.40 >55% Mitral Valve MV VTI: 0.37 MV Pk Omer: 1.78 MV Mn Omer: 0.88 MV Pk Grad: 13.00 MV Mn Grad: 4.00 MV Pk E: 1.70 MV PK A: 0.26 MV Decel Time: 213.00 E/A: 6.60 E'Lateral: 7.40 E'Medial: 7.62 E/E' Med: 22.30 E/E' Lat: 23.00 PHT: 63.00 MVA PHT: 3.49 MVA Continuity: 1.36 Decel [place]: 7.95 Aortic Valve AoV Pk Omer: 1.26 AoV Mn Omer: 0.89 AoV VTI: 0.29 AoV Pk Grad: 6.00 Aov Mn Grad: 4.00 ADOLFO Cont.VTI: 1.75 LVOT LVOT Pk Omer: 0.79 LVOT Mn Omer: 0.50 LVOT VTI: 0.18 LVOT Pk Grad: 3.00 LVOT Mn Grad: 1.00 LVOT Diam: 1.90 LVOT Area: 2.84 Diastolic Function MV Pk E: 1.70 MV Pk A: 0.26 E/A: 6.60 E'Medial: 7.62 E/E' Med: 22.30 E' Laterial: 7.40 E/E' Lat: 23.00 Right Ventricle TAPSE (mm): 15.60 TVS' Omer: 9.00 Tricuspid Valve TR Pk Omer: 3.00 TR Pk Grad: 36.00 RA Press: 8.00 RVSP: 44.00 Great Vessels Aorta Sinus of Valsalva: 2.80 2.0-3.[address] [place]: 2.10 1.7-3.4 cm Ao Asc: 3.30 2.1-3.4 cm Updated in Other Vendor System with Status of Final Randal Yee MD electronically signed on 05/02/2024 3:24:59 PM with status of Final
== END ==
LOC: HO.CARD 07:59
PROVIDERS: PCP Internal Medicine Medical Oncology; Visit Provider Nurse Practitioner Family
DX: I47.29 Other ventricular tachycardia (principal); I50.32 Chronic diastolic (congestive) heart failure; I48.0 Paroxysmal atrial fibrillation
CPT/HCPCS: 93306

== ENCOUNTER → 2024-05-02 08:01 | Outpatient (BNV) | payer MEDICARE, SELFPAY | PROVIDERS: PCP Internal Medicine Medical Oncology; Visit Provider Internal Medicine Cardiovascular Disease | DX: I34.0 Nonrheumatic mitral (valve) insufficiency (principal); I34.81 Nonrheumatic mitral (valve) annulus calcification; I36.1 Nonrheumatic tricuspid (valve) insufficiency; I42.2 Other hypertrophic cardiomyopathy | CPT/HCPCS: 93306 ==

== ENCOUNTER → 2024-06-19 23:59 | Outpatient (BNV) | payer MEDICARE, SELFPAY ==
--- NOTE | 2024-06-25 08:48 | MHC.OFFVIS ---
Intake Visit Reasons: Remote device check-Medtronic Allergies Sulfa (Sulfonamide Antibiotics) [SULFA(SULFONAMIDE ANTIBIOTICS)] Allergy (Unknown, Verified 04/14/24 14:22) DIFFICULTY BREATHING sulfamethoxazole [From BACTRIM] Allergy (Unknown, Verified 04/14/24 14:22) DIARRHEA, VOMTING, RASH trimethoprim [From BACTRIM] Allergy (Unknown, Verified 04/14/24 14:22) DIARRHEA, VOMTING, RASH PFSH Medical History Presence of temporary transvenous cardiac pacemaker COVID-19 vaccine series completed Hard of hearing Atrial fibrillation History of cardioversion CLL (chronic lymphocytic leukemia) Hypothyroid Leukemia in remission Hypertension Surgical History Hx of cataract extraction Family History Mother CAD (coronary artery disease) Sister CAD (coronary artery disease) Father Leukemia Social History Household Members: Spouse Housing: House Are you a primary intensive care unit nurse to a significant other at home: No Do you presently have visiting nurse or other home services: No Alcohol intake: never Patient Tobacco Use Status: Never used Tobacco Advance Directives Date on File: 04/20/21 service: No Current occupational status: retired Office Procedures Cardiac Device Check Cardiac Device Check Details: Date of service- 06/19/2024 ; Battery life >10 years; normal lead parameters; GUEST HOUSE MANAGER 100%; no significant arrhythmias. Overall normal device function. [id number] Cardiac Device Interrogation, pacemaker Procedure code (CPT) selection complete Assessment & Plan Assessment & Plan (1) Persistent atrial fibrillation: Code(s): I48.19 - Other persistent atrial fibrillation Category: Medical Plan x Coding Level of Care Code Procedure Only Diagnoses Persistent atrial fibrillation I48.19 CPT Codes Cardiac Device Check - Cardiac Device 12: [id number] Cardiac Device Interrogation, pacemaker ([id number])
== END ==
PROVIDERS: PCP Internal Medicine Medical Oncology; Visit Provider Internal Medicine
DX: I48.19 Other persistent atrial fibrillation (principal); Z95.0 Presence of cardiac pacemaker
CPT/HCPCS: 93294

== ENCOUNTER → 2024-09-18 23:59 | Outpatient (BNV) | payer MEDICARE, SELFPAY ==
--- NOTE | 2024-09-24 08:43 | A.OFFVIS_ITS ---
Intake Visit Reasons: Remote device check- Medtronic Allergies Sulfa (Sulfonamide Antibiotics) [SULFA(SULFONAMIDE ANTIBIOTICS)] Allergy (Unknown, Verified 04/14/24 14:22) DIFFICULTY BREATHING sulfamethoxazole [From BACTRIM] Allergy (Unknown, Verified 04/14/24 14:22) DIARRHEA, VOMTING, RASH trimethoprim [From BACTRIM] Allergy (Unknown, Verified 04/14/24 14:22) DIARRHEA, VOMTING, RASH PFSH Medical History Presence of temporary transvenous cardiac pacemaker COVID-19 vaccine series completed Hard of hearing Atrial fibrillation History of cardioversion CLL (chronic lymphocytic leukemia) Hypothyroid Leukemia in remission Hypertension Surgical History Hx of cataract extraction Family History Mother CAD (coronary artery disease) Sister CAD (coronary artery disease) Father Leukemia Social History Household Members: Spouse Housing: House Are you a primary direct care counselor to a significant other at home: No Do you presently have visiting nurse or other home services: No Alcohol intake: never Patient Tobacco Use Status: Never used Tobacco Advance Directives Date on File: 04/20/21 service: No Current occupational status: retired Office Procedures Cardiac Device Check Cardiac Device Check Details: Date of service- 09/18/2024 ; Battery life >10 years; normal lead parameters; HEALTH SCIENCE INSTRUCTOR >99%; 4 beat tachy run, ?NSVT. Overall normal device function. [id number] Cardiac Device Interrogation, pacemaker Procedure code (CPT) selection complete Assessment & Plan Assessment & Plan (1) Pacemaker: Code(s): Z95.0 - Presence of cardiac pacemaker Category: Medical (2) Persistent atrial fibrillation: Code(s): I48.19 - Other persistent atrial fibrillation Category: Medical (3) NSVT (nonsustained ventricular tachycardia): Code(s): I47.29 - Other ventricular tachycardia Category: Medical Plan x Coding Level of Care Code Procedure Only Diagnoses Pacemaker Z95.0 Persistent atrial fibrillation I48.19 NSVT (nonsustained ventricular tachycardia) I47.29 CPT Codes Cardiac Device Check - Cardiac Device 12: [id number] Cardiac Device Interrogation, pacemaker ([id number])
== END ==
PROVIDERS: PCP Internal Medicine Medical Oncology; Visit Provider Internal Medicine
DX: I48.19 Other persistent atrial fibrillation (principal); I47.29 Other ventricular tachycardia; Z95.0 Presence of cardiac pacemaker
CPT/HCPCS: 93294

== ENCOUNTER → 2024-12-17 23:59 | Outpatient (BNV) | payer MEDICARE, SELFPAY ==
--- NOTE | 2024-12-27 19:06 | MHC.OFFVIS ---
Intake Visit Reasons: Remote device check- Medtronic Allergies Sulfa (Sulfonamide Antibiotics) [SULFA(SULFONAMIDE ANTIBIOTICS)] Allergy (Unknown, Verified 04/14/24 14:22) DIFFICULTY BREATHING sulfamethoxazole [From BACTRIM] Allergy (Unknown, Verified 04/14/24 14:22) DIARRHEA, VOMTING, RASH trimethoprim [From BACTRIM] Allergy (Unknown, Verified 04/14/24 14:22) DIARRHEA, VOMTING, RASH PFSH Medical History Presence of temporary transvenous cardiac pacemaker COVID-19 vaccine series completed Hard of hearing Atrial fibrillation History of cardioversion CLL (chronic lymphocytic leukemia) Hypothyroid Leukemia in remission Hypertension Surgical History Hx of cataract extraction Family History Mother CAD (coronary artery disease) Sister CAD (coronary artery disease) Father Leukemia Social History Household Members: Spouse Housing: House Are you a primary child care development specialist to a significant other at home: No Do you presently have visiting nurse or other home services: No Alcohol intake: never Patient Tobacco Use Status: Never used Tobacco Advance Directives Date on File: 04/20/21 service: No Current occupational status: retired Office Procedures Cardiac Device Check Cardiac Device Check Details: Date of service- 12/17/2024 ; Battery life >10years; normal lead parameters; BRAND MANAGER 99%; no significant arrhythmias. Overall normal device function. [id number] Cardiac Device Interrogation, pacemaker Procedure code (CPT) selection complete Assessment & Plan Assessment & Plan (1) Pacemaker: Code(s): Z95.0 - Presence of cardiac pacemaker Category: Medical (2) PAF (paroxysmal atrial fibrillation): Code(s): I48.0 - Paroxysmal atrial fibrillation Category: Medical Plan x Coding Level of Care Code Procedure Only Diagnoses Pacemaker Z95.0 PAF (paroxysmal atrial fibrillation) I48.0 CPT Codes Cardiac Device Check - Cardiac Device 12: [id number] Cardiac Device Interrogation, pacemaker ([id number])
== END ==
PROVIDERS: PCP Internal Medicine Medical Oncology; Visit Provider Internal Medicine
DX: I48.0 Paroxysmal atrial fibrillation (principal); Z95.0 Presence of cardiac pacemaker
CPT/HCPCS: 93294

== ENCOUNTER → 2025-03-17 23:59 | Outpatient (BNV) | payer MEDICARE, SELFPAY ==
--- NOTE | 2025-03-23 19:24 | A.OFFVIS_ITS ---
Intake Visit Reasons: Remote device check- Medtronic Allergies Sulfa (Sulfonamide Antibiotics) [SULFA(SULFONAMIDE ANTIBIOTICS)] Allergy (Unknown, Verified 04/14/24 14:22) DIFFICULTY BREATHING sulfamethoxazole [From BACTRIM] Allergy (Unknown, Verified 04/14/24 14:22) DIARRHEA, VOMTING, RASH trimethoprim [From BACTRIM] Allergy (Unknown, Verified 04/14/24 14:22) DIARRHEA, VOMTING, RASH PFSH Medical History Presence of temporary transvenous cardiac pacemaker COVID-19 vaccine series completed Hard of hearing Atrial fibrillation History of cardioversion CLL (chronic lymphocytic leukemia) Hypothyroid Leukemia in remission Hypertension Surgical History Hx of cataract extraction Family History Mother CAD (coronary artery disease) Sister CAD (coronary artery disease) Father Leukemia Social History Household Members: Spouse Housing: House Are you a primary acute care certified nursing assistant to a significant other at home: No Do you presently have visiting nurse or other home services: No Alcohol intake: never Patient Tobacco Use Status: Never used Tobacco Advance Directives Date on File: 04/20/21 service: No Current occupational status: retired Office Procedures Cardiac Device Check Cardiac Device Check Details: Date of service- 03/17/2025 ; Battery life >10 years; normal lead parameters; LIFE SUPPORT TECHNICIAN 98%; no significant arrhythmias. Overall normal device function. [id number] Cardiac Device Interrogation, pacemaker Procedure code (CPT) selection complete Assessment & Plan Assessment & Plan (1) Pacemaker: Code(s): Z95.0 - Presence of cardiac pacemaker Category: Medical (2) Persistent atrial fibrillation: Code(s): I48.19 - Other persistent atrial fibrillation Category: Medical Plan x Coding Level of Care Code Procedure Only Diagnoses Pacemaker Z95.0 Persistent atrial fibrillation I48.19 CPT Codes Cardiac Device Check - Cardiac Device 12: [id number] Cardiac Device Interrogation, pacemaker ([id number])
== END ==
PROVIDERS: PCP Internal Medicine Medical Oncology; Visit Provider Internal Medicine
DX: I48.19 Other persistent atrial fibrillation (principal); Z95.0 Presence of cardiac pacemaker
CPT/HCPCS: 93294

== ENCOUNTER 2025-04-13 12:27 | Outpatient (AMB) | payer MEDICARE, SELFPAY ==
--- NOTE | 2025-04-13 13:03 | A.OFFVIS_ITS ---
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 Allergies Sulfa (Sulfonamide Antibiotics) [SULFA(SULFONAMIDE ANTIBIOTICS)] Allergy (Unknown, Verified 04/14/24 14:22) DIFFICULTY BREATHING sulfamethoxazole [From BACTRIM] Allergy (Unknown, Verified 04/14/24 14:22) DIARRHEA, VOMTING, RASH trimethoprim [From BACTRIM] Allergy (Unknown, Verified 04/14/24 14:22) DIARRHEA, VOMTING, RASH Medication List - Last Reconciled 04/13/25 by Esvin Bush MD allopurinol 300 mg PO DAILY apixaban (Eliquis) 5 mg PO BID 90 days carvedilol (Coreg) 12.5 mg PO BID 90 days furosemide 20 mg PO DAILY ibrutinib (Imbruvica) 420 mg PO DAILY levothyroxine 100 mcg PO DAILY HPI Comments Details: Sheyla returns for follow-up. In the past, she was seen regarding atrial fibrillation as well as congestive heart failure. Has had NICA/cardioversion and then yet another cardioversion, but difficult to control in spite of amiodarone use. Then she was just controlled only on beta-blockers but rates were still very difficult to control. Subsequently, underwent AV node ablation. Over the last year or so she states she has actually been quite well. She has not had any issues like angina or shortness of breath or palpitations or anyt g[place] else of cardiac nature. She states she is getting along fine. [facility] Medical History Presence of temporary transvenous cardiac pacemaker COVID-19 vaccine series completed Hard of hearing Atrial fibrillation History of cardioversion CLL (chronic lymphocytic leukemia) Hypothyroid Leukemia in remission Hypertension Surgical History Hx of cataract extraction Family History Mother CAD (coronary artery disease) Sister CAD (coronary artery disease) Father Leukemia Social History Household Members: Spouse Housing: House Are you a primary director of career services to a significant other at home: No Do you presently have visiting nurse or other home services: No Alcohol intake: never Patient Tobacco Use Status: Never used Tobacco Advance Directives Date on File: 04/20/21 service: No Current occupational status: retired Review of Systems Const Denies weakness ENT Denies dizziness Card Denies chest pain, Denies chest pain with activity, Denies syncope, Denies rapid heart rate, Denies pedal edema, Denies edema, Denies leg edema, Denies lightheadedness, Denies palpitations, Denies dyspnea, Denies dyspnea on exertion and Denies orthopnea Resp Denies cough, Denies dyspnea and Denies dyspnea on exertion GI Denies hematochezia and Denies change in stool character Musc Denies abnormal gait, Denies muscle cramps, Denies muscle weakness, Denies numbness, Denies radiating pain into limb and Denies tingling Neuro Denies abnormal gait, Denies dizziness, Denies syncope, Denies numbness, Denies tingling and Denies weakness Endo Denies palpitations Physical Exam Vital Signs: Last Vital Signs Pulse 80 04/13/25 13:04 BP 128/62 04/13/25 13:04 BMI result Body Mass Index 32.3 Const General: comfortable and no acute distress Orientation/consciousness: patient oriented x3 HEENT Other: Unremarkable Head: Yes normal to inspection Neck Neck: Yes normal visual inspection Chest Chest palpation & inspection: normal inspection of the chest Resp Auscultation: clear to auscultation bilaterally Cardio Palpation: normal PMI Heart sounds: S1 normal heart sound present, S2 normal heart sound present, no gallops, no murmurs and no rubs GI Palpation (GI): Soft to palpation Back/Spine/Pelvis Other: unremarkable Skin General skin exam: no rashes or lesions noted Neuro General: patient oriented x3 Extrem General: Yes normal to inspection Psych Mental Status: mental status grossly normal Office Procedures Cardiac Device Check Cardiac Device Check Details: Pacemaker interrogated today. Programmed VVIR. Battery status 10 years. Ventricular pacing 99%. Normal lead parameters. No episodes since 02/12/2025. Overall, normal device function. [id number] Cardiac Device Check, pacemaker dual lead Procedure code (CPT) selection complete Assessment & Plan Assessment & Plan (1) Persistent atrial fibrillation: Code(s): I48.19 - Other persistent atrial fibrillation Category: Medical Plan: Status post AV guido ablation. Continue Eliquis. (2) Chronic heart failure with preserved ejection fraction (HFpEF): Code(s): I50.32 - Chronic diastolic (congestive) heart failure Category: Medical Plan: On low-dose diuretics. No changes. Routine labs can be performed through her own PCP. (3) Hypertension: Code(s): I10 - Essential (primary) hypertension Category: Medical Plan: Stable on carvedilol. No changes. Of note, previously amlodipine could not be used because of possible interaction with Imbruvica. Has CKD and hence difficult to using MARY inhibitors or ARB. (4) LARS (obstructive sleep apnea): Code(s): G47.33 - Obstructive sleep apnea (adult) (pediatric) Category: Medical Plan: Sleep study shows moderately severe obstructive sleep apnea. Not interested in CPAP and has been discussed numerous times. Orders: Orders Complete Blood Count no Diff Today I48.19 - Other persistent atrial fibrillation Comprehensive Met. Panel Today I48.19 - Other persistent atrial fibrillation Coding Level of Care Code Est Pt Level 4 (15277) Complex EM visit Add On G2211 Diagnoses Persistent atrial fibrillation I48.19 Chronic heart failure with preserved ejection fraction (HFpEF) I50.32 Hypertension I10 LARS (obstructive sleep apnea) G47.33 CPT Codes Cardiac Device Check - Cardiac Device 2: [id number] Cardiac Device Check, pacemaker dual lead ([id number])
[2025-04-13 13:04] VITALS: BP 128/62; PULSE 80; BMI 32.3
== END 2025-04-13 13:23 | disposition home or self-care (01) ==
LOC: HO.HCS 12:28
PROVIDERS: PCP Internal Medicine Medical Oncology; Visit Provider Internal Medicine
DX: I48.19 Other persistent atrial fibrillation (principal); I50.32 Chronic diastolic (congestive) heart failure; I10 Essential (primary) hypertension; G47.33 Obstructive sleep apnea (adult) (pediatric)
CPT/HCPCS: 93280; 99214; G2211

== ENCOUNTER → 2025-04-13 12:27 | Outpatient (BNVA) | payer MEDICARE, SELFPAY | PROVIDERS: PCP Internal Medicine Medical Oncology; Visit Provider Internal Medicine | DX: Z45.018 Encounter for adjustment and management of other part of cardiac pacemaker (principal); I48.19 Other persistent atrial fibrillation; I11.0 Hypertensive heart disease with heart failure; I50.32 Chronic diastolic (congestive) heart failure; G47.33 Obstructive sleep apnea (adult) (pediatric) | CPT/HCPCS: 93280; 99212 ==

== ENCOUNTER 2025-04-17 08:28 | Outpatient (REF) | payer MEDICARE, SELFPAY ==
[2025-04-17 10:06] LABS: Hematocrit 37.4 % (37.0-47.0); Hemoglobin 11.9 g/dl (12.0-16.0); Mean Corpuscular HGB Conc 31.8 g/dl (31.0-35.0); Mean Corpuscular Hemoglobin 26.6 pg (27.0-33.0); Mean Corpuscular Volume 83.7 fL (80.0-98.0); Mean Platelet Volume 10.3 fL (9.4-12.3); Platelet Count 233 X10*3/uL (160-400); Red Blood Count 4.47 X10*6/uL (4.20-5.50); Red Cell Distribution Width 17.3 % (11.0-16.0); White Blood Count 5.8 X10*3/uL (4.8-10.8)
[2025-04-17 11:04] LABS: Alanine Aminotransferase 15 U/L (0-31); Albumin Level 4.4 g/dL (3.5-5.0); Alkaline Phosphatase 68 U/L (39-117); Anion Gap 9 (12-20); Aspartate Amino Transferase 21 U/L (5-31); Bilirubin Total 0.7 mg/dL (0.0-1.0); Blood Urea Nitrogen 19 mg/dL (9-16); Calcium 9.3 mg/dL (8.4-10.2); Carbon Dioxide 27 mmol/L (22-29); Chloride 107 mmol/L (96-108); Estimated Glomerular Filt Rate 36; Glucose Random 85 mg/dL (60-115); Potassium 4.7 mmol/L (3.3-5.1); Sodium 138 mmol/L (135-145); Total Protein 6.9 g/dL (6.5-8.0)
== END 2025-04-17 08:29 | disposition home or self-care (01) ==
LOC: HO.HMGCLDS 08:28
PROVIDERS: PCP Internal Medicine Medical Oncology; Visit Provider Internal Medicine
DX: I48.19 Other persistent atrial fibrillation (principal)
CPT/HCPCS: 36415; 80053; 85027

== ENCOUNTER 2025-05-11 08:39 | Outpatient (REF) | payer MEDICARE, SELFPAY ==
[2025-05-11 10:47] LABS: MANUAL DIFF FLAG NO
[2025-05-11 10:59] LABS: Hematocrit 37.8 % (37.0-47.0); Hemoglobin 11.8 g/dl (12.0-16.0); Imm Gran Abs Auto 0.05 X10*3/uL (0.00-0.03); Imm Gran Pct Auto 1.0 % (0.0-0.4); Lymphocytes Absolute Auto 1.0 X10*3/uL (1.2-4.9); Mean Corpuscular HGB Conc 31.2 g/dl (31.0-35.0); Mean Corpuscular Hemoglobin 26.2 pg (27.0-33.0); Mean Corpuscular Volume 83.8 fL (80.0-98.0); NRBC Abs Auto 0.000 X10*3/uL (0.0-0.012); NRBC Pct Auto 0.0 /100WBC (0.0-0.2); Platelet Count 227 X10*3/uL (160-400); Red Blood Count 4.51 X10*6/uL (4.20-5.50); White Blood Count 5.1 X10*3/uL (4.8-10.8)
[2025-05-11 12:10] LABS: Free T4 (Free Thyroxine) 1.24 ng/dL (0.71-1.85); Thyroid Stimulating Hormone 2.34 uIU/mL (0.32-4.0)
[2025-05-11 12:44] LABS: Anion Gap 10 (12-20)
[2025-05-11 12:48] LABS: Alanine Aminotransferase 13 U/L (0-31); Albumin Level 4.3 g/dL (3.5-5.0); Alkaline Phosphatase 64 U/L (39-117); Aspartate Amino Transferase 23 U/L (5-31); Blood Urea Nitrogen 17 mg/dL (9-16); Calcium 9.2 mg/dL (8.4-10.2); Carbon Dioxide 24 mmol/L (22-29); Chloride 109 mmol/L (96-108); Cholesterol 170 mg/dL (<200); Estimated Glomerular Filt Rate 40; HDL Cholesterol 54 mg/dL (>40); Potassium 4.3 mmol/L (3.3-5.1); Sodium 139 mmol/L (135-145); Total Protein 6.7 g/dL (6.5-8.0); Triglycerides 124 mg/dL (<150); Uric Acid 6.0 mg/dL (2.4-5.7)
== END 2025-05-11 08:40 | disposition home or self-care (01) ==
LOC: HO.HMGCLDS 08:39
PROVIDERS: PCP Internal Medicine Medical Oncology; Visit Provider Internal Medicine Medical Oncology
DX: C91.10 Chronic lymphocytic leukemia of B-cell type not having achieved remission (principal); I10 Essential (primary) hypertension; E03.9 Hypothyroidism, unspecified; I48.91 Unspecified atrial fibrillation
CPT/HCPCS: 36415; 80053; 80061; 84439; 84443; 84550; 85025

== ENCOUNTER 2025-06-18 08:32 | Outpatient (REF) | payer MEDICARE, SELFPAY ==
--- NOTE | ~2025-06-18 | MM_ITS ---
EXAMINATION: MM SCREENING DIGITAL BREAST TOMOSYNTHESIS, BILATERAL CLINICAL INFORMATION: Screening. Asymptomatic. COMPARISON: Mammography: Comparison is made with available priors TECHNIQUE: Digital breast mammography with tomosynthesis is performed in both the craniocaudal and mediolateral oblique views along with computer-aided detection (CAD). FINDINGS: There are scattered areas of fibroglandular density (ACR BI-RADS breast composition Category b). Left pacemaker overlies and obscures the superior posterior left breast on MLO view. There are no significant masses, abnormal calcifications, or other abnormalities. MM/MM tomosynthesis screening BI IMPRESSION: No mammographic evidence of malignancy. ASSESSMENT: BI-RADS BI-RADS 2 - Benign Findings RECOMMENDATION: Routine annual mammography screening. 1 year F/U This examination should not preclude the clinical evaluation of a suspicious palpable abnormality. This patient's information was entered into a reminder system with a target due date for their next mammogram. Electronically signed by: Conchita Vaughn DO 06/23/2025 11:48 AM EDT
== END 2025-06-18 08:33 | disposition home or self-care (01) ==
LOC: HO.MAMMO 08:32
PROVIDERS: PCP Internal Medicine Medical Oncology; Visit Provider Internal Medicine Medical Oncology
DX: Z12.31 Encounter for screening mammogram for malignant neoplasm of breast (principal)
CPT/HCPCS: 77063; 77067

== ENCOUNTER → 2025-06-18 09:00 | Outpatient (BNV) | payer MEDICARE, SELFPAY | PROVIDERS: PCP Internal Medicine Medical Oncology; Visit Provider Internal Medicine | DX: Z12.31 Encounter for screening mammogram for malignant neoplasm of breast (principal) | CPT/HCPCS: 77063; 77067 ==